=== PATIENT | female | born 2000 | race Caucasian/White ===

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

== ENCOUNTER 2019-03-28 11:21 | Emergency (ER) | payer MEDICAID, SELFPAY ==
[2019-03-28 11:22] VITALS: BP 129/74; PULSE 109; RESP 20; TEMP 37.2; BMI 29.9
[2019-03-28 11:41] VITALS: RESP 16
--- NOTE | 2019-03-28 11:56 | ED.DCSUM_ITS ---
- ER Visit Summary Date of Service: 03/28/19 Chief Complaint: Nausea, vomiting and diarrhea History of Present Illness: The patient is a 18 F no seen past medical history. Patient states yesterday started having nausea, vomiting diarrhea. Only mild abdominal cramping. No dysuria. No melena. No fever. Physical Examination: Young female no acute distress vital signs stable afebrile. She does not look septic or toxic. H EENT exam mildly dry mucous membranes. Neck nontender no lymphadenopathy. Lungs clear to auscultation bilaterally. Heart regular rhythm no murmur. Abdomen soft and nontender normal bowel sounds no peritoneal signs. No distention or signs of obstruction. Patient moving all 4 extremities. Skin unremarkable. No edema. Back nontender. Neurologically she is awake and alert with no focal motor deficits. Test Results: None Emergency Department Course and Treatment: History and exam are consistent with a viral gastroenteritis and mild dehydration. She will be treated with IV Zofran a liter normal saline p.o. fluid challenge. Repeat exam doing well at 1340 recovery room discharged home. Treatment Plan: Fluids and rest. Zofran for nausea. Return if worse. Follow- up with a primary care physician as needed. Disposition: Discharge Impression: Acute viral gastroenteritis Mild dehydration This note was generated with [employer] dictation software. It may contain incorrect words, spelling, and punctuation that were not noted in review of the chart prior to signing ED Disposition - Plan for ED Patient: Disposition: Home or Assisted Living Instructions: GASTROENTERITIS, Viral (5y-Adult) Prescriptions: Ondansetron [Zofran Odt] 4 mg PO Q8H PRN PRN #7 tab PRN Reason: Nausea Prescription Printed Referrals: Jose Carlos Browning MD [Primary Care Provider] - 3-5 Days if not improving Additional Instructions: Fluids and rest. Zofran as needed for nausea. Follow-up if not improving or return to ER feeling worse.
--- NOTE | 2019-03-28 11:58 | ED.DEP ---
ED Disposition - Plan for ED Patient: Disposition: Home or Assisted Living Instructions: GASTROENTERITIS, Viral (5y-Adult) Prescriptions: Ondansetron [Zofran Odt] 4 mg PO Q8H PRN PRN #7 tab PRN Reason: Nausea Prescription Printed Referrals: Jose Carlos Browning MD [Primary Care Provider] - 3-5 Days if not improving Additional Instructions: Fluids and rest. Zofran as needed for nausea. Follow-up if not improving or return to ER feeling worse.
[2019-03-28] MEDS: 0.9% Normal Saline 1,000 ML 1000 ML IV (12:56)
[2019-03-28] MEDS: Ondansetron 4 MG/2 ML Vial IV (12:56)
[2019-03-28 12:57] VITALS: BP 115/66; PULSE 70; RESP 15; O2SAT 100
[2019-03-28 13:55] VITALS: PULSE 89; RESP 15; O2SAT 99
== END 2019-03-28 13:55 | disposition home or self-care (01) ==
LOC: ED 12:12
PROVIDERS: Emergency Provider Emergency Medicine; Family Provider Family Medicine; PCP Family Medicine
DX: A08.4 Viral intestinal infection, unspecified (principal); E86.0 Dehydration; Z72.0 Tobacco use
CPT/HCPCS: 96361; 96374; 96375; 99285; J7030; A4216; J2405

== ENCOUNTER 2019-09-21 20:42 | Emergency (ER) | payer SELFPAY | END 2019-09-21 23:50 | disposition home or self-care (01) | LOC: ED 11-18 14:04 | PROVIDERS: PCP Family Medicine | DX: Z04.41 Encounter for examination and observation following alleged adult rape (principal) ==

== ENCOUNTER 2019-10-02 22:04 | Emergency (ER) | payer MEDICAID, SELFPAY ==
[2019-10-02 22:06] VITALS: BP 144/72; PULSE 105; RESP 18; TEMP 36.8; O2SAT 98; BMI 29.1
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
[2019-10-02 23:38] LABS: Absolute Lymphocyte Count 2.09 X10^3/uL (0.83-4.51); Absolute Neutrophil Count 7.2 X10^3/uL (2.0-7.7); Basophil# 0.03 X10^3/uL; Basophil% 0.3 % (0-1); Eosinophil# 0.14 X10^3/uL; Eosinophils% 1.3 % (0-5); Hematocrit 37.5 % (37-47); Hemoglobin 12.3 g/dL (12.0-15.0); Lymphocyte # 2.09 X10^3/ul (4.0); Lymphocyte % 19.9 % (19-41); Mean Corp Hgb Conc 32.8 g/dL (32-36); Mean Corpuscular Hgb 31.6 pg (27.0-32.0); Mean Corpuscular Volume 96.4 fL (81-99); Monocyte# 0.93 X10^3/uL; Monocyte% 8.9 % (0-10); NRBC Flagged by Analyzer 0 % (0-5); Neutrophil % 68.7 % (47-70); Platelet Count 297 K/mm3 (150-450); RBC Distribution Width CV 13.1 % (11.6-14.6); RBC Distribution Width SD 45.9 fl (35.1-43.9); Red Blood Count 3.89 M/mm3 (4.2-5.4); White Blood Count 10.5 K/mm3 (4.4-11.0)
[2019-10-02 23:46] VITALS: RESP 16
== END 2019-10-02 23:47 | disposition home or self-care (01) ==
PROVIDERS: Emergency Provider Emergency Medicine
DX: S30.0XXA Contusion of lower back and pelvis, initial encounter (principal); F17.200 Nicotine dependence, unspecified, uncomplicated; Y93.55 Activity, bike riding
CPT/HCPCS: 85025; 99283; A4216

== ENCOUNTER 2019-12-14 08:09 | Emergency (ER) | payer MEDICAID, SELFPAY ==
[2019-12-14 08:13] VITALS: PULSE 106; RESP 16; TEMP 36.9; O2SAT 98; BMI 24.3
--- NOTE | 2019-12-14 08:17 | ED.RN ---
patient is refusing for blood pressure to be taken and refuses to put id band on. patient states I do not want to be here.
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
--- NOTE | 2019-12-14 08:22 | ED.RN ---
PD AT BEDSIDE. DR. WAITE ATTEMPTED TO SEE PATIENT. PATIENT REFUSING TO BE SEEN. PATIENT STATES I JUST WANT TO GO TO [facility]. OFFICER LEFT WITH PATIENT.
== END 2019-12-14 08:25 ==
PROVIDERS: Emergency Provider Student in an Organized Health Care Education/Training Program
DX: R41.0 Disorientation, unspecified (principal); F17.200 Nicotine dependence, unspecified, uncomplicated
CPT/HCPCS: 99282

== ENCOUNTER 2022-08-20 14:48 | Emergency (ER) | payer MEDICAID, SELFPAY ==
[2022-08-20 14:49] VITALS: BP 127/75; PULSE 88; RESP 16; TEMP 36.6; O2SAT 97; BMI 33.5
--- NOTE | 2022-08-20 15:07 | EDS_ITS ---
HPI <CARLOS Salomon - Last Filed: 08/20/22 15:11> History of Present Illness Chief Complaint: Dental Narrative Narrative: Patient is a 21-year-old female with no significant medical history presents to the emergency department for 2 weeks of on and off right upper tooth pain. Patient states it is hurting her worse with sleep. It goes into her jaw and into her ear. She denies any drainage noted. She currently just got her care source back so she is looking for a dentist. PFSH <CARLOS Salomon - Last Filed: 08/20/22 15:11> PFSH Medical History no medical history Home Medications penicillin V potassium 500 mg tablet 500 mg PO 4X/DAY #40 tabs 08/20/22 [Rx Last Taken Unknown] Allergy/AdvReac Type Severity Reaction Status Date / Time No Known Allergies Allergy Verified 08/20/22 17:29 Family History no significant family his Surgical History no surgical history Social History Smoking Status: Current every day smoker tobacco type: cigarettes ROS <CARLOS Salomon - Last Filed: 08/20/22 15:11> ROS ED ROS Narrative Constitutional: Negative for fever, chills, weight loss, weakness Eyes: Negative for vision loss, vision change, double vision ENT: Negative for any sore throat, ear pain, congestion. Positive right upper jaw pain Cardiovascular: Negative for any chest pain, tightness, palpitations Respiratory: Negative for any cough, sputum production, hemoptysis, dyspnea, dyspnea on exertion, orthopnea Gastrointestinal: Negative for any abdominal pain, nausea, vomiting, diarrhea, constipation, blood in stool, blood in vomit : Negative for any urinary frequency, dysuria, retention, blood in urine Muscle skeletal: Negative for any muscle joint pain, stiffness, myalgias, arthralgias, neck pain, back pain Neurological: Negative for any headache, syncope, numbness or tingling, dizziness Skin: Negative for any rashes, lumps, itching, abrasions, lacerations Psychiatric: Negative for any depression, anxiety, stress, suicidal ideation, homicidal ideation Hematologic: Negative for any easy bruising, excessive bruising, easy bleeding Allergies: Negative for any eczema, hives, rash EXAM <CARLOS Salomon - Last Filed: 08/20/22 15:11> Physical Exam Narrative Exam Narrative: Vital signs reviewed. HEET: Head normocephalic atraumatic, TMs clear bilaterally. Posterior pharynx is clear, moist mucous membranes. Nares clear bilaterally. Patient tooth that is causing the problem is the right upper molar. There does appear to be a fracture to the lateral aspect however there is no root exposure. There is no fluctuation, evidence of deep tissue infection. Negative for any trismus. Neck: Supple with no lymphadenopathy or tenderness. No signs of meningismus, negative jolt sign. Cardiac: Regular rate and rhythm no murmurs gallops or rubs, equal peripheral pulses bilaterally. Respiratory: Lungs clear to auscultation bilaterally. No chest tenderness. Abdomen: Soft, nontender, nondistended. No abdominal bruit or pulsatile masses. No hepatosplenomegaly Extremities: No peripheral edema, no signs of gross trauma or deformity. Active full range of motion of all extremities. Neuro: Cranial nerves II through XII intact, no focal neurological deficits. Skin: Clean dry and intact with no rash, purpura, petechiae, vesicles or pustules. Backs/flank: No CVA tenderness, no midline spinal tenderness, no deformity. Psych: Normal mood and affect. No SI, HI or acute psychosis. Const Vital Signs: 08/20/22 14:49 Temperature 97.8 F Temperature Source Temporal Pulse Rate 88 Respiratory Rate 16 Blood Pressure 127/75 H Blood Pressure Mean 92 Pulse Ox 97 Oxygen Delivery Method Room Air <Dr. Tanner Us DO - Last Filed: 08/20/22 22:17> Physical Exam Const Vital Signs: 08/20/22 14:49 Temperature 97.8 F Temperature Source Temporal Pulse Rate 88 Respiratory Rate 16 Blood Pressure 127/75 H Blood Pressure Mean 92 Pulse Ox 97 Oxygen Delivery Method Room Air [facility] <CARLOS Salomon - Last Filed: 08/20/22 15:11> [facility] Treatment and Re-Evaluation Narrative: Patient appears well, patient appears nontoxic, vital signs are stable. Patient presents to the emergency department for right-sided upper molar tooth pain for 2 weeks. Physical examination is consistent with dental caries, patient placed on penicillin this is safe for as well as Tylenol. She will be given a dental referral list. There is no evidence of any red flag signs, patient has no deep tissue infection, no abscess formation. She will take antibiotics till completion will follow-up outpatient. <Dr. Tanner Us, DO - Last Filed: 08/20/22 22:17> [facility] MDM Narrative Medical decision making narrative: Attending note: Patient seen and evaluated with mash grinder. I perform my own [id number] evaluation. I agree with the plan of work-up. Increasing right upper dental pain. G1, P0 4-week gestation by dates. No fevers. Hot and cold sensitivities. No current dentist. Differential cavity versus abscess. Exam right upper molar fracture with DKA. No focal abscess. No sublingual edema. Patient started on penicillin and Tylenol. Dental list given for follow-up. Discharge Plan Triage Chief Complaint: Dental ED Midlevel Provider: Ananda Fleming ED Provider: Tanner Us Dx/Rx/DC Orders Clinical Impression: Dental abscess Prescriptions: New penicillin V potassium 500 mg tablet 500 mg PO 4X/DAY Qty: 40 0RF Primary Care Provider: Care Physician,No Primary Referrals: Care Physician,No Primary [Primary Care Provider] - Activity Restrictions/Additional Instructions: Please follow-up with a dentist. Ensure you follow-up with your [facility]. You are to take Tylenol for pain, penicillin is safe. Disposition Disposition: Home, Self Care Discharge Date/Time: 08/20/22 15:25
[2022-08-20] MEDS: Acetaminophen 500 MG Tablet 1000 MG PO (15:20)
== END 2022-08-20 15:25 | disposition home or self-care (01) ==
PROVIDERS: Emergency Provider Emergency Medicine; Visit Provider Emergency Medicine
DX: O99.611 Diseases of the digestive system complicating pregnancy, first trimester (principal); K04.7 Periapical abscess without sinus; Z3A.01 Less than 8 weeks gestation of pregnancy; O99.331 Smoking (tobacco) complicating pregnancy, first trimester; F17.210 Nicotine dependence, cigarettes, uncomplicated
CPT/HCPCS: 99283

== ENCOUNTER 2022-08-20 17:26 | Emergency (ER) | payer MEDICAID, SELFPAY ==
[2022-08-20 17:27] VITALS: BP 128/74; PULSE 81; RESP 16; TEMP 36.4; O2SAT 97; BMI 33.5
--- NOTE | 2022-08-20 17:38 | US_ITS ---
STUDY: FIRST TRIMESTER OBSTETRICAL ULTRASOUND REASON FOR EXAM: Female, 21 years old pelvic pain -- 4 weeks by dates LMP: 07/09/2022 TECHNIQUE: Transvaginal TECHNICAL QUALITY: Adequate. PRIOR ULTRASOUND: None. FINDINGS: There is visualization of a single gestational sac in a normal intrauterine position. The mean sac diameter (MSD) measures 1.28 cm, indicating an estimated gestational age (EGA) of 6 weeks, 1 days. The gestational sac shape is within normal limits. There is a visualized yolk sac. The yolk sac measures 2.4 mm. The placenta is non-visualized. There is visualization of a live embryo. The crown-rump length (CRL) measures 2.5 mm, indicating an estimated gestational age (EGA) of 6 weeks, 1 days. There is demonstrated cardiac activity with a heart rate of 102 bpm. The estimated gestation age (EGA) by LMP is 6 weeks, 0 days. The estimated date of delivery ([place]ARR[place]) by LMP is 04/15/2023. The estimated gestation age (EGA) by US is 6 weeks, 1 days. The estimated date of delivery (W[place]EN) by US is 04/14/2023. The uterus measures 9.7 x 6.0 x 5.1 cm. There is no demonstrated uterine fibroid. The cervix is closed. The right ovary measures 2.6 x 1.8 x 2.2 cm. There is no right ovarian cyst. There is no visualized right adnexal mass or complex lesion. The left ovary measures 2.8 x 2.1 x 2.2 cm. There is no left ovarian cyst. There is no visualized left adnexal mass or complex lesion. There is no fluid in the cul de sac. US/Transvaginal w/Preg US IMPRESSION: Single live intrauterine correlating to gestational age of 6 weeks and 1 day. Electronically Signed: Rohit Galicia (Bro[place]), at 19:01 EDT ,
--- NOTE | 2022-08-20 17:51 | EX.ED.DYSGE1 ---
HPI History of Present Illness Chief Complaint: Abd Pain Informant: patient Narrative Narrative: Patient presents reporting sudden right pelvic pain after leaving the ED today. She was seen for dental pain placed on penicillin given Tylenol. She is G1, P0 4-week gestation by dates had a positive test from [facility]. She does not have an OB appointment. She denies vaginal bleeding. She reports her sister had an ectopic and states is concerned of this. No urinary symptoms. No fevers. No nausea or vomiting. Prior similar symptoms: No PFSH PFSH Home Medications penicillin V potassium 500 mg tablet 500 mg PO 4X/DAY #40 tabs 08/20/22 [Rx Last Taken Unknown] Allergy/AdvReac Type Severity Reaction Status Date / Time No Known Allergies Allergy Verified 08/20/22 17:29 Social History Smoking Status: Current every day smoker tobacco type: cigarettes ROS ROS ED Constitutional Constitutional ED: Denies chills, fever(s) or sweats Eyes Eyes: Denies change in vision ENT ENT ED: Denies dysphagia or sore throat Cardiovascular Cardiovascular: Denies chest pain, leg edema, palpitations or racing heartbeat Respiratory/Chest Respiratory/Chest: Denies cough, dyspnea or dyspnea on exertion Gastrointestinal Gastrointestinal: Denies abdominal pain, diarrhea, nausea or vomiting Genitourinary Genitourinary ED: Reports other Details: Right pelvic pain ; Denies dysuria, hematuria or urinary frequency Musculoskeletal Musculoskeletal: Denies back pain, extremity pain or neck pain Integumentary Denies rash or wounds Neurologic Neurologic: Denies headache(s), paresthesias or weakness EXAM Physical Exam Const Vital Signs: 08/20/22 17:27 Temperature 97.5 F L Temperature Source Temporal Pulse Rate 81 Respiratory Rate 16 Blood Pressure 128/74 H Blood Pressure Mean 92 Pulse Ox 97 Oxygen Delivery Method Room Air Positive well nourished and well developed General Appearance ED: well developed and NAD HEENT Reports moist mucous membranes normocephalic and atraumatic Eyes PERRL, EOMs intact bilaterally and conjunctivae normal General Eye ED: Yes normal appearance of both eyes Neck no lymphadenopathy and supple General: Negative for tenderness Chest Wall Chest: Negative for tenderness Resp normal respiratory effort and normal air movement Effort and Inspection: symmetric chest movement; Negative for respiratory distress Cardio regular rate, regular rhythm and no murmurs Peripheral Pulses: pulses 2+ throughout GI normal to inspection, nondistended, normoactive bowel sounds and non-tender Palpation: Negative for guarding or rebound tenderness present Back/Spine no CVA tenderness and no thoracic nor lumbar tenderness Extremity normal to inspection General Extremety ED: Negative for edema or tenderness General Extremity: Negative for edema Neuro oriented x3 and no sensory deficits noted Sensorium / Orientation: awake and alert Skin no rashes or lesions noted and no wounds MDM MDM MDM Narrative Medical decision making narrative: Interventions / MDM: Differential diagnosis: First trimester , ectopic , ovarian cyst Diagnosis considered but do not suspect: N/A My EKG interpretation: N/A Imaging independently reviewed and interpreted by myself: Transvaginal pelvic ultrasound: External documents reviewed: N/A Test considered but not ordered:N/A ED course: Patient nontoxic. Reported with pelvic pain. Will obtain urine hCG, serum quant levels, will obtain a transvaginal ultrasound for evaluation. Re-evaluation: stable. Urine negative for infection. Her quant levels 11,669. Ultrasound 6 weeks 1 day intrauterine gestation heart tones 105. Patient reassured, she will continue prenatals at home. She is followed and managed by care center. She will follow-up with them. Disposition discussed with patient/family/significant other: Patient and significant other Case discussed with consulting clinician: N/A Lab Data Attestation: I reviewed the patient's lab results. Labs: Laboratory Results - last 24 hr 08/20/22 08/20/22 17:45 17:50 HCG, Quant [id number] H Urine Color Yellow Urine Clarity Clear Urine pH 6.5 Ur Specific [place] 1.020 Urine Protein 15 H Urine Glucose (UA) Normal Urine Ketones Negative Urine Occult Blood Negative Urine Nitrite Negative Urine Bilirubin Negative Urine Urobilinogen 1 H Ur Leukocyte Esterase Negative Urine RBC 0 SEEN Urine WBC 0 SEEN Ur Squamous Epith Cells 0 SEEN Urine Bacteria 0 SEEN Urine Mucus 0 SEEN Urine Test Positive H Radiography Diagnostic Testing: Clinical Impression(s) from Imaging Studies Obstetrics Ultrasound 08/20/22 17:38 IMPRESSION: Single live intrauterine correlating to gestational age of 6 weeks and 1 day. Electronically Signed: Rohit Galicia ([place]), at 19:01 EDT Reading Location ID and State: [facility] / [place] , Service support , Discharge Plan Triage Chief Complaint: Abd Pain ED Provider: Tanner Us Dx/Rx/DC Orders Clinical Impression: First trimester , Pelvic pain affecting Instructions: 1st Trimester Prescriptions: No Action penicillin V potassium 500 mg tablet 500 mg PO 4X/DAY Qty: 40 0RF Primary Care Provider: Care Physician,No Primary Referrals: Care Physician,No Primary [Primary Care Provider] - Activity Restrictions/Additional Instructions: 6 weeks 1 day in your uterus. No ectopic. No cyst. Urinating for infection. Continue vitamins. Follow-up with her care center as they are managing your OB needs. Disposition Disposition: Home, Self Care
[2022-08-20 17:56] LABS: Bacteria 0 SEEN /hpf (None Seen); Color, Urine Yellow (Yellow); Glucose, Dipstick Normal (Normal); Ketone-Dipstick Negative (Negative); Leukocyte Esterase-Dipstick Negative /ul (Negative); Mucous, Urine 0 SEEN /hpf (<or=2+); Nitrite-Dipstick Negative (Negative); Occult Blood-Urine Negative /ul (Negative); Protein-Dipstick 15 mg/dl (Negative); Red Blood Cells-Urine 0 SEEN /hpf (0-5); Squamous Epithelial Cells - UA 0 SEEN /hpf (5-10); Urine Bilirubin Dipstick Negative (Negative); Urine Clarity Clear (Clear); Urine Urobilinogen 1 mg/dl (Normal); Urine pH 6.5 (5.0 - 8.0); White Blood Cells 0 SEEN /hpf (0-5)
[2022-08-20 18:10] LABS: Internal QC Validated? YES +Cl - CLEAR BKGD
[2022-08-20 18:11] LABS: Pregnancy, Urine Positive Negative
[2022-08-20 18:45] LABS: hCG Titer Quant., Serum 11669 mIU/mL (1-3)
== END 2022-08-20 19:10 | disposition home or self-care (01) ==
PROVIDERS: Emergency Provider Emergency Medicine; Visit Provider Emergency Medicine
DX: O26.891 Other specified pregnancy related conditions, first trimester (principal); F17.210 Nicotine dependence, cigarettes, uncomplicated; O99.611 Diseases of the digestive system complicating pregnancy, first trimester; R10.2 Pelvic and perineal pain; O99.331 Smoking (tobacco) complicating pregnancy, first trimester; Z3A.01 Less than 8 weeks gestation of pregnancy; K04.7 Periapical abscess without sinus
CPT/HCPCS: 36415; 76817; 81001; 81025; 84702; 99282; 99283

== ENCOUNTER 2022-09-09 09:05 | Emergency (ER) | payer MEDICAID, SELFPAY ==
[2022-09-09 09:06] VITALS: BP 117/77; PULSE 103; RESP 14; TEMP 36.1; O2SAT 98; BMI 34.0
--- NOTE | 2022-09-09 09:57 | EX.ED.DYSGE1 ---
HPI History of Present Illness Chief Complaint: Rash Informant: patient Onset/Context/Timing Onset: Days (3-4) Context: Gradual Onset Timing: Continuous Quality: pruritic, burn Location: both inner thighs Current Severity: Moderate Maximum Severity: Moderate Narrative Narrative: Patient concerned that she caught her boyfriend's jock itch from having intercourse with him. She has 2 areas of red itchy rash on her proximal inner thighs. She has no other symptoms. PFSH PFSH Home Medications penicillin V potassium 500 mg tablet 500 mg PO 4X/DAY #40 tabs 08/20/22 [Rx Last Taken Unknown] clotrimazole 1 % topical cream (Athletic Foot Cream) 1 applic topical BID 2 weeks #15 grams 09/09/22 [Rx Last Taken Unknown] Allergy/AdvReac Type Severity Reaction Status Date / Time No Known Allergies Allergy Verified 09/09/22 09:06 Social History Smoking Status: Current every day smoker tobacco type: cigarettes ROS ROS ED Constitutional Constitutional ED: Denies chills or fever(s) Integumentary Reports as per HPI, pruritus and rash EXAM Physical Exam Const Vital Signs: 09/09/22 09:06 Temperature 97 F L Temperature Source Temporal Pulse Rate 103 H Respiratory Rate 14 Blood Pressure 117/77 Blood Pressure Mean 90 Pulse Ox 98 Oxygen Delivery Method Room Air Positive well nourished and well developed General Appearance ED: well developed and NAD Neuro oriented x3 and gait normal Psych mental status grossly normal Skin Skin Narrative: 2 nontender blanching patches of erythema about 5 or 6 cm in diameter, 1 on each inner thigh, proximally. Appears symmetric. No raised lesions, bullae, petechiae, purpura. MDM MDM MDM Narrative Medical decision making narrative: Patient has not tried anything for this. It does not look like ringworm or obvious tinea right now, however I think it is certainly reasonable to treat empirically for this simply with topical clotrimazole she does not need anything systemic, advised to add hydrocortisone topically as needed. Discharge Plan Triage Chief Complaint: Rash ED Provider: Paulo Carrion Dx/Rx/DC Orders Clinical Impression: Tinea Instructions: ED Ringworm, Skin Prescriptions: New clotrimazole [Athletic Foot Cream] 1 % cream 1 applic topical BID 14 Days Qty: 15 0RF No Action penicillin V potassium 500 mg tablet 500 mg PO 4X/DAY Qty: 40 0RF Primary Care Provider: Care Physician,No Primary Referrals: Doctor,Your [Non-Staff] - 1-2 Weeks Activity Restrictions/Additional Instructions: May also apply hydrocortisone 1% cream to affected areas 1-2 times daily as needed for itching along with the other cream if needed Disposition Disposition: Home, Self Care
[2022-09-09 10:03] VITALS: BP 108/77; PULSE 62; RESP 15; O2SAT 98
== END 2022-09-09 10:08 | disposition home or self-care (01) ==
LOC: ED 10:04
PROVIDERS: Emergency Provider Emergency Medicine; Visit Provider Emergency Medicine
DX: B35.8 Other dermatophytoses (principal); R21 Rash and other nonspecific skin eruption; F17.210 Nicotine dependence, cigarettes, uncomplicated
CPT/HCPCS: 99282

== ENCOUNTER → 2022-09-15 | Outpatient (CLI) | payer MEDICAID, SELFPAY ==
[2022-09-15 15:38] LABS: Absolute Neutrophil Count 8.6 X10^3/uL (2.0-7.7); Basophil# 0.04 X10^3/uL; Basophil% 0.3 % (0-1); Eosinophils% 0.9 % (0-5); Hematocrit 40.2 % (37-47); Hemoglobin 13.6 g/dL (12.0-15.0); Lymphocyte % 17.5 % (19-41); Mean Corp Hgb Conc 33.8 g/dL (32-36); Mean Corpuscular Hgb 31.4 pg (27.0-32.0); Mean Corpuscular Volume 92.8 fL (81-99); Monocyte# 0.68 X10^3/uL; Monocyte% 5.9 % (0-10); NRBC Flagged by Analyzer 0 % (0-5); Neutrophil # 8.55 X10^3/uL (2.7-7.7); Neutrophil % 74.9 % (47-70); Platelet Count 364 K/mm3 (150-450); RBC Distribution Width CV 11.9 % (11.6-14.6); RBC Distribution Width SD 40.8 fl (35.1-43.9); Red Blood Count 4.33 M/mm3 (4.2-5.4); White Blood Count 11.4 K/mm3 (4.4-11.0)
[2022-09-15 17:09] LABS: HIV - WCH Non-Reactive (Nonreactive); Hepatitis B Surface Antigen Non-Reactive (Nonreactive); Hepatitis C Antibody Non-Reactive (Nonreactive); Rubella IgG Reactive (Nonreactive); Syphilis Antibodies Non-reactive
[2022-09-17 05:07] LABS: V-Zoster IgG (Immunity) 1104 index (Immune >165)
[2022-09-20 17:56] LABS: HPV Reflexed? NOT INDICATED
== END | disposition home or self-care (01) ==
LOC: WOBLAB 14:48
PROVIDERS: Visit Provider Obstetrics & Gynecology
DX: N91.2 Amenorrhea, unspecified (principal)
CPT/HCPCS: 36415; 85025; 86703; 86762; 86780; 86787; 86803; 87086; 87340; 88175; G0145

== ENCOUNTER 2023-04-01 11:42 | Outpatient (CLI) | payer MEDICAID, SELFPAY ==
[2023-04-01] VITALS (9 sets, daily range): BP systolic 117–161; BP diastolic 75–87; PULSE 74–114; BMI 42.6
--- OUTSIDE RECORDS SUMMARY | 2023-04-01 11:51 | XMS RPT_ITS | CCD ---
Author Name Unknown Address [id number] [place] [address] Organization [facility] Care Team Providers Care Fha Underwriter Name Role Phone ALEXI LEARY Unavailable Unavailable LEANNE JOHNSON Unavailable Unavailable DAVID YUNG Unavailable Unavailable LEANNE JOHNSON Unavailable Unavailable SAM RAJAN Unavailable Unavailable LEANNE JOHNSON Unavailable Unavailable Unavailable Primary Care Provider UnavailJOY Pa Referring Unavailable JOY RODRIGUEZ Attending Unavailable JOY RODRIGUEZ Attending Unavailable TRIPP FLORES Attending Unavailable JOY RODRIGUEZ Referring Unavailable JOY RODRIGUEZ Attending Unavailable Medications Completed/Discontinued Medications Medication Drug Class(es) Dates Sig (Normalized) Sig (Original) 21 day ethinyl estradiol 0.828309 mg/hr / etonogestrel 0.005 mg/hr vaginal system (3 sources) Progestin, Estrogen Start: 08-23-2018 End: 01-17-2023 Etonogestrel-Ethinyl Estradiol (NUVARING) 0.12-0.015 mg/24 hr vaginal ring Indications: Encounter for initial prescription of vaginal ring hormonal contraceptive Use 1 Each vaginally as directed. INSERT ONE(1) RING VAGINALLY AND LEAVE IN PLACE FOR THREE WEEKS, THEN REMOVE FOR 1 WEEK. 3 Each 3 08/23/2018 01/17/2023 Discontinued Problems Problem Classification Problem Date Documented Date Episodic/Chronic Administrative/social admission (7 sources) Residence and accommodation circumstances - finding; Translations: [Housing instability, currently housed] Onset: 01-09-2023 01-09-2023 Episodic Blindness and vision defects (6 sources) Blind left eye; Translations: [Blindness, one eye, unspecified eye] Onset: 08-23-2018 08-23-2018 Chronic Diabetes or abnormal glucose tolerance complicating ; childbirth; or the puerperium (1 source) Abnormal glucose level; Translations: [Abnormal glucose complicating ] 03-14-2023 Episodic Disorders of teeth and jaw (7 sources) Dental abscess; Translations: [Periapical abscess without sinus] Onset: 01-09-2023 01-09-2023 Episodic Other complications of (1 source) Maternal obesity complicating , childbirth and the puerperium, antepartum; Translations: [Obesity complicating , third trimester] 02-17-2023 Chronic Other complications of (1 source) Pain in pelvis; Translations: [Other specified related conditions, unspecified trimester] 01-09-2023 Episodic Other complications of (6 sources) Pain in female pelvis; Translations: [Other specified related conditions, unspecified trimester] Onset: 01-09-2023 01-09-2023 Episodic Other complications of (3 sources) Excessive weight gain in , third trimester; Translations: [Edema or excessive weight gain in , without mention of hypertension, antepartum condition or complication] Onset: 01-17-2023 01-17-2023 Episodic Other and delivery including normal (12 sources) ; Translations: [Encounter for supervision of normal , unspecified, unspecified trimester] Onset: 01-09-2023 01-09-2023 Episodic Other screening for suspected conditions (not mental disorders or infectious disease) (1 source) Patient encounter status; Translations: [Encounter for other specified screening] 02-17-2023 Episodic Residual codes; unclassified (7 sources) FH: Congenital anomaly; Translations: [Family history of other congenital malformations, deformations and chromosomal abnormalities] Onset: 01-09-2023 01-09-2023 Episodic Residual codes; unclassified (7 sources) Nicotine-filled electronic cigarette user; Translations: [Tobacco use] Onset: 01-09-2023 01-09-2023 Episodic Residual codes; unclassified (1 source) Gestation period, 27 weeks; Translations: [27 weeks gestation of ] 01-17-2023 Episodic Residual codes; unclassified (1 source) Gestation period, 31 weeks; Translations: [31 weeks gestation of ] 02-17-2023 Episodic Residual codes; unclassified (1 source) Gestation period, 35 weeks; Translations: [35 weeks gestation of ] 03-14-2023 Episodic Residual codes; unclassified (1 source) 27 weeks gestation of ; Translations: [27 weeks gestation of ] Onset: 02-17-2023 Episodic Screening and history of mental health and substance abuse codes (7 sources) H/O: depression; Translations: [Personal history of other mental and behavioral disorders] Onset: 01-09-2023 01-09-2023 Episodic Substance-related disorders (7 sources) History of drug abuse; Translations: [History of drug use] Onset: 01-09-2023 01-09-2023 Chronic Results Test Name Value Interpretation Reference Range Facil ity Vital Signs Date Time Vital Sign Value Performing Clinician Faci lity 03-14-2023 13:06-0500 Body weight 116.76 kg Joy Rodriguez MD Work Phone: [facility] 03-14-2023 13:06-0500 Diastolic blood pressure 82 mm[Hg] Joy Rodriguez MD Work Phone: [facility] 03-14-2023 13:06-0500 Systolic blood pressure 134 mm[Hg] Joy Rodriguez MD Work Phone: [facility] 02-17-2023 14:02-0500 Body weight 112.04 kg Ob Ultrasound Work Phone: [facility] 01-17-2023 14:04-0400 Body height 167.6 cm Joy Rodriguez MD Work Phone: [facility] 01-17-2023 14:04-0400 Body weight 107.96 kg Joy Rodriguez MD Work Phone: [facility] 01-17-2023 14:04-0400 Diastolic blood pressure 70 mm[Hg] Joy Rodriguez MD Work Phone: [facility] 01-17-2023 14:04-0400 Systolic blood pressure 110 mm[Hg] Joy Rodriguez MD Work Phone: [facility] Encounters Encounter Date Encounter Type Care Provider Facility Start: 03-24-2023 End: 03-24-2023 ambulatory JOY RODRIGUEZ Facility:[facility] Start: 03-23-2023 End: 03-23-2023 ambulatory TRIPP FLORES Facility:[facility] Start: 03-14-2023 End: 03-15-2023 ambulatory JOY RODRIGUEZ Facility:[facility] Start: 03-14-2023 Telephone encounter Joy diehl MD Work Phone: OB/Gynecology Procedures Date Procedure Procedure Detail Performing Clinician Start: 03-14-2023 URINE OB DIP B/O Joy Rodriguez MD Work Phone: Start: 02-17-2023 Us preg uterus after 1st trimest 04/03 gestation Joy Rodriguez MD Work Phone: Start: 01-17-2023 URINE OB DIP B/O Joy Rodriguez MD Work Phone: Plan of Treatment Date Care Activity Detail Author Start: 09-15-2025 Pap Testing Pap Testing [facility] Start: 09-15-2025 Screening for malignant neoplasm of cervix Pap Testing [facility] Start: 09-16-2023 Chlamydia Screening (18-24) Chlamydia Screening (18-24) [facility] Start: 09-16-2023 GC (Gonorrhea) Screening (18-24) GC (Gonorrhea) Screening (18-24) [facility] Start: 09-16-2023 Screening for Chlamydia trachomatis Chlamydia Screening (18-24) [facility] Start: 03-14-2023 End: 06-13-2023 GEST GLUC TANO, 3-HR, 100 GM, FASTING GEST GLUC TANO, 3-HR, 100 GM, FASTING Lab Routine Abnormal glucose complicating Expected: 03/14/2023, Expires: 06/13/2023 [facility] Work Phone: Payers Date Payer Category Payer Medicaid [employer] [id number] 2022-Present [phone] [address] [place] [address] Medicaid [id number] 2016 Unknown [id number] Social History Date Type Detail Facility Start: 01-09-2023 Tobacco smoking stat us NHIS Ex-smoker [facility] Work Phone: History of tobacco use Current smoker [facility] Work Phone: History of tobacco use Cigarette Smoker C [facility] Work Phone: Start: 01-09-2023 End: 03-14-2023 Cigarettes smoked current (pack per day) - Reported 0.3 [facility] Start: 01-09-2023 Tobacco use and exposure Smoke less tobacco non-user [facility] Work Phone: Start: 01-09-2023 End: 03-14-2023 Alcohol intake Ex-drinker (finding) [facility] Start: 08-23-2018 End: 01-09-2023 Alcohol Use Disorder Identification Test - Consumption [AUDIT-C] [facility] How often to you hav e a drink containing alcohol? Never [facility] Average Number of Drinks Not on file [facility] Start: 01-09-2023 Education 10 [facility] Start: 07-23-2022 [facility] Start: 1999 Sex Assigned At Not on file C [facility] Goals Date Patient Goal Desired Activity /State Personal health goal Clinical Notes 10-11-2022 to 03-14-2023 Telephone Encounter - Aliza Means RN - 03/14/2023 4:26 PM ESTTelephone Encounter - Joy Rodriguez MD - 03/14/2023 4:22 PM ESTTelephone Encounter - Aliza Means RN - 03/14/2023 4:16 PM EST Note Date & Type Note Facility 03-14-2023 Miscellaneous Notes Formattin g of this note might be different from the original. Patient is doing 3 hour GTT this Saturday 03/17. Order linked to upcoming appointment. Aliza Means RN 3gr GTT filed. Does patient think she can do 3hr in the next week? If not I would recommend proceeding with diabetic education and checking her BS. Joy Rodriguez MD Patient had 1 hour glucose test today and saw her results on [employer]. Reviewed results and instructions for 3 hour GTT. Appointment scheduled. Please file pended order, will need to be attached to upcoming appointment. Aliza Means RN documented in this encounter [facility] 03-14-2023 Miscellaneous Notes Formattin g of this note might be different from the original. KJ - VB No. LOF No. CTXS No. Movement: present. Other c/o: No. Medication list reviewed. Physical Exam See Flow Sheet Gen: no accute distress, well appearing Abd: soft, nontender, gravid A/P 35w3d Estimated Date of Delivery: 04/15/23 Discussed importance of 28wk labs & patient will do them today Excessive weight gain in - growth US ordered PTL precautions reviewed, Kick counts reviewed. Joy Rodriguez MD documented in this encounter [facility] 03-14-2023 Instructions Elizabeth Aguilar Ma - 03/14/2023 1:01 PM EST SEQUENTIAL SCREENINGS The [facility] offers sequential screenings for women who are interested in screenings for chromosomal abnormalities and certain defects during a . The sequential screen combines ultrasound and blood tests to determine the risk of chromosomal abnormalities, including Down's Syndrome (Trisomy 21) and Trisomy 18, as well as open neural tube defects including spina bifida. Ultrasound examination is performed between 11 weeks and 13 weeks gestational age. Blood tests are drawn after the ultrasound and again later in the between 15 and 21 weeks gestational age. Please let your physician know if you are interested in this testing. It will require an appointment with our fibre composite technician. This is not an ultrasound performed by a physician in our office during a routine visit. SIGNS AND SYMPTOMS OF LABOR 1. Contractions every 10 minutes or more often 2. Clear, pink, or brownish fluid (water) leaking from vagina 3. Feeling that baby is pushing down, pressure 4. Low, dull backache 5. Cramps that feel like a period 6. Cramps with or without diarrhea If you notice any of the above symptoms, contact our office at [phone] and ask to speak with a nurse. After hours, you can call doctors registry at [phone] OR call [facility] at [phone] and ask to have the doctor cost controller paged. If you consider this an emergency, dial 6 or go to your nearest emergency department. NEED HELP? Are you dealing with a violent or abusive relationship? Are you a victim of rape or sexual assult? Call [facility] ([place]) 24 hour Crisis Hotline: 217.739.7956 or 565-818-5856. MANUAL Your Guide to a Healthy manual is now on-line. Visit [email or web address] to download your free copy documented in this encounter [facility] 01-17-2023 Note HNO ID: [id number] Author: Joy Rodriguez MD Service: ? Author Type: Physician Type: Progress Notes Filed: 01/17/2023 2:43 PM Note Text: INITIAL OB ASSESSMENT OB Provider: Joy Rodriguez MD HPI: Elli is a 22 year old White here to establish Obstetrical Care. Patient's last menstrual period was 07/09/2022. from OB Dating Form. Cycles regular was unplanned (but did nothing to prevent, but accepted Complaints: None OB History T0 L0 SAB0 IAB0 Ectopic0 Multiple0 Live Births0 Patient's Risk Screening for delivery: Have you had a prior faith between 20w and 36w6d?: No MEDICAL/PSYCHOSOCIAL HISTORY: History of hemorrhage or bleeding concerns: No Thyroid Disease: No History of chronic hypertension: No History of pre-existing diabetes: No No results found for: ABORHD No weight on file for this encounter. History of abnormal pap: No Prior treatment for cervical dysplasia: none. History of STDs: trichomonas Tobacco use: Yes vapes occasionally-nicotine Caffeine use: Yes drinks 1 cup of coffee 2-3 times a week Drug use: No Alcohol use: No Multivitamin with Folic acid: Yes Episcopal or heritage: No Would refuse blood transfusion if medically necessary: No Are you currently employed? No Do you have any history of depression, anxiety, PTSD, eating disorders or other mood problems: Yes Do you have any safety concerns or history of traumatic events that you would like to discuss with your provider: No SDOH Screening: How often does this describe you? I don't have enough money to pay my bills: Sometimes by situation has improved recently WIC appt this month Within the past 12 months, have you worried that your food would run out before you had money to buy more: Rarely In the past 12 months, has lack of reliable transportation kept you from going to medical appointments or work, or from keeping things needed for daily living: Sometimes but improving . no w getting transportation through medicaid for appts In the past 12 months, have you had any concerns about having a place to live, or about the condition or quality of your housing: Sometimes , when living elsewhere, Now in stable home situation Are there any cultural or spiritual needs we should be aware of: No Depression/Anxiety Screening: denies symptoms of depression. OB Depression and Anxiety Screening- This Encounter (since 01/08/2023) Over the past 2 weeks have you felt down, depressed, or hopeless? Negative Over the past two weeks, have you felt little interest or pleasure in doing things?? Negative Feeling nervous, anxious or on edge 1-Several days Not being able to stop or control worrying 0-Not al all Anxiety Pre-Screening Total (If >/= 3 additional questions will be reviewed) 1 Genetic Screening: Partner present: No Patient verbalized knowledge of partner family health history: Yes Do you or your partner have any personal or family history of defects not previously discussed: No Do you have history of a complicated by anomaly, genetic condition, or demise: No ACOG Recommended Screening Screening for early gestational diabetes testing: Criteria for early testing requires elevated BMI plus one other risk factor: No weight on file for this encounter. 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 Etonogestrel-Ethinyl Estradiol (NUVARING) 0.12-0.015 mg/24 hr vaginal ring Use 1 Each vaginally as directed. INSERT ONE(1) RING VAGINALLY AND LEAVE IN PLACE FOR THREE WEEKS, THEN REMOVE FOR 1 WEEK. (Patient not taking: Reported on 10/11/2022) 3 Each 3 No current facility-administered medications for this visit. Attending Note I have personally performed a face to face assessment of the patient and have reviewed the CHUCKIE note. I performed a substantive portion of the visit including all aspects of the following. Other additions or changes: None Signature: Jyo Rodriguez MD Date: 01/17/2023 Time: 2:36 PM [facility] 01-17-2023 Miscellaneous Notes Formattin g of this note might be different from the original. KJ - VB No. LOF No. CTXS No. Movement: present. Other c/o: Pelvic cramps Medication list reviewed. Physical Exam See Flow Sheet Gen: no accute distress, well appearing Abd: soft, nontender, gravid A/P 27w3d Estimated Date of Delivery: 04/15/23 Labs: 28 week labs ordered Vaping - patient is decreasing Excessive weight gain - growth US at 32 weeks. Discussed healthy weight gain in . Declines [facility] peds info today Declines Tdap & fluc vaccinee PTL precautions reviewed, Kick counts reviewed. Joy Rodriguez MD documented in this encounter [facility] 01-17-2023 History of Presen t illness Narrative INITIAL OB ASSESSMENT OB Provider: Joy Rodriguez MD HPI: Elli is a 22 year old White here to establish Obstetrical Care. Patient's last menstrual period was 07/09/2022. from OB Dating Form. Cycles regular was unplanned (but did nothing to prevent, but accepted Complaints: None OB History T0 L0 SAB0 IAB0 Ectopic0 Multiple0 Live Births0 Patient's Risk Screening for delivery: Have you had a prior faith between 20w and 36w6d?: No MEDICAL/PSYCHOSOCIAL HISTORY: History of hemorrhage or bleeding concerns: No Thyroid Disease: No History of chronic hypertension: No History of pre-existing diabetes: No No results found for: ABORHD No weight on file for this encounter. History of abnormal pap: No Prior treatment for cervical dysplasia: none. History of STDs: trichomonas Tobacco use: Yes vapes occasionally-nicotine Caffeine use: Yes drinks 1 cup of coffee 2-3 times a week Drug use: No Alcohol use: No Multivitamin with Folic acid: Yes Episcopal or heritage: No Would refuse blood transfusion if medically necessary: No Are you currently employed? No Do you have any history of depression, anxiety, PTSD, eating disorders or other mood problems: Yes Do you have any safety concerns or history of traumatic events that you would like to discuss with your provider: No SDOH Screening: How often does this describe you? I don't have enough money to pay my bills: Sometimes by situation has improved recently WIC appt this month Within the past 12 months, have you worried that your food would run out before you had money to buy more: Rarely In the past 12 months, has lack of reliable transportation kept you from going to medical appointments or work, or from keeping things needed for daily living: Sometimes but improving . no w getting transportation through medicaid for appts In the past 12 months, have you had any concerns about having a place to live, or about the condition or quality of your housing: Sometimes , when living elsewhere, Now in stable home situation Are there any cultural or spiritual needs we should be aware of: No Depression/Anxiety Screening: denies symptoms of depression. OB Depression and Anxiety Screening- This Encounter (since 01/08/2023) Over the past 2 weeks have you felt down, depressed, or hopeless? Negative Over the past two weeks, have you felt little interest or pleasure in doing things? Negative Feeling nervous, anxious or on edge 1-Several days Not being able to stop or control worrying 0-Not al all Anxiety Pre-Screening Total (If >/= 3 additional questions will be reviewed) 1 Genetic Screening: Partner present: No Patient verbalized knowledge of partner family health history: Yes Do you or your partner have any personal or family history of defects not previously discussed: No Do you have history of a complicated by anomaly, genetic condition, or demise: No ACOG Recommended Screening Screening for early gestational diabetes testing: Criteria for early testing requires elevated BMI plus one other risk factor: No weight on file for this encounter. 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 Etonogestrel-Ethinyl Estradiol (NUVARING) 0.12-0.015 mg/24 hr vaginal ring Use 1 Each vaginally as directed. INSERT ONE(1) RING VAGINALLY AND LEAVE IN PLACE FOR THREE WEEKS, THEN REMOVE FOR 1 WEEK. (Patient not taking: Reported on 10/11/2022) 3 Each 3 No current facility-administered medications for this visit. Attending Note I have personally performed a face to face assessment of the patient and have reviewed the CHUCKIE note. I performed a substantive portion of the visit including all aspects of the following. Other additions or changes: None Signature: Joy Rodriguez MD Date: 01/17/2023 Time: 2:36 PM documented in this encounter [facility] 01-17-2023 Instructions Sissy Moreira MA - 01/17/2023 1:58 PM EDT Please select the following link to access the [facility] Your Guide to a Healthy . [email or web address] documented in this encounter [facility] 01-16-2023 Miscellaneous Notes Formattin g of this note might be different from the original. Pt has appointment 01/17/23. Nathalia Tapia LPN Attempted to contact pt. Thais davidsonmail, does not appear to actively use her mychart. Will try again later. Nathalia Tapia LPN We will have to see her for a problem visit to establish her care and keep NOB as scheduled unless there is time for her to have NOB on that day. Thank you, Millie Woods APRN.CNM Patient is 26w2d. He had her prenew OB telephone visit today. She is transferring care from [place]. She has only had 2 office visits with them one in August and one in November. She did have an ultrasound at the [facility] in December. She states that she has noted pelvic cramping for the past 2 weeks. She states she notices this when she stands up for prolonged periods of time like when she is cooking. She states that the pain lasts about 10 minutes and happens about 2 times a day. She denies any dysuria, fever, loss of fluids, increased discharge. Baby is active. She states that 3 weeks ago she noticed colorful dots in my eyes that was almost psychedelic . This lasted for 15 to 20 minutes and occurred when she woke up. She states she has not had that happen again. Patient is advised to call/come in/seek immediate care if she develops any increase in pain or intensity of pain, the development of dysuria or fever, loss of fluids or irritating vaginal discharge or as needed problems. She is also advised to call if any further visual changes. Please advise if further advice. Patient has new OB with Dr. Rodriguez on January 17 documented in this encounter [facility] 01-09-2023 Note HNO ID: [id number] Author: Mali Green RN Service: ? Author Type: ? Type: Progress Notes Filed: 01/09/2023 5:02 PM Note Text: INITIAL OB ASSESSMENT OB Provider: Mali Green RN HPI: Elli is a 22 year old White here to establish Obstetrical Care. Patient's last menstrual period was 07/09/2022. from OB Dating Form. Cycles regular was unplanned (but did nothing to prevent, but accepted Complaints: None OB History T0 L0 SAB0 IAB0 Ectopic0 Multiple0 Live Births0 Patient's Risk Screening for delivery: Have you had a prior faith between 20w and 36w6d?: No MEDICAL/PSYCHOSOCIAL HISTORY: History of hemorrhage or bleeding concerns: No Thyroid Disease: No History of chronic hypertension: No History of pre-existing diabetes: No No results found for: ABORHD No weight on file for this encounter. History of abnormal pap: No Prior treatment for cervical dysplasia: none. History of STDs: trichomonas Tobacco use: Yes vapes occasionally-nicotine Caffeine use: Yes drinks 1 cup of coffee 2-3 times a week Drug use: No Alcohol use: No Multivitamin with Folic acid: Yes Episcopal or heritage: No Would refuse blood transfusion if medically necessary: No Are you currently employed? No Do you have any history of depression, anxiety, PTSD, eating disorders or other mood problems: Yes Do you have any safety concerns or history of traumatic events that you would like to discuss with your provider: No SDOH Screening: How often does this describe you? I don't have enough money to pay my bills: Sometimes by situation has improved recently [facility] appt this month Within the past 12 months, have you worried that your food would run out before you had money to buy more: Rarely In the past 12 months, has lack of reliable transportation kept you from going to medical appointments or work, or from keeping things needed for daily living: Sometimes but improving . no w getting transportation through medicaid for appts In the past 12 months, have you had any concerns about having a place to live, or about the condition or quality of your housing: Sometimes , when living elsewhere, Now in stable home situation Are there any cultural or spiritual needs we should be aware of: No Depression/Anxiety Screening: denies symptoms of depression. OB Depression and Anxiety Screening- This Encounter (since 01/08/2023) Over the past 2 weeks have you felt down, depressed, or hopeless? Negative Over the past two weeks, have you felt little interest or pleasure in doing things?? Negative Feeling nervous, anxious or on edge 1-Several days Not being able to stop or control worrying 0-Not al all Anxiety Pre-Screening Total (If >/= 3 additional questions will be reviewed) 1 Genetic Screening: Partner present: No Patient verbalized knowledge of partner family health history: Yes Do you or your partner have any personal or family history of defects not previously discussed: No Do you have history of a complicated by anomaly, genetic condition, or demise: No ACOG Recommended Screening Screening for early gestational diabetes testing: Criteria for early testing requires elevated BMI plus one other risk factor: No weight on file for this encounter. (risk factor if > than 25 or 23 in Americans) Additional risk factors: None She does not meet ACOG criteria for early gestational DM screening. Screening for low dose aspirin use for the prevention of pre-eclampsia: Low dose aspirin should be considered if the patient has one high or two moderate risk factors: High risk factors: None Moderate risk ractors: Nulliparity She is currently not low dose ASA Marital Status:Single Partner: Name: Edu Thompson Age: 21 Occupation: [employer] Gender: Male History of STDs: None PAST MEDICAL HISTORY Diagnosis Date Depression Suicidal behavior with attempted self-injury (HCC) 2016 PAST SURGICAL HISTORY Procedure Laterality Date NONE Current Outpatient Medications Medication Sig Dispense Refill PNV/ferrous sulfate/folic acid ( SLO-JETK-BAKTY ACID ORAL) Take by mouth. Etonogestrel-Ethinyl Estradiol (NUVARING) 0.12-0.015 mg/24 hr vaginal ring Use 1 Each vaginally as directed. INSERT ONE(1) RING VAGINALLY AND LEAVE IN PLACE FOR THREE WEEKS, THEN REMOVE FOR 1 WEEK. (Patient not taking: Reported on 10/11/2022) 3 Each 3 No current facility-administered medications for this visit. Allergies As of Date: 01/09/2023 (No Known Allergies) Fully Assessed 01/09/2023 Does patient have penicillin allergy: No [facility] 01-09-2023 Miscellaneous Notes Formattin g of this note might be different from the original. DISTANCE HEALTH VISIT This Team Access Model visit is a phone encounter. It required patient-provider interaction for the medical decision making as documented below. Elli Mujica is a 22 year old female seen for PNOB. Patient is transferring care from [place]. We have received the records from [place] and they are sent to Dr. Rodriguez nurse [facility] for upcoming appointment. Patient has had [address] Conklin. The last visit was on November 17 and she had an anatomy scan at that time. Patient states that this time she is limiting the amount of involvement from the father of the baby. He has had issues with disorderly conduct and gunnery/ordnance officer she is seeing his recommend that that he needs to improve himself before he can be involved with her and the baby. 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 She states she got out 8 months ago. She is currently in an IOP at [facility] per the conditions of her probation. Patient states she has another year of probation. Discussed the risks of using drugs in and patient states she understands. Patient has had housing instability this . She has earlier lived at the [facility] and then to [facility] and then most recently has got her own house. Patient states that she was treated for a wisdom tooth infection in August. Her symptoms have improved but she states that the dentist does want to pull her teeth. She will discuss this with Dr. Rodriguez at her new OB visit.TKRN documented in this encounter [facility] 01-09-2023 History of Presen t illness Narrative INITIAL OB ASSESSMENT OB Provider: Mali Green RN HPI: Elli is a 22 year old White here to establish Obstetrical Care. Patient's last menstrual period was 07/09/2022. from OB Dating Form. Cycles regular was unplanned (but did nothing to prevent, but accepted Complaints: None OB History T0 L0 SAB0 IAB0 Ectopic0 Multiple0 Live Births0 Patient's Risk Screening for delivery: Have you had a prior faith between 20w and 36w6d?: No MEDICAL/PSYCHOSOCIAL HISTORY: History of hemorrhage or bleeding concerns: No Thyroid Disease: No History of chronic hypertension: No History of pre-existing diabetes: No No results found for: ABORHD No weight on file for this encounter. History of abnormal pap: No Prior treatment for cervical dysplasia: none. History of STDs: trichomonas Tobacco use: Yes vapes occasionally-nicotine Caffeine use: Yes drinks 1 cup of coffee 2-3 times a week Drug use: No Alcohol use: No Multivitamin with Folic acid: Yes Episcopal or heritage: No Would refuse blood transfusion if medically necessary: No Are you currently employed? No Do you have any history of depression, anxiety, PTSD, eating disorders or other mood problems: Yes Do you have any safety concerns or history of traumatic events that you would like to discuss with your provider: No SDOH Screening: How often does this describe you? I don't have enough money to pay my bills: Sometimes by situation has improved recently [facility] appt this month Within the past 12 months, have you worried that your food would run out before you had money to buy more: Rarely In the past 12 months, has lack of reliable transportation kept you from going to medical appointments or work, or from keeping things needed for daily living: Sometimes but improving . no w getting transportation through medicaid for appts In the past 12 months, have you had any concerns about having a place to live, or about the condition or quality of your housing: Sometimes , when living elsewhere, Now in stable home situation Are there any cultural or spiritual needs we should be aware of: No Depression/Anxiety Screening: denies symptoms of depression. OB Depression and Anxiety Screening- This Encounter (since 01/08/2023) Over the past 2 weeks have you felt down, depressed, or hopeless? Negative Over the past two weeks, have you felt little interest or pleasure in doing things? Negative Feeling nervous, anxious or on edge 1-Several days Not being able to stop or control worrying 0-Not al all Anxiety Pre-Screening Total (If >/= 3 additional questions will be reviewed) 1 Genetic Screening: Partner present: No Patient verbalized knowledge of partner family health history: Yes Do you or your partner have any personal or family history of defects not previously discussed: No Do you have history of a complicated by anomaly, genetic condition, or demise: No ACOG Recommended Screening Screening for early gestational diabetes testing: Criteria for early testing requires elevated BMI plus one other risk factor: No weight on file for this encounter. (risk factor if > than 25 or 23 in Americans) Additional risk factors: None She does not meet ACOG criteria for early gestational DM screening. 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 Etonogestrel-Ethinyl Estradiol (NUVARING) 0.12-0.015 mg/24 hr vaginal ring Use 1 Each vaginally as directed. INSERT ONE(1) RING VAGINALLY AND LEAVE IN PLACE FOR THREE WEEKS, THEN REMOVE FOR 1 WEEK. (Patient not taking: Reported on 10/11/2022) 3 Each 3 No current facility-administered medications for this visit. Allergies As of Date: 01/09/2023 (No Known Allergies) Fully Assessed 01/09/2023 Does patient have penicillin allergy: No documented in this encounter [facility] 10-11-2022 Note HNO ID: [id number] Author: Jay Ashby APRN.THERAPEUTIC SPECIALIST Service: ? Author Type: Nurse Practitioner Type: Progress Notes Filed: 10/11/2022 10:16 AM Note Text: Subjective HPI Nontoxic-appearing 13-week female presents urgent care chief complaint sore throat. Duration of symptoms 2 days. Associated symptoms sore throat. Presents today concerned about possible strep throat. No known sick contacts. Has not used any OTC medications today. Denies any difficulty swallowing handling secretions decreased range of motion of neck. Denies any fever body aches chills productive cough chest pain shortness of breath pleuritic pain hemoptysis nausea vomiting abdominal pain change in bowel or bladder habits. Past medical history prescription medication use and allergies reviewed. .Patient presents with: Sore Throat: ST x 2 days History reviewed. No pertinent past medical history. PAST SURGICAL HISTORY Procedure Laterality Date NONE ALLERGIES Patient has no known allergies. MEDICATIONS Etonogestrel-Ethinyl Estradiol (NUVARING) 0.12-0.015 mg/24 hr vaginal ring Use 1 Each vaginally as directed. INSERT ONE(1) RING VAGINALLY AND LEAVE IN PLACE FOR THREE WEEKS, THEN REMOVE FOR 1 WEEK. (Patient not taking: Reported on 10/11/2022) FAMILY HISTORY Problem Relation Age of Onset Hypertension Mother other (polyp intestine) Mother Hypertension Father No Known Problems Sister No Known Problems Brother No Known Problems Maternal Grandmother No Known Problems Maternal Grandfather No Known Problems Paternal Grandmother Cancer Paternal Grandfather Heart Sister Social History Tobacco Use Smoking status: Every Day Packs/day: 0.25 Years: 1.00 Total pack years: 0.25 Types: Cigarettes Smokeless tobacco: Never Substance Use Topics Alcohol use: Never Drug use: Not Currently BP 110/78 Pulse 107 Temp 36.8 ?C (98.2 ?F) (Tympanic) Resp 18 Wt 97.3 kg (214 lb 6.4 oz) LMP 08/19/2018 SpO2 97% Review of Systems Constitutional: Negative for chills, fever and malaise/fatigue. HENT: Positive for sore throat. Negative for congestion, ear discharge, ear pain and sinus pain. Eyes: Negative for blurred vision, pain, discharge and redness. Respiratory: Negative for cough, hemoptysis, sputum production, shortness of breath, wheezing and stridor. Cardiovascular: Negative for chest pain. Gastrointestinal: Negative for abdominal pain, diarrhea, nausea and vomiting. Musculoskeletal: Negative for myalgias. Skin: Negative for itching and rash. Neurological: Negative for dizziness and headaches. Objective Physical Exam Constitutional: General: She is not in acute distress. Appearance: She is not diaphoretic. HENT: Head: Normocephalic. Jaw: No trismus, tenderness, swelling or pain on movement. Nose: Nose normal. Mouth/Throat: Mouth: Mucous membranes are moist. Dentition: Normal dentition. No dental tenderness, gingival swelling, dental caries or dental abscesses. Pharynx: Oropharynx is clear. Uvula midline. Posterior oropharyngeal erythema present. No pharyngeal swelling, oropharyngeal exudate or uvula swelling. Tonsils: Tonsillar exudate present. No tonsillar abscesses. Eyes: Conjunctiva/sclera: Conjunctivae normal. Pupils: Pupils are equal, round, and reactive to light. Cardiovascular: Rate and Rhythm: Normal rate and regular rhythm. Heart sounds: Normal heart sounds. Pulmonary: Effort: Pulmonary effort is normal. No tachypnea, accessory muscle usage or respiratory distress. Breath sounds: Normal breath sounds. No stridor. No wheezing, rhonchi or rales. Abdominal: General: There is no distension. Palpations: Abdomen is soft. Tenderness: There is no abdominal tenderness. There is no guarding or rebound. Musculoskeletal: Cervical back: Normal range of motion and neck supple. No edema, erythema, rigidity or tenderness. No pain with movement. Normal range of motion. Lymphadenopathy: Cervical: No cervical adenopathy. Skin: General: Skin is warm and dry. Neurological: Mental Status: She is alert and oriented to person, place, and time. ASSESSMENT/PLAN: 1. Sore throat - ICD9: 462, ICD10: J02.9 - STREP A MOLECULAR (POC) - MONOTEST, INFECTIOUS MONO Strep Test negative. Diagnosed with pharyngitis. Return in few days if symptoms are still present for monotest. Treat accordingly test results. Patient was educated on supportive therapies. Patient will follow up with primary care provider as needed. Patient was instructed to immediately proceed to emergency room for any new, worsening, or symptoms lasting longer than anticipated. The patient's clinical presentation is otherwise unremarkable at this time. Based on exam and clinical finding, the patient is stable for discharge. Plan of care was discussed with patient. Patient verbalizes understanding and agrees to plan of care. This note was generated using [employer] software. It (more content not included)... [facility] Diagnosis Encounter for care in second trimester of first - Primary 27 weeks gestation of state, incidental Excessive weight gain in , third trimester [facility] Diagnosis Encounter for anatomic survey- Primary Encounter for care in second trimester of first 31 weeks gestation of state, incidental with care elsewhere in third trimester Obesity affecting in third trimester, unspecified obesity type [facility] Diagnosis with care elsewhere, antepartum- Primary 35 weeks gestation of state, incidental Excessive weight gain in , third trimester documented in this encounter [facility] note* Diagnosis Abnormal glucose complicating - Primary Abnormal maternal glucose tolerance, complicating , childbirth, or the puerperium, unspecified as to episode of care documented in this encounter [facility] for referral (narrative)* Diagnostic Procedure Only (Routine) - Pending Review Specialty Diagnoses / Procedures Referred By Macario hassan Referred To Contact [facility] Diagnoses Encounter for care in second trimester of first 27 weeks gestation of Procedures OBSTETRIC ULTRASOUND WHI US PREG UTERUS AFTER 1ST TRIMEST 1 GESTATION Joy Rodriguez MD [address] [place] [address] [facility] [address] [place] [address] Referral ID Status Reason Start Date Expiration Date Visits Requested Visits Authorized [id number] Pending Review Auto-Generat ed Referral 3 01/17/2024 1 1 [facility] for referral (narrative)* Diagnostic Procedure Only (Routine) - Authorized Specialty Diagnoses / Procedures Referred By Macario hassan Referred To Contact [facility] Diagnoses Excessive weight gain in , third trimester Procedures OBSTETRIC ULTRASOUND WHI US PREG UTERUS AFTER 1ST TRIMEST 1 GESTATION Joy Rodriguez MD [address] [place] [address] [facility] [address] [place] [address] Referral ID Status Reason Start Date Expiration Date Visits Requested Visits Authorized [id number] Authorized Auto-Generat ed Referral 3 03/13/2024 1 1 [facility] Summary Purpose Family History No Family History Records FoundNo Family History Records Found Advance Directives No Advanced Directives Records FoundNo Advanced Directives Records Found Health Concerns Problem Noted Date Diagnosed Date [facility] CC Education - COMMON 01/09/2023 Problem Noted Date Diagnosed Date [facility] CC Education - COMMON 01/09/2023 Problem Noted Date Diagnosed Date [facility] CC Education - COMMON 01/09/2023 Problem Noted Date Diagnosed Date [facility] CC Education - COMMON 01/09/2023 Problem Noted Date Diagnosed Date [facility] CC Education - COMMON 01/09/2023 Additional Source Comments INFORMATION SOURCE (unrecogn ized section and content) DATE CREATED AUTHOR AUTHOR'S DONNA RENAE 03/25/2023 [facility] Source Comments (unrecognize d section and content) In the event this informatio n is protected by the Federal Confidentiality of Alcohol and Drug Abuse Patient Records regulations: The Federal rules restrict any use of the information to criminally investigate or prosecute any alcohol or drug abuse patient.[facility] the event this information is protected by the Federal Confidentiality of Alcohol and Drug Abuse Patient Records regulations: The Federal rules restrict any use of the information to criminally investigate or prosecute any alcohol or drug abuse patient.[facility] the event this information is protected by the Federal Confidentiality of Alcohol and Drug Abuse Patient Records regulations: The Federal rules restrict any use of the information to criminally investigate or prosecute any alcohol or drug abuse patient.[facility] the event this information is protected by the Federal Confidentiality of Alcohol and Drug Abuse Patient Records regulations: The Federal rules restrict any use of the information to criminally investigate or prosecute any alcohol or drug abuse patient.[facility] the event this information is protected by the Federal Confidentiality of Alcohol and Drug Abuse Patient Records regulations: The Federal rules restrict any use of the information to criminally investigate or prosecute any alcohol or drug abuse patient.[facility] the event this information is protected by the Federal Confidentiality of Alcohol and Drug Abuse Patient Records regulations: The Federal rules restrict any use of the information to criminally investigate or prosecute any alcohol or drug abuse patient.[facility] Reason for Visit (unrecogniz ed section and content) Reason Comments Initial OB Visit Transfer from [facility] Reason Comments US Specialty Diagnoses / Procedures Referred By Macario hassan Referred To Contact [facility] Diagnoses Encounter for care in second trimester of first 27 weeks gestation of Procedures OBSTETRIC ULTRASOUND WHI US PREG UTERUS AFTER 1ST TRIMEST GESTATION Joy Rodriguez MD [address] [place] [address] [facility] [address] [place] [address] Referral ID Status Reason Start Date Expiration Date V isits Requested Visits Authorized [id number] Closed Auto-Generate d Referral 01/17/2023 01/17/2024 1 1 Reason Onset Date Comments Care 03/14/2023 Reason Comments Results Orders FOR RECORDS PERTAINING TO PATIENTS WHO ARE OR HAVE BEEN ENROLLED IN A CHEMICAL DEPENDENCY/SUBSTANCEABUSE PROGRAM, SOME INFORMATION MAY BE OMITTED. This clinical summary was aggregated from multiple sources. Caution should be exercised in using it in the provision of clinical care. This summary normalizes information from multiple sources, and as a consequence, information in this document may materially change the coding, format and clinical context of patient data. In addition, data may be omitted in some cases. CLINICAL DECISIONS SHOULD BE BASED ON THE PRIMARY CLINICAL RECORDS. [facility] [employer], [facility]. provides no warranty or guarantee of the accuracy or completeness of information in this document.
[2023-04-01 12:35] LABS: Hematocrit 35.9 % (37-47); Hemoglobin 12.3 g/dL (12.0-15.0); Mean Corp Hgb Conc 34.3 g/dL (32-36); Mean Corpuscular Hgb 31.1 pg (27.0-32.0); Mean Corpuscular Volume 90.9 fL (81-99); Mean Platelet Vol. 9.8 fl (6.2-12.0); Platelet Count 335 K/mm3 (150-450); RBC Distribution Width CV 12.7 % (11.6-14.6); RBC Distribution Width SD 41.8 fl (35.1-43.9); Red Blood Count 3.95 M/mm3 (4.2-5.4); White Blood Count 11.4 K/mm3 (4.4-11.0)
[2023-04-01] MEDS: Lactated Ringers 1,000 ML 999 ML IV (12:49)
[2023-04-01 12:57] LABS: AST(SGOT) 15 U/L (15-37); Alanine Aminotransfer ALT/SGPT 22 U/L (13-56); Creatinine, Serum 0.68 mg/dL (0.55-1.02); EST Glomerular Filtration Rate 113 mL/min (>60); Est Glom Filt Rate - Afr Amer 137 mL/min (>60); Estimated Creatinine Clearance 120.45 ml/min
[2023-04-01 14:01] LABS: Protein, Urine (Random) 14.5 mg/dL (<11.9); Protein:Creat Ratio 127 mg/g CRE (0-200)
--- NOTE | 2023-04-06 16:12 | OB.TRI.NOTE ---
HPI - General General Date of Admission: 04/01/23 Date of Service: 04/01/23 Chief Complaint: abdominal pain HPI Narrative ELLI JOHNSTON, is a 22 F c/o abdominal pain w/ initially elevated BP upon arrival. PFSH PFSH Home Medications penicillin V potassium 500 mg tablet 500 mg PO 4X/DAY #40 tabs 08/20/22 [Rx Last Taken Unknown] clotrimazole 1 % topical cream (Athletic Foot Cream) 1 applic topical BID 2 weeks #15 grams 09/09/22 [Rx Last Taken Unknown] Allergy/AdvReac Type Severity Reaction Status Date / Time No Known Allergies Allergy Verified 04/01/23 11:54 Social History Smoking Status: Current every day smoker tobacco type: cigarettes NST FHR Rate Baby A Baseline: 125 Variability:: Moderate Accelerations:: 15 x 15 Decelerations:: Variable (possible early or late decels) NST Reactive:: Yes FHR Category:: Category II (at times) Uterine Activity:: no regular ctxs Assessment & Plan (1) 38 weeks gestation of : PLAN: 38-week primigravida complaining of abdominal pain with elevated blood pressure upon admission. Preeclampsia labs were normal. Upon review of NST, is difficult to interpret whether there were some decelerations or it was variability. Contractions were not obvious. Upon review of this chart, patient had already been seen in the office and had a category 1 reactive nonstress test this week. Will continue to follow closely and she can return if needed.
== END 2023-04-01 14:20 | disposition home or self-care (01) ==
LOC: WPOUT 11:49 → WP 11:49
PROVIDERS: Referring Provider Advanced Practice Midwife; Visit Provider Advanced Practice Midwife
DX: O99.891 Other specified diseases and conditions complicating pregnancy (principal); O99.333 Smoking (tobacco) complicating pregnancy, third trimester; R10.9 Unspecified abdominal pain; F17.210 Nicotine dependence, cigarettes, uncomplicated; Z3A.38 38 weeks gestation of pregnancy
CPT/HCPCS: 96365; 96366; 36415; 59025; 59050; 82565; 82570; 84156; 84450; 84460; 84550; 85027; 99221; J7120; G0378

== ENCOUNTER 2023-04-06 19:10 | Inpatient (IN) | payer MEDICAID, SELFPAY ==
[2023-04-06] VITALS (7 sets, daily range): BP systolic 126–134; BP diastolic 74–85; PULSE 66–99; TEMP 37.1–37.9; O2SAT 97–98; BMI 43.6
--- OUTSIDE RECORDS SUMMARY | 2023-04-06 19:25 | XMS RPT_ITS | CCD ---
Author Name Unknown Address [address] [place] [address] Organization [facility] Care Team Providers Care Sales And Service Officer Name Role Phone ALEXI LEARY Unavailable Unavailable LEANNE JOHNSON Unavailable Unavailable DAVID YUNG Unavailable Unavailable LEANNE JOHNSON Unavailable Unavailable SAM RAJAN Unavailable Unavailable LEANNE JOHNSON Unavailable Unavailable Unavailable Primary Care Provider UnavailRAMILA Keys Attending Unavailable JOY RODRIGUEZ Referring Unavailable JOY RODRIGUEZ Attending Unavailable TRIPP FLORES Attending Unavailable JOY RODRIGUEZ Referring Unavailable JOY RODRIGUEZ Attending Unavailable JOY RODRIGUEZ Referring Unavailable JOY RODRIGUEZ Attending Unavailable JOY RODRIGUEZ Attending Unavailable Medications Completed/Discontinued Medications Medication Drug Class(es) Dates Sig (Normalized) Sig (Original) 21 day ethinyl estradiol 0.465894 mg/hr / etonogestrel 0.005 mg/hr vaginal system [...] of hypertension, antepartum condition or complication] Onset: 03-30-2023 01-17-2023 Episodic Other and delivery including normal [...] Translations: [27 weeks gestation of ] Onset: 03-14-2023 Episodic Screening and history of mental health [...] 116.76 kg Joy Rodriguez MD Work Phone: [facility] 03-14-2023 13:06-0500 Diastolic blood pressure 82 mm[Hg] Joy Rodriguez MD Work Phone: [facility] 03-14-2023 13:06-0500 Systolic blood pressure 134 mm[Hg] Joy Rodriguez MD Work Phone: [facility] 02-17-2023 14:02-0500 Body weight 112.04 kg Ob Ultrasound Work Phone: [facility] 01-17-2023 14:04-0400 Body height 167.6 cm Joy Rodriguez MD Work Phone: [facility] 01-17-2023 14:04-0400 Body weight 107.96 kg Joy Rodriguez MD Work Phone: [facility] 01-17-2023 14:04-0400 Diastolic blood pressure 70 mm[Hg] Joy Rodriguez MD Work Phone: [facility] 01-17-2023 14:04-0400 Systolic blood pressure 110 mm[Hg] Joy Rodriguez MD Work Phone: [facility] Encounters Encounter Date Encounter Type Care Provider Facility Start: 04-04-2023 End: 04-04-2023 ambulatory JOY RODRIGUEZ Facility:[facility] Start: 03-30-2023 End: 03-30-2023 ambulatory RAMILA JOHNSON Facility:[facility] Start: 03-24-2023 End: 03-24-2023 ambulatory JOY RODRIGUEZ Facility:[facility] Start: 03-23-2023 End: 03-23-2023 ambulatory TRIPP FLORES Facility:[facility] Start: 03-14-2023 End: 03-15-2023 ambulatory GREGORYTOREY RODRIGUEZ Facility:[facility] Start: 03-14-2023 Telephone encounter Joy diehl MD [...] Author Start: 09-15-2025 Pap Testing Pap Testing [facility] Start: 09-15-2025 Screening for malignant neoplasm of cervix Pap Testing [facility] Start: 09-16-2023 Chlamydia Screening (18-24) Chlamydia Screening (18-24) [facility] Start: 09-16-2023 GC (Gonorrhea) Screening (18-24) GC (Gonorrhea) Screening (18-24) [facility] Start: 09-16-2023 Screening for Chlamydia trachomatis Chlamydia Screening (18-24) [facility] Start: 03-14-2023 End: 06-13-2023 GEST GLUC TANO, 3-HR, 100 GM, FASTING GEST GLUC TANO, 3-HR, 100 GM, FASTING Lab Routine Abnormal glucose complicating Expected: 03/14/2023, Expires: 06/13/2023 [facility] Work Phone: Payers Date Payer Category Payer Medicaid [employer] [id number] 2022-Present [phone] [address] [place] [address] Medicaid [id number] 2016 Unknown [id number] Social History Date Type Detail Facility Start: 01-09-2023 Tobacco smoking stat us NHIS Ex-smoker [facility] Work Phone: History of tobacco use Current smoker [facility] Work Phone: History of tobacco use Cigarette Smoker [facility] Work Phone: Start: 01-09-2023 End: 03-14-2023 Cigarettes smoked current (pack per day) - Reported 0.3 [facility] Start: 01-09-2023 Tobacco use and exposure Smoke less tobacco non-user [facility] Work Phone: Start: 01-09-2023 End: 03-14-2023 Alcohol intake Ex-drinker (finding) [facility] Start: 08-23-2018 End: 01-09-2023 Alcohol Use Disorder Identification Test - Consumption [AUDIT-C] [facility] How often to you hav e a drink containing alcohol? Never [facility] Average Number of Drinks Not on file [facility] Start: 01-09-2023 Education 10 [facility] Start: 07-23-2022 [facility] Start: 2000 Sex Assigned At Not on file [facility] Goals Date Patient Goal Desired Activity /State Personal health goal Clinical Notes 10-11-2022 to 04-05-2023 Telephone Encounter - Aliza Means RN - 03/14/2023 4:26 PM ESTTelephone Encounter - Joy Rodriguez MD - 03/14/2023 4:22 PM ESTTelephone Encounter - Aliza Means RN - 03/14/2023 4:16 PM EST Note Date & Type Note Facility 04-05-2023 Note HNO ID: [id number] Author: Matilda Blanco Service: ? Author Type: ? 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 N/A Reason for Outreach [place] Payer: [facility]or: [facility] / Plan: [employer] / Product Type: Medicaid / Navigation Signature: Matilda Blanco April 05, 2023 9:19 AM [facility] 04-05-2023 Note HNO ID: [id number] Author: Matilda Blanco Service: ? Author Type: ? Type: Progress Notes Filed: 04/05/2023 8:46 AM Note Text: POPULATION HEALTH NAVIGATION OUTREACH Action/I 3rd attempt left message to add pathology teacher to ob provider field Patient Identified by Name and : NO Outreach Outcome/Action Unable to reach patient: Left message Did you use a PCP flex slot to schedule this appointment? N/A Reason for Outreach [place] Payer: Payor: [facility] MEDICAID / Plan: [employer] / Product Type: Medicaid / Navigation Signature: Matilda Blanco April 05, 2023 8:45 AM [facility] 04-04-2023 Note HNO ID: [id number] Author: Joy Rodriguez MD Service: ? Author Type: Physician Type: Progress Notes Filed: 04/04/2023 4:47 PM Note Text: NST SUMMARY PROVIDER ASSESSMENT AND INTERPRETATION Elli Mujica is a 22 year old female, , who is at 38w3d with an WARREN of 04/15/2023, by Last Menstrual Period dating method. Indications for NST: Gestational Diabetes - Diet Controlled Baseline: 130 Variability: Moderate Accelerations: Present 15 X 15 Decelerations: Variable Contractions: TOCO: None Interpretation: Reactive SIGNATURE: Joy Rodriguez MD [facility] 04-04-2023 Note Patient Outreach (NE TNAV) ELLI MUJICA ([id number]) 89 F Date Time Provider Department 04/04/23 MATILDA BALNCO During your visit today, we recorded the following information about you: Matilda Blanco 04/04/2023 8:38 AM Signed POPULATION HEALTH NAVIGATION OUTREACH Action/FYI Left message to add pathology teacher to OB provider field My chart sent Patient Identified by Name and : NO Outreach Outcome/Action Unable to reach patient: Left message MyChart message sent Did you use a PCP flex slot to schedule this appointment? N/A Reason for Outreach [place] Payer: Payor: [facility] MEDICAID / Plan: [facility] / Product Type: Medicaid / Care Gap Reviewed:: N/A Reminder: Reminder note to check Health Maintenance for items below Health Maintenance items due: Covid-19 Vaccine(1) Never done Meningococcal B Vaccine: Consider Based On Risk(1 of 2 - Patient Seeks Protection) Never done DTaP,Tdap,Td Vaccine(6 - Td or Tdap) due on 09/13/2021 Influenza Vaccine(1) Never done Depression Assessment Never done Navigation Signature: Matilda Blanco April 04, 2023 8:36 AM Matilda Blanco 04/05/2023 8:46 AM Signed POPULATION HEALTH NAVIGATION OUTREACH Action/FYI 3rd attempt left message to add pathology teacher to ob provider field Patient Identified by Name and : NO Outreach Outcome/Action Unable to reach patient: Left message Did you use a PCP flex slot to schedule this appointment? 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 N/A Reason for Outreach [place] Payer: [facility] / Plan: [employer] / Product Type: Medicaid / Navigation Signature: Matilda Blanco April 05, 2023 9:19 AM Allergies As of Date: 04/04/2023 (No Known Allergies) Date Reviewed: 04/04/2023 Reviewed by: Joy Rodriguez MD - Fully Assessed Reason for Visit: Population Health Navigation Outreach [3910] Cmt: Ob/peds Prescriptions as of 04/05/2023 - alcohol swabs (ALCOHOL PADS) Apply 1 application to affected area four times daily. - lancet-gluc test strip-needles cmpk 1 Application four times daily. - Stnmqwhz-Tk-Prh-Fe-FA tab Take 1 tablet by mouth once daily. 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 Author Type: ? Type: Progress Notes Filed: 04/04/2023 8:38 AM Note Text: POPULATION HEALTH NAVIGATION OUTREACH Action/FYI Left message to add pathology teacher to OB provider field My chart sent Patient Identified by Name and : NO Outreach Outcome/Action Unable to reach patient: Left message MyChart message sent Did you use a PCP flex slot to schedule this appointment? N/A Reason for Outreach Payer: Payor: [employer] / [facility] / Product Type: Medicaid / Care Gap Reviewed:: N/A Reminder: Reminder note to check Health Maintenance for items below Health Maintenance items due: Covid-19 Vaccine(1) Never done Meningococcal B Vaccine: Consider Based On Risk(1 of 2 - Patient Seeks Protection) Never done DTaP,Tdap,Td Vaccine(6 - Td or Tdap) due on 09/13/2021 Influenza Vaccine(1) Never done Depression Assessment Never done Navigation Signature: Matilda Blanco April 04, 2023 8:36 AM [facility] 03-14-2023 Miscellaneous Notes Formattin g of this [...] test today and saw her results on [employer]. Reviewed results and instructions for 3 hour GTT. Appointment scheduled. Please file pended order, will need to be attached to upcoming appointment. Aliza Means RN documented in this encounter [facility] 03-14-2023 Miscellaneous Notes Formattin g of this [...] Joy Rodriguez MD documented in this encounter [facility] 03-14-2023 Instructions Elizabeth Aguilar Ma - 03/14/2023 1:01 PM EST SEQUENTIAL SCREENINGS The [facility] offers sequential screenings for women who are [...] It will require an appointment with our orthotic and prosthetic technician. This is not an ultrasound performed [...] the above symptoms, contact our office at [phone] and ask to speak with a nurse. After hours, you can call doctors registry at [phone] OR call [facility] at [phone] and ask to have the doctor hvac controls technician paged. If you consider this an emergency, dial 9-4- or go to your nearest emergency department. NEED HELP? Are you dealing with a violent or abusive relationship? Are you a victim of rape or sexual assult? Call [facility] 24 hour Crisis Hotline: 927.581.3565 or 738-425-5634. MANUAL Your Guide to a Healthy manual is now on-line. Visit [email or web address] to download your free copy documented in this encounter [facility] 01-17-2023 Note HNO ID: [id number] Author: Joy Rodriguez MD Service: ? Author [...] use: No Multivitamin with Folic acid: Yes Hinduism or heritage: No Would refuse blood transfusion [...] Sig Dispense Refill PNV/ferrous sulfate/folic acid ( [id number] ACID ORAL) Take by mouth. Etonogestrel-Ethinyl Estradiol [...] Rodriguez MD Date: 01/17/2023 Time: 2:36 PM [facility] 01-17-2023 Miscellaneous Notes Formattin g of this [...] Joy Rodriguez MD documented in this encounter [facility] 01-17-2023 History of Presen t illness Narrative [...] use: No Multivitamin with Folic acid: Yes Hinduism or heritage: No Would refuse blood transfusion [...] bills: Sometimes by situation has improved recently [place] appt this month Within the past 12 [...] Sig Dispense Refill PNV/ferrous sulfate/folic acid ( [id number]-[id number] ACID ORAL) Take by mouth. Etonogestrel-Ethinyl Estradiol [...] Time: 2:36 PM documented in this encounter [facility] 01-17-2023 Instructions Sissy Moreira MA - 01/17/2023 1:58 PM EDT Please select the following link to access the [facility] Your Guide to a Healthy . [email or web address] documented in this encounter [facility] 01-16-2023 Miscellaneous Notes Formattin g of this note might be different from the original. Pt has appointment 01/17/23. Nathalia Tapia LPN Attempted to contact pt. No voicemail, does not appear to actively use her mychart. Will try again later. Nathalia Tapia LPN We will have to see her for a problem visit to establish her care and keep NOB as scheduled unless there is time for her to have NOB on that day. Thank you, Millie Woods APRN.MARY Patient is 26w2d. He had her prenew OB telephone visit today. She is transferring care from [place]. She has only had 2 office visits with them one in August and one in November. She did have an ultrasound at the care center in December. She states that [...] on January 17 documented in this encounter [facility] 01-09-2023 Note HNO ID: [id number] Author: Mali Green RN Service: ? Author [...] use: No Multivitamin with Folic acid: Yes Hinduism or heritage: No Would refuse blood transfusion [...] Sig Dispense Refill PNV/ferrous sulfate/folic acid ( [id number] ACID ORAL) Take by mouth. Etonogestrel-Ethinyl Estradiol [...] 01/09/2023 Does patient have penicillin allergy: No [facility] 01-09-2023 Miscellaneous Notes Formattin g of this note might be different from the original. DISTANCE HEALTH VISIT This Team Access Model visit is a phone encounter. It required patient-provider interaction for the medical decision making as documented below. Elli Mujica is a 22 year old female seen for PNOB. Patient is transferring care from [place]. We have received the records from [place] and they are sent to Dr. Rodriguez [facility] for upcoming appointment. Patient has had [address] Coknlin. The last visit was on November 17 and she had an anatomy scan at that time. Patient states that this time she is limiting the amount of involvement from the father of the baby. He has had issues with disorderly conduct and youth liaison officer she is seeing his recommend that that he needs to improve himself before he can be involved with her and the baby. 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 She states she got out 8 months ago. She is currently in an IOP at [facility] per the conditions of her probation. Patient states she has another year of probation. Discussed the risks of using drugs in and patient states she understands. Patient has had housing instability this . She has earlier lived at the [facility] and then to [facility] and then most recently has got her own house. Patient states that she was treated for a wisdom tooth infection in August. Her symptoms have improved but she states that the dentist does want to pull her teeth. She will discuss this with Dr. Rodriguez at her new OB visit.TKRN documented in this encounter [facility] 01-09-2023 History of Presen t illness Narrative [...] use: No Multivitamin with Folic acid: Yes Hinduism or heritage: No Would refuse blood transfusion [...] bills: Sometimes by situation has improved recently [facility] appt this month Within the past 12 [...] Partner: Name: Edu Thompson Age: 21 Occupation: [employer] Gender: Male History of STDs: None PAST MEDICAL HISTORY Diagnosis Date Depression Suicidal behavior with attempted self-injury (HCC) 2016 PAST SURGICAL HISTORY Procedure Laterality Date NONE Current Outpatient Medications Medication Sig Dispense Refill PNV/ferrous sulfate/folic acid ( OCA-MXEY-MTJPE ACID ORAL) Take by mouth. Etonogestrel-Ethinyl Estradiol [...] penicillin allergy: No documented in this encounter [facility] 10-11-2022 Note HNO ID: [id number] Author: Jay Ashby APRN.EQUIPMENT ENGINEERING TECHNICIAN Service: ? Author Type: Nurse Practitioner Type: [...] of care. This note was generated using Vello App. It (more content not included)... [facility] Diagnosis Encounter for care in second trimester of first - Primary 27 weeks gestation of state, incidental Excessive weight gain in , third trimester [facility] Diagnosis Encounter for anatomic survey- Primary Encounter for care in second trimester of first 31 weeks gestation of state, incidental with care elsewhere in third trimester Obesity affecting in third trimester, unspecified obesity type documented in this encounter [facility] note* Diagnosis with care elsewhere, antepartum- Primary 35 weeks gestation of state, incidental Excessive weight gain in , third trimester documented in this encounter [facility] note* Diagnosis Abnormal glucose complicating - Primary Abnormal maternal glucose tolerance, complicating , childbirth, or the puerperium, unspecified as to episode of care documented in this encounter [facility] for referral (narrative)* Diagnostic Procedure Only (Routine) - Pending Review Specialty Diagnoses / Procedures Referred By Macario hassan Referred To Contact [facility] Diagnoses Encounter for care in second trimester of first 27 weeks gestation of Procedures OBSTETRIC ULTRASOUND WHI US PREG UTERUS AFTER 1ST TRIMEST GESTATION Joy Rodriguez MD [address] [place] [address] [facility] [address] [place] [address] Referral ID Status Reason Start Date Expiration Date Visits Requested Visits Authorized [id number] Pending Review Auto-Generat ed Referral 3 01/17/2024 1 1 [facility] for referral (narrative)* Diagnostic Procedure Only (Routine) - Authorized Specialty Diagnoses / Procedures Referred By Macario hassan Referred To Contact [facility] Diagnoses Excessive weight gain in , third trimester Procedures OBSTETRIC ULTRASOUND WHI US PREG UTERUS AFTER 1ST TRIMEST GESTATION Joy Rodriguez MD [address] [place] [address] [facility] [address] [address] Referral ID Status Reason Start Date Expiration Date Visits Requested Visits Authorized [id number] Authorized Auto-Generat ed Referral 3 03/13/2024 1 1 [facility] Summary Purpose Family History [...] section and content) DATE CREATED AUTHOR AUTHOR'S ORGANIZ ATION 04/05/2023 [facility] Source Comments (unrecognize d section and content) In the event this informatio n is protected by the Federal Confidentiality of Alcohol and Drug Abuse Patient Records regulations: The Federal rules restrict any use of the information to criminally investigate or prosecute any alcohol or drug abuse patient.[facility] the event this information is protected by the Federal Confidentiality of Alcohol and Drug Abuse Patient Records regulations: The Federal rules restrict any use of the information to criminally investigate or prosecute any alcohol or drug abuse patient.[facility] the event this information is protected by the Federal Confidentiality of Alcohol and Drug Abuse Patient Records regulations: The Federal rules restrict any use of the information to criminally investigate or prosecute any alcohol or drug abuse patient.[facility] the event this information is protected by the Federal Confidentiality of Alcohol and Drug Abuse Patient Records regulations: The Federal rules restrict any use of the information to criminally investigate or prosecute any alcohol or drug abuse patient.[facility] the event this information is protected by the Federal Confidentiality of Alcohol and Drug Abuse Patient Records regulations: The Federal rules restrict any use of the information to criminally investigate or prosecute any alcohol or drug abuse patient.[facility] the event this information is protected by the Federal Confidentiality of Alcohol and Drug Abuse Patient Records regulations: The Federal rules restrict any use of the information to criminally investigate or prosecute any alcohol or drug abuse patient.[facility] Reason for Visit (unrecogniz ed section and content) Reason Comments Initial OB Visit Transfer from [facility] Reason Comments [place] Specialty Diagnoses / Procedures Referred By Macario hassan Referred To Contact [facility] Diagnoses Encounter for care in second trimester of first 27 weeks gestation of Procedures OBSTETRIC ULTRASOUND WHI US PREG UTERUS AFTER 1ST TRIMEST GESTATION Joy Rodriguez MD [address] [place] [address] [facility] [address] [place] [address] Referral ID Status Reason Start Date Expiration Date V isits Requested Visits Authorized [id number] Closed Auto-Generate d Referral 01/17/2023 01/17/2024 1 [...] BE BASED ON THE PRIMARY CLINICAL RECORDS. [employer] [facility]. provides no warranty or guarantee of the accuracy or completeness of information in this document.
--- NOTE | 2023-04-06 19:26 | PCM.HP.OB ---
HPI - General General Date of Admission: 04/06/23 Date of Service: 04/06/23 HPI Narrative ELLI JOHNSTON, is a 22 F who presents for induction of labor. Maternal Data Information Final WARREN: 04/15/23 Gestational age: 38&5 PFSH [facility] Medical History (Updated 04/06/23 @ 19:50 by Negar Odell) Anxiety Depression Gestational diabetes Suicidal behavior with attempted self-injury Home Medications penicillin V potassium 500 mg tablet 500 mg PO 4X/DAY #40 tabs 08/20/22 [Rx Last Taken Unknown] clotrimazole 1 % topical cream (Athletic Foot Cream) 1 applic topical BID 2 weeks #15 grams 09/09/22 [Rx Last Taken Unknown] Allergy/AdvReac Type Severity Reaction Status Date / Time No Known Allergies Allergy Verified 04/06/23 19:22 Social History Smoking Status: Current every day smoker tobacco type: cigarettes NST FHR Rate Baby A Baseline: 140 Variability:: Moderate Accelerations:: 15 x 15 Decelerations:: Variable Uterine Activity:: quiet Physical Exam Const alert, oriented x3 and no apparent distress Chest inspection of chest normal GI soft to palpation, non-tender and non-distended Inspection: gravid external exam normal Narrative: cvx - 50/-3 Neuro moves all extremities Labs Labs Labs: Blood Type A POSITIVE Antibody Screen Pending Hct 34.4 % (37-47) L Hgb 11.8 g/dL (12.0-15.0) L Obstetrics Ultrasound Syphilis Total Ab Non-reactive VZV IgG Antibody 1104 index (Immune >165) Rubella IgG Antibody Reactive (Nonreactive) Hep Bs Antigen Non-Reactive (Nonreactive) Hepatitis C Antibody Non-Reactive (Nonreactive) HIV 1&2 Antibody Non-Reactive (Nonreactive) Assessment & Plan (1) Gestational diabetes: QUALIFIERS: Gestational diabetes mellitus control: unspecified Trimester: third trimester Qualified Code(s): O24.419 - Gestational diabetes mellitus in , unspecified control (2) macrosomia: (3) History of drug use: (4) 38 weeks gestation of : PLAN: Plan Admit to L&D Induction - for uncontrolled GDM and macrosomia. Intracervical blackwell placed. Plan for cytotec and then pitocin. EFW - less than 4500g (based on recent growth US) and patient with adequate pelvis GBS negative Pain - epidural as desired H/o drug use - needs PP social work consult Routine care
[2023-04-06] MEDS: Lactated Ringers 1,000 ML 50 ML IV (19:30)
[2023-04-06] MEDS: 0.9% Normal Saline Single 100 ML IV.SOLN. INTRA-UTER (19:40)
[2023-04-06 19:47] LABS: Absolute Lymphocyte Count 1.92 X10^3/uL (0.83-4.51); Absolute Neutrophil Count 10.1 X10^3/uL (2.0-7.7); Basophil# 0.05 X10^3/uL; Basophil% 0.4 % (0-1); Eosinophil# 0.04 X10^3/uL; Eosinophils% 0.3 % (0-5); Hematocrit 34.4 % (37-47); Hemoglobin 11.8 g/dL (12.0-15.0); Lymphocyte # 1.92 X10^3/ul (0.83-4.51); Lymphocyte % 14.7 % (19-41); Mean Corp Hgb Conc 34.3 g/dL (32-36); Mean Corpuscular Hgb 30.6 pg (27.0-32.0); Mean Corpuscular Volume 89.4 fL (81-99); Mean Platelet Vol. 10.2 fl (6.2-12.0); Monocyte# 0.74 X10^3/uL; Monocyte% 5.7 % (0-10); NRBC Flagged by Analyzer 0 % (0-5); Neutrophil # 10.14 X10^3/uL (2.7-7.7); Neutrophil % 77.7 % (47-70); Platelet Count 340 K/mm3 (150-450); RBC Distribution Width CV 12.8 % (11.6-14.6); RBC Distribution Width SD 41.3 fl (35.1-43.9); Red Blood Count 3.85 M/mm3 (4.2-5.4); White Blood Count 13.1 K/mm3 (4.4-11.0)
[2023-04-06 20:09] LABS: Bedside Glucose 109 mg/dL (74-106)
[2023-04-06] MEDS: Mag Hydrox/Al Hydrox/Simeth 30 ML UDC PO (20:12)
[2023-04-06 20:22] LABS: Syphilis Antibodies Non-reactive
[2023-04-06] MEDS: miSOPROStol 25 MCG TABLET PO (20:31)
[2023-04-06] MEDS: CHLORHEXIDINE GLUC 2% CLOTH 1 EACH TOWELETTE TOPICAL (22:06)
[2023-04-07] VITALS (53 sets, daily range): BP systolic 96–152; BP diastolic 60–110; PULSE 74–141; RESP 16–18; TEMP 36.2–37.4; O2SAT 95–100
[2023-04-07 00:28] LABS: Bedside Glucose 88 mg/dL (74-106)
[2023-04-07 01:29] LABS: Bedside Glucose 86 mg/dL (74-106)
[2023-04-07 01:45] LABS: Amphetamine Urine VISTA NEGATIVE (<1000 ng/mL); Barbiturate Urine VISTA NEGATIVE (< 200 ng/mL); Benzodiazepine Urine VISTA NEGATIVE (< 200 ng/mL); Cocaine Urine VISTA NEGATIVE (< 300 ng/mL); Ecstacy Urine VISTA NEGATIVE (< 500 ng/mL); Methadone Urine VISTA NEGATIVE (< 300 ng/mL); PCP Urine VISTA NEGATIVE (< 25 ng/mL); THC Urine VISTA NEGATIVE (< 50 ng/mL); Vista UDS pH Range 7
[2023-04-07] MEDS: LACTATED RINGERS 500 ML 999 ML IV ×3 (03:00→14:31)
[2023-04-07] MEDS: Oxytocin 15 Units/NS 250ml 15 UNITS/250 ML IV.SOLN 2 UNITS IV (04:04)
[2023-04-07 05:10] LABS: Bedside Glucose 91 mg/dL (74-106)
[2023-04-07] MEDS: fentaNYL-bupivacaine (epidural) 100 ML BAG EPIDURAL ×3 (07:56→16:42)
--- NOTE | 2023-04-07 08:34 | PCM.PN.CNM ---
Subjective Subjective Patient seen at bedside. Comfortable with epidural. Denies pain. Objective Data Objective Data Vital Signs: Vital Signs Temp Pulse BP Pulse Ox 97.8 F 87 132/77 H 98 04/07/23 07:30 04/07/23 08:26 04/07/23 08:26 04/07/23 08:24 Weight: 270 lb 2 oz Body Mass Index (BMI) 43.6 Intake & Output: Intake and Output for Last 24 Hours 04/05/23 04/06/23 04/07/23 23:59 23:59 23:59 Intake Total 1639.69 / 1639.69 Balance 1639.69 / 1639.69 Lab / Micro Data 04/06/23 19:30 Labs: Laboratory Results - last 24 hr 04/06/23 19:30: WBC 13.1 H, RBC 3.85 L, Hgb 11.8 L, Hct 34.4 L, MCV 89.4, MCH 30.6, MCHC 34.3, RDW Std Deviation 41.3, RDW Coeff of Deidre 12.8, Plt Count 340, MPV 10.2, Immature Gran % (Auto) 1.200 H, Neut % (Auto) 77.7 H, Lymph % (Auto) 14.7 L, [place] % (Auto) 5.7, Eos % (Auto) 0.3, Baso % (Auto) 0.4, Absolute Neuts (auto) 10.1 H, Absolute Lymphs (auto) 1.92, Nucleated RBC % 0, Syphilis Total Ab Non-reactive, Blood Type A POSITIVE, Antibody Screen NEGATIVE 04/06/23 19:49: POC Glucose 109 H 04/06/23 21:00: POC Glucose 88 04/07/23 00:10: Urine Opiates Screen NEGATIVE, Urine Methadone Screen NEGATIVE, Ur Barbiturates Screen NEGATIVE, Ur Phencyclidine Scrn NEGATIVE, Ur Amphetamines Screen NEGATIVE, MDMA (Ecstasy) Screen NEGATIVE, U Benzodiazepines Scrn NEGATIVE, Urine Cocaine Screen NEGATIVE, U Cannabinoids Screen NEGATIVE, Ur Drug Screen Comment 04/07/23 00:58: POC Glucose 86 04/07/23 04:45: POC Glucose 91 ROS Eyes Eyes: Denies blurry vision, change in vision or spots in vision ENT HEENT: Denies dizziness or headache(s) Cardiovascular Cardiovascular: Denies abdominal pain, chest pain or dyspnea Respiratory/Chest Respiratory/Chest: Denies cough, dyspnea, shortness of breath at rest or shortness of breath with exertion Gastrointestinal Gastrointestinal: Denies abdominal pain, diarrhea or vomiting Genitourinary Genitourinary: Denies change in urinary stream, difficulty urinating or dysuria Musculoskeletal Musculoskeletal: Reports none Integumentary Integumentary: Denies rash Neurologic Neurologic: Denies dizziness, headache(s), memory loss or weakness Physical Exam Const alert, oriented x3 and no apparent distress General Appearance: cooperative Orientation / Consciousness: awake Exam Limitations: no limitations HEENT normocephalic Head and Scalp: normal to inspection Eyes General Eye: normal appearance of both eyes Neck full ROM and no lymphadenopathy Lymph Lymphatic: no lymphadenopathy noted Chest inspection of chest normal Resp normal respiratory effort, normal air movement and clear to auscultation bilaterally Effort and Inspection: able to speak in complete sentences and symmetric chest movement Cardio regular rate and regular rhythm GI normal to inspection, nondistended, normoactive bowel sounds Manual OB Exam: presentation cephalic Amniotic Fluid: clear amniotic fluid Back/Spine normal ROM Extremity full ROM and no calf tenderness Skin no rashes or lesions noted General Skin Exam: no breakdown Neuro oriented x3 and CN's II-XII intact bilaterally Psych mental status grossly normal and thought process normal Assessment & Plan (1) Gestational diabetes: (2) macrosomia: (3) History of drug use: (4) 38 weeks gestation of : (5) Encounter for induction of labor: (6) Obesity affecting : PLAN: Plan NST reactive CE- 3/60/-3 AROM for moderate amount of clear fluid IUPC and FSE placed due to difficulty tracings Continue Pitocin IV and increase per orders Anticipate
[2023-04-07 09:17] LABS: Bedside Glucose 116 mg/dL (74-106)
[2023-04-07] MEDS: Lactated Ringers 1,000 ML 200 ML IV ×2 (09:48→14:46)
[2023-04-07 12:27] LABS: Bedside Glucose 73 mg/dL (74-106)
[2023-04-07] MEDS: Ondansetron 4 MG/2 ML Vial IV (12:59)
[2023-04-07 16:15] LABS: Bedside Glucose 80 mg/dL (74-106)
[2023-04-07] MEDS: CHLORHEXIDINE GLUC 2% CLOTH 1 EACH TOWELETTE TOPICAL (17:00)
--- NOTE | 2023-04-07 18:54 | PCM.PN.CNM ---
Subjective Subjective Patient seen at bedside. Comfortable with epidural. Sleeping on and off. Objective Data Objective Data Vital Signs: Vital Signs Temp Pulse BP Pulse Ox 99.4 F H 141 H 137/78 H 98 04/07/23 16:54 04/07/23 18:53 04/07/23 18:53 04/07/23 08:24 Weight: 270 lb 2 oz Body Mass Index (BMI) 43.6 Intake & Output: Intake and Output for Last 24 Hours 04/05/23 04/06/23 04/07/23 23:59 23:59 23:59 Intake Total 3542.96 / 3542.96 Output Total 1150 / 1150 Balance 2392.96 / 2392.96 Lab / Micro Data 04/06/23 19:30 Labs: Laboratory Results - last 24 hr 04/06/23 19:30: WBC 13.1 H, RBC 3.85 L, Hgb 11.8 L, Hct 34.4 L, MCV 89.4, MCH 30.6, MCHC 34.3, RDW Std Deviation 41.3, RDW Coeff of Deidre 12.8, Plt Count 340, MPV 10.2, Immature Gran % (Auto) 1.200 H, Neut % (Auto) 77.7 H, Lymph % (Auto) 14.7 L, [place] % (Auto) 5.7, Eos % (Auto) 0.3, Baso % (Auto) 0.4, Absolute Neuts (auto) 10.1 H, Absolute Lymphs (auto) 1.92, Nucleated RBC % 0, Syphilis Total Ab Non-reactive, Blood Type A POSITIVE, Antibody Screen NEGATIVE 04/06/23 19:49: POC Glucose 109 H 04/06/23 21:00: POC Glucose 88 04/07/23 00:10: Urine Opiates Screen NEGATIVE, Urine Methadone Screen NEGATIVE, Ur Barbiturates Screen NEGATIVE, Ur Phencyclidine Scrn NEGATIVE, Ur Amphetamines Screen NEGATIVE, MDMA (Ecstasy) Screen NEGATIVE, U Benzodiazepines Scrn NEGATIVE, Urine Cocaine Screen NEGATIVE, U Cannabinoids Screen NEGATIVE, Ur Drug Screen Comment 04/07/23 00:58: POC Glucose 86 04/07/23 04:45: POC Glucose 91 04/07/23 08:52: POC Glucose 116 H 04/07/23 11:59: POC Glucose 73 L 04/07/23 15:53: POC Glucose 80 Assessment & Plan (1) Obesity affecting : (2) Encounter for induction of labor: (3) Gestational diabetes: (4) macrosomia: (5) History of drug use: (6) 38 weeks gestation of : PLAN: Plan CE /-3 Unchanged from this morning's exam (over 12 hours) Pitocin unable to be increased at times due to tachysystole Patient voicing frustration with no cervical change Discussed above with Dr. Polanco on phone which will be in route to evaluate
[2023-04-07] MEDS: Sodium Citrate/Citric Acid 30 ML UDC PO (19:09)
[2023-04-07] MEDS: Cefazolin 3 GM in 0.9% Normal Saline (100mL Bag) 100 ML IV (19:38)
[2023-04-07 19:39] LABS: Bedside Glucose 69 mg/dL (74-106)
[2023-04-07] MEDS: Azithromycin 500 MG in Dextrose 5%-Water (250mL Bag) 250 ML 250 MG IV (19:57)
--- NOTE | 2023-04-07 20:15 | OP.PCM_ITS ---
Assessment & Plan (1) Obesity affecting : (2) Gestational diabetes: (3) 38 weeks gestation of : (4) Failed induction of labor: (5) Single live : Maternal Data Information Final WARREN: 04/15/23 Gestational age: 39 6/7 Details Operative Information Date of Procedure: 04/07/23 Pre-Operative Diagnosis: arrest of dilation, failed induction Post-Operative Diagnosis: same + OP position Classification: MONICA Procedure Type: low transverse manager of change #1: Elroy Gutierrez Type of Anesthesia: Epidural Anesthesiologist: doctor kerrie Special Medications: duramorph Antibiotic Given: Ancef 3 grams IV x1 and Zithromax 500 mg/5 mL X1 Drain: Brady to straight drain Estimated Blood Loss: 800 Fluids Replaced: 200 Procedure Start Time: 19:50 Procedure Stop Time: 20:21 Time of Delivery: 19:51 Findings Description of Procedure: The patient was taken to the operating room. She was prepped and draped in the dorsal supine position with a leftward tilt. A Pfannenstiel skin incision was made approximately 2 cm above the symphysis pubis and carried through to underlying layer fascia with the scalpel. The fascia was incised incised in the midline and extended laterally with the Buck scissors. The fascia was dissected off the rectus muscles with blunt and sharp dissection. The rectus muscles were in the midline and the peritoneum was entered bluntly. The peritoneal incision was stretched and the bladder blade was placed. The uterine incision was made in a low transverse fashion with the scalpel and extended superiorly and inferiorly with blunt dissection. The amniotic membranes were ruptured bluntly and clear amniotic fluid returned. The 's head was brought to the incision in the flexed position and delivered without difficulty. The position was OP and there was a significant amount of caput. The head was not really engaged in the pelvis. The remainder of the was delivered with gentle traction and fundal pressure in the standard fashion. The mouth and nares were bulb suctioned. The cord was clamped and cut as the infant was stimulated. Cord clamping was delayed. The infant was handed off to the waiting nursing staff. The placenta was delivered with fundal massage and gentle traction in the standard fashion. The uterus was exteriorized and cleared of all clots and debris. . The uterine incision was closed with #1 Vicryl in a running locked fashion. A second layer of the same suture was used in an imbricating fashion. The incision was examined and was found to be hemostatic. The uterus was placed back into the peritoneal cavity and hemostasis was again confirmed. The rectus muscles were examined and any bleeding was Bovie cauterized. The parietal peritoneum and rectus muscles were closed en bloc with an 0 Vicryl running suture. Some Greta was placed over the rectus muscles. The rectus fascia was examined and any bleeding was Bovie cauterized and the rectus fascia was closed with #1 PDS suture in a running standard fashion. The subcutaneous tissue was examining and any bleeding was Bovie cauterized. The remainder of the Greta was placed in the subcutaneous tissue. The subcutaneous tissue was reapproximated with 3-0 Vicryl suture. The skin was closed in a subcuticular fashion by the CHANNEL CEMENTER INSOLE MACHINE with me present in the labor and delivery suite. I performed the remainder of the procedure with assistance. All sponge, lap, and needle counts were correct. The patient was taken to her room for recovery in a stable condition. Presentation: Positive for ROP Amniotic Membrane Rupture Type: Artificial Amniotic Fluid Description: Clear Placental Delivery Description: Expressed Placenta Disposition: [facility] Cord Vessel Description: 3 Vessels Cord Entanglement: Around neck x 1, loose Nuchal Cord Compression: Without compression A Gender: Male (Connor 7lb 13 oz) (1 minute): 9 (5 minute): 9 Delayed Cord Clamping: Yes Complications Complications: none
[2023-04-07] MEDS: Oxytocin 15 Units/NS 250ml 15 UNITS/250 ML IV.SOLN 83 UNITS IV (20:35)
[2023-04-07] MEDS: Ketorolac 30 MG/ML Syringe IV (21:41)
[2023-04-07] MEDS: 0.9% Saline Lock 10 ML Syringe IV (21:42)
[2023-04-07 21:57] LABS: Bedside Glucose 101 mg/dL (74-106)
--- NOTE | 2023-04-07 22:43 | NURSING ---
epidural catheter removed while pt in recovery PP room. blue tip intact. pt tolerated well. gauze and bandaid provided.
[2023-04-07] MEDS: Lactated Ringers 1,000 ML 100 ML IV (23:41)
--- NOTE | 2023-04-07 23:43 | NURSING ---
incentive spirometer reviewed with pt. demo completed. pt able to perform 5 repititions up to 1750. pt tolerated well. education provided.
[2023-04-08] VITALS (14 sets, daily range): BP systolic 106–137; BP diastolic 60–77; PULSE 72–103; RESP 14–20; TEMP 36.1–36.7; O2SAT 97–100
[2023-04-08] MEDS: Acetaminophen 500 MG Tablet 1000 MG PO ×4 (00:46→19:18)
--- NOTE | 2023-04-08 01:24 | NURSING ---
report given to kiko HOWELL
[2023-04-08] MEDS: Ketorolac 30 MG/ML Syringe IV ×3 (02:50→15:46)
[2023-04-08 04:53] LABS: Hematocrit 28.8 % (37-47); Hemoglobin 9.5 g/dL (12.0-15.0); Mean Corpuscular Hgb 30.7 pg (27.0-32.0); Mean Corpuscular Volume 93.2 fL (81-99); Mean Platelet Vol. 10.1 fl (6.2-12.0); Platelet Count 273 K/mm3 (150-450); RBC Distribution Width CV 13.2 % (11.6-14.6); RBC Distribution Width SD 44.2 fl (35.1-43.9); Red Blood Count 3.09 M/mm3 (4.2-5.4); White Blood Count 16.1 K/mm3 (4.4-11.0)
[2023-04-08 05:38] LABS: Bedside Glucose 81 mg/dL (74-106)
[2023-04-08 07:25] LABS: Bedside Glucose 57 mg/dL (74-106)
[2023-04-08 07:26] LABS: Bedside Glucose 62 mg/dL (74-106)
--- NOTE | 2023-04-08 08:09 | PN.OBGYN_ITS ---
Subjective Subjective Patient seen at bedside. Up in bathroom for the first time. Pain controlled. Planning on showering. with support and may switch to bottle. Denies headache, vision changes, dizziness, SOB, or CP. Objective Data Objective Data Vital Signs: Vital Signs Temp Pulse Resp BP Pulse Ox O2 Del Method 97.1 F L 82 16 127/73 H 97 Room Air 04/08/23 06:56 04/08/23 06:56 04/08/23 06:56 04/08/23 06:56 04/08/23 06:56 04/08/23 06:56 Oxygen Delivery Method Room Air Weight: 270 lb 2 oz Body Mass Index (BMI) 43.6 Intake & Output: Intake and Output for Last 24 Hours 04/06/23 04/07/23 04/08/23 23:59 23:59 23:59 Intake Total 5366.29 / 5366.29 Output Total 2750 / 2750 Balance 2616.29 / 2616.29 Lab / Micro Data 04/08/23 04:46 Labs: Laboratory Results - last 24 hr 04/07/23 08:52: POC Glucose 116 H 04/07/23 11:59: POC Glucose 73 L 04/07/23 15:53: POC Glucose 80 04/07/23 18:54: POC Glucose 69 L 04/07/23 21:34: POC Glucose 101 04/08/23 04:38: POC Glucose 57 L 04/08/23 04:46: WBC 16.1 H, RBC 3.09 L, Hgb 9.5 L, Hct 28.8 L, MCV 93.2, MCH 30 .7, MCHC 33.0, RDW Std Deviation 44.2 H, RDW Coeff of Deidre 13.2, Plt Count 273, MPV 10.1 04/08/23 04:53: POC Glucose 62 L 04/08/23 05:18: POC Glucose 81 ROS Eyes Eyes: Denies blurry vision, change in vision or spots in vision ENT HEENT: Denies dizziness or headache(s) Cardiovascular Cardiovascular: Denies abdominal pain, chest pain or dyspnea Respiratory/Chest Respiratory/Chest: Denies cough, dyspnea, shortness of breath at rest or shortness of breath with exertion Gastrointestinal Gastrointestinal: Denies abdominal pain, diarrhea or vomiting Genitourinary Genitourinary: Denies change in urinary stream, difficulty urinating or dysuria Musculoskeletal Musculoskeletal: Reports none Integumentary Integumentary: Denies rash Neurologic Neurologic: Denies dizziness, headache(s), memory loss or weakness Physical Exam Narrative Dressing is dry and intact Const alert and no apparent distress General Appearance: cooperative and comfortable Exam Limitations: no limitations HEENT normocephalic Eyes General Eye: normal appearance of both eyes Neck full ROM General: normal visual inspection Chest Chest: symmetrical chest wall rise Resp normal respiratory effort and normal air movement Effort and Inspection: symmetric chest movement Auscultation: clear to auscultation bilaterally Cardio regular rate and regular rhythm GI normal to inspection, nondistended, normoactive bowel sounds Back/Spine normal ROM Extremity full ROM and no calf tenderness General Extremity: normal exam except as noted Skin no rashes or lesions noted Neuro CN's II-XII intact bilaterally Psych mental status grossly normal Assessment & Plan (1) Single live : (2) Failed induction of labor: (3) Obesity affecting : (4) Status post primary low transverse section: (5) Post-operative pain: (6) Care and examination of lactating mother: PLAN: Plan POD 1 Primary C/S Pain control support HGB 9.5 down from 11.8- start oral iron supplementation Ambulate today
[2023-04-08] MEDS: Enoxaparin 40 MG/0.4 ML Syringe SC ×2 (09:35→19:57)
[2023-04-08] MEDS: Senna/Docusate Sodium 1 Tablet PO (09:35)
[2023-04-08] MEDS: 0.9% Saline Lock 10 ML Syringe IV ×2 (09:35→15:46)
[2023-04-08] MEDS: Ferrous Sulfate 325 MG Tablet PO ×2 (13:28→19:18)
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
[2023-04-08] MEDS: Ibuprofen 600 MG Tablet PO (21:31)
--- NOTE | 2023-04-08 21:37 | NURSING ---
MOB called this RN and was very emotional. States she is upset because no one has offered her any stronger pain medicine . Stating she has no pain at rest but is 7/10 when ambulating and wants to feel better so she can help with the baby. Discussed ERAS orders for pain medication and educated on side effects of PO oxy. Pt wishes to take 5mg oxy at this time for pain control. FOB anxious in room attempting to feed infant. RN assisted with preparation of bottle and after feeding assisted with burping infant and swaddling into crib. FOB relaxed when RN left room and mother no longer tearful.
[2023-04-08] MEDS: oxyCODONE 5 MG Tablet PO (21:40)
[2023-04-09 01:40] VITALS: BP 147/79; PULSE 92; RESP 18; TEMP 36.3; O2SAT 97
[2023-04-09] MEDS: Acetaminophen 500 MG Tablet 1000 MG PO ×2 (01:42→07:40)
[2023-04-09 03:07] VITALS: BP 139/80
[2023-04-09] MEDS: Ibuprofen 600 MG Tablet PO ×2 (03:49→09:41)
--- NOTE | 2023-04-09 05:59 | NURSING ---
Report given to Stacie HOWELL, taking over pt and care at this time.
[2023-04-09] MEDS: oxyCODONE 5 MG Tablet PO (06:05)
[2023-04-09] MEDS: Enoxaparin 40 MG/0.4 ML Syringe SC (07:41)
[2023-04-09 07:45] VITALS: BP 117/65; PULSE 82; RESP 16; TEMP 36.1; O2SAT 98
[2023-04-09] MEDS: Senna/Docusate Sodium 1 Tablet PO (09:41)
--- NOTE | 2023-04-09 09:41 | PCM.DC.SUM ---
Providers Date of Admission: 04/06/23 Primary Care Physician: Thais Primary Care Phys Reason For Visit: Diagnosis Discharge Diagnosis (1) Single live : Status: Acute Code(s): Z37.0 - Single live (2) Status post primary low transverse section: Status: Acute Code(s): Z98.891 - History of uterine scar from previous surgery (3) Post-operative pain: Status: Acute Code(s): G89.18 - Other acute postprocedural pain Plan POD 1 Primary C/S Pain control support HGB 9.5 down from 11.8- start oral iron supplementation Ambulate today Medications at Discharge Home Medications acetaminophen 500 mg tablet 1,000 mg (2 x 500 mg) PO Q6H #60 tabs 04/09/23 ferrous sulfate 325 mg (65 mg iron) tablet (FeroSul) 325 mg PO 1200,1700 #60 tabs 04/09/23 ibuprofen 600 mg tablet 600 mg PO Q6H #60 tabs 04/09/23 oxycodone 5 mg tablet 5 - 10 mg (1 - 2 x 5 mg) PO Q4H PRN PRN Pain Score 4-10 5 days #14 tabs 04/09/23 sennosides 8.6 mg-docusate sodium 50 mg tablet (Stool Softener-Stimulant Laxative) 1 - 2 tab PO DAILY #60 tabs 04/09/23 Hospital Course Operations section Summary of Care Provided Minutes Spent on Discharge: 20 Hospital Course: Patient had primary section. Hospital course was uneventful. Physical Exam Narrative Patient seen at bedside. Resting comfortably. Ambulating and voiding without difficulty. Denies headache, vision changes, SOB, or CP. Lochia minimal. Passing flatus. Pain is controlled with PO medications. Formula feeding. Desires discharge home. Const alert and no apparent distress General Appearance: cooperative and comfortable Exam Limitations: no limitations HEENT normocephalic Eyes General Eye: normal appearance of both eyes Neck full ROM General: normal visual inspection Chest Chest: symmetrical chest wall rise Resp normal respiratory effort and normal air movement Effort and Inspection: symmetric chest movement Auscultation: clear to auscultation bilaterally Cardio regular rate and regular rhythm GI normal to inspection, nondistended, normoactive bowel sounds Back/Spine normal ROM Extremity full ROM and no calf tenderness General Extremity: normal exam except as noted Skin no rashes or lesions noted Neuro CN's II-XII intact bilaterally Psych mental status grossly normal Weight / BMI Weight Weight: 270 lb 2 oz Body Mass Index (BMI) 43.6 ABG / Lab / Microbiology Data 04/08/23 04:46 D/C Instructions Discharge Diet: No restrictions Discharge Activity: May Drive (2 weeks) and May Shower May resume sexual activity in: 6-8 weeks Weight Bearing Status: Weight bearing as tolerated Call your doctor if your incision/area has: Continuous Slow Oozing, Sudden Increased Bleeding, Increased Pain/ Swelling, Increased Redness, Foul Smelling Discharge and Swelling at the incision site Call your doctor if you observe: Fever of 101 or Higher, Numbness or Tingling, Using more than 1 pad per hour, Shortness of breath, Dizziness, Swelling in the ankles, Chest pain, Calf discomfort and Uncontrolled pain Suture Line Care: Avoid Pulling/Pushing Change Dressing in: 5 days Remove Dressing in: 5 days When: 1 week in office for incision check Meaningful Use Info Meaningful Use Diagnoses (Choose all that apply): None applicable Discharge Plan Admission Admit Date/Time: 04/06/23 19:10 Primary Reason for Your Visit: Labor and Delivery Attending Provider: Rose Polanco Primary Care Provider: Care Physician,Thais Primary Discharge Orders/Prescriptions Prescriptions: New sennosides-docusate sodium [Stool Softener-Stimulant Laxat] 8.6-50 mg Tablet 1 - 2 tab PO DAILY Qty: 60 0RF acetaminophen 500 mg Tablet 1,000 mg PO Q6H Qty: 60 0RF ferrous sulfate [FeroSul] 325 mg (65 mg iron) Tablet 325 mg PO 1200,1700 Qty: 60 0RF ibuprofen 600 mg Tablet 600 mg PO Q6H Qty: 60 0RF oxycodone 5 mg Tablet 5 - 10 mg PO Q4H PRN PRN (Reason: Pain Score 4-10) 5 Days Qty: 14 0RF Discontinued penicillin V potassium 500 mg tablet 500 mg PO 4X/DAY Qty: 40 0RF clotrimazole [Athletic Foot Cream] 1 % cream 1 applic topical BID 14 Days Qty: 15 0RF Referrals / Follow Up: Care Physician,No Primary [Primary Care Provider] - Disposition Disposition (needs filled in before D/C Order can be placed): Home, Self Care
[2023-04-09] MEDS: Ferrous Sulfate 325 MG Tablet PO (11:54)
[2023-04-09 12:00] VITALS: BP 141/80; PULSE 57; RESP 14; TEMP 36.5; O2SAT 100
[2023-04-09 12:20] VITALS: BP 134/76
--- NOTE | 2023-04-27 11:27 | CASEMGMT ---
Addendum entered by Mandi Lam 07/07/23 17:25: Social Work SW received a letter from [facility] date 06/08/23 stating that thereis not a need for ongoing protective services. GERMAINE Zaman Original Note: Social Work SW received a letter from [facility] dated 04/11/23 stating that the referral was accepted for assessment/investigation. GERMAINE Zaman
== END 2023-04-09 13:20 | disposition home or self-care (01) | DRG 540 ==
PROVIDERS: Admitting Provider Obstetrics & Gynecology; Visit Provider Obstetrics & Gynecology
DX: O76 Abnormality in fetal heart rate and rhythm complicating labor and delivery (principal); O24.420 Gestational diabetes mellitus in childbirth, diet controlled; F17.210 Nicotine dependence, cigarettes, uncomplicated; O99.214 Obesity complicating childbirth; O99.334 Smoking (tobacco) complicating childbirth; O36.63X0 Maternal care for excessive fetal growth, third trimester, not applicable or unspecified; O69.81X0 Labor and delivery complicated by cord around neck, without compression, not applicable or unspecified; O61.0 Failed medical induction of labor; O62.1 Secondary uterine inertia; Z37.0 Single live birth; Z63.79 Other stressful life events affecting family and household; Z65.3 Problems related to other legal circumstances; Z3A.38 38 weeks gestation of pregnancy; Z87.898 Personal history of other specified conditions
CPT/HCPCS: 59025; 59050; 80307; 82962; 85025; 85027; 86780; 86850; 86900; 86901; 99221; J7120; A4216; G0378; J2405

== ENCOUNTER 2023-06-18 23:59 | Emergency (ER) | payer MEDICAID, SELFPAY ==
[2023-06-19] VITALS: BP 134/70; PULSE 69; RESP 14; TEMP 36.7; O2SAT 98
[2023-06-19] MEDS: Mag Hydrox/Al Hydrox/Simeth 30 ML UDC PO (00:51)
[2023-06-19 00:57] VITALS: BMI 37.1
[2023-06-19 01:15] LABS: Absolute Lymphocyte Count 2.16 X10^3/uL (0.83-4.51); Absolute Neutrophil Count 4.5 X10^3/uL (2.0-7.7); Basophil# 0.02 X10^3/uL; Basophil% 0.3 % (0-1); Eosinophil# 0.08 X10^3/uL; Eosinophils% 1.1 % (0-5); Hematocrit 36.7 % (37-47); Hemoglobin 12.1 g/dL (12.0-15.0); Lymphocyte # 2.16 X10^3/ul (0.83-4.51); Lymphocyte % 29.3 % (19-41); Mean Corpuscular Hgb 28.9 pg (27.0-32.0); Mean Corpuscular Volume 87.6 fL (81-99); Mean Platelet Vol. 9.7 fl (6.2-12.0); Monocyte# 0.54 X10^3/uL; Monocyte% 7.3 % (0-10); NRBC Flagged by Analyzer 0 % (0-5); Neutrophil # 4.53 X10^3/uL (2.7-7.7); Neutrophil % 61.6 % (47-70); Platelet Count 432 K/mm3 (150-450); RBC Distribution Width CV 12.4 % (11.6-14.6); RBC Distribution Width SD 39.5 fl (35.1-43.9); Red Blood Count 4.19 M/mm3 (4.2-5.4); White Blood Count 7.4 K/mm3 (4.4-11.0)
[2023-06-19 01:37] VITALS: BP 120/76; PULSE 87; RESP 16; O2SAT 100
[2023-06-19 01:51] LABS: AST(SGOT) 16 U/L (15-37); Alanine Aminotransfer ALT/SGPT 23 U/L (13-56); Albumin, Serum 3.2 g/dL (3.2-5.0); Alkaline Phosphatase 107 U/L (45-117); Anion Gap 6 (5-15); BUN 11 mg/dL (7-18); Bilirubin, Direct 0.06 mg/dL (0.00-0.30); Calcium,Total 8.9 mg/dL (8.5-10.1); Chloride 108 mmol/L (98-107); Creatinine, Serum 0.85 mg/dL (0.55-1.02); EST Glomerular Filtration Rate 88 mL/min (>60); Est Glom Filt Rate - Afr Amer 106 mL/min (>60); Estimated Creatinine Clearance 125.63 ml/min; Globulin 4.1 g/dL (2.2-4.2); Glucose 93 mg/dL (74-106); Lipase 29 U/L (13-75); Potassium 4.2 mmol/L (3.5-5.1); Protein, Total 7.3 g/dL (6.4-8.2); Sodium Level 142 mmol/L (136-145)
--- NOTE | 2023-06-19 02:15 | EDS_ITS ---
HPI HPI - GI History of Present Illness Chief Complaint: Abd Pain Detail of Chief Complaint: Epigastric pain with nausea and vomiting per triage note also complained of Informant: patient Abdominal Pain/Flank Pain Onset: Today (Epigastric pain per my independent history with nausea) Context: Sudden Onset Timing: Continuous Quality: Aching and Burning Current Severity: Mild Maximum Severity: Severe Worsened by: Food Relieved by: Nothing Nausea/Vomiting/Emesis GI Symptom: Positive for Nausea; Negative for Vomiting Diarrhea/Melena/Hematochezia GI Symptom: Negative for Diarrhea, Melena or Hematochezia Associated Symptoms Associated Symptoms: Negative for Dysuria, Frequency, Hematuria or Urgency Narrative Narrative: Patient is a 22-year-old woman who delivered in February. She is present on no control pills. She denies symptoms of . She reports epigastric pain. She does report nausea. She had no vomiting. She denies black or maroon-colored stool. She denies bright red blood per rectum. She has history of reflux. She denies fever, chills night sweats. Denies headache, visual, ocular auditory symptoms. She denies cough, shortness of breath or difficulty breathing. She does report shortness of breath. This is there is no history of PE or DVT. She denies leg pain, swelling discoloration. Prior similar symptoms: No Recent Illness/Hospitalization: No PFSH PFSH Medical History Anxiety Depression Failed induction of labor Gestational diabetes Gestational diabetes History of drug use Obesity affecting Post-operative pain Single live Suicidal behavior with attempted self-injury Home Medications acetaminophen 500 mg tablet 1,000 mg (2 x 500 mg) PO Q6H #60 tabs 04/09/23 [Rx Last Taken Unknown] oxycodone 5 mg tablet 5 - 10 mg (1 - 2 x 5 mg) PO Q4H PRN PRN Pain Score 4-10 5 days #14 tabs 04/09/23 [Rx Last Taken Unknown] amoxicillin 875 mg tablet 875 mg PO BID 06/19/23 [History Last Taken Unknown] famotidine 40 mg tablet (Pepcid) 40 mg PO DAILY #30 tabs 06/19/23 [Rx Last Taken Unknown] Allergy/AdvReac Type Severity Reaction Status Date / Time No Known Allergies Allergy Verified 06/19/23 00:04 Surgical History Status post primary low transverse section Social History Smoking Status: Current some day smoker tobacco type: cigarettes ROS ROS ED Constitutional Constitutional ED: Denies chills, fever(s), subjective, sweats or weight loss ENT ENT ED: Denies ear pain, rhinorrhea or sore throat Cardiovascular Cardiovascular: Denies chest pain, palpitations or racing heartbeat Respiratory/Chest Respiratory/Chest: Denies cough, dyspnea or dyspnea on exertion Gastrointestinal Gastrointestinal: Reports abdominal pain and nausea; Denies constipation, diarrhea, melena or vomiting Musculoskeletal Musculoskeletal: Denies arthralgias, back pain, myalgias or neck pain Integumentary Denies rash Endocrine Endocrinology: Denies polydipsia, polyphagia or polyuria EXAM Physical Exam Const Vital Signs: 06/19/23 00:00 06/19/23 01:37 Temperature 98.1 F Temperature Source Oral Pulse Rate 69 87 Respiratory Rate 14 16 Blood Pressure 134/70 H 120/76 Blood Pressure Mean 91 90 Pulse Ox 98 100 Oxygen Delivery Method Room Air Room Air Positive well nourished, well developed and obese General Appearance ED: well developed and NAD; Negative for pallor Nutritional Appearance: obese HEENT Reports moist mucous membranes normocephalic and atraumatic Eyes PERRL and EOMs intact bilaterally Neck no lymphadenopathy, supple and no JVD Resp normal respiratory effort and clear to auscultation bilaterally Cardio regular rate, regular rhythm, S1 normal heart sound, S2 normal heart sound and no murmurs GI non-distended and no masses; Negative for non-tender Auscultation: normoactive bowel sounds Palpation: soft and tender epigastric Back/Spine no CVA tenderness Extremity full ROM General Extremety ED: Yes edema General Extremity: edema Neuro CN's II-XII intact bilaterally, moves all extremities and no sensory deficits noted Sensorium / Orientation: alert Psych mental status grossly normal and thought process normal Skin no wounds General Skin Exam: Negative for jaundice or pallor MDM MDM MDM Narrative Medical decision making narrative: With recent delivery epigastric upper abdominal pain need to consider cholelithiasis, acute cholecystitis, reflux, hiatal hernia, peptic ulcer disease doubt cardiac or pulmonary cause. Patient was treated with GI cocktail. Blood work was obtained to assess white count liver enzymes lipase. Lab Data Attestation: I reviewed the patient's lab results. Lab results narrative: CBC, basic metabolic panel, liver panel and lipase are all normal. Labs: Laboratory Results - last 24 hr 06/19/23 01:00 WBC 7.4 RBC 4.19 L Hgb 12.1 Hct 36.7 L MCV 87.6 MCH 28.9 MCHC 33.0 RDW Std Deviation 39.5 RDW Coeff of [place]idre 12.4 Plt Count 432 MPV 9.7 Immature Gran % (Auto) 0.400 Neut % (Auto) 61.6 Lymph % (Auto) 29.3 [place] % (Auto) 7.3 Eos % (Auto) 1.1 Baso % (Auto) 0.3 Absolute Neuts (auto) 4.5 Absolute Lymphs (auto) 2.16 Nucleated RBC % 0 Sodium 142 Potassium 4.2 Chloride 108 H Carbon Dioxide 28.0 Anion Gap 6 BUN 11 Creatinine 0.85 Estim Creat Clear Calc 125.63 Est GFR (MDRD) Af Amer 106 Est GFR (MDRD) Non-Af 88 BUN/Creatinine Ratio 13.0 Glucose 93 Calcium 8.9 Total Bilirubin 0.10 L Direct Bilirubin 0.06 AST 16 ALT 23 Alkaline Phosphatase 107 Total Protein 7.3 Albumin 3.2 Globulin 4.1 Lipase 29 Treatment and Re-Evaluation :: Patient's symptoms resolved with the GI cocktail. Will prescribe Pepcid. She is to follow-up with her doctor. She was instructed that her primary care provider name is listed on the insurance card she was issued by [facility]. Discharge Plan Triage Chief Complaint: Abd Pain Other Complaint: Nausea/Vomiting ED Provider: Jewel Bolivar Dx/Rx/DC Orders Clinical Impression: Acute epigastric pain Instructions: ED Epigastric Pain Uncertain Cause Prescriptions: New famotidine [Pepcid] 40 mg tablet 40 mg PO DAILY Qty: 30 0RF No Action acetaminophen 500 mg Tablet 1,000 mg PO Q6H Qty: 60 0RF oxycodone 5 mg Tablet 5 - 10 mg PO Q4H PRN PRN (Reason: Pain Score 4-10) 5 Days Qty: 14 0RF amoxicillin 875 mg tablet 875 mg PO BID Primary Care Provider: Care Physician,No Primary Referrals: Care Physician,No Primary [Primary Care Provider] - Doctor,Your [Non-Staff] - 1-2 Weeks Activity Restrictions/Additional Instructions: The name of your primary care provider is located on the insurance card issued to you by [facility]. If you develop black stool or maroon-colored stool return to the emergency department Disposition Disposition: Home, Self Care
[2023-06-19 02:44] VITALS: BP 130/77; PULSE 61; RESP 16; TEMP 36.6; O2SAT 99
== END 2023-06-19 02:47 | disposition home or self-care (01) ==
PROVIDERS: Emergency Provider Emergency Medicine; Visit Provider Emergency Medicine
DX: R10.13 Epigastric pain (principal); F17.210 Nicotine dependence, cigarettes, uncomplicated; E66.9 Obesity, unspecified
CPT/HCPCS: 80048; 80076; 83690; 85025; 99284

== ENCOUNTER 2024-01-27 09:42 | Emergency (ER) | payer MEDICAID, SELFPAY ==
[2024-01-27 09:42] VITALS: BP 141/104; PULSE 78; RESP 16; TEMP 36.9; O2SAT 98; BMI 38.7
--- NOTE | 2024-01-27 09:55 | EX.ED.UPPERE ---
HPI History of Present Illness HPI Narrative: 23-year-old female several day history of right forearm discomfort. No fall or trauma. No fever or redness. She is right-hand dominant. Chief Complaint: Upper Extremity Injury Informant: patient Onset/Context/Timing Onset: Days Context: Gradual Onset Timing: Continuous Current Severity: Mild Maximum Severity: Mild Associated Symptoms Associated Symptoms: Negative for Parasthesia, Weakness or Loss of Funtion Narrative Narrative: 23-year-old female no significant past medical history complaining of right forearm discomfort. Denies any falls or trauma. Prior similar symptoms: No Recent Illness/Hospitalization: No PFSH PFSH Medical History Post-operative pain Single live Failed induction of labor Obesity affecting Anxiety Gestational diabetes Suicidal behavior with attempted self-injury Depression Gestational diabetes History of drug use Home Medications ?Medication ?Instructions ?Recorded ?Last Taken ?Type acetaminophen 500 mg tablet 1,000 mg (2 x 500 mg) PO Q6H #60 04/09/23 Unknown Rx tabs oxycodone 5 mg tablet 5 - 10 mg (1 - 2 x 5 mg) PO Q4H 04/09/23 Unknown Rx PRN PRN Pain Score 4-10 5 days #14 tabs amoxicillin 875 mg tablet 875 mg PO BID 06/19/23 Unknown History famotidine 40 mg tablet (Pepcid) 40 mg PO DAILY #30 tabs 06/19/23 Unknown Rx Allergy/AdvReac Type Severity Reaction Status Date / Time No Known Allergies Allergy Verified 01/27/24 09:42 Surgical History Status post primary low transverse section Social History Smoking Status: Current some day smoker tobacco type: cigarettes ROS ROS ED ROS Narrative Denies recent illness. Constitutional Constitutional ED: Denies fever(s) Eyes Eyes: Denies blurry vision ENT ENT ED: Denies ear pain Cardiovascular Cardiovascular: Denies chest pain Respiratory/Chest Respiratory/Chest: Denies cough Gastrointestinal Gastrointestinal: Denies abdominal pain Genitourinary Genitourinary ED: Denies dysuria Musculoskeletal Musculoskeletal: Denies back pain Integumentary Denies abscess Neurologic Neurologic: Denies headache(s) Psychiatric Psychiatric: Denies anxiety or depression Endocrine Endocrinology: Denies cold intolerance Hematologic/Lymphatic Hematologic/Lymphatic: Denies easy bleeding or easy bruising Allergic/Immunologic Allergic/Immunologic ED: Denies mouth swelling EXAM Physical Exam Narrative Exam Narrative: 23-year-old female no acute distress vital signs stable afebrile. H EENT exam unremarkable. Neck nontender no lymphadenopathy. Lungs good auscultation bilaterally. Heart regular rate and rhythm rate about 75 no murmur. Chest wall ribs nontender. Abdomen soft nontender. Moving all 4 extremities. Neurovascularly intact. Normal strength and range of motion. Specifically the right arm she has no axillary lymphadenopathy. There is no discoloration or redness to the arm. She has full flexion extension of her right shoulder, right elbow and wrist. They are nontender nonswollen. Normal radial pulse 5 out of 5 manager port strength normal sensation. The forearm is not swollen. Minimal soft tissue tenderness. No edema. No redness. No abscesses or track smalls. Exam is consistent with a myofascial strain. Const Vital Signs: 01/27/24 09:42 Temperature 98.4 F Temperature Source Oral Pulse Rate 78 Respiratory Rate 16 Blood Pressure 141/104 H Blood Pressure Mean 116 Pulse Ox 98 Oxygen Delivery Method Room Air Positive well nourished and well developed; Negative for cachectic, contractures or unkempt General Appearance ED: well developed; Negative for unkempt, cachectic or contractures Nutritional Appearance: Negative for cachectic HEENT Reports moist mucous membranes normocephalic and atraumatic; Negative for trauma or tenderness Eyes PERRL and EOMs intact bilaterally General Eye ED: Negative for other Neck full ROM and supple General: Negative for tenderness Lymph Lymphatic: Negative for other Chest Wall inspection of chest normal and palpation of chest normal Resp normal respiratory effort and clear to auscultation bilaterally Effort and Inspection: Negative for pain with movement Auscultation: Negative for rales, rhonchi, wheezes or diminished lung sounds Cardio regular rate, regular rhythm, S1 normal heart sound, S2 normal heart sound and no murmurs Rate: Negative for bradycardia or tachycardic Rhythm: Negative for abnormal rhythm GI non-tender, non-distended and no masses Inspection: Negative for abdominal distention Auscultation: normoactive bowel sounds Palpation: soft; Negative for tender, guarding or rebound tenderness present Back/Spine no CVA tenderness General Back: Negative for CVA tenderness Cervical Spine: Negative for cervical spine tenderness Thoracic Spine / Upper Back: Negative for thoracic spinal tenderness Lumbar Spine / Lower Back: Negative for lumbar spinal tenderness Extremity normal to inspection and full ROM Extremity Narrative: Mild tenderness right forearm. Consistent with myofascial strain. No signs of infection. Neurovascular intact. Full range of motion. No edema or swelling. General Extremety ED: Negative for edema General Extremity: Negative for edema Neuro oriented x3, CN's II-XII intact bilaterally, moves all extremities, no focal motor deficits and no sensory deficits noted Sensorium / Orientation: alert, oriented to person, oriented to place and oriented to time; Negative for orientation impaired, lethargic, stuporous or other Motor Exam: strength 5/5 throughout Psych mental status grossly normal Appearance: Negative for unkempt Attitude: No agitated Mood & Affect: Negative for depressed, anxious or tearful Skin General Skin Exam: Negative for petechiae Lesions: no lesions Rashes: no rashes MDM MDM MDM Narrative Medical decision making narrative: 23-year-old female atraumatic right forearm discomfort. Exam consistent with a strain. Motrin for pain. Follow-up as needed. No need for labs or x-ray. Discharge Plan Triage Chief Complaint: Upper Extremity Injury ED Provider: Jefry Johnson Dx/Rx/DC Orders Clinical Impression: Muscle strain Instructions: ED Muscle Strain, Extremity Prescriptions: No Action acetaminophen 500 mg Tablet 1,000 mg PO Q6H Qty: 60 0RF oxycodone 5 mg Tablet 5 - 10 mg PO Q4H PRN PRN (Reason: Pain Score 4-10) 5 Days Qty: 14 0RF amoxicillin 875 mg tablet 875 mg PO BID famotidine [Pepcid] 40 mg tablet 40 mg PO DAILY Qty: 30 0RF Primary Care Provider: Care Physician,No Primary Referrals: Yadiel Neville MD [Med Staff - Surgical Garment Inspector] - As Needed Care Physician,No Primary [Primary Care Provider] - Activity Restrictions/Additional Instructions: This appears that you strained the muscle in your forearm. Ice. Decrease pain and swelling. Motrin for pain and inflammation. You may use Tylenol for pain but will not doing for the inflammation. This should progressively start getting better if not follow-up to have it reevaluated. Print Language: [place] Disposition Disposition: Home, Self Care
--- OUTSIDE RECORDS SUMMARY | 2024-01-27 10:02 | XMS RPT_ITS | CCD ---
Author Organization [facility] Care Team Providers Care Card Hanger Name Role Phone ALEXI LEARY Unavailable Unavailable LEANNE JOHNSON Unavailable Unavailable DAVID YUNG Unavailable Unavailable LEANNE JOHNSON Unavailable Unavailable SAM RAJAN Unavailable Unavailable LEANNE JOHNSON Unavailable Unavailable Unavailable Primary Care Provider Unavailariadne e Unavailable Primary Care Provider UnavailAZEB Huston Attending Unavailable JOY RODRIGUEZ Attending Unavailable JOY RODRIGUEZ Referring Unavailable JOY RODRIGUEZ Attending Unavailable RAMILA CONSTANTINO Attending Unavailable JOY RODRIGUEZ Attending Unavailable RAMILA CONSTANTINO Attending Unavailable AZEB FLORES Attending Unavailable AZEB FLORES Referring Unavailable JOY RODRIGUEZ Attending Unavailable JOY RODRIGUEZ Referring Unavailable JOY RODRIGUEZ Referring Unavailable Medications Current Medications Medication Drug Class(es) Dates Sig (Normalized) Sig (Original) doxycycline monohydrate 100 mg oral tablet (1 source) Tetracycline-cla ss Drug Start: 08-20-2023 End: 08-27-2023 take 1 tablet by mouth twice daily doxycycline monohydrate 100 mg tablet Take 1 tablet by mouth two times a day for 7 days. 14 tablet 0 08/20/2023 08/27/2023 Active 21 day ethinyl estradiol 0.241401 mg/hr / etonogestrel 0.005 mg/hr vaginal system (7 sources) Progestin, Estrogen Start: 12-11-2023 Etonogestrel-Ethin yl Estradiol (NUVARING) 0.12-0.015 mg/24 hr vaginal ring Use 1 Each vaginally as directed. 1 Each 4 12/11/2023 Active Start: 06-22-2023 End: 12-08-2023 Etonogestrel-Ethinyl Estradi ol (NUVARING) 0.12-0.015 mg/24 hr vaginal ring Use 1 Each vaginally as directed. 1 Each 4 06/22/2023 12/08/2023 Discontinued Start: 08-23-2018 End: 01-17-2023 Etonogestrel-Ethinyl Estradi ol (NUVARING) 0.12-0.015 mg/24 hr vaginal ring Indications: Encounter for initial prescription of vaginal ring hormonal contraceptive Use 1 Each vaginally as directed. INSERT ONE(1) RING VAGINALLY AND LEAVE IN PLACE FOR THREE WEEKS, THEN REMOVE FOR 1 WEEK. 3 Each 3 08/23/2018 01/17/2023 Discontinued Comment on above: Use 1 Each vaginally as directed. INSERT ONE(1) RING VAGINALLY AND LEAVE IN PLACE FOR THREE WEEKS, THEN REMOVE FOR 1 WEEK. Use 1 Each vaginally as directed. famotidine 40 mg oral tablet (3 sources) Histamine-2 Receptor Antagonist Start: 4 famotidine (PEPCID) 40 mg tablet 06/19/2023 Active isopropyl alcohol 0.7 ml/ml medicated pad (3 sources) Start: 3 alcohol swabs (ALCOHOL PADS) Indications: 37 weeks gestation of , Gestational diabetes mellitus, class A1 Apply 1 application to affected area four times daily. 40 Each 03/30/2023 Active Comment on above: Apply 1 application to affected area four times daily. Adjaococ-Gs-Sqz-Fe-F A tab (5 sources) Start: 3 take 1 tablet by mouth once daily Wjzlhupn-Pu-Wsy-Fe-F A tab Take 1 tablet by mouth once daily. 30 tablet 5 03/14/2023 Active Comment on above: Take 1 tablet by jose enrique th once daily. Completed/Discontinued Medications Medication Drug Class(es) Dates Sig (Normalized) Sig (Original) PNV/ferrous sulfate/folic acid ( VFK-GHUX-MLZVI ACID ORAL) (6 sources) PNV/ferrous sulfate/folic acid ( NWX-SCBB-NISQX ACID ORAL) Take by mouth. 0 Active Comment on above: Take by mouth. Problems Active Problems Problem Classification Problem Date Documented Da te Episodic/Chronic Blindness and vision defects (9 sources) Blind left eye; Translations: [Blindness, one eye, unspecified eye] Onset: 08-23-2018 08-23-2018 Chronic Diabetes or abnormal glucose tolerance complicating ; childbirth; or the puerperium (1 source) Abnormal glucose level; Translations: [Abnormal glucose complicating ] 03-14-2023 Episodic Other complications of ; puerperium affecting management of mother (1 source) Deliveries by ; Translations: [Encounter for delivery without indication] 06-22-2023 Episodic Other complications of ; puerperium affecting management of mother (1 source) Encounter for delivery without indication; Translations: [Delivery of by section] Onset: 06-22-2023 Episodic Other complications of (1 source) Maternal obesity complicating , childbirth and the puerperium, antepartum; Translations: [Obesity complicating , third trimester] 02-17-2023 Chronic Other complications of (1 source) Pain in pelvis; Translations: [Other specified related conditions, unspecified trimester] 01-09-2023 Episodic Other ear and sense organ disorders (1 source) Lesion of pinna; Translations: [Disorder of left external ear, unspecified] 08-20-2023 Episodic Other screening for suspected conditions (not mental disorders or infectious disease) (1 source) Patient encounter status; Translations: [Encounter for other specified screening] 02-17-2023 Episodic Other upper respiratory infections (1 source) Sore throat symptom; Translations: [Acute pharyngitis, unspecified] 08-20-2023 Episodic Residual codes; unclassified (1 source) Gestation period, 27 weeks; Translations: [27 weeks gestation of ] 01-17-2023 Episodic Residual codes; unclassified (1 source) Gestation period, 31 weeks; Translations: [31 weeks gestation of ] 02-17-2023 Episodic Residual codes; unclassified (1 source) Gestation period, 35 weeks; Translations: [35 weeks gestation of ] 03-14-2023 Episodic Skin and subcutaneous tissue infections (1 source) Infection of skin; Translations: [Local infection of the skin and subcutaneous tissue, unspecified] 08-20-2023 Episodic Substance-related disorders (10 sources) History of drug abuse; Translations: [History of drug use] Onset: 01-09-2023 01-09-2023 Chronic Unclassified (1 source) [facility] Education - COMMON Onset: 01-09-2023 01-09-2023 Past or Other Problems Problem Classification Problem Date Documented Date Episodic/Chronic Administrative/social admission (10 sources) Residence and accommodation circumstances - finding; Translations: [Housing instability, currently housed] Onset: 01-09-2023 01-09-2023 Episodic Disorders of teeth and jaw (10 sources) Dental abscess; Translations: [Periapical abscess without sinus] Onset: 01-09-2023 01-09-2023 Episodic Other complications of (9 sources) Pain in female pelvis; Translations: [Other specified related conditions, unspecified trimester] Onset: 01-09-2023 01-09-2023 Episodic Other complications of (3 sources) Excessive weight gain in , third trimester; Translations: [Edema or excessive weight gain in , without mention of hypertension, antepartum condition or complication] Onset: 01-17-2023 01-17-2023 Episodic Other complications of (3 sources) Suspected macroscopic fetus; Translations: [Maternal care for excessive growth, third trimester, not applicable or unspecified] Onset: 03-30-2023 03-30-2023 Episodic Other and delivery including normal (17 sources) ; Translations: [Encounter for supervision of normal , unspecified, unspecified trimester] Onset: 01-09-2023 01-09-2023 Episodic Residual codes; unclassified (10 sources) FH: Congenital anomaly; Translations: [Family history of other congenital malformations, deformations and chromosomal abnormalities] Onset: 01-09-2023 01-09-2023 Episodic Residual codes; unclassified (10 sources) Nicotine-filled electronic cigarette user; Translations: [Tobacco use] Onset: 01-09-2023 01-09-2023 Episodic Residual codes; unclassified (1 source) 27 weeks gestation of ; Translations: [27 weeks gestation of ] Onset: 01-17-2023 Episodic Screening and history of mental health and substance abuse codes (10 sources) H/O: depression; Translations: [Personal history of other mental and behavioral disorders] Onset: 01-09-2023 01-09-2023 Episodic Results Test Name Value Interpretation Reference Range Facil advincent Esteban 08-20-2023 CNOV Office Visit (UCWSTR ) ELLI MUJICA ([id number]) 89 F Date Time Provider Department 08/20/23 1:15 PM [facility] During your visit today, we recorded the following information about you: Temperature Pulse Respiration Blood pressure 99.4 degrees 110/minute 18/minute 118/74 Weight 115 kg Jorge Romo PA 08/20/2023 1:34 PM Signed This note was created using [employer]. Subjective Elli Mujica is a 22 year old female. HPI 22-year-old female presents for sore throat, swelling and pain behind the left ear. Patient states that she started getting a sore throat yesterday. She noticed that she had a bump behind her left ear several days ago. She states that she did put in earrings and she does not normally wear earrings. She states that the swelling started after this. No injury. She denies any fevers. No drainage from the area. No cough, congestion or other URI symptoms. Not or breast-feeding. PAST MEDICAL HISTORY Diagnosis Date Depression Suicidal behavior with attempted self-injury (HCC) 2015 PAST SURGICAL HISTORY Procedure Laterality Date NONE ALLERGIES Patient has no known allergies. MEDICATIONS famotidine (PEPCID) 40 mg tablet Etonogestrel-Ethinyl Estradiol (NUVARING) 0.12-0.015 mg/24 hr vaginal ring Use 1 Each vaginally as directed. doxycycline monohydrate 100 mg tablet Take 1 tablet by mouth two times a day for 7 days. alcohol swabs (ALCOHOL PADS) Apply 1 application to affected area four times daily. (Patient not taking: Reported on 06/22/2023) lancet-gluc test strip-needles cmpk 1 Application four times daily. (Patient not taking: Reported on 06/22/2023) Iarahdbd-Fx-Yli-Fe-FA tab Take 1 tablet by mouth once daily. (Patient not taking: Reported on 06/22/2023) FAMILY HISTORY Problem Relation Age of Onset Hypertension Mother other (polyp intestine) Mother other (overdose) Mother Hypertension Father No Known Problems Sister Heart Sister No Known Problems Brother No Known Problems Maternal Grandmother No Known Problems Maternal Grandfather No Known Problems Paternal Grandmother Cancer Paternal Grandfather Social History Tobacco Use Smoking status: Former Packs/day: 0.25 Years: 1.00 Additional pack years: 0.00 Total pack years: 0.25 Types: Cigarettes Smokeless tobacco: Never Vaping Use Vaping Use: Some days Substances: Nicotine Substance Use Topics Alcohol use: Not Currently Drug use: Not Currently Types: Marijuana, Cocaine, Amphetamines Review of Systems Constitutional: Negative for chills and fever. HENT: Positive for ear pain (skin lesion behind L ear tender) and sore throat. Negative for congestion. Respiratory: Negative for cough and shortness of breath. Cardiovascular: Negative for chest pain. Gastrointestinal: Negative for diarrhea and vomiting. Objective BP 118/74 Pulse 110 Temp 37.4 ?C (99.4 ?F) Resp 18 Wt 115 kg (253 lb 8.5 oz) LMP 07/09/2022 SpO2 98% BMI 40.92 kg/m? Physical Exam Vitals and nursing note reviewed. Constitutional: General: She is not in acute distress. Appearance: Normal appearance. She is not toxic-appearing. HENT: Right Ear: Tympanic membrane and ear canal normal. Left Ear: Tympanic membrane and ear canal normal. No mastoid tenderness. Ears: Comments: Patient has approximately 2 cm raised erythematous cystic like lesion on the back of her left earlobe. Tender to touch. No fluctuance or drainage. No mastoid tenderness. No drainage. TM normal bilaterally. No lymphadenopathy. No lymphatic streaking. Nose: Nose normal. Mouth/Throat: Mouth: Mucous membranes are moist. Eyes: Conjunctiva/sclera: Conjunctivae normal. Cardiovascular: Rate and Rhythm: Normal rate and regular rhythm. Pulmonary: Effort: Pulmonary effort is normal. Breath sounds: Normal breath sounds. Skin: General: Skin is warm and dry. Neurological: Mental Status: She is alert. Assessment and Plan ASSESSMENT/PLAN: 1. Skin infection - ICD9: 686.9, ICD10: L08.9 (primary diagnosis) - Begin treatment with doxycycline - No lymphangetic streaking, this was defined for patient to watch for and to seek medical care immediately if appears - Follow up for recheck in three days - CONSULT TO DERMATOLOGY 2. Sore throat - ICD9: 462, ICD10: J02.9 - suspect viral - Group A strep molecular testing negative - Discussed supportive care treatment with fluids, rest and analgesia. - The patient may also use warm salt water gargles, throat lozenges and/or OTC throat spray as needed. - STREP A MOLECULAR (POC) 3. Earlobe lesion, left - ICD9: 380.9, ICD10: H61.92 -Covering with antibiotic for possible skin infection. Patient did use earrings just prior to this starting and it is just below the earring hole. -No fluctuance amenable to IANDD at this time. It is more hard and cy (more content not included)... [facility] STREP A MOLECULAR (POC)on Procedural Control Valid [facility] Strep A (POCT) Negative Negative [facility] CNCOon 03-24-2023 CNCO Letter Text Normal [facility] ROUTINE, GROUP B ST REP PCRon 03-23-2023 ROUTINE, GROUP B STREP PCR GROUP B STREP PCR: Negative for Group B Streptococcus by PCR. Normal [facility] Comment on above: Performed By: #### G BPCR ####[facility] LABCLIA [id number] [place] [address] [place] CBC panel Auto (Bld)on 03-14 Erythrocyte distribution width (RBC) [Ratio] 12.6 % Normal 11.5-15.0 [facility] Comment on above: Order Comment: Speci men Type: BLOOD SPECIMENOrdering Facility: [facility] Address: [address] [place] [address] Performed By: #### 5 8410-2 ####[facility] [id number] [place] [address] [place] Hematocrit (Bld) [Volume fraction] 36.4 % Normal 36.0-46.0 [facility] Comment on above: Order Comment: Speci men Type: BLOOD SPECIMENOrdering Facility: [facility] Address: [address] [place] [address] Performed By: #### 5 8410-2 ####[facility] [id number] [place] [address] [place] Hemoglobin (Bld) [Mass/Vol] 12.5 g/dL Normal 11.5-15.5 [facility] Comment on above: Order Comment: Speci men Type: BLOOD SPECIMENOrdering Facility: [facility] Address: [address] [place] [address] Performed By: #### 5 8410-2 ####[facility] [id number] [place] [address] [place] MCH (RBC) [Entitic mass] 30.7 pg Normal 26.0-34.0 [facility] Comment on above: Order Comment: Speci men Type: BLOOD SPECIMENOrdering Facility: [facility] Address: [address] [place] [address] Performed By: #### 5 8410-2 ####[facility] [id number] [place] [address] [place] MCHC (RBC) [Mass/Vol] 34.3 g/dL Normal 30.5-36.0 [facility] Comment on above: Order Comment: Speci men Type: BLOOD SPECIMENOrdering Facility: [facility] Address: [address] [place] [address] Performed By: #### 5 8410-2 ####[facility] [id number] [place] [address] [place] MCV (RBC) [Entitic vol] 89.4 fL Normal 80.0-100.0 [facility] Comment on above: Order Comment: Speci men Type: BLOOD SPECIMENOrdering Facility: [facility] Address: [address] [place] [address] Performed By: #### 5 8410-2 ####[facility] [id number] [place] [address] [place] Nucleated RBC (Bld) [#/Vol] 10*3/uL Normal <0.01 [facility] Comment on above: Order Comment: Speci men Type: BLOOD SPECIMENOrdering Facility: [facility] Address: [address] [place] [address] Performed By: #### 5 8410-2 ####[facility] [id number] [place] [address] [place] Platelet mean volume (Bld) [Entitic vol] 10.3 fL Normal 9.0-12.7 [facility] Comment on above: Order Comment: Speci men Type: BLOOD SPECIMENOrdering Facility: [facility] Address: [address] [place] [address] Performed By: #### 5 8410-2 ####[facility] [id number] [place] [address] [place] Platelets (Bld) [#/Vol] 317 10*3/uL Normal 150-400 [facility] Comment on above: Order Comment: Speci men Type: BLOOD SPECIMENOrdering Facility: [facility] Address: [address] [place] [address] Performed By: #### 5 8410-2 ####[facility] [id number] [place] [address] [place] RBC (Bld) [#/Vol] 4.07 10*6/uL Normal 3.90-5.20 [facility] Comment on above: Order Comment: Speci men Type: BLOOD SPECIMENOrdering Facility: [facility] Address: [address] [place] [address] Performed By: #### 5 8410-2 ####[facility] [id number] [place] [address] [place] WBC (Bld) [#/Vol] 13.89 10*3/uL High 3.70-11.00 [facility] Comment on above: Order Comment: Speci men Type: BLOOD SPECIMENOrdering Facility: [facility] Address: [place] [address] Performed By: #### 5 8410-2 ####[facility] [id number] [place] [id number] [place] CNCOon 03-14-2023 CNCO Letter Text Normal [facility] CNPNon 03-14-2023 CNPN Telephone (OBGYWM) ELLI MUJICA ([id number]) 89 F Date Time Provider Department 03/14/23 JOY RODRIGUEZ OBGYWM During your visit today, we recorded the following information about you: Aliza Leon RN 03/14/2023 4:18 PM Signed Patient had 1 hour glucose test today and saw her results on Totangohart. Reviewed results and instructions for 3 hour GTT. Appointment scheduled. Please file pended order, will need to be attached to upcoming appointment. DANTE James Karmon, MD 03/14/2023 4:23 PM Signed 3gr GTT filed. Does patient think she can do 3hr in the next week? If not I would recommend proceeding with diabetic education and checking her BS. MD Clary Orozco Lindsey, RN 03/14/2023 4:27 PM Signed Patient is doing 3 hour GTT this Saturday 03/17. Order linked to upcoming appointment. Aliza Leon RN Allergies As of Date: 03/14/2023 (No Known Allergies) Date Reviewed: 03/14/2023 Reviewed by: Joy Rodriguez MD - Fully Assessed Reason for Visit: Results [95] Orders [681] Primary Visit Diagnosis:Abnormal glucose complicating [O99.810] Order(s):GEST GLUC TANO, 3-HR, 100 GM, FASTING [SQGTGST3] Order #: [id number] FUTURE Prescriptions as of 03/14/2023 - Picppghl-Kj-Txa-Fe-FA tab Take 1 tablet by mouth once daily. - PNV/ferrous sulfate/folic acid ( UQQ-MFWQ-VOKJZ ACID ORAL) Take by mouth. Problem List As Of Date 03/14/2023 Noted Resolved Blind left eye [H54.40] 08/23/2018 with care elsewhere, antepar*01/09/2023 History of drug use [F19.91] 01/09/2023 Housing instability, currently housed [Z59.819] 01/09/2023 Dental abscess [K04.7] 01/09/2023 Pelvic pain affecting [O26.899, R10.2]01/09/2023 History of depression [Z86.59] 01/09/2023 Family history of defect [Z82.79] 01/09/2023 Vapes nicotine containing substance [Z72.0] 01/09/2023 Encounter Status:Closed by ALIZA LEON on 03/14/23 [facility] GEST GLUC SCREEN, 1-HR, 50 G M, NON-FASTINGon 03-14-2023 Glucose [Mass/Vol] 150 mg/dL High 74-134 [facility] Comment on above: Order Comment: Speci men Type: BLOOD SPECIMENOrdering Facility: [facility] Address: [address] [place] [address] Result Comment: [employer] [employer] [place] [employer] of Obstetricians and Gynecologists (Abbasi/Mendoza) guidelines state a gestational diabetes mellitus positive screen is made, in women not previously diagnosed with overt diabetes, when the 1 hr plasma glucose level is equal to or above 140 mg/dL. The [facility] [employer] [facility] [place] recommends a 135 mg/dL cutoff. Performed By: #### G LTGST ####[facility] [id number] [place] [address] [place] Reagin and Treponema pallidu m IgG and IgM [Interp]on 03-14-2023 T. pallidum IgG+IgM IA Ql (S) Non-Reactive Normal Nonreactive [facility] Comment on above: Order Comment: Speci men Type: BLOOD SPECIMENOrdering Facility: [facility] Address: [address] [place] [address] Performed By: #### 7 3752-8 ####[facility] LABCLIA [id number] [place] [address] [place] Reagin+T pallidum IgG+IgM Se rPl-Impon 03-14-2023 Reagin and Treponema pallidum IgG and IgM [Interp] Cannot exclude recent Treponemal infection if specimen collected within 7-10 days after appearance of suspect lesions or 2-3 weeks after an exposure. Clinical correlation is required. Normal [facility] Comment on above: Order Comment: Speci men Type: BLOOD SPECIMENOrdering Facility: [facility] Address: [address] [place] [address] Performed By: #### 7 3752-8 ####[facility] LABCLIA [id number] [place] [address] [place] URINE OB DIP B/Oon 3 Glucose Ql (U) 100 mg/dL Neg mg/dL [facility] Protein.monoclonal (U) [Mass/Vol] trace Neg mg/dL [facility] OBSTETRIC ULTRASOUND WHIon 1 04-19-2022 [facility] Bacteria Ur Culton 3 Bacteria identified Cx Nom (U) ORGANISM ID: 1 50,000-<100,000 CFU/ml Mixed microbiota No further workup. Mixed microbiota can be due to???urine???contamin ation with skin bacteria at time of collection or presence of a long-term urinary catheter. If a new culture is needed, please consider re-education of the patient on proper midstream collection technique or straight catheterization for???urine???collect ion. Normal [facility] Comment on above: Performed By: #### 6 30-4 ####[facility] LABCLIA [id number] [place] [address] [place] URINE OB DIP B/Oon 3 Glucose Ql (U) Negative Neg mg/dL [facility] Protein.monoclonal (U) [Mass/Vol] nerg Neg mg/dL [facility] CNNURSEon 01-09-2023 CNNURSE Nurse Visit (OBGYWM) ELLI MUJICA ([id number]) 89 F Date Time Provider Department 01/09/23 3:00 PM NURSE PNOB [facility] W[facility] OBGYWM During your visit today, we recorded the following information about you: Mali Green RN 01/09/2023 5:02 PM Signed INITIAL OB ASSESSMENT OB Provider: Mali Green [...] use: No Multivitamin with Folic acid: Yes Religion or heritage: No Would refuse blood transfusion [...] Sig Dispense Refill PNV/ferrous sulfate/folic acid ( AUC-XODM-BRHYT ACID ORAL) Take by mouth. Etonogestrel-Ethinyl Estradiol [...] 01/09/2023 Does patient have penicillin allergy: No Mali Green RN 01/09/2023 5:02 PM Signed DIST[facility] VISIT This Team (more content not included)... [facility]N Telephone (OBGYWM) ELLI MUJICA ([id number]) 89 F Date Time Provider Department 01/09/23 RODDY WOODS During your visit today, we recorded the following information about you: Mali Green RN 01/09/2023 4:41 PM Signed Patient is 25w2d. He had her prenew OB telephone visit today. She is transferring care from [place]. She has only had 2 office visits [...] OB with Dr. Rodriguez on January 17 Roddy Woods APRN.MARY 01/09/2023 5:06 PM Signed We will have to see her for a problem visit to establish her care and keep NOB as scheduled unless there is time for her to have NOB on that day. Thank you, Roddy Woods APRN.Polo Bonilla LPN 01/10/2023 9:33 AM Signed Attempted to contact pt. No voicemail, does not appear to actively use her mychart. Will try again later. Polo Patterson LPN, LPN 01/16/2023 10:47 AM Signed Pt has appointment 01/17/23. Polo Burrell LPN Allergies As of Date: 01/09/2023 (No Known Allergies) Date Reviewed: 01/09/2023 Reviewed by: Mali Green RN - Fully Assessed Prescriptions as of 01/16/2023 - Etonogestrel-Ethinyl Estradiol (NUVARING) 0.12-0.015 mg/24 hr vaginal ring Use 1 Each vaginally as directed. INSERT ONE(1) RING VAGINALLY AND LEAVE IN PLACE FOR THREE WEEKS, THEN REMOVE FOR 1 WEEK. - PNV/ferrous sulfate/folic acid ( RVG-TVYH-FEKOC ACID ORAL) Take by mouth. 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 with care elsewhere, antepar*01/09/2023 History of drug use [F19.91] 01/09/2023 Housing instability, currently housed [Z59.819] 01/09/2023 Dental abscess [K04.7] 01/09/2023 Pelvic pain affecting [O26.899, R10.2]01/09/2023 History of depression [Z86.59] 01/09/2023 Family history of defect [Z82.79] 01/09/2023 Vapes nicotine containing substance [Z72.0] 01/09/2023 Encounter Status:Closed by POLO BURRELL LPN on 01/16/23 [facility] Sonja 12-19-2022 CNPN Telephone (OBGYWM) ELLI MUJICA ([id number]) 89 F Date Time Provider Department 12/19/22 JOY RODRIGUEZ OBGYWM During your visit today, we recorded the following information about you: Last Period 07/09/22 George Roblero RN 12/19/2022 11:05 AM Signed Patient is a [facility] transfer. States she is about 23 weeks along. Her u/s was canceled last week because [facility] no longer has an u/s tech. States it was for anatomy f/u she thinks. NOB was scheduled and will schedule PNOB after speaking with nurse. Advised patients we need records to review first to see if providers will for sure accept her care and if u/s needs scheduled before her visits. She will contact [facility] to try to get an OB visit with them this week and have records faxed here. George Melara RN, RN 12/19/2022 11:43 AM Addendum Attempted to call patient. Unable to leave message-voicemail not set up yet. Can schedule 60 minute PNOB at 7am slot 01/03 at 7am or 01/09 at 7:30 or 3pm if still available. Leave open then until records received. George Melara RN, RN 12/20/2022 3:29 PM Signed PNOB got scheduled by PSS for 01/09/23. Request faxed to [facility] for records. George Melara RN, RN 12/20/2022 4:54 PM Signed Received some records, but only pages 15-25. Faxed records back to [facility] again. George Melara RN, RN 12/21/2022 4:43 PM Signed Records received. Sent to medical records to scan into [employer] and copy to [facility] mailbox for 01/09/23 appointment. George Roblero RN Allergies As of Date: 12/19/2022 (No Known Allergies) Date Reviewed: 10/11/2022 Reviewed by: Lucy Ashby APRN.CHROME WORKER - Fully Assessed Reason for Visit: Transfer of Care [Other] Order(s):HEPATITIS C ANTIBODY IA WITH CONFIRMATION [[id number]] Order #: [id number] CBC [SQCBC] Order #: [id number] HEP B SURF AG SCRN [SQHBSAG] Order #: [id number] VARICELLA ZOSTER IGG [SQVZVG] Order #: [id number] GONORRHEA/CHLAMYDIA NAAT [SQGCCT] Order #: [id number] RUBELLA IGG AB [SQRUBQNT] Order #: [id number] RPR SCREEN [[id number]] Order #: [id number] HIV 1 2 COMBO(AG/AB),WITH REFLEX TO DIFFERENTIATION [SQHIV12] Order #: [id number] TYPE + SCREEN (EXTERNAL LAB) [[id number]] Order #: [id number] URINE CULTURE [SQURCUL] Order #: [id number] Prescriptions as of 12/21/2022 - Etonogestrel-Ethinyl Estradiol (NUVARING) 0.12-0.015 mg/24 hr vaginal ring Use 1 Each vaginally as directed. INSERT ONE(1) RING VAGINALLY AND LEAVE IN PLACE FOR THREE WEEKS, THEN REMOVE FOR 1 WEEK. 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 The patient's clinica (more content not included)... Normal [facility] Emergency Room Note on 12-07-2016 [facility] Note Normal [facility] [place] Patient Summary Documentson 12-07-2016 Patient Summary Documents Normal [facility] [place] [facility] Note on 12-01-2016 [facility] Note Normal [facility] [place] Patient Summary Documentson 12-01-2016 Patient Summary Documents Normal [facility] [place] XR CHEST 1 VIEWon 12-01-2016 XR CHEST 1 VIEW ORIGINALXR CHEST 1 VIEW Clinical Statement: SOB COMPARISON: None. FINDINGS: There is no focal consolidation. No pleural fluid or pneumothorax. The heart size is within normal limits. No visible rib fractures or aggressive osseous lesions. IMPRESSION: No acute cardiopulmonary abnormality. Interpreted By: Aldo Swainreliminary Report By: Aldo Swain MDElectronically Signed By: Aldo Swain MD Dictated Date: 12/01/2016 10:21:33 AM Prelim Date: 12/01/2016 10:21:33 AM Sign Date: 12/01/2016 10:22:03 AM Normal [facility] [place]) [facility] Note on 10-21-2016 [facility] Note Normal [facility] [place] Patient Summary Documentson 10-21-2016 Patient Summary Documents Normal [facility] [place] Vital Signs Date Time Vital Sign Value Performing Clinician Gerardi miguel angel 08-20-2023 13:20-0400 Body mass index (BMI) [Ratio] 40.92 kg/m2 Jorge GONZALEZ Work Phone: [facility] 08-20-2023 13:20-0400 Body temperature 99.39 [degF] Jorge GONZALEZ Work Phone: [facility] 08-20-2023 13:20-0400 Body weight 115 kg Jorge GONZALEZ Work Phone: [facility] 08-20-2023 13:20-0400 Diastolic blood pressure 74 mm[Hg] Krislyn Aberegg PA Work Phone: [facility] 08-20-2023 13:20-0400 Heart rate 110 /min Krislyn Aberegg PA Work Phone: [facility] 08-20-2023 13:20-0400 Respiratory rate 18 /min Krislyn Aberegg PA Work Phone: [facility] 08-20-2023 13:20-0400 SaO2% (BldA) [Mass fraction] 98 % Krislyn Aberegg PA Work Phone: [facility] 08-20-2023 13:20-0400 Systolic blood pressure 118 mm[Hg] Krislyn Aberegg PA Work Phone: [facility] 06-22-2023 09:39-0400 Body weight 113.4 kg Azeb Flores PREVENTIVE MEDICINE SPECIALIST.CNM Work Phone: [facility] 06-22-2023 09:39-0400 Diastolic blood pressure 68 mm[Hg] Azeb Plotts PREVENTIVE MEDICINE SPECIALIST.CNM Work Phone: [facility] 06-22-2023 09:39-0400 Systolic blood pressure 112 mm[Hg] Azeb Plotts PREVENTIVE MEDICINE SPECIALIST.CNM Work Phone: [facility] 03-14-2023 13:06-0500 Body weight 116.76 kg Joy Rodriguez MD Work Phone: [facility] 03-14-2023 13:06-0500 Diastolic blood pressure 82 mm[Hg] Joy Rodriguez MD Work Phone: [facility] 03-14-2023 13:06-0500 Systolic blood pressure 134 mm[Hg] Joy Rodriguez MD Work Phone: [facility] 02-17-2023 14:02-0500 Body weight 112.04 kg Ob Ultrasound Work Phone: [facility] 01-17-2023 14:04-0400 Body height 167.6 cm Joy Rodriguez MD Work Phone: [facility] 01-17-2023 14:04-0400 Body weight 107.96 kg Joy Rodriguez MD Work Phone: [facility] 01-17-2023 14:04-0400 Diastolic blood pressure 70 mm[Hg] Joy Rodriguez MD Work Phone: [facility] 01-17-2023 14:04-0400 Systolic blood pressure 110 mm[Hg] Joy Rodriguez MD Work Phone: [facility] Encounters Encounter Date Encounter Type Care Provider Facility Start: 12-08-2023 End: 12-11-2023 Refill Azeb Flores PREVENTIVE MEDICINE SPECIALIST.CNM Work Phone: [address] [place] [address] Comment on above: Refill Request Start: 08-20-2023 End: 08-20-2023 ambulatory [facility] Facility:[facility] Start: 08-20-2023 End: 08-20-2023 Patient encounter procedure Jorge GONZALEZ Work Phone: [facility] Comment on above: Skin infection (Prim jeremy Dx); Sore throat; Earlobe lesion, left Start: 06-22-2023 End: 06-23-2023 ambulatory [facility] Facility:[facility] Start: 06-22-2023 End: 06-22-2023 Patient encounter procedure Azeb Flores PREVENTIVE MEDICINE SPECIALIST.CNM Work Phone: OB/Gynecology Comment on above: care and examination (Primary Dx); Delivery of by section Start: 04-14-2023 End: 04-14-2023 ambulatory [facility] Facility:[facility] Start: 04-04-2023 End: 04-05-2023 ambulatory JOY RODRIGUEZ Facility:[facility] Start: 03-30-2023 End: 03-30-2023 ambulatory [facility] Facility:[facility] Start: 03-24-2023 End: 03-24-2023 ambulatory JOY RODRIGUEZ Facility:[facility] Start: 03-23-2023 End: 03-23-2023 ambulatory [facility] Facility:[facility] Start: 03-14-2023 End: 03-15-2023 ambulatory JOY RODRIGUEZ Facility:[facility] Start: 03-14-2023 Telephone encounter Joy diehl MD Work Phone: OB/Gynecology Comment on above: Results; Orders Start: 03-14-2023 End: 03-14-2023 Patient encounter procedure Joy Rodriguez MD Work Phone: OB/Gynecology Comment on above: with prena alexandrea care elsewhere, antepartum (Primary Dx); 35 weeks gestation of ; Excessive weight gain in , third trimester Start: 02-17-2023 End: 02-17-2023 [facility] Facility:[facility] Start: 02-17-2023 End: 02-17-2023 Patient encounter procedure Veneer Department Manager [facility] Work Phone: OB/Gynecology Comment on above: Encounter for anatomic survey (Primary Dx); Encounter for care in second trimester of first ; 31 weeks gestation of ; with care elsewhere in third trimester; Obesity affecting in third trimester, unspecified obesity type Start: 01-17-2023 End: 01-18-2023 [facility] GREGORYTOREY MICHAEL Facility:[facility] Start: 01-17-2023 End: 01-17-2023 Patient encounter procedure Joy Rodriguez MD Work Phone: OB/Gynecology Comment on above: Encounter for prenat al care in second trimester of first (Primary Dx); 27 weeks gestation of ; Excessive weight gain in , third trimester Start: 01-09-2023 End: 01-09-2023 ambulatory [facility] Facility:[facility] Start: 01-09-2023 End: 01-09-2023 Nursing evaluation of patient and report Nurse Pnob [facility] Work Phone: OB/Gynecology Comment on above: with prena alexandrea care elsewhere, antepartum (Primary Dx); History of drug use; Housing instability, currently housed; Dental abscess; History of depression; Pelvic pain affecting , antepartum; Family history of defect; Vapes nicotine containing substance Start: 01-09-2023 Telephone encounter Roddy menchaca APRN.CNM Work Phone: OB/Gynecology Start: 10-11-2022 End: 10-11-2022 ambulatory AZEB FLORES Facility:[facility] Start: 12-07-2016 End: 12-07-2016 Emergency department patient visit SAM RAJAN Facility:B Start: 12-01-2016 End: 12-01-2016 Emergency department patient visit DAVID YUNG Facility:[facility] Start: 10-21-2016 End: 10-21-2016 Emergency department patient visit ALEXI LEARY Facility:[facility] Procedures Date Procedure Procedure Detail Performing Clinician Start: 08-20-2023 STREP A MOLECULAR (POC) Roddy Mcmahan PREVENTIVE MEDICINE SPECIALIST.CHROME WORKER Work Phone: Start: 03-14-2023 URINE OB DIP B/O Joy Rodriguez MD Work Phone: Start: 02-17-2023 Us preg uterus after 1st trimest 04/03 gestation Joy Rodriguez MD Work Phone: Start: 01-17-2023 URINE OB DIP B/O Joy Rodriguez MD Work Phone: Plan of Treatment Date Care Activity Detail Author Start: 09-15-2025 Pap Testing Pap Testing [facility] Start: 09-15-2025 Screening for malign ant neoplasm of cervix [facility] Start: 12-03-2023 Covid-19 Vaccine ( season) Covid-19 Vaccine ( season) [facility] Start: 12-03-2023 Influenza vaccination [facility] Start: 09-16-2023 Chlamydia Screening () Chlamydia Screening () [facility] Start: 09-16-2023 GC (Gonorrhea) Scree ambar () GC (Gonorrhea) Screening (18) [facility] Start: 09-16-2023 Screening for Chlamy humberto trachomatis Chlamydia Screening () [facility] Start: 04-03-2023 Behavioral Health Screening Behavioral Health Screening [facility] Start: 04-03-2023 Depression Assessment Depression Ass essment [facility] Start: 03-14-2023 End: 06-13-2023 GEST GLUC TANO, 3-HR, 100 GM, FASTING GEST GLUC TANO, 3-HR, 100 GM, FASTING Lab Routine Abnormal glucose complicating Expected: 03/14/2023, Expires: 06/13/2023 [facility] Work Phone: Comment on above: Expected: 03/14/2023 , Expires: 06/13/2023 Start: 03-14-2023 End: 03-14-2024 OBSTETRIC ULTRASOUND WHI OBSTETRIC ULTRASOUND WHI Anc Imaging Routine Excessive weight gain in , third trimester Expected: 03/14/2023, Expires: 03/14/2024 [facility] Work Phone: Comment on above: Expected: 03/14/2023 , Expires: 03/14/2024 Start: 01-17-2023 End: 04-18-2023 CBC panel - Blood by Automated count CBC Lab Routine Encounter for care in second trimester of first 27 weeks gestation of Expected: 01/17/2023, Expires: 04/18/2023 [facility] Work Phone: Comment on above: Expected: 01/17/2023 , Expires: 04/18/2023 Start: 01-17-2023 End: 04-18-2023 GEST GLUC SCREEN, 1-HR, 50 GM, NON-FASTING GEST GLUC SCREEN, 1-HR, 50 GM, NON-FASTING Lab Routine Encounter for care in second trimester of first 27 weeks gestation of Expected: 01/17/2023, Expires: 04/18/2023 [facility] Work Phone: Comment on above: Expected: 01/17/2023 , Expires: 04/18/2023 Start: 01-17-2023 End: 01-18-2024 OBSTETRIC ULTRASOUND WHI OBSTETRIC ULTRASOUND WHI Anc Imaging Routine Encounter for care in second trimester of first 27 weeks gestation of Expected: 01/17/2023, Expires: 01/18/2024 [facility] Work Phone: Comment on above: Expected: 01/17/2023 , Expires: 01/18/2024 Start: 01-17-2023 End: 04-18-2023 SYPHILIS TOTAL W/REFLEX SYPHILIS TOTAL W/REFLEX Lab Routine Encounter for care in second trimester of first 27 weeks gestation of Expected: 01/17/2023, Expires: 04/18/2023 [facility] Work Phone: Comment on above: Expected: 01/17/2023 , Expires: 04/18/2023 Start: 12-02-2022 Covid-19 Vaccine ( season) Covid-19 Vaccine ( season) [facility] Start: 12-02-2022 Influenza vaccination Influenza Vacc ine (#1) [facility] Start: 04-03-2022 Depression Assessment Depression Ass essment [facility] Start: 09-13-2021 Urine microalbumin profile DTaP,Tdap,Td Vaccine (6 - Td or Tdap) [facility] Start: 08-31-2018 Urine microalbumin profile DTaP,Tdap,Td Vaccine (1 - Tdap) [facility] Start: 08-31-2017 Anxiety Screening Anxiety Screening [facility] Start: 08-31-2017 Depression Screening Depression Scre ening [facility] Start: 2015 Meningococcal B Vacc ine: Consider Based On Risk (1 of 2 - Patient Seeks Protection) Meningococcal B Vaccine: Consider Based On Risk (1 of 2 - Patient Seeks Protection) [facility] Start: 08-31-2013 Peds To Adult Transi tion Annual Assessment Peds To Adult Transition Annual Assessment [facility] Start: 2011 Peds To Adult Transi tion Initial Discussion Peds To Adult Transition Initial Discussion [facility] Start: 08-31-2008 HPV Vaccine (1 - 2-d ose series) HPV Vaccine (1 - 2-dose series) [facility] Start: 03-02-2000 Covid-19 Vaccine (#1) Covid-19 Vacci ne (#1) [facility] Start: 1999 Hepatitis B Vaccine (1 of 3 - 3-dose series) Hepatitis B Vaccine (1 of 3 - 3-dose series) [facility] Bacteria identified in Urine by Culture URINE CULTURE Microbiology Routine Encounter for care in second trimester of first 27 weeks gestation of 01/17/2023 2:50 PM EDT [facility] Work Phone: [facility] Payers Date Payer Category Payer Medicaid [employer] [id number] 2022-Present [phone] [address] [place] [address] Medicaid [id number] 2016 Unknown [id number] Social History Date Type Detail Facility Start: 01-09-2023 Tobacco smoking status NHIS Ex-smoker [facility] Work Phone: History of tobacco use Current smoker [facility] Work Phone: History of tobacco use Cigarette Smoker [facility] Work Phone: Start: 01-09-2023 End: 08-20-2023 Cigarettes smoked current (pack per day) - Reported 0.3 [facility] Start: 01-09-2023 Tobacco use and exposure Smokeless tobacco non-user [facility] Work Phone: Start: 01-09-2023 End: 08-20-2023 Alcohol intake Ex-drinker (finding) [facility] Start: 08-23-2018 End: 01-09-2023 Alcohol Use Disorder Identification Test - Consumption [AUDIT-C] [facility] How often to you hav e a drink containing alcohol? Never [facility] Average Number of Drinks Not on file [facility] Start: 01-09-2023 Education 10 [facility] Start: 07-23-2022 [facility] Start: 2000 Sex Assigned At Not on file [facility] Start: 2000 Sex Assigned At Female [facility] Start: 03-16-2023 Gender identity Identifies as female gender (finding) [facility] Medical Equipment Procedure Code Equipment Code Equipment Origin al Text Equipment Identifier Dates 1 Application fo ur times daily. [id number] Start: 03-30-2023 Comment on above: 1 Application four t imes daily. Goals Date Patient Goal Desired Activity /State Personal health goal Clinical Notes 10-11-2022 to 12-08-2023 Telephone Encounter - George Roblero RN - 12/08/2023 12:49 PM EDTTelephone Encounter - George Roblero RN - 12/08/2023 12:49 PM EDTTelephone Encounter - Elizabeth Doshi - 12/08/2023 11:15 AM EDT Note Date & Type Note Facility 12-08-2023 Telephone encount er Note Last visit was PP visit 06/22/23. Only 6 months rx was given at that time. Requested Prescriptions Pending Prescriptions Disp Refills Etonogestrel-Ethinyl Estradiol (NUVARING) 0.12-0.015 mg/24 hr vaginal ring 1 Each 4 Sig: Use 1 Each vaginally as directed. George Roblero RN [facility] 12-08-2023 Miscellaneous Notes Formattin g of this note is different from the original. Last visit was PP visit 06/22/23. Only 6 months rx was given at that time. Requested Prescriptions Pending Prescriptions Disp Refills Etonogestrel-Ethinyl Estradiol (NUVARING) 0.12-0.015 mg/24 hr vaginal ring 1 Each 4 Sig: Use 1 Each vaginally as directed. George Roblero RN Patient has been identified by name and date of : Yes Last office visit in this department: Visit date not found RX INSTRUCTIONS: Patient aware RX will be sent to pharmacy. No need to notify patient. Patient phones requesting refills as follows: Requested Prescriptions Pending Prescriptions Disp Refills Etonogestrel-Ethinyl Estradiol (NUVARING) 0.12-0.015 mg/24 hr vaginal ring 1 Each 4 Sig: Use 1 Each vaginally as directed. Please review and advise. Elizabeth Doshi documented in this encounter [facility] 12-08-2023 Telephone encount er Note Patient has been identified by name and date of : Yes Last office visit in this department: Visit date not found RX INSTRUCTIONS: Patient aware RX will be sent to pharmacy. No need to notify patient. Patient phones requesting refills as follows: Requested Prescriptions Pending Prescriptions Disp Refills Etonogestrel-Ethinyl Estradiol (NUVARING) 0.12-0.015 mg/24 hr vaginal ring 1 Each 4 Sig: Use 1 Each vaginally as directed. Please review and advise. Elizabeth Doshi [facility] 08-20-2023 Note HNO ID: [id number] Author: JORGE ROMO PA Service: ? Author Type: Physician Deep Fat Fry Cook Type: Progress Notes Filed: 08/20/2023 13:34 Note Text: This note was created using Snapch[employer]. Subjective Elli Mujica is a 22 year old female. HPI 22-year-old female presents for sore throat, swelling and pain behind the left ear. Patient states that she started getting a sore throat yesterday. She noticed that she had a bump behind her left ear several days ago. She states that she did put in earrings and she does not normally wear earrings. She states that the swelling started after this. No injury. She denies any fevers. No drainage from the area. No cough, congestion or other URI symptoms. Not or breast-feeding. PAST MEDICAL HISTORY Diagnosis Date Depression Suicidal behavior with attempted self-injury (HCC) 2015 PAST SURGICAL HISTORY Procedure Laterality Date NONE ALLERGIES Patient has no known allergies. MEDICATIONS famotidine (PEPCID) 40 mg tablet Etonogestrel-Ethinyl Estradiol (NUVARING) 0.12-0.015 mg/24 hr vaginal ring Use 1 Each vaginally as directed. doxycycline monohydrate 100 mg tablet Take 1 tablet by mouth two times a day for 7 days. alcohol swabs (ALCOHOL PADS) Apply 1 application to affected area four times daily. (Patient not taking: Reported on 06/22/2023) lancet-gluc test strip-needles cmpk 1 Application four times daily. (Patient not taking: Reported on 06/22/2023) Ldhmyrtf-Eq-Wkr-Fe-FA tab Take 1 tablet by mouth once daily. (Patient not taking: Reported on 06/22/2023) FAMILY HISTORY Problem Relation Age of Onset Hypertension Mother other (polyp intestine) Mother other (overdose) Mother Hypertension Father No Known Problems Sister Heart Sister No Known Problems Brother No Known Problems Maternal Grandmother No Known Problems Maternal Grandfather No Known Problems Paternal Grandmother Cancer Paternal Grandfather Social History Tobacco Use Smoking status: Former Packs/day: 0.25 Years: 1.00 Additional pack years: 0.00 Total pack years: 0.25 Types: Cigarettes Smokeless tobacco: Never Vaping Use Vaping Use: Some days Substances: Nicotine Substance Use Topics Alcohol use: Not Currently Drug use: Not Currently Types: Marijuana, Cocaine, Amphetamines Review of Systems Constitutional: Negative for chills and fever. HENT: Positive for ear pain (skin lesion behind L ear tender) and sore throat. Negative for congestion. Respiratory: Negative for cough and shortness of breath. Cardiovascular: Negative for chest pain. Gastrointestinal: Negative for diarrhea and vomiting. Objective BP 118/74 Pulse 110 Temp 37.4 ?C (99.4 ?F) Resp 18 Wt 115 kg (253 lb 8.5 oz) LMP 07/09/2022 SpO2 98% BMI 40.92 kg/m? Physical Exam Vitals and nursing note reviewed. Constitutional: General: She is not in acute distress. Appearance: Normal appearance. She is not toxic-appearing. HENT: Right Ear: Tympanic membrane and ear canal normal. Left Ear: Tympanic membrane and ear canal normal. No mastoid tenderness. Ears: Comments: Patient has approximately 2 cm raised erythematous cystic like lesion on the back of her left earlobe. Tender to touch. No fluctuance or drainage. No mastoid tenderness. No drainage. TM normal bilaterally. No lymphadenopathy. No lymphatic streaking. Nose: Nose normal. Mouth/Throat: Mouth: Mucous membranes are moist. Eyes: Conjunctiva/sclera: Conjunctivae normal. Cardiovascular: Rate and Rhythm: Normal rate and regular rhythm. Pulmonary: Effort: Pulmonary effort is normal. Breath sounds: Normal breath sounds. Skin: General: Skin is warm and dry. Neurological: Mental Status: She is alert. Assessment and Plan ASSESSMENT/PLAN: 1. Skin infection - ICD9: 686.9, ICD10: L08.9 (primary diagnosis) - Begin treatment with doxycycline - No lymphangetic streaking, this was defined for patient to watch for and to seek medical care immediately if appears - Follow up for recheck in three days - CONSULT TO DERMATOLOGY 2. Sore throat - ICD9: 462, ICD10: J02.9 - suspect viral - Group A strep molecular testing negative - Discussed supportive care treatment with fluids, rest and analgesia. - The patient may also use warm salt water gargles, throat lozenges and/or OTC throat spray as needed. - STREP A MOLECULAR (POC) 3. Earlobe lesion, left - ICD9: 380.9, ICD10: H61.92 -Covering with antibiotic for possible skin infection. Patient did use earrings just prior to this starting and it is just below the earring hole. -No fluctuance amenable to IANDD at this time. It is more hard and cystlike. -Recommend warm compresses. Advised if no improvement, follow-up with dermatology. - CONSULT TO DERMATOLOGY Diagnosis and treatment plan were discussed and questions were answered to the patient's satisfaction. Pt acknowledged understanding of concepts and follow up plan. (more content not included)... [facility] 08-20-2023 History of Presen t illness Narrative This note was created using Intellioneriter. Subjective Elli Mujica is a 22 year old female. HPI 22-year-old female presents for sore throat, swelling and pain behind the left ear. Patient states that she started getting a sore throat yesterday. She noticed that she had a bump behind her left ear several days ago. She states that she did put in earrings and she does not normally wear earrings. She states that the swelling started after this. No injury. She denies any fevers. No drainage from the area. No cough, congestion or other URI symptoms. Not or breast-feeding. PAST MEDICAL HISTORY Diagnosis Date Depression Suicidal behavior with attempted self-injury (HCC) 2015 PAST SURGICAL HISTORY Procedure Laterality Date NONE ALLERGIES Patient has no known allergies. MEDICATIONS famotidine (PEPCID) 40 mg tablet Etonogestrel-Ethinyl Estradiol (NUVARING) 0.12-0.015 mg/24 hr vaginal ring Use 1 Each vaginally as directed. doxycycline monohydrate 100 mg tablet Take 1 tablet by mouth two times a day for 7 days. alcohol swabs (ALCOHOL PADS) Apply 1 application to affected area four times daily. (Patient not taking: Reported on 06/22/2023) lancet-gluc test strip-needles cmpk 1 Application four times daily. (Patient not taking: Reported on 06/22/2023) Ytuxjqzh-Sg-Ojb-Fe-FA tab Take 1 tablet by mouth once daily. (Patient not taking: Reported on 06/22/2023) FAMILY HISTORY Problem Relation Age of Onset Hypertension Mother other (polyp intestine) Mother other (overdose) Mother Hypertension Father No Known Problems Sister Heart Sister No Known Problems Brother No Known Problems Maternal Grandmother No Known Problems Maternal Grandfather No Known Problems Paternal Grandmother Cancer Paternal Grandfather Social History Tobacco Use Smoking status: Former Packs/day: 0.25 Years: 1.00 Additional pack years: 0.00 Total pack years: 0.25 Types: Cigarettes Smokeless tobacco: Never Vaping Use Vaping Use: Some days Substances: Nicotine Substance Use Topics Alcohol use: Not Currently Drug use: Not Currently Types: Marijuana, Cocaine, Amphetamines Review of Systems Constitutional: Negative for chills and fever. HENT: Positive for ear pain (skin lesion behind L ear tender) and sore throat. Negative for congestion. Respiratory: Negative for cough and shortness of breath. Cardiovascular: Negative for chest pain. Gastrointestinal: Negative for diarrhea and vomiting. Objective BP 118/74 Pulse 110 Temp 37.4 C (99.4 F) Resp 18 Wt 115 kg (253 lb 8.5 oz) LMP 07/09/2022 SpO2 98% BMI 40.92 kg/m Physical Exam Vitals and nursing note reviewed. Constitutional: General: She is not in acute distress. Appearance: Normal appearance. She is not toxic-appearing. HENT: Right Ear: Tympanic membrane and ear canal normal. Left Ear: Tympanic membrane and ear canal normal. No mastoid tenderness. Ears: Comments: Patient has approximately 2 cm raised erythematous cystic like lesion on the back of her left earlobe. Tender to touch. No fluctuance or drainage. No mastoid tenderness. No drainage. TM normal bilaterally. No lymphadenopathy. No lymphatic streaking. Nose: Nose normal. Mouth/Throat: Mouth: Mucous membranes are moist. Eyes: Conjunctiva/sclera: Conjunctivae normal. Cardiovascular: Rate and Rhythm: Normal rate and regular rhythm. Pulmonary: Effort: Pulmonary effort is normal. Breath sounds: Normal breath sounds. Skin: General: Skin is warm and dry. Neurological: Mental Status: She is alert. Assessment and Plan ASSESSMENT/PLAN: 1. Skin infection - ICD9: 686.9, ICD10: L08.9 (primary diagnosis) - Begin treatment with doxycycline - No lymphangetic streaking, this was defined for patient to watch for and to seek medical care immediately if appears - Follow up for recheck in three days - CONSULT TO DERMATOLOGY 2. Sore throat - ICD9: 462, ICD10: J02.9 - suspect viral - Group A strep molecular testing negative - Discussed supportive care treatment with fluids, rest and analgesia. - The patient may also use warm salt water gargles, throat lozenges and/or OTC throat spray as needed. - STREP A MOLECULAR (POC) 3. Earlobe lesion, left - ICD9: 380.9, ICD10: H61.92 -Covering with antibiotic for possible skin infection. Patient did use earrings just prior to this starting and it is just below the earring hole. -No fluctuance amenable to I&D at this time. It is more hard and cystlike. -Recommend warm compresses. Advised if no improvement, follow-up with dermatology. - CONSULT TO DERMATOLOGY Diagnosis and treatment plan were discussed and questions were answered to the patient's satisfaction. Pt acknowledged understanding of concepts and follow up plan. Specific signs and symptoms that would indicate the need for higher level of care were discussed in detail warranting prompt ER evaluation. CARLOS Amador documented in this encounter [facility] 06-22-2023 Note HNO ID: [id number] Author: AZEB FLORES APRN.CNM Service: ? Author Type: Leave Coordinator Type: Progress Notes Filed: 06/22/2023 10:00 Note Text: VISIT Elli Mujica is a 22 year old year old here for visit. Delivery Summary: C/S by RR on 04/07/2023 ROS/ Recovery: Feeding: Bottle feeding problems: None Menses since delivery: None Menstrual pattern prior to : Regular periods [place] since delivery: Resumed Depression: denies symptoms of depression. OB Depression and Anxiety Screening- This Encounter (since 06/21/2023) Over the past 2 weeks have you felt down, depressed, or hopeless? Negative Over the past two weeks, have you felt little interest or pleasure in doing things?? Negative Feeling nervous, anxious or on edge 0-Not at all Not being able to stop or control worrying 0-Not al all Anxiety Pre-Screening Total (If >/= 3 additional questions will be reviewed) 0 Emotional support: Yes Bowel symptoms: Negative for abdominal discomfort, blood in stools or black stools Abdomen: She reports no incisional redness, tenderness, erythema Bladder symptoms: No dysuria, gross hematuria, urinary frequency, urinary urgency, or incontinence Other issues: None Last Pap: 2022 normal HPV: negative PAST MEDICAL HISTORY Diagnosis Date Depression Suicidal behavior with attempted self-injury (HCC) 2016 PAST SURGICAL HISTORY Procedure Laterality Date NONE FAMILY HISTORY Problem Relation Age of Onset Hypertension Mother other (polyp intestine) Mother other (overdose) Mother Hypertension Father No Known Problems Sister Heart Sister No Known Problems Brother No Known Problems Maternal Grandmother No Known Problems Maternal Grandfather No Known Problems Paternal Grandmother Cancer Paternal Grandfather Social History Tobacco Use Smoking status: Former Packs/day: 0.25 Years: 1.00 Additional pack years: 0.00 Total pack years: 0.25 Types: Cigarettes Smokeless tobacco: Never Vaping Use Vaping Use: Some days Substances: Nicotine Substance Use Topics Alcohol use: Not Currently Drug use: Not Currently Types: Marijuana, Cocaine, Amphetamines PHYSICAL EXAMINATION: BP 112/68 Wt 250 lb (113.4kg) LMP 07/09/2022 GENERAL: pleasant, female in no apparent distress HEENT: Normocephalic, atraumatic, mucus membranes moist, and no lesions NECK: Supple and full range of motion DERMATOLOGY: Normal and without lesions BREAST: soft, non-tender, symmetric, no dominant mass, normal nipple-areolar complex, no lymphadenopathy, and no nipple discharge CHEST: Normal inspiratory effort ABDOMEN: soft, non-tender, and no masses. INCISION: No incisional redness, swelling, or drainage PELVIC: external genitalia normal, normal Bartholin's glands, urethra, Percival's glands, no vulvar lesions, no cervical lesions, good vaginal support, physiologic discharge present, normal appearing perineal body and perianal region BIMANUAL: uterus normal size, shape and consistency, no adnexal masses, and non-tender NEURO: alert and oriented x3,exam grossly non-focal EXTREMITIES: normal ASSESSMENT AND PLAN: 22 year old status post CS with normal course. Contraception plan: Nuva ring - R/B/A reviewed. Rx sent. Follow up: RTC for annual exams and [facility] History of Presen t illness Narrative VISIT Elli Mujica is a 22 year old year old here for visit. Delivery Summary: C/S by RR on 04/07/2023 ROS/ Recovery: Feeding: Bottle feeding problems: None Menses since delivery: None Menstrual pattern prior to : Regular periods [place] since delivery: Resumed Depression: denies symptoms of depression. OB Depression and Anxiety Screening- This Encounter (since 06/21/2023) Over the past 2 weeks have you felt down, depressed, or hopeless? Negative Over the past two weeks, have you felt little interest or pleasure in doing things? Negative Feeling nervous, anxious or on edge 0-Not at all Not being able to stop or control worrying 0-Not al all Anxiety Pre-Screening Total (If >/= 3 additional questions will be reviewed) 0 Emotional support: Yes Bowel symptoms: Negative for abdominal discomfort, blood in stools or black stools Abdomen: She reports no incisional redness, tenderness, erythema Bladder symptoms: No dysuria, gross hematuria, urinary frequency, urinary urgency, or incontinence Other issues: None Last Pap: 2022 normal HPV: negative PAST MEDICAL HISTORY Diagnosis Date Depression Suicidal behavior with attempted self-injury (HCC) 2016 PAST SURGICAL HISTORY Procedure Laterality Date NONE FAMILY HISTORY Problem Relation Age of Onset Hypertension Mother other (polyp intestine) Mother other (overdose) Mother Hypertension Father No Known Problems Sister Heart Sister No Known Problems Brother No Known Problems Maternal Grandmother No Known Problems Maternal Grandfather No Known Problems Paternal Grandmother Cancer Paternal Grandfather Social History Tobacco Use Smoking status: Former Packs/day: 0.25 Years: 1.00 Additional pack years: 0.00 Total pack years: 0.25 Types: Cigarettes Smokeless tobacco: Never Vaping Use Vaping Use: Some days Substances: Nicotine Substance Use Topics Alcohol use: Not Currently Drug use: Not Currently Types: Marijuana, Cocaine, Amphetamines PHYSICAL EXAMINATION: BP 112/68 Wt 250 lb (113.4kg) LMP 07/09/2022 GENERAL: pleasant, female in no apparent distress HEENT: Normocephalic, atraumatic, mucus membranes moist, and no lesions NECK: Supple and full range of motion DERMATOLOGY: Normal and without lesions BREAST: soft, non-tender, symmetric, no dominant mass, normal nipple-areolar complex, no lymphadenopathy, and no nipple discharge CHEST: Normal inspiratory effort ABDOMEN: soft, non-tender, and no masses. INCISION: No incisional redness, swelling, or drainage PELVIC: external genitalia normal, normal Bartholin's glands, urethra, Percival's glands, no vulvar lesions, no cervical lesions, good vaginal support, physiologic discharge present, normal appearing perineal body and perianal region BIMANUAL: uterus normal size, shape and consistency, no adnexal masses, and non-tender NEURO: alert and oriented x3,exam grossly non-focal EXTREMITIES: normal ASSESSMENT AND PLAN: 22 year old status post CS with normal course. Contraception plan: Nuva ring - R/B/A reviewed. Rx sent. Follow up: RTC for annual exams and PRN Azeb Flores APRN.CNM documented in this encounter [facility] 04-14-2023 Note HNO ID: [id number] Author: RAMILA CONSTANTINO MD Service: ? Author Type: Physician Type: Progress Notes Filed: 04/14/2023 15:07 Note Text: EARLY VISIT Elli Mujica is a 22 year old here for 1 week visit. Delivery Summary: c/s 04/07/2023 ROS: General: Denies any fever or chills Hypertension Screening: Headache? Yes. Was it successfully treated with Tylenol? yes Visual Changes? No Epigastric Pain? No Increased Swelling? No Taking any BP medications at home? No If applicable, monitoring BP at home? (If Yes, include results) NA Mood: normal Depression: denies symptoms of depression. OB Depression and Anxiety Screening- This Encounter (since 04/13/2023) Over the past 2 weeks have you felt down, depressed, or hopeless? Negative Over the past two weeks, have you felt little interest or pleasure in doing things?? Negative Feeling nervous, anxious or on edge 0-Not at all Not being able to stop or control worrying 0-Not al all Anxiety Pre-Screening Total (If >/= 3 additional questions will be reviewed) 0 Feeding: Bottle feeding problems: waiting until she finishes her pain medication Bladder: No dysuria, gross hematuria, urinary frequency, urinary urgency, or incontinence Bowel symptoms: Negative for abdominal discomfort, blood in stools or black stools and change in bowel habits Abdomen: She reports no incisional redness, tenderness, erythema Bleeding: light flow Bottom and Perineum: No issues Sleep: no sleep concerns and sleeps in bassinet/crib in parent's room, feels rested [place] since delivery: Not resumed Emotional support: Yes Exercise: N/A Other issues: None, control PHYSICAL EXAMINATION: BP 120/80 Wt 257 lb 9.6 oz (116.8 kg) LMP 07/09/2022 No BMI 41.58 kg/m? General: pleasant,female in no apparent distress, AANDO x 3. Skin warm and intact. Breast: Deferred Abdomen: soft, non-tender, and no masses /Incision: No incisional redness, swelling, or drainage Pelvic: Deferred Bimanual: Deferred ASSESSMENT AND PLAN: 22 year old status post CS with normal course. Contraception plan: Plans on NuvaRing 6 weeks. Reinforced 6-week pelvic rest. Encouraged condom usage should patient deviate. Education: resources provided - see MA/RN note Cont counseling at [facility] Discussed increased risk for diabetes. 2 hr GTT ordered Follow up: Return to Clinic for 6 week visit and as needed Ramila Constantino DO [facility] 04-10-2023 Note HNO ID: [id number] Author: RENATA LEÓN RN Service: ? Author Type: Registered Nurse Type: Progress Notes Filed: 04/10/2023 08:56 Note Text: Patient delivered via C/S at [facility] on 04/07/23 per Rose Polanco MD. See OB Outcome note. Renata León RN [facility] 04-05-2023 Note HNO ID: [id number] Author: Matilda Blanco Service: ? Author Type: ? 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 N/A Reason for Outreach Payer: Payor: [employer] / Plan: [employer] / Product Type: Medicaid / Navigation Signature: Matilda Blanco April 05, 2023 9:19 AM [facility] 04-05-2023 Note HNO ID: [id number] Author: Matilda Blanco Service: ? Author Type: ? Type: Progress Notes Filed: 04/05/2023 8:46 AM Note Text: POPULATION HEALTH NAVIGATION OUTREACH Action/FYI 3rd attempt left message to add scrubbing machine operator to ob provider field Patient Identified by Name and : NO Outreach Outcome/Action Unable to reach patient: Left message Did you use a PCP flex slot to schedule this appointment? N/A Reason for Outreach Payer: [facility] / Plan: [employer] / Product Type: Medicaid / Navigation Signature: Matilda Blanco April 05, 2023 8:45 AM [facility] 04-04-2023 Note HNO ID: [id number] Author: Joy Rodriguez MD Service: ? Author [...] None Interpretation: Reactive SIGNATURE: Joy Rodriguez MD [facility] 04-04-2023 Note Patient Outreach (NE TNAV) ELLI MUJICA ([id number]) 89 F Date Time Provider Department 04/04/23 BELLAMATILDA MANUELV During your visit today, we recorded the following information about you: Bella Matilda 04/04/2023 8:38 AM Signed POPULATION HEALTH NAVIGATION OUTREACH Action/FYI Left message to add scrubbing machine operator to OB provider field My chart sent Patient Identified by Name and : NO Outreach Outcome/Action Unable to reach patient: Left message MyChart message sent Did you use a PCP flex slot to schedule this appointment? N/A Reason for Outreach Payer: Payor: [facility] MEDICAID / Plan: [facility] / Product Type: Medicaid / Care [...] Action/FYI 3rd attempt left message to add scrubbing machine operator to ob provider field Patient Identified by Name and : NO Outreach Outcome/Action Unable to reach patient: Left message Did you use a PCP flex slot to schedule this appointment? 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 N/A Reason for Outreach [place] Payer: Pay[facility]: [facility] / Plan: [employer] / [...] cmpk 1 Application four times daily. - Xqmmxrjr-Tj-Vei-Fe-FA tab Take 1 tablet by mouth once [...] Encounter Status:Closed by MATILDA BLANCO on 04/04/23 [facility] 04-04-2023 Note HNO ID: [id number] Author: Matilda Blanco Service: ? Author Type: ? Type: Progress Notes Filed: 04/04/2023 8:38 AM Note Text: POPULATION HEALTH NAVIGATION OUTREACH Action/FYI Left message to add scrubbing machine operator to OB provider field My chart sent Patient Identified by Name and : NO Outreach Outcome/Action Unable to reach patient: Left message MyChart message sent Did you use a PCP flex slot to schedule this appointment? N/A Reason for Outreach [place] Payer: Payor: [employer] / Plan: [employer] / Product Type: Medicaid / Care [...] Matilda Blanco April 04, 2023 8:36 AM [facility] 03-14-2023 Miscellaneous Notes Formattin g of this note might be different from the original. Patient is doing 3 hour GTT this Saturday 03/17. Order linked to upcoming appointment. Aliza Leon RN 3gr GTT filed. Does patient think she can do 3hr in the next week? If not I would recommend proceeding with diabetic education and checking her BS. Joy Rodriguez MD Patient had 1 hour glucose test today and saw her results on [facility]. Reviewed results and instructions for 3 hour GTT. Appointment scheduled. Please file pended order, will need to be attached to upcoming appointment. Aliza Leon RN documented in this encounter [facility] 03-14-2023 Miscellaneous Notes Formattin g of this [...] Joy Rodriguez MD documented in this encounter [facility] 03-14-2023 Instructions s Elizabeth Bone - 03/14/2023 1:01 PM EST SEQUENTIAL SCREENINGS The [facility] offers sequential screenings for women who are [...] It will require an appointment with our renal technician. This is not an ultrasound performed [...] the above symptoms, contact our office at [phone] and ask to speak with a nurse. After hours, you can call doctors registry at [phone] OR call [facility] at [phone] and ask to have the doctor operations intern paged. If you consider this an emergency, dial 3-2-2 or go to your nearest emergency department. NEED HELP? Are you dealing with a violent or abusive relationship? Are you a victim of rape or sexual assult? Call [facility] ([place]) 24 hour Crisis Hotline: 313.483.1121 or 855-435-8333. MANUAL Your Guide to a Healthy manual is now on-line. Visit [email or web address] to download your free copy documented in this encounter [facility] 01-17-2023 Note HNO ID: [id number] Author: Joy Rodriguez MD Service: ? Author [...] use: No Multivitamin with Folic acid: Yes Religion or heritage: No Would refuse blood transfusion [...] Sig Dispense Refill PNV/ferrous sulfate/folic acid ( [id number]-[id number] ACID ORAL) Take by mouth. Etonogestrel-Ethinyl Estradiol [...] Rodriguez MD Date: 01/17/2023 Time: 2:36 PM [facility] 01-17-2023 Miscellaneous Notes Formattin g of this [...] Joy Rodriguez MD documented in this encounter [facility] 01-17-2023 History of Presen t illness Narrative [...] use: No Multivitamin with Folic acid: Yes Religion or heritage: No Would refuse blood transfusion [...] Sig Dispense Refill PNV/ferrous sulfate/folic acid ( HOS-UIKR-VGUPS ACID ORAL) Take by mouth. Etonogestrel-Ethinyl Estradiol [...] Time: 2:36 PM documented in this encounter [facility] 01-17-2023 Instructions Sissy Moreira MA - 01/17/2023 1:58 PM EDT Please select the following link to access the [facility] Your Guide to a Healthy . [email or web address] documented in this encounter [facility] 01-16-2023 Miscellaneous Notes Formattin g of this note might be different from the original. Pt has appointment 01/17/23. Polo Burrell LPN Attempted to contact pt. No voicemail, does not appear to actively use her mychart. Will try again later. Polo Burrell LPN We will have to see her for a problem visit to establish her care and keep NOB as scheduled unless there is time for her to have NOB on that day. Thank you, Roddy Woods APRN.CNM Patient is 26w2d. He had her prenew OB telephone visit today. She is transferring care from [place]. She has only had 2 office visits [...] on January 17 documented in this encounter [facility] 01-09-2023 Note HNO ID: [id number] Author: Mali Green RN Service: ? Author [...] use: No Multivitamin with Folic acid: Yes Religion or heritage: No Would refuse blood transfusion [...] Sig Dispense Refill PNV/ferrous sulfate/folic acid ( PUO-EQAJ-RRMOR ACID ORAL) Take by mouth. Etonogestrel-Ethinyl Estradiol [...] 01/09/2023 Does patient have penicillin allergy: No [facility] 01-09-2023 Miscellaneous Notes Formattin g of this note might be different from the original. DISTANCE HEALTH VISIT This Team Access Model visit is a phone encounter. It required patient-provider interaction for the medical decision making as documented below. Elli Mujica is a 22 year old female seen for PNOB. Patient is transferring care from [place]. We have received the records from [place] and they are sent to Dr. Rodriguez nurse [facility] for upcoming appointment. Patient has had [address] Conklin. The last visit was on November 17 and she had an anatomy scan at that time. Patient states that this time she is limiting the amount of involvement from the father of the baby. He has had issues with disorderly conduct and collections officer she is seeing his recommend that that he needs to improve himself before he can be involved with her and the baby. 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 She states she got out 8 months ago. She is currently in an IOP at [facility] per the conditions of her probation. Patient states she has another year of probation. Discussed the risks of using drugs in and patient states she understands. Patient has had housing instability this . She has earlier lived at [facility] and then to [facility] and then most recently has got her own house. Patient states that she was treated for a wisdom tooth infection in August. Her symptoms have improved but she states that the dentist does want to pull her teeth. She will discuss this with Dr. Rodriguez at her new OB visit.TKRN documented in this encounter [facility] 01-09-2023 History of Presen t illness Narrative [...] use: No Multivitamin with Folic acid: Yes Religion or heritage: No Would refuse blood transfusion [...] bills: Sometimes by situation has improved recently [facility] appt this month Within the past 12 [...] Partner: Name: Edu Thompson Age: 21 Occupation: [employer] Gender: Male History of STDs: None PAST MEDICAL HISTORY Diagnosis Date Depression Suicidal behavior with attempted self-injury (HCC) 2016 PAST SURGICAL HISTORY Procedure Laterality Date NONE Current Outpatient Medications Medication Sig Dispense Refill PNV/ferrous sulfate/folic acid ( ATB-[id number] ACID ORAL) Take by mouth. Etonogestrel-Ethinyl Estradiol [...] penicillin allergy: No documented in this encounter [facility] 10-11-2022 Note HNO ID: [id number] Author: Lucy Ashby APRN.JOBY Service: ? Author Type: Nurse Practitioner Type: [...] of care. This note was generated using [employer] software. It (more content not included)... [facility] Evaluation note Diagnosis with care elsewhere, antepartum- Primary History of drug use Housing instability, currently housed Dental abscess Periapical abscess without sinus History of depression Personal history of other mental disorder Pelvic pain affecting , antepartum Family history of defect Family history of congenital anomalies Vapes nicotine containing substance [facility] Diagnosis Encounter for care in second trimester of first - Primary 27 weeks gestation of state, incidental Excessive weight gain in , third trimester [facility] Diagnosis Encounter for anatomic survey- Primary Encounter for care in second trimester of first 31 weeks gestation of state, incidental with care elsewhere in third trimester Obesity affecting in third trimester, unspecified obesity type [facility] Diagnosis with care elsewhere, antepartum- Primary 35 weeks gestation of state, incidental Excessive weight gain in , third trimester [facility] Diagnosis Abnormal glucose complicating - Primary Abnormal maternal glucose tolerance, complicating , childbirth, or the puerperium, unspecified as to episode of care [facility] Diagnosis care and examination- Primary Routine follow-up Delivery of by section [facility] Diagnosis Skin infection- Primary Unspecified local infection of skin and subcutaneous tissue Sore throat Acute pharyngitis Earlobe lesion, left documented in this encounter [facility] for referral (narrative)* Diagnostic Procedure Only (Routine) - Pending Review Specialty Diagnoses / Procedures Referred By Macario hassan Referred To Contact [facility] Diagnoses Encounter for care in second trimester of first 27 weeks gestation of Procedures OBSTETRIC ULTRASOUND WHI US PREG UTERUS AFTER 1ST TRIMEST GESTATION Joy Rodriguez MD [address] [place] [address] [facility] [address] [place] [address] Referral ID Status Reason Start Date Expiration Date Visits Requested Visits Authorized [id number] Pending Review Auto-Generat ed Referral 3 01/17/2024 1 1 [facility] Diagnostic Procedure Only (Routine) - Authorized Specialty Diagnoses / Procedures Referred By Contac t Referred To Contact [facility] Diagnoses Excessive weight gain in , third trimester Procedures OBSTETRIC ULTRASOUND WHI US PREG UTERUS AFTER 1ST TRIMEST GESTATION Joy Rodriguez MD [address] [place] [address] [facility] [address] [address] Referral ID Status Reason Start Date Expiration Date Visits Requested Visits Authorized [id number] Authorized Auto-Generat ed Referral 3 03/13/2024 1 1 [facility] Summary Purpose Family History No Family History [...] Date [facility] Education - COMMON 01/09/2023 Active Problems Noted Date Diagnosed Date [facility] Education - COMMON 01/09/2023 Reason for Referral Specialty Diagnoses / Procedures Referred By Contac t Referred To Contact Dermatology Diagnoses Skin infection Earlobe lesion, left Procedures CONSULT TO DERMATOLOGY [facility] [address] [place] [address] Referral ID Status Reason Start Date Expiration Date Visits Requested Visits Authorized [id number] Ref Not Required PCP Requested Referral 08/20/2023 08/19/2024 1 1 Additional Source Comments INFORMATION SOURCE (unrecogn ized section and content) DATE CREATED AUTHOR 09/27/2017 [facility] ([place]) DATE CREATED AUTHOR AUTHOR'S ORGANFRANSISCO ATION 08/22/2023 [facility] Source Comments (unrecognize d section and content) In the event this informatio n is protected by the Federal Confidentiality of Alcohol and Drug Abuse Patient Records regulations: The Federal rules restrict any use of the information to criminally investigate or prosecute any alcohol or drug abuse patient.[facility] the event this information is protected by the Federal Confidentiality of Alcohol and Drug Abuse Patient Records regulations: The Federal rules restrict any use of the information to criminally investigate or prosecute any alcohol or drug abuse patient.[facility] the event this information is protected by the Federal Confidentiality of Alcohol and Drug Abuse Patient Records regulations: The Federal rules restrict any use of the information to criminally investigate or prosecute any alcohol or drug abuse patient.[facility] the event this information is protected by the Federal Confidentiality of Alcohol and Drug Abuse Patient Records regulations: The Federal rules restrict any use of the information to criminally investigate or prosecute any alcohol or drug abuse patient.[facility] the event this information is protected by the Federal Confidentiality of Alcohol and Drug Abuse Patient Records regulations: The Federal rules restrict any use of the information to criminally investigate or prosecute any alcohol or drug abuse patient.[facility] the event this information is protected by the Federal Confidentiality of Alcohol and Drug Abuse Patient Records regulations: The Federal rules restrict any use of the information to criminally investigate or prosecute any alcohol or drug abuse patient.[facility] the event this information is protected by the Federal Confidentiality of Alcohol and Drug Abuse Patient Records regulations: The Federal rules restrict any use of the information to criminally investigate or prosecute any alcohol or drug abuse patient.[facility] the event this information is protected by the Federal Confidentiality of Alcohol and Drug Abuse Patient Records regulations: The Federal rules restrict any use of the information to criminally investigate or prosecute any alcohol or drug abuse patient.[facility] the event this information is protected by the Federal Confidentiality of Alcohol and Drug Abuse Patient Records regulations: The Federal rules restrict any use of the information to criminally investigate or prosecute any alcohol or drug abuse patient.[facility] Reason for Visit (unrecogniz ed section and content) Reason Comments Care Reason Comments Initial OB Visit Transfer from [facility] Reason Comments US Specialty Diagnoses / Procedures Referred By Macario hassan Referred To Contact [facility] Diagnoses Encounter for care in second trimester of first 27 weeks gestation of Procedures OBSTETRIC ULTRASOUND WHI US PREG UTERUS AFTER 1ST TRIMEST GESTATION Joy Rodriguez MD [address] [place] [address] [facility] [address] [place] [id number] Referral ID Status Reason Start Date Expiration Date V isits Requested Visits Authorized [id number] Closed Auto-Generate d Referral 01/17/2023 01/17/2024 1 1 Reason Onset Date Comments Care 03/14/2023 Reason Comments Results Orders Reason Comments Sore Throat x 1 day, lump by lef t ear x 1 week Reason Onset Date Comments Refill Request 12/08/2023 FOR RECORDS PERTAINING TO PATIENTS WHO ARE [...] BE BASED ON THE PRIMARY CLINICAL RECORDS. [facility]. provides no warranty or guarantee of the accuracy or completeness of information in this document.
== END 2024-01-27 10:06 | disposition home or self-care (01) ==
PROVIDERS: Emergency Provider Emergency Medicine; Visit Provider Emergency Medicine
DX: S56.911A Strain of unspecified muscles, fascia and tendons at forearm level, right arm, initial encounter (principal); F17.210 Nicotine dependence, cigarettes, uncomplicated; X58.XXXA Exposure to other specified factors, initial encounter
CPT/HCPCS: 99282

== ENCOUNTER 2024-02-17 07:45 | Emergency (ER) | payer MEDICAID, SELFPAY ==
[2024-02-17 07:46] VITALS: BP 135/104; PULSE 106; RESP 18; TEMP 36.2; O2SAT 96; BMI 39.6
[2024-02-17 07:58] VITALS: BP 135/104; PULSE 106; RESP 18; TEMP 36.2; O2SAT 96
--- NOTE | 2024-02-17 08:21 | ED.RN ---
patient LWBS. pt states her chest hurts and no one has been into see her. patient states I am just going to [place]. patient escorted to main entrance by CHACE Sheehan
--- NOTE | 2024-02-17 08:22 | ED.RN ---
Pt decided to leave, Its taking too long. Pt ambulated from ED without difficulty. Stroke alert in the department at the time.
== END 2024-02-17 08:20 | disposition left against medical advice (07) ==
LOC: ED 08:22
DX: Z53.21 Procedure and treatment not carried out due to patient leaving prior to being seen by health care provider (principal)

== ENCOUNTER 2025-01-27 03:08 | Emergency (ER) | payer MEDICAID, SELFPAY ==
[2025-01-27 03:10] VITALS: BP 146/83; PULSE 88; RESP 16; TEMP 36.6; O2SAT 98; BMI 41.9
--- NOTE | 2025-01-27 03:20 | ED.VIS.GI ---
HPI HPI - GI History of Present Illness Chief Complaint: Nausea/Vomiting/Diarrhea Informant: patient Narrative Narrative: Patient is a 24-year-old female with history of anxiety and depression presenting with sudden onset of cramping abdominal pain, nausea, vomiting and diarrhea. She has had 1 episode of vomiting and multiple episodes of diarrhea. Is not sure she has had any blood in her vomit or her stool as Electrolyte on in her camper. Denies any fever or chills. States she otherwise been in her normal state of health. Had a pork sandwich, pizza and soup but states other people ate those things and did not have any similar symptoms. No sick contacts reported. States she has had nasty burps. Nuys any fever or chills. Denies any recent antibiotics. Denies a history of inflammatory bowel disease or any bowel issues. No other complaints or concerns reported this time. Denies any history of any abdominal surgeries however chart review does show history of low transverse section. Received 4 mg ODT Zofran and route via EMS. PFSH PFSH Medical History Post-operative pain Single live Failed induction of labor Obesity affecting Anxiety Gestational diabetes Suicidal behavior with attempted self-injury Depression Gestational diabetes History of drug use Home Medications ?Medication ?Instructions ?Recorded ?Last Taken ?Type acetaminophen 500 mg tablet 1,000 mg (2 x 500 mg) PO Q6H #60 04/09/23 Unknown Rx tabs oxycodone 5 mg tablet 5 - 10 mg (1 - 2 x 5 mg) PO Q4H 04/09/23 Unknown Rx PRN PRN Pain Score 4-10 5 days #14 tabs amoxicillin 875 mg tablet 875 mg PO BID 06/19/23 Unknown History famotidine 40 mg tablet (Pepcid) 40 mg PO DAILY #30 tabs 06/19/23 Unknown Rx ibuprofen 200 mg tablet (Motrin IB) 600 mg (3 x 200 mg) PO Q6H PRN 01/27/24 Unknown Rx pain #40 tabs dicyclomine 20 mg tablet 20 mg PO TID PRN abdominal pain 01/27/25 Unknown Rx #14 tabs loperamide 2 mg capsule (Imodium 2 mg PO Q6H PRN loose stool #10 01/27/25 Unknown Rx A-D) caps ondansetron 4 mg disintegrating 4 mg PO Q8H PRN PRN Nausea #10 tabs 01/27/25 Unknown Rx tablet Allergy/AdvReac Type Severity Reaction Status Date / Time No Known Allergies Allergy Verified 01/27/25 03:19 Surgical History Status post primary low transverse section Social History Smoking Status: Current some day smoker tobacco type: e-cigarettes ROS ROS ED Constitutional Constitutional ED: Denies chills or fever(s) Cardiovascular Cardiovascular: Denies chest pain Respiratory/Chest Respiratory/Chest: Denies cough Gastrointestinal Gastrointestinal: Reports abdominal pain, diarrhea, nausea and vomiting Genitourinary Genitourinary ED: Denies dysuria Musculoskeletal Musculoskeletal: Denies arthralgias or myalgias Integumentary Denies rash Neurologic Neurologic: Denies weakness EXAM Physical Exam Const Vital Signs: 01/27/25 03:10 01/27/25 05:09 Temperature 98 F Temperature Source Oral Pulse Rate 88 68 Respiratory Rate 16 16 Blood Pressure 146/83 H Blood Pressure Mean 104 Pulse Ox 98 95 Oxygen Delivery Method Room Air Room Air Positive well nourished and well developed General Appearance ED: well developed and NAD; Negative for pallor HEENT Reports moist mucous membranes Neck supple Resp normal respiratory effort and clear to auscultation bilaterally Cardio regular rate and regular rhythm GI non-distended Auscultation: normoactive bowel sounds Palpation: soft and tender other (Mild, diffuse); Negative for guarding, rigid or rebound tenderness present Extremity full ROM General Extremety ED: Negative for edema General Extremity: Negative for edema Neuro moves all extremities Neuro Narrative: Ambulates with a steady gait Sensorium / Orientation: alert Motor Exam: Negative for general weakness Psych mental status grossly normal and thought process normal Skin no wounds General Skin Exam: Negative for jaundice or pallor MDM MDM MDM Narrative Medical decision making narrative: Patient valuation onset nausea, vomiting, diarrhea and crampy abdominal pain. Vital signs significant only for mildly elevated blood pressure upon arrival. Differential clues gastroenteritis, infectious diarrhea and colitis. Lower suspicion for bowel obstruction given that she is having diarrhea with this. Will be treated symptomatically with IV fluids, Bentyl and Toradol. Will check basic labs. If possible will obtain stool studies. Patient has a mild leukocytosis with no left shift. White count is normal. CMP unremarkable except for very minimally elevated alkaline phosphatase which is nonspecific. Normal liver enzymes otherwise. Urinalysis normal. Urine negative. Patient has negative C. difficile but positive stool lactoferrin. Suspect she has some type of viral/infectious diarrhea. Enteric stool panel pending. Patient has mild improvement of her symptoms but does require further nausea medication. Is given additional dose of Zofran and a dose of morphine. On repeat evaluation she is finally feeling improved. Abdomen is soft and I do not think she requires CT imaging at this time. Is able to tolerate p.o. challenge in the emergency room. Will be discharged home with a prescription for Bentyl, Imodium and Zofran. Will contact her if she requires antibiotics for infectious diarrhea however given she does not have any fever, blood in her stool or recent travel I do not think she requires prophylactic antibiotics at this time. Will be contacted if stool culture Disotate otherwise. Patient discharged home. Given return precautions. Lab Data Attestation: I reviewed the patient's lab results. Labs: Laboratory Results - last 24 hr 01/27/25 01/27/25 03:00 03:20 WBC 11.2 H RBC 4.79 Hgb 14.7 Hct 43.2 MCV 90.2 MCH 30.7 MCHC 34.0 RDW Std Deviation 41.1 RDW Coeff of [place]idre 12.4 Plt Count 437 MPV 9.7 Immature Gran % (Auto) 0.300 Neut % (Auto) 75.2 H Lymph % (Auto) 17.1 L [place] % (Auto) 6.0 Eos % (Auto) 1.3 Baso % (Auto) 0.1 Absolute Neuts (auto) 8.4 H Absolute Lymphs (auto) 1.91 Nucleated RBC % 0 Sodium 140 Potassium 4.3 Chloride 104 Carbon Dioxide 24.6 Anion Gap 11 BUN 16 Creatinine 0.94 Estim Creat Clear Calc 119.50 Est GFR (MDRD) Non-Af 86 BUN/Creatinine Ratio 16.4 Glucose 102 H Calcium 9.7 Total Bilirubin 0.17 AST 21 ALT 21 Alkaline Phosphatase 123 H Total Protein 7.8 Albumin 4.4 Globulin 3.4 Albumin/Globulin Ratio 1.3 Urine Color Straw Urine Clarity Clear Urine pH 6.0 Ur Specific [place] 1.015 Urine Protein Negative Urine Glucose (UA) Normal Urine Ketones Negative Urine Occult Blood Negative Urine Nitrite Negative Urine Bilirubin Negative Urine Urobilinogen Normal Ur Leukocyte Esterase Negative Urine RBC 0-5 SEEN Urine WBC 0-5 SEEN Ur Squamous Epith Cells 0-5 SEEN Urine Bacteria RARE Urine Mucus RARE Urine Test Negative Discharge Plan Triage Chief Complaint: Nausea/Vomiting/Diarrhea ED Provider: Latrice Rose Dx/Rx/DC Orders Clinical Impression: Gastroenteritis Instructions: ED Gastroenteritis, Viral (Adult) Prescriptions: New ondansetron 4 mg tablet,disintegrating 4 mg PO Q8H PRN PRN (Reason: Nausea) Qty: 10 0RF loperamide [Imodium A-D] 2 mg capsule 2 mg PO Q6H PRN (Reason: loose stool) Qty: 10 0RF dicyclomine 20 mg tablet 20 mg PO TID PRN (Reason: abdominal pain) Qty: 14 0RF No Action acetaminophen 500 mg Tablet 1,000 mg PO Q6H Qty: 60 0RF oxycodone 5 mg Tablet 5 - 10 mg PO Q4H PRN PRN (Reason: Pain Score 4-10) 5 Days Qty: 14 0RF amoxicillin 875 mg tablet 875 mg PO BID famotidine [Pepcid] 40 mg tablet 40 mg PO DAILY Qty: 30 0RF ibuprofen [Motrin IB] 200 mg tablet 600 mg PO Q6H PRN (Reason: pain) Qty: 40 0RF Primary Care Provider: Care Physician,No Primary Referrals: Winifred Valdes [Non-Staff, Medical] Care Physician,No Primary [Primary Care Provider, Medical] Activity Restrictions/Additional Instructions: Make sure you are drinking plenty of fluids. Your lab work today was largely normal. You do have a stool study that is pending. Will contact you if you need further medications based on these results. In the meantime we will be treated symptomatically with nausea medicine, medicine for diarrhea and medication to help with the cramping abdominal pain. These been sent to your pharmacy. Please return if you develop blood in your stool, high fever or worsening symptoms/further concerns Print Language: Polish Disposition Disposition: Home, Self Care
[2025-01-27 03:34] LABS: Color, Urine Straw (Yellow); Glucose, Dipstick Normal (Normal); Ketone-Dipstick Negative (Negative); Leukocyte Esterase-Dipstick Negative /ul (Negative); Nitrite-Dipstick Negative (Negative); Occult Blood-Urine Negative /ul (Negative); Protein-Dipstick Negative (Negative); Specific Gravity, Urine 1.015 (1.002-1.030); Urine Bilirubin Dipstick Negative (Negative)
[2025-01-27 03:34] LABS: Hematocrit 43.2 % (37-47); Hemoglobin 14.7 g/dL (12.0-15.0); Immature Granulocytes Count 0.030 X10^3/uL (0.0-0.0); Mean Corp Hgb Conc 34.0 g/dL (32-36); Mean Corpuscular Volume 90.2 fL (81-99); Mean Platelet Vol. 9.7 fl (6.2-12.0); NRBC Flagged by Analyzer 0 % (0-5); Platelet Count 437 K/mm3 (150-450); RBC Distribution Width CV 12.4 % (11.6-14.6); RBC Distribution Width SD 41.1 fl (35.1-43.9); Red Blood Count 4.79 M/mm3 (4.2-5.4); White Blood Count 11.2 K/mm3 (4.4-11.0)
[2025-01-27] MEDS: 0.9% Normal Saline (1000mL) 1,000 ML 999 ML IV (03:35)
[2025-01-27 03:40] LABS: Pregnancy, Urine Negative Negative; Record Kit Lot#,Urine Preg 0000980607
[2025-01-27 03:41] LABS: Internal QC Validated? YES +Cl - CLEAR BKGD
[2025-01-27 03:47] LABS: Mucous, Urine RARE /hpf (<or=2+); Red Blood Cells-Urine 0-5 SEEN /hpf (0-5); Squamous Epithelial Cells - UA 0-5 SEEN /hpf (5-10)
[2025-01-27 03:51] LABS: AST(SGOT) 21 U/L (<=31); Alanine Aminotransfer ALT/SGPT 21 U/L (<=34); Albumin, Serum 4.4 g/dL (3.5-5.0); Alkaline Phosphatase 123 U/L (35-104); Anion Gap 11 (5-15); BUN 16 mg/dL (4-19); BUN/Creat Ratio 16.4 RATIO (10-20); Calcium,Total 9.7 mg/dL (7.6-11.0); Carbon Dioxide 24.6 mmol/L (21.0-32.0); Chloride 104 mmol/L (98-108); Estimated Creatinine Clearance 119.50 ml/min (50-250); Globulin 3.4 g/dL (2.2-4.2); Glucose 102 mg/dL (70-99); Potassium 4.3 mmol/L (3.3-5.1)
[2025-01-27 05:09] VITALS: PULSE 68; RESP 16; O2SAT 95
[2025-01-27 07:00] VITALS: BP 113/45; PULSE 60; RESP 18; O2SAT 98
[2025-01-27 08:50] VITALS: BP 113/45; PULSE 60; RESP 18; TEMP 37.1; O2SAT 98
== END 2025-01-27 08:56 | disposition home or self-care (01) ==
PROVIDERS: Emergency Provider Emergency Medicine; Visit Provider Emergency Medicine
DX: K52.9 Noninfective gastroenteritis and colitis, unspecified (principal); F17.290 Nicotine dependence, other tobacco product, uncomplicated
CPT/HCPCS: 80053; 81001; 81025; 83630; 85025; 87493; 87506; 96361; 96374; 96375; 96376; 99283; A4216; J2405

== ENCOUNTER 2025-02-22 10:46 | Emergency (ER) | payer MEDICAID, SELFPAY ==
[2025-02-22 10:47] VITALS: BP 153/90; PULSE 88; RESP 14; TEMP 36.1; O2SAT 98; BMI 42.0
[2025-02-22 11:34] LABS: Mucous, Urine 0 SEEN /hpf (<or=2+); Red Blood Cells-Urine 0 SEEN /hpf (0-5)
[2025-02-22 11:36] LABS: Color, Urine Yellow (Yellow); Glucose, Dipstick Normal (Normal); Ketone-Dipstick Negative (Negative); Leukocyte Esterase-Dipstick Negative /ul (Negative); Nitrite-Dipstick Negative (Negative); Occult Blood-Urine Negative /ul (Negative); Protein-Dipstick 15 mg/dl (Negative); Specific Gravity, Urine 1.015 (1.002-1.030); Urine Bilirubin Dipstick Negative (Negative)
[2025-02-22 11:43] LABS: Squamous Epithelial Cells - UA 10-25 SEEN /hpf (5-10)
[2025-02-22 11:44] LABS: Internal QC Validated? YES +Cl - CLEAR BKGD; Record Kit Lot#,Urine Preg 0000980607
--- OUTSIDE RECORDS SUMMARY | 2025-02-22 11:44 | XMS RPT_ITS | CCD ---
Author Organization [facility] Care Team Providers Care Supervisor Laboratory Name Role Phone ALEXI LEARY Unavailable Unavailable LEANNE JOHNSON Unavailable Unavailable DAVID YUNG Unavailable Unavailable LEANNE JOHNSON Unavailable Unavailable SAM RAJAN Unavailable Unavailable LEANNE JOHNSON Unavailable Unavailable Unavailable Primary Care Provider Unavailariadne e Unavailable Primary Care Provider UnavailAZEB Huston Attending Unavailable JOY RODRIGUEZ Attending Unavailable JOY RODRIGUEZ Referring Unavailable JOY RODRIGUEZ Attending Unavailable RAMILA JOHNSON Attending Unavailable JOY RODRIGUEZ Attending Unavailable RAMILA JOHNSON Attending Unavailable AZEB MIN Attending Unavailable AZEB MIN Referring Unavailable JOY RODRIGUEZ Attending Unavailable JOY RODRIGUEZ Referring Unavailable JOY RODRIGUEZ Referring Unavailable PHYSICIAN, NONE Primary Care Physician Unavailab Hazel RUST, DR SAM Leyva Attending Unavailabl e PHYSICIAN, NONE Primary Care Unavailable PHYSICIAN, NONE Primary Care Unavailable TERA MCFARLANE MD Attending Unavail able Care Physician, No Primary Primary Care Unava ilable Latrice Rose Attending Unavailable Care Physician, No Primary Primary Care Unava ilable Provider, Ed Physician Attending Unavailab [place] Medications Current Medications Medication Drug Class(es) Dates Sig (Normalized) Sig (Original) 21 DAY ethinyl estradiol 0.872563 MG/HR / etonogestrel 0.005 MG/HR Vaginal System [Enilloring] (2 sources) Start: 07-30-2024 EnilloRing 0.12 mg-0.015 mg/24 hours vaginal ring Dose = 1 EA, Vaginal, q4wk, Insert a new ring on day 1 and use for 3 weeks, remove for 1 week, then repeat cycle, # 1 EA, 0 Refill(s) Start Date: 07/30/24 Status: Ordered Quantity: 1.0 Unit: EA Repeat number: 1 acetaminophen 500 mg oral tablet (2 sources) Start: 04-09-2023 take 1000 mg by mouth every six hours Acetaminophen Active 1000 MG PO EVERY 6 HOURS 60 April 09, 2023 1:00am acetaminophen 325 mg / HYDROcodone bitartrate 5 mg oral tablet (1 source) Opioid Agonist Start: 08-15-2024 End: 08-18-2024 take 1 tablet by mouth every six hours as needed for pain [place] 325- 5 mg oral tablet Dose = 1 tab(s), Oral, q6h, PRN for pain, X 3 day(s), # 10 tab(s), 0 Refill(s), Abdominal pain, 113.6 Start Date: 08/15/24 Stop Date: 08/18/24 Status: Ordered Quantity: 10.0 Unit: tab(s) Repeat number: 1 Indications: Unspecified abdominal pain; amoxicillin 875 mg oral tablet (1 source) Penicillin-class Antibacterial Start: 06-19-2023 take 875 mg by mouth twice daily Amoxicillin Active 875 MG PO TWICE A DAY June 19, 2023 12:00am doxycycline monohydrate 100 mg oral tablet (1 source) Tetracycline-class Drug Start: 08-20-2023 End: 08-27-2023 take 1 tablet by mouth twice daily doxycycline monohydrate 100 mg tablet Take 1 tablet by mouth two times a day for 7 days. 14 tablet 0 08/20/2023 08/27/2023 Active 21 day ethinyl estradiol 0.954955 mg/hr / etonogestrel 0.005 mg/hr vaginal system (9 sources) Progestin, Estrogen Start: 12-11-2023 End: 07-22-2024 Etonogestrel-Ethin yl Estradiol (NUVARING) 0.12-0.015 mg/24 hr vaginal ring Use 1 each vaginally as directed. 1 each 2 07/22/2024 Active Start: 06-22-2023 End: 12-08-2023 Etonogestrel-Ethinyl Estradi [...] as directed. famotidine 40 mg oral tablet (5 sources) Histamine-2 Receptor Antagonist Start: 06-19-2023 famotidine (PEPCID) 40 mg tablet 06/19/2023 Active ibuprofen 600 mg oral tablet (4 sources) Nonsteroidal Anti-inflammatory Drug Start: 08-15-2024 ibuprofen 600 mg oral tablet Dose : 600 mg = 1 tab(s), Oral, QID, PRN as needed for pain, # 40 tab(s), 0 Refill(s) Start Date: 08/15/24 Status: Ordered Quantity: 40.0 Unit: tab(s) Repeat number: 1 Start: 07-30-2024 End: 08-09-2024 ibuprofen 600 mg oral tablet Dose : 600 mg = 1 tab(s), Oral, q6h, PRN for pain, Take with food or milk., X 10 day(s), # 40 tab(s), 0 Refill(s), 08/09/24 9:53:00 AM EDT Start Date: 07/30/24 Stop Date: 08/09/24 Status: Ordered Quantity: 40.0 Unit: tab(s) Repeat number: 1 Start: 04-09-2023 End: 06-19-2023 take 600 mg by mouth every six hours Ibuprofen Discontinued 600 MG PO EVERY 6 HOURS 60 April 09, 2023 1:00am June 19, 2023 12:59am isopropyl alcohol 0.7 ml/ml medicated pad (4 sources) Start: 03-30-2023 alcohol swabs (ALCOHOL PADS) Indications: 37 weeks gestation of (HCC) , Gestational diabetes mellitus, class A1 ([facility]) Apply 1 application to affected area four times daily. 40 Each 03/30/2023 Active Comment on above: Apply 1 application to affected area four times daily. ondansetron 4 mg oral tablet (1 source) Serotonin-3 Receptor Antagonist Start: 08-15-2024 Zofran 4 mg oral tablet Dose : 4 mg = 1 tab(s), Oral, q6h, PRN Nausea/Vomiting, # 15 tab(s), 0 Refill(s) Start Date: 08/15/24 Status: Ordered Quantity: 15.0 Unit: tab(s) Repeat number: 1 oxyCODONE hydrochloride 5 mg oral tablet (2 sources) Opioid Agonist Start: 04-09-2023 take 5-10 mg by mouth every four hours as needed Oxycodone Active 5 - 10 MG PO EVERY 4 HOURS NEEDED 14 5 April 09, 2023 Hkuposig-Ft-Cst-Fe-F A tab (6 sources) Start: 03-14-2023 take 1 tablet by mouth once daily Ihqrquhc-Ej-Vis-Fe -FA tab Take 1 tablet by mouth once daily. 30 tablet 5 03/14/2023 Active Comment on above: Take 1 tablet by jose enrique once daily. Completed/Discontinued Medications Medication Drug Class(es) Dates Sig (Normalized) Sig (Original) clotrimazole 10 mg/ml topical cream (4 sources) Azole Antifungal Start: 09-09-2022 End: 04-09-2023 Clotrimazole (Athletic Foot Cream) 1 % cream Discontinued 1 APPLIC TOPICAL TWICE A DAY 15 September 09, 2022 12:00am April 09, 2023 10:44am docusate sodium 50 mg / sennosides, senior living 8.6 mg oral tablet (2 sources) Start: 04-09-2023 End: 06-19-2023 take 1 tablet by mouth once daily Sennosides-Docusat e Sodium (Stool Softener-Stimulant Laxat) 8.6-50 mg Tablet Discontinued 1 - 2 TABLET PO DAILY 60 April 09, 2023 1:00am June 19, 2023 12:59am ferrous sulfate 325 mg oral tablet (2 sources) Start: 04-09-2023 End: 06-19-2023 Ferrous Sulfate (Ferosul) 325 mg (65 mg iron) Tablet Discontinued 325 MG PO 1200,1700 60 April 09, 2023 1:00am June 19, 2023 12:59am penicillin v potassium 500 mg oral tablet (4 sources) Start: 08-20-2022 End: 04-09-2023 take 500 mg by mouth four times daily Penicillin V Potassium Discontinued 500 MG PO 4 TIMES DAILY 40 August 20, 2022 12:00am April 09, 2023 10:44am PNV/ferrous sulfate/folic acid ( GQA-WEQN-LLTRX ACID ORAL) (6 sources) PNV/ferrous sulfate/folic acid ( HLW-ZXQZ-PSWPC ACID ORAL) Take by mouth. 0 Active Comment on above: Take by mouth. Problems Active Problems Problem Classification Problem Date Documented Date Episodic/Chronic Abdominal pain (4 sources) Epigastric pain; Translations: [Epigastric pain] Onset: 08-15-2024 06-19-2023 Episodic Anxiety disorders (2 sources) Anxiety 10-21-2016 Chronic Blindness and vision defects (10 sources) Blind left eye; Translations: [Blindness, one eye, unspecified eye] Onset: 08-23-2018 08-23-2018 Chronic Diabetes or abnormal glucose tolerance complicating ; childbirth; or the puerperium (4 sources) Abnormal glucose level; Translations: [Abnormal glucose complicating ] 03-14-2023 Episodic Mycoses (4 sources) Dermatophytosis; Translations: [Dermatophytosis, unspecified] 09-17-2022 Episodic Noninfectious gastroenteritis (1 source) Noninfective gastroenteritis and colitis, unspecified; Translations: [Noninfective gastroenteritis and colitis, unspecified] Onset: 02-07-2025 Episodic Other complications of ; puerperium affecting management of mother (2 sources) Failed induction of labor; Translations: [Failed induction of labor, unspecified] 04-07-2023 Episodic Other complications of ; puerperium affecting management of mother (1 source) Failed induction of labor, unspecified; Translations: [Failed medical or unspecified induction of labor, unspecified as to episode of care or not applicable] 04-09-2023 Episodic Other complications of ; puerperium affecting management of mother (1 source) Deliveries by ; Translations: [Encounter for delivery without indication] 06-22-2023 Episodic Other complications of ; puerperium affecting management of mother (1 source) Encounter for delivery without indication; Translations: [Delivery of by section] Onset: 06-22-2023 Episodic Other complications of (3 sources) Maternal obesity complicating , childbirth and the puerperium, antepartum; Translations: [Obesity complicating , third trimester] 02-17-2023 Chronic Other complications of (1 source) Obesity complicating , unspecified trimester; Translations: [Obesity complicating , childbirth, or the puerperium, unspecified as to episode of care or not applicable] 04-09-2023 Chronic Other complications of (1 source) Pain in pelvis; Translations: [Other specified related conditions, unspecified trimester] 01-09-2023 Episodic Other ear and sense organ disorders (1 source) Lesion of pinna; Translations: [Disorder of left external ear, unspecified] 08-20-2023 Episodic Other injuries and conditions due to external causes (4 sources) Contusion; Translations: [Unspecified multiple injuries, initial encounter] 10-03-2019 Episodic Other nervous system disorders (2 sources) Postoperative pain ; Translations: [Other acute postprocedural pain] 04-08-2023 Episodic Other nervous system disorders (1 source) Other acute postprocedural pain; Translations: [Other acute postoperative pain] 04-09-2023 Episodic Other screening for suspected conditions (not [...] of ] 03-14-2023 Episodic Residual codes; unclassified (2 sources) Gestation period, 38 weeks; Translations: [38 weeks gestation of ] 04-06-2023 Episodic Residual codes; unclassified (4 sources) 38 weeks gestation of ; Translations: [ state, incidental] 04-01-2023 Episodic Residual codes; unclassified (1 source) History of uterine scar from previous surgery; Translations: [Other postprocedural status] 04-09-2023 Episodic Skin and subcutaneous tissue infections (1 source) Infection of skin; Translations: [Local infection of the skin and subcutaneous tissue, unspecified] 08-20-2023 Episodic Sprains and strains (2 sources) Sprain of ankle; Translations: [Sprain of unspecified ligament of unspecified ankle, initial encounter] Onset: 07-30-2024 Episodic Substance-related disorders (14 sources) History of drug abuse; Translations: [History of drug use] Onset: 01-09-2023 01-09-2023 Chronic Unclassified (1 source) [facility] Education - COMMON Onset: 01-09-2023 01-09-2023 Unclassified (2 sources) Structure of eye proper (body structure) 11-18-2013 Past or Other Problems Problem Classification Problem Date Documented Date Episodic/Chronic Administrative/social admission (11 sources) Residence and accommodation circumstances - finding; Translations: [Housing instability, currently housed] Onset: 01-09-2023 01-09-2023 Episodic Disorders of teeth and jaw (15 sources) Dental abscess; Translations: [Periapical abscess without sinus] Onset: 01-09-2023 08-28-2022 Episodic Other complications of (14 sources) Pain in female pelvis; Translations: [Other specified related conditions, unspecified trimester] Onset: 01-09-2023 08-28-2022 Episodic Other complications of (3 sources) Excessive weight gain in , third trimester; Translations: [Edema or excessive weight gain in , without mention of hypertension, antepartum condition or complication] Onset: 01-17-2023 01-17-2023 Episodic Other complications of (4 sources) Suspected macroscopic fetus; Translations: [Maternal care for excessive growth, third trimester, not applicable or unspecified] Onset: 03-30-2023 03-30-2023 Episodic Other and delivery including normal (20 sources) First trimester ; Translations: [Encounter for supervision of normal , unspecified, first trimester] Onset: 01-09-2023 08-28-2022 Episodic Residual codes; unclassified (11 sources) FH: Congenital anomaly; Translations: [Family history of other congenital malformations, deformations and chromosomal abnormalities] Onset: 01-09-2023 01-09-2023 Episodic Residual codes; unclassified (11 sources) Nicotine-filled electronic cigarette user; Translations: [Tobacco use] Onset: 01-09-2023 01-09-2023 Episodic Residual codes; unclassified (1 source) 27 weeks gestation of ; Translations: [27 weeks gestation of ] Onset: 01-17-2023 Episodic Residual codes; unclassified (1 source) Procedure and treatment not carried out due to patient leaving prior to being seen by health care provider; Translations: [Procedure and treatment not carried out due to patient leaving prior to being seen by health care provider] Onset: 03-18-2024 Episodic Screening and history of mental health and substance abuse codes (11 sources) H/O: depression; Translations: [Personal history of other mental and behavioral disorders] Onset: 01-09-2023 01-09-2023 Episodic Unclassified (4 sources) Exceptionally large at ; Translations: [ macrosomia] 04-06-2023 Results Test Name Value Interpretation Reference Range Facility CBC W/Diff, Automatedon 01-02 Absolute Lymph 1.91 X10 3/uL Normal 0.83-4.51 [facility] Comment on above: Performed By: #### L 500.4050, L100.0100 #### [facility] [address] [place], [address] Absolute Neut 8.4 X10 3/uL High 2.0-7.7 [facility] Comment on above: Performed By: #### L 500.4050, L100.0100 #### [facility] [address] [place], [address] Basophils/100 WBC (Bld) 0.1 % Normal 0-1 [facility] Comment on above: Performed By: #### L 500.4050, L100.0100 #### [facility] [address] [place], [address] Eosinophils/100 WBC (Bld) 1.3 % Normal 0-5 [facility] Comment on above: Performed By: #### L 500.4050, L100.0100 #### [facility] [address] [place], [address] Erythrocyte distribution width (RBC) [Ratio] 12.4 % Normal 11.6-14.6 [facility] Comment on above: Performed By: #### L 500.4050, L100.0100 #### [facility] [address] [place], [address] Hematocrit (Bld) [Volume fraction] 43.2 % Normal 37-47 [facility] Comment on above: Performed By: #### L 500.4050, L100.0100 #### [facility] [address] [place], [address] Hemoglobin (Bld) [Mass/Vol] 14.7 g/dL Normal 12.0-15.0 [facility] Comment on above: Performed By: #### L 500.4050, L100.0100 #### [facility] [address] [place], [address] IG% 0.300 Normal 0.0-0.9 [facility] Comment on above: Result Comment: IG% - Immature Granulocytes (promyelocytes, myelocytes and metamyelocytes) > 1% indicates that a LEFT SHIFT is Present. Performed By: #### L 500.4050, L100.0100 #### [facility] [address] [place], [address] Lymphocytes/100 WBC (Bld) 17.1 % Low 19-41 [facility] Comment on above: Performed By: #### L 500.4050, L100.0100 #### [facility] [address] [place], [address] MCH (RBC) [Entitic mass] 30.7 pg Normal 27.0-32.0 [facility] Comment on above: Performed By: #### L 500.4050, L100.0100 #### [facility] [address] [place], [address] MCHC (RBC) [Mass/Vol] 34.0 g/dL Normal 32-36 [facility] Comment on above: Performed By: #### L 500.4050, L100.0100 #### [facility] [address] [place], [address] MCV (RBC) [Entitic vol] 90.2 fL Normal 81-99 [facility] Comment on above: Performed By: #### L 500.4050, L100.0100 #### [facility] [address] [place], [address] Monocytes/100 WBC (Bld) 6.0 % Normal 0-10 [facility] Comment on above: Performed By: #### L 500.4050, L100.0100 #### [facility] [address] [place], [address] Neutrophils/100 WBC (Bld) 75.2 % High 47-70 [facility] Comment on above: Performed By: #### L 500.4050, L100.0100 #### [facility] [address] [place], [address] Nucleated RBC (Bld) [#/Vol] 0 10*3/uL Normal 0-5 [facility] Comment on above: Performed By: #### L 500.4050, L100.0100 #### [facility] [address] [place], [address] Platelet mean volume (Bld) [Entitic vol] 9.7 fL Normal 6.2-12.0 [facility] Comment on above: Performed By: #### L 500.4050, L100.0100 #### [facility] [address] [place], [address] Platelets (Bld) [#/Vol] 437 10*3/uL Normal 150-450 [facility] Comment on above: Performed By: #### L 500.4050, L100.0100 #### [facility] [address] [place], [address] RBC (Bld) [#/Vol] 4.79 10*6/uL Normal 4.2-5.4 [facility] Comment on above: Performed By: #### L 500.4050, L100.0100 #### [facility] [address] [place], [address] RDW SD 41.1 fl Normal 35.1-43.9 [facility] Comment on above: Performed By: #### L 500.4050, L100.0100 #### [facility] [address] [place], [address] WBC (Bld) [#/Vol] 11.2 10*3/uL High 4.4-11.0 [facility] Comment on above: Performed By: #### L 500.4050, L100.0100 #### [facility] [address] [place], [address] CDIFF (PCR)on 01-27-2025 CDIFF Is the patient receiving laxatives? N Above criteria not met but test indicated N New/unexplained onset of 3 or more stools in past 24 hrs? Y A positive C. difficile molecular test does not differentiate between an active C. difficile infection and C. difficile colonization. Use clinical judgement and paired toxin/antigen testing to identify true infection and need for treatment. C diff DNA Spec Ql GURPREET+probe Reference Range: Negative [employer] GeneXpert: polymerase chain reaction (PCR) 027 027 NAP1-B1 Presumptive Negative *for epidemiolologic???use C. Diff PCR Negative- No toxigenic C. Diff Detected Normal [facility] Comment on above: Performed By: #### M 100.0605, M100.637, M100.6796 #### [facility] [address] [place], [address] Comprehensive Metabolic Prof baron 01-27-2025 Albumin [Mass/Vol] 4.4 g/dL Normal 3.5-5.0 [facility] Comment on above: Performed By: #### L 500.4050, L100.0100 #### [facility] [address] [place], [address] Albumin/Globulin [Mass ratio] 1.3 {ratio} Normal 0.9-2.4 [facility] Comment on above: Performed By: #### L 500.4050, L100.0100 #### [facility] [address] [place], [address] ALK PHOS 123 U/L High 35-104 [facility] Comment on above: Performed By: #### L 500.4050, L100.0100 #### [facility] [address] [place], [address] ALT [Catalytic activity/Vol] 21 U/L Normal <=34 [facility] Comment on above: Performed By: #### L 500.4050, L100.0100 #### [facility] [address] [place], [address] AST [Catalytic activity/Vol] 21 U/L Normal <=31 [facility] Comment on above: Performed By: #### L 500.4050, L100.0100 #### [facility] [address] [place], [address] Bilirubin [Mass/Vol] 0.17 mg/dL Normal 0.00-1.30 [facility] Comment on above: Performed By: #### L 500.4050, L100.0100 #### [facility] [address] [place], [address] BUN/CRE 16.4 RATIO Normal 10-20 [facility] Comment on above: Performed By: #### L 500.4050, L100.0100 #### [facility] [address] [place], [address] Calcium [Mass/Vol] 9.7 mg/dL Normal 7.6-11.0 [facility] Comment on above: Performed By: #### L 500.4050, L100.0100 #### [facility] [address] [place], [address] Chloride [Moles/Vol] 104 mmol/L Normal 98-108 [facility] Comment on above: Performed By: #### L 500.4050, L100.0100 #### [facility] [address] [place], [address] CO2 [Moles/Vol] 24.6 mmol/L Normal 21.0-32.0 [facility] Comment on above: Performed By: #### L 500.4050, L100.0100 #### [facility] [address] [place], [address] Creatinine [Mass/Vol] 0.94 mg/dL Normal 0.70-1.20 [facility] Comment on above: Performed By: #### L 500.4050, L100.0100 #### [facility] [address] [place], [address] ECRCL 119.50 ml/min Normal 50-250 [facility] Comment on above: Performed By: #### L 500.4050, L100.0100 #### [facility] [address] [place], [address] GAP 11 Normal 5-15 [facility] Comment on above: Performed By: #### L 500.4050, L100.0100 #### [facility] [address] [place], [address] GFR/1.73 sq M.predicted among non-blacks MDRD (S/P/Bld) [Vol rate/Area] 86 mL/min/{1.73_m2} Normal >60 [facility] Comment on above: Result Comment: mL/m in/1.73m2 CKD-EPI Creatinine Equation (2020) Performed By: #### L 500.4050, L100.0100 #### [facility] [address] [place], [address] Globulin (S) [Mass/Vol] 3.4 g/dL Normal 2.2-4.2 [facility] Comment on above: Performed By: #### L 500.4050, L100.0100 #### [facility] [address] [place], [address] Glucose [Mass/Vol] 102 mg/dL High 70-99 [facility] Comment on above: Performed By: #### L 500.4050, L100.0100 #### [facility] [address] [place], [address] Potassium [Moles/Vol] 4.3 mmol/L Normal 3.3-5.1 [facility] Comment on above: Performed By: #### L 500.4050, L100.0100 #### [facility] [address] [place], [address] Sodium [Moles/Vol] 140 mmol/L Normal 133-145 [facility] Comment on above: Performed By: #### L 500.4050, L100.0100 #### [facility] [address] [place], [address] T PROT 7.8 g/dL Normal 5.9-8.4 [facility] Comment on above: Performed By: #### L 500.4050, L100.0100 #### [facility] [address] [place], [address] Urea nitrogen [Mass/Vol] 16 mg/dL Normal 4-19 [facility] Comment on above: Performed By: #### L 500.4050, L100.0100 #### [facility] [address] [place], [place], [id number] ENTERIC PATHOGEN PANEL STOOL on 01-27-2025 EP PANEL Is the patient receiving laxatives? N Above criteria not met but test indicated N New/unexplained onset of 3 or more stools in past 24 hrs? Y Normal Reference Range = Not Detected Not detected for Campylobacter group, Salmonella species, Shigella species, Vibrio Group, Yersinia enterocolitica, EHEC (Shiga Toxin 1, Shiga Toxin 2), Norovirus Gl/Gll, and Rotavirus A. Other common stool pathogens are not detected on this panel include: Aeromonas/Plesiomonas or parasites. Order testing for these organisms separately if suspected. This is an amplified DNA test which makes it both specific and sensitive. CAMPYLOBACTER Not Detected Norovirus Not Detected Rotavirus Not Detected Salmonella Not Detected Shiga Toxin Not Detected Shigella sp. Not Detected VIBRIO Not Detected Yersinia Not Detected Normal [facility] Comment on above: Performed By: #### M 100.0605, M100.637, M100.6774 #### [facility] [address] [place], [place], [address] Emergency Department Summary on 01-27-2025 Emergency Department Summary [facility] Medical Records Department [address] [place] [address] Emergency Department Summary 01/27/25 MR#: [id number] Acct: [id number] Name: ELLI [facility]ICA Rep #: [id number] : 2000 24 From: Latrice Rose DO PCP: Care Physician,No Primary Status:REG ER Location: ED HPI HPI - GI History of Present Illness Chief Complaint: Nausea/Vomiting/Diarrhe a Informant: patient Narrative Narrative: Patient is a 24-year-old female with history of anxiety and depression presenting with sudden onset of cramping abdominal pain, nausea, vomiting and diarrhea. She has had 1 episode of vomiting and multiple episodes of diarrhea. Is not sure she has had any blood in her vomit or her stool as Electrolyte on in her camper. Denies any fever or chills. States she otherwise been in her normal state of health. Had a pork sandwich, pizza and soup but states other people ate those things and did not have any similar symptoms. No sick contacts reported. States she has had nasty burps. Nuys any fever or chills. Denies any recent antibiotics. Denies a history of inflammatory bowel disease or any bowel issues. No other complaints or concerns reported this time. Denies any history of any abdominal surgeries however chart review does show history of low transverse section. Received 4 mg ODT Zofran and route via EMS. PFSH PFSH Medical History Post-operative pain Single live Failed induction of labor Obesity affecting Anxiety Gestational diabetes Suicidal behavior with attempted self-injury Depression Gestational diabetes History of drug use Home Medications ???Medication ???Instructions ???Recorded ???Last Taken ???Type acetaminophen 500 mg tablet 1,000 mg (2 x 500 mg) PO Q6H #60 0 04/09/23 Unknown Rx tabs oxycodone 5 mg tablet 5 - 10 mg (1 - 2 x 5 mg) PO Q4H Unknown Rx PRN PRN Pain Score 4-10 5 days #14 tabs amoxicillin 875 mg tablet 875 mg PO BID 06/19/23 Unknown His tory famotidine 40 mg tablet (Pepcid) 40 mg PO DAILY #30 tabs 06/19/23 U nknown Rx ibuprofen 200 mg tablet (Motrin IB) 600 mg (3 x 200 mg) PO Q6H PRN 01/27/24 Unknown Rx pain #40 tabs dicyclomine 20 mg tablet 20 mg PO TID PRN abdominal pain Unknown Rx #14 tabs loperamide 2 mg capsule (Imodium 2 mg PO Q6H PRN loose stool #10 Unknown Rx A-D) caps ondansetron 4 mg disintegrating 4 mg PO Q8H PRN PRN Nausea #10 tab s 01/27/25 Unknown Rx tablet Allergy/AdvReac Type Severity Reaction Status Date / Time No Known Allergies Allergy Verified 01/27/25 03:19 Surgical History Status post primary low transverse section Social History Smoking Status: Current some day smoker tobacco type: e-cigarettes ROS ROS ED Constitutional Constitutional ED: Denies chills or fever(s) Cardiovascular Cardiovascular: Denies chest pain Respiratory/Chest Respiratory/Chest: Denies cough Gastrointestinal Gastrointestinal: Reports abdominal pain, diarrhea, nausea and vomiting Genitourinary Genitourinary ED: Denies dysuria Musculoskeletal Musculoskeletal: Denies arthralgias or myalgias Integumentary Denies rash Neurologic Neurologic: Denies weakness EXAM Physical Exam Const Vital Signs: 01/27/25 03:10 01/27/25 05:09 Temperature 98 F Temperature Source Oral Pulse Rate 88 68 Respiratory Rate 16 16 Blood Pressure 146/83 H Blood Pressure Mean 104 Pulse Ox 98 95 Oxygen Delivery Method Room Air Room Air Positive well nourished and well developed General Appearance ED: well developed and NAD; Negative for pallor HEENT Reports moist mucous membranes Neck supple Resp normal respiratory effort and clear to auscultation bilaterally Cardio regular rate and regular rhythm GI non-distended Auscultation: normoactive bowel sounds Palpation: soft and tender other (Mild, diffuse); Negative for guarding, rigid or rebound tenderness present Extremity full ROM General Extremety ED: Negative for edema General Extremity: Negative for edema Neuro moves all extremities Neuro Narrative: Ambulates with a steady gait Sensorium / Orientation: alert Motor Exam: Negative for general weakness Psych mental status grossly normal and thought process normal Skin no wounds General Skin Exam: Negative for jaundice or pallor MDM MDM MDM Narrative Medical decision making narrative: Patient valuation onset nausea, vomiting, diarrhea and crampy abdominal pain. Vital signs significant only for mildly elevated blood pressure upon arrival. Differential clues gastroenteritis, infectious diarrhea and colitis. Lower suspicion for bowel ob (more content not included)... Normal [facility] ,Urineon 01-27-2025 Beta HCG ( test) Ql (U) Negative Normal [facility] Comment on above: Result Comment: Very dilute urine specimens, as indicated by a low specific gravity, may not contain automotive sales representative levels of hCG. If is still suspected, a first morning urine specimen should be collected 48 hours later and tested. Performed By: #### L 400.0001, L400.7600 #### [facility] [address] [place], [address] Stool Lactoferrin/WBCon 01-02 WBCST Is the patient receiving laxatives? N Above criteria not met but test indicated N New/unexplained onset of 3 or more stools in past 24 hrs? Y Normal Reference Range = Negative Fecal WBC Lactoferrin A Positive: Fecal WBC Lactoferrin present A Normal [facility] Comment on above: Performed By: #### M 100.0605, M100.637, M100.6796 #### [facility] [address] [place], [address] Urinalysis, Completeon 01-27 BACTERIA RARE Normal None Seen [facility] Comment on above: Order Comment: CLEAN CATCH Performed By: #### L 400.0001, L400.7600 #### [facility] [address] [place], [address] EPI,SQUAMOUS 0-5 SEEN Normal 5-10 [facility] Comment on above: Order Comment: CLEAN CATCH Performed By: #### L 400.0001, L400.7600 #### [facility] [address] [place], [address] Mucus Ql (Urine sed) RARE Normal [facility] Comment on above: Order Comment: CLEAN CATCH Performed By: #### L 400.0001, L400.7600 #### [facility] [address] [place], [address] RBC 0-5 SEEN Normal 0-5 [facility] Comment on above: Order Comment: CLEAN CATCH Performed By: #### L 400.0001, L400.7600 #### [facility] [address] [place], [address] WBC 0-5 SEEN Normal 0-5 [facility] Comment on above: Order Comment: CLEAN CATCH Performed By: #### L 400.0001, L400.7600 #### [facility] [place], [address] .Auto Diffon 08-15-2024 Basophil, Absolute 0.0 10 3/mcL Normal 0.0-0.3 [facility] Comment on above: Performed By: #### M DW, CMP, LIP, GFR, CBC, ADIFF, ANEU #### [address] [address] Basophils/100 WBC (Bld) 0.3 % Normal 0.0-2.5 [facility] Comment on above: Performed By: #### M DW, CMP, LIP, GFR, CBC, ADIFF, ANEU #### [address] [address] Eosinophil, Absolute 0.0 10 3/mcL Normal 0.0-0.7 [facility] Comment on above: Performed By: #### M DW, CMP, LIP, GFR, CBC, ADIFF, ANEU #### [address] [address] Eosinophils/100 WBC (Bld) 0.2 % Normal 0.0-6.0 [facility] Comment on above: Performed By: #### M DW, CMP, LIP, GFR, CBC, ADIFF, ANEU #### [address] [address] Lymphocyte, Absolute 0.7 10 3/mcL Low 0.9-4.3 [facility] Comment on above: Performed By: #### M DW, CMP, LIP, GFR, CBC, ADIFF, ANEU #### [address] [address] Lymphocytes/100 WBC (Bld) 6.3 % Low 20.0-40.0 [facility] Comment on above: Performed By: #### M DW, CMP, LIP, GFR, CBC, ADIFF, ANEU #### [address] [address] Monocyte, Absolute 0.5 10 3/mcL Normal 0.1-1.4 [facility] Comment on above: Performed By: #### M DW, CMP, LIP, GFR, CBC, ADIFF, ANEU #### [address] [address] Monocytes/100 WBC (Bld) 3.9 % Normal 2.0-13.0 [facility] Comment on above: Performed By: #### M DW, CMP, LIP, GFR, CBC, ADIFF, ANEU #### [address] [address] Neutrophils/100 WBC (Bld) 89.3 % High 50.0-75.0 [facility] Comment on above: Performed By: #### M DW, CMP, LIP, GFR, CBC, ADIFF, ANEU #### [address] [address] .GFRon 08-15-2024 Estimated Glomerular Filtration Rate 101 ml/min/1.73sqm Normal [facility] Comment on above: Result Comment: Stages of Chronic Kidney Disease (CKD) Stage Description eGFR(ml/min/1.73 sq.m.) CKD 1 Normal kidney function or >=90 normal kindney function with possible kidney damage (ex. Proteinuria) CKD 2 Kidney damage with mild loss 60-89 of kidney function CKD 3a Mild to moderate loss of kidney 45-59 function CKD 3b Moderate to severe loss of 30-44 of kindey function CKD 4 Severe loss of kidney function 15-29 CKD 5 Kidney failure <15 Note: (go live 2024) the eGFR calculation was updated to the 2020 CKD-EPI creatinine equation without a race factor to calculate the eGFR results. Performed By: #### M DW, CMP, LIP, GFR, CBC, ADIFF, ANEU ####[address] [address] .MDWon 08-15-2024 Monocyte Distribution Width 16.84 Normal 0.00-20.00 [facility] Comment on above: Result Comment: For ED adult patients suspected of sepsis, MDW<=20.0 does not rule out sepsis or risk of sepsis Performed By: #### M DW, CMP, LIP, GFR, CBC, ADIFF, ANEU #### [place] [address] .NEUABSon 08-15-2024 Neutrophil, Absolute 10.6 10 3/mcL High 2.3-8.1 [facility] Comment on above: Performed By: #### M DW, CMP, LIP, GFR, CBC, ADIFF, ANEU #### [place] [address] CBCon 08-15-2024 Erythrocyte distribution width (RBC) [Ratio] 13.2 % Normal 11.5-15.5 [facility] Comment on above: Performed By: #### M DW, CMP, LIP, GFR, CBC, ADIFF, ANEU #### [place] [address] Hematocrit (Bld) [Volume fraction] 44.9 % Normal 34.0-46.0 [facility] Comment on above: Performed By: #### M DW, CMP, LIP, GFR, CBC, ADIFF, ANEU #### [place] [address] Hgb 15.1 G/dL Normal 12.0-16.0 [facility] Comment on above: Performed By: #### M DW, CMP, LIP, GFR, CBC, ADIFF, ANEU #### [place] [address] MCH (RBC) [Entitic mass] 30.2 pg Normal 27.0-33.0 [facility] Comment on above: Performed By: #### M DW, CMP, LIP, GFR, CBC, ADIFF, ANEU #### [place] [address] MCHC 33.7 G/dL Normal 32.0-36.0 [facility] Comment on above: Performed By: #### M DW, CMP, LIP, GFR, CBC, ADIFF, ANEU #### [place] [address] MCV (RBC) [Entitic vol] 89.6 fL Normal 80.0-99.0 [facility] Comment on above: Performed By: #### M DW, CMP, LIP, GFR, CBC, ADIFF, ANEU #### [address] [address] Platelet 397 10 3/mcL Normal 150-450 [facility] Comment on above: Performed By: #### M DW, CMP, LIP, GFR, CBC, ADIFF, ANEU #### [address] [address] Platelet mean volume (Bld) [Entitic vol] 8.0 fL Normal 6.6-10.5 [facility] Comment on above: Performed By: #### M DW, CMP, LIP, GFR, CBC, ADIFF, ANEU #### [address] [address] RBC 5.01 10 6/mcL Normal 4.10-5.30 [facility] Comment on above: Performed By: #### M DW, CMP, LIP, GFR, CBC, ADIFF, ANEU #### [address] [address] WBC 11.9 10 3/mcL High 4.5-10.8 [facility] Comment on above: Performed By: #### M DW, CMP, LIP, GFR, CBC, ADIFF, ANEU #### [address] [address] CMPon 08-15-2024 Albumin Level 3.5 G/dL Normal 3.5-5.0 [facility] Comment on above: Performed By: #### M DW, CMP, LIP, GFR, CBC, ADIFF, ANEU #### [address] [address] Albumin/Globulin [Mass ratio] 0.8 {ratio} Low 1.1-2.5 [facility] Comment on above: Performed By: #### M DW, CMP, LIP, GFR, CBC, ADIFF, ANEU #### [address] [address] ALP [Catalytic activity/Vol] 146 U/L High 40-135 [facility] Comment on above: Performed By: #### M DW, CMP, LIP, GFR, CBC, ADIFF, ANEU #### [address] [address] ALT [Catalytic activity/Vol] 21 U/L Normal 14-59 [facility] Comment on above: Performed By: #### M DW, CMP, LIP, GFR, CBC, ADIFF, ANEU #### [address] [address] AST [Catalytic activity/Vol] 13 U/L Normal 10-40 [facility] Comment on above: Performed By: #### M DW, CMP, LIP, GFR, CBC, ADIFF, ANEU #### [address] [address] Bili Total 1.1 mg/dL High 0.2-1.0 [facility] Comment on above: Result Comment: Use of this assay is not recommended for patients undergoing treatment with eltrombopag due to the potential for falsely elevated results. Performed By: #### M DW, CMP, LIP, GFR, CBC, ADIFF, ANEU #### [address] [address] BUN/Creatinine Ratio 17 ratio Normal 7-27 [facility] Comment on above: Performed By: #### M DW, CMP, LIP, GFR, CBC, ADIFF, ANEU #### [address] [address] Calcium [Mass/Vol] 8.8 mg/dL Normal 8.4-10.2 [facility] Comment on above: Performed By: #### M DW, CMP, LIP, GFR, CBC, ADIFF, ANEU #### [address] [address] Chloride [Moles/Vol] 107 mmol/L Normal 98-107 [facility] Comment on above: Performed By: #### M DW, CMP, LIP, GFR, CBC, ADIFF, ANEU #### [address] [address] CO2 [Moles/Vol] 26 mmol/L Normal 22-29 [facility] Comment on above: Performed By: #### M DW, CMP, LIP, GFR, CBC, ADIFF, ANEU #### [address] [address] Creatinine [Mass/Vol] 0.83 mg/dL Normal 0.51-0.95 [facility] Comment on above: Performed By: #### M DW, CMP, LIP, GFR, CBC, ADIFF, ANEU #### [address] [address] Electrolyte Balance 7.0 mEq/L Normal 4.0-15.0 [facility] Comment on above: Performed By: #### M DW, CMP, LIP, GFR, CBC, ADIFF, ANEU #### [address] [address] Globulin 4.5 G/dL High 2.7-4.4 [facility] Comment on above: Performed By: #### M DW, CMP, LIP, GFR, CBC, ADIFF, ANEU #### [address] [address] Glucose [Mass/Vol] 105 mg/dL Normal 70-105 [facility] Comment on above: Performed By: #### M DW, CMP, LIP, GFR, CBC, ADIFF, ANEU #### [address] [address] Potassium [Moles/Vol] 3.9 mmol/L Normal 3.5-5.1 [facility] Comment on above: Performed By: #### M DW, CMP, LIP, GFR, CBC, ADIFF, ANEU #### [address] [address] Sodium [Moles/Vol] 140 mmol/L Normal 136-145 [facility] Comment on above: Performed By: #### M DW, CMP, LIP, GFR, CBC, ADIFF, ANEU #### [address] [address] Total Protein 8.0 G/dL Normal 6.4-8.2 [facility] Comment on above: Performed By: #### M DW, CMP, LIP, GFR, CBC, ADIFF, ANEU #### [facility] [address], [place] [address] Urea nitrogen [Mass/Vol] 14 mg/dL Normal 7-18 [facility] Comment on above: Performed By: #### M DW, CMP, LIP, GFR, CBC, ADIFF, ANEU #### [facility] [address], [place] [address] CT ABD/PELVIS W/ IV CONTRAST ONLYon 08-15-2024 CT ABD/PELVIS W/ IV CONTRAST ONLY ORIGINAL EXAMINATION: CT OF THE ABDOMEN AND PELVIS WITH CONTRAST 08/15/2024 1:21 pm TECHNIQUE: CT of the abdomen and pelvis was performed with the administration of intravenous contrast. Multiplanar reformatted images are provided for review. Automated exposure control, iterative reconstruction, and/or weight based adjustment of the mA/kV was utilized to reduce the radiation dose to as low as reasonably achievable. COMPARISON: None. HISTORY: ORDERING SYSTEM PROVIDED HISTORY: Reason for Exam: general abd pain, N+V x12 hours, neg preg test. CONTRAST INJECTION WAS DISRUPTED BY IV TUBING PULLING LOOSE. pain FINDINGS: No osseous abnormality identified. At the lung bases are unremarkable. Cholelithiasis is evident. No focal liver lesion seen. Spleen, adrenal glands and pancreas are unremarkable. No kidney abnormality is identified. Small hiatal hernia noted. No adenopathy, free air or free fluid is evident. A pessary is noted within the pelvis. Solid pelvic organs and urinary bladder are grossly normal. There is mild distal jejunal and proximal ileal dilatation, without wall thickening or mesenteric abnormality. No other GI tract abnormality seen. No additional contributory finding. IMPRESSION: 1. Cholelithiasis. 2. Mild small bowel dilatation as discussed above, which could indicate low-grade obstruction. 3. No other potential acute finding. Interpreted by: Andre Pelayo MD Preliminary Report By: Andre Pelayo MD Electronically signed By Andre Pelayo MD Dictated Date: 08/15/2024 1:26:18 PM Prelim Date: 08/15/2024 1:29:00 PM Sign Date: 08/15/2024 1:29:00 PM Ordering Provider: SAM RAJAN Normal [facility]ORYOrdered By: Arlin Mendes on 08-15-2024 Appearance (U) Clear (08/15/24 12:23 PM) Normal Clear AO Auto Urine SS Bilirubin Ql (U) Negative (08/15/24 12:23 PM) Normal Negative AO Auto Urine SS Color (U) Yellow (08/15/24 12:23 PM) Normal AO Auto Urine SS Glucose Test strip (U) [Mass/Vol] Negative Normal Negative AO Auto Urine SS Hemoglobin Auto test strip (U) [Mass/Vol] Negative (08/15/24 12:23 PM) Normal Negative AO Auto Urine SS Ketones Ql (U) Negative Normal Negative AO Auto Urine SS UA Leuk Est Negative (08/15/24 12:23 PM) Normal Negative AO Auto Urine SS UA Nitrite Negative (08/15/24 12:23 PM) Normal Negative AO Auto Urine SS UA pH 7.0 (08/15/24 12:23 PM) Normal 5.0 - 8.0 AO Auto Urine SS UA Protein Negative Normal Negative AO Auto Urine SS UA Spec Grav 1.015 (08/15/24 12:23 PM) Normal 1.015-1.025 AO Auto Urine SS UA Urobilinogen 0.2 E.U./dL Normal 0.2-1.0 AO Auto Urine SS LABORATORYOrdered By: Bradley Patel on 08-15-2024 UA Specimen Type Clean Catch (08/15/24 12:23 PM) Normal AO Auto Urine SS HCG ( test) Ql Negative (08/15/24 12:21 PM) Normal AO Manual Urine SS test (u) int Not detected Invalid Interpretation Code AO Manual Urine SS LABORATORYOrdered By: SYSTEM SYSTEM on 08-15-2024 Albumin BCP dye [Mass/Vol] 3.5 G/dL Normal 3.5 - 5.0 G/dL AO ADM SS Albumin/Globulin [Mass ratio] 0.8 {ratio} Low 1.1 - 2.5 ratio AO ADM SS ALP [Catalytic activity/Vol] 146 U/L High 40 - 135 U/L AO ADM SS ALT With P-5'-P [Catalytic activity/Vol] 21 U/L Normal 14 - 59 U/L AO ADM SS AST With P-5'-P [Catalytic activity/Vol] 13 U/L Normal 10 - 40 U/L AO ADM SS Basophils (Bld) [#/Vol] 0.0 103/mcL Normal 0.0 - 0.3 10^3/mcL AO Workflow SS Basophils/100 WBC (Bld) 0.3 % Normal 0.0 - 2.5 % AO Workflow SS Bilirubin [Mass/Vol] 1.1 mg/dL High 0.2 - 1 .0 mg/dL AO ADM SS Comment on above: Interpretive Data: U se of this assay is not recommended for patients undergoing treatment with eltrombopag due to the potential for falsely elevated results. Calcium [Mass/Vol] 8.8 mg/dL Normal 8.4 - 10. 2 mg/dL AO ADM SS Chloride [Moles/Vol] 107 mmol/L Normal 98 - 10 7 mmol/L AO ADM SS CO2 [Moles/Vol] 26 mmol/L Normal 22 - 29 mmol/L AO ADM SS Creatinine [Mass/Vol] 0.83 mg/dL Normal 0.51 - 0.95 mg/dL AO ADM SS Electrolyte Balance 7.0 mEq/L Normal 4.0 - 15 .0 mEq/L AO ADM SS Eosinophil, Absolute 0.0 103/mcL Normal 0.0 - 0 .7 10^3/mcL AO Workflow SS Eosinophils/100 WBC (Bld) 0.2 % Normal 0.0 - 6.0 % AO Workflow SS Erythrocyte distribution width (RBC) [Ratio] 13.2 % Normal 11.5 - 15.5 % AO Workflow SS Estimated Glomerular Filtration Rate 101 ml/min/1.73sqm Invalid Interpretation Code AO Chemistry S Comment on above: Interpretive Data: Stages of Chronic Kidney Disease (CKD) Stage Description eGFR(ml/min/1.73 sq.m.) CKD 1 Normal kidney function or >=90 normal kindney function with possible kidney damage (ex. Proteinuria) CKD 2 Kidney damage with mild loss 60-89 of kidney function CKD 3a Mild to moderate loss of kidney 45-59 function CKD 3b Moderate to severe loss of 30-44 of kindey function CKD 4 Severe loss of kidney function 15-29 CKD 5 Kidney failure <15 Note: (go live 2024) the eGFR calculation was updated to the 2020 CKD-EPI creatinine equation without a race factor to calculate the eGFR results. Globulin 4.5 G/dL High 2.7 - 4.4 G/dL AO ADM SS Glucose [Mass/Vol] 105 mg/dL Normal 70 - 105 mg/dL AO ADM SS Hematocrit (Bld) [Volume fraction] 44.9 % Normal 34.0 - 46.0 % AO Workflow SS Hemoglobin (Bld) [Mass/Vol] 15.1 G/dL Normal 12.0 - 16.0 G/dL AO Workflow SS Lipase [Catalytic activity/Vol] 19 U/L Normal 16 - 77 U/L AO ADM SS Lymphocytes (Bld) [#/Vol] 0.7 103/mcL Low 0.9 - 4.3 10^3/mcL AO Workflow SS Lymphocytes/100 WBC (Bld) 6.3 % Low 20.0 - 40.0 % AO Workflow SS MCH (RBC) [Entitic mass] 30.2 pg Normal 27.0 - 33.0 pg AO Workflow SS MCHC 33.7 G/dL Normal 32.0 - 36.0 G/dL AO Workflow SS MCV (RBC) [Entitic vol] 89.6 fL Normal 80.0 - 99.0 fL AO Workflow SS Monocyte distribution width Auto (Bld) [Entitic vol] 16.84 1 Normal 0.00 - 20.00 AO Workflow SS Comment on above: Result Comment: For ED adult patients suspected of sepsis, MDW<=20.0 does not rule out sepsis or risk of sepsis Monocytes (Bld) [#/Vol] 0.5 103/mcL Normal 0.1 - 1.4 10^3/mcL AO Workflow SS Monocytes/100 WBC (Bld) 3.9 % Normal 2.0 - 13.0 % AO Workflow SS Neutrophils (Bld) [#/Vol] 10.6 103/mcL High 2.3 - 8.1 10^3/mcL AO Workflow SS Neutrophils/100 WBC (Bld) 89.3 % High 50.0 - 75.0 % AO Workflow SS Platelet mean volume (Bld) [Entitic vol] 8.0 fL Normal 6.6 - 10.5 fL AO Workflow SS Platelets (Bld) [#/Vol] 397 103/mcL Normal 150 - 450 10^3/mcL AO Workflow SS Potassium [Moles/Vol] 3.9 mmol/L Normal 3.5 - 5.1 mmol/L AO ADM SS Protein [Mass/Vol] 8.0 G/dL Normal 6.4 - 8.2 G/dL AO ADM SS RBC (Bld) [#/Vol] 5.01 106/mcL Normal 4.10 - 5.3 0 10^6/mcL AO Workflow SS Sodium [Moles/Vol] 140 mmol/L Normal 136 - 145 mmol/L AO ADM SS Urea nitrogen [Mass/Vol] 14 mg/dL Normal 7 - 18 mg/dL AO ADM SS Urea nitrogen/Creatinine [Mass ratio] 17 ratio Normal 7 - 27 ratio AO ADM SS WBC (Bld) [#/Vol] 11.9 103/mcL High 4.5 - 10.8 10^3/mcL AO Workflow SS LIPon 08-15-2024 Lipase Level 19 U/L Normal 16-77 [facility] Comment on above: Performed By: #### M DW, CMP, LIP, GFR, CBC, ADIFF, ANEU #### [place] [id number] PREGUon 08-15-2024 HCG ( test) Ql (U) Negative Normal [facility] Comment on above: Performed By: #### U A, PREGU #### [place] [address] test (u) int Not detected Invalid Interpretation Code [facility] Comment on above: Performed By: #### U A, PREGU #### [address] [address] UAon 08-15-2024 Color (U) Yellow Normal [facility] Comment on above: Performed By: #### U A, PREGU #### [address] [address] Glucose (U) [Mass/Vol] Negative Normal Negative [facility] Comment on above: Performed By: #### U A, PREGU #### [address] [address] Ketones Ql (U) Negative Normal Negative [facility] Comment on above: Performed By: #### U A, PREGU #### [address] [address] UA Appear Clear Normal Clear [facility] Comment on above: Performed By: #### U A, PREGU #### [address] [address] UA Blood Negative Normal Negative [facility] Comment on above: Performed By: #### U A, PREGU #### [place] [address] UA Leuk Est Negative Normal Negative [facility] Comment on above: Performed By: #### U A, PREGU #### [place] [address] UA Nitrite Negative Normal Negative [facility] Comment on above: Performed By: #### U A, PREGU #### [place] [address] UA pH 7.0 Normal 5.0 - 8.0 [facility] Comment on above: Performed By: #### U A, PREGU #### [place] [address] UA Protein Negative Normal Negative [facility] Comment on above: Performed By: #### U A, PREGU #### [place] [address] UA Spec Grav 1.015 Normal 1.015-1.025 [facility] Comment on above: Performed By: #### U A, PREGU #### [place] [address] UA Urobilinogen 0.2 E.U./dL Normal 0.2-1.0 [facility] Comment on above: Performed By: #### U A, PREGU #### [place] [address] Urobilinogen (U) [Mass/Vol] Negative Normal Negative [facility] Comment on above: Performed By: #### U A, PREGU #### [place] [address] UA Specimen Type Clean Catch Normal [facility] Comment on above: Performed By: #### U A, PREGU #### [place] [address] XR ANKLE AND FOOT 6 VIEWS SUPRIYA Lowe 07-30-2024 XR ANKLE AND FOOT 6 VIEWS RIGHT ORIGINAL EXAMINATION: 3 XRAY VIEWS OF THE RIGHT FOOT and three views of the right ankle 07/30/2024 9:39 am COMPARISON: None. HISTORY: ORDERING SYSTEM PROVIDED HISTORY: Reason for Exam: fall FINDINGS: There is no acute fracture or dislocation. Alignment is anatomic. The ankle mortise is maintained and there is no osteochondral defect of the talar dome. Bones are well mineralized. No focal soft tissue abnormality. IMPRESSION: No acute fracture or dislocation. Interpreted by: Mónica Hendricks Preliminary Report By: Mónica Hendricks Electronically signed By Mónica Hendricks Dictated Date: 07/30/2024 9:44:29 AM Prelim Date: 07/30/2024 9:45:32 AM Sign Date: 07/30/2024 9:45:32 AM Ordering Provider: TERA Woods [facility] 08-20-2023 [facility] Office Visit (UCWSTR ) ELLI MUJICA ([id number]) 89 F Date Time Provider Department 08/20/23 1:15 PM WALLY JONES [facility] During your visit today, we recorded the following information about you: Temperature Pulse Respiration Blood pressure 99.4 degrees 110/minute 18/minute 118/74 Weight 115 kg Wally Jones PA 08/20/2023 1:34 PM Signed This note was created using [employer]. Subjective Elli Mujica is a 22 year [...] daily. (Patient not taking: Reported on 06/22/2023) Gsmjkqdp-Fw-Dvs-Fe-FA tab Take 1 tablet by mouth once [...] and cy (more content not included)... Normal [facility] STREP A MOLECULAR (POC)on Procedural Control Valid [facility] Strep A (POCT) Negative Negative [facility] Absolute lymphocyte countOrd ered By: Jewel Bolivar on 06-19-2023 Lymphocytes Auto (Unsp spec) [#/Vol] 2.16 10*3/uL 0.83-4.51 [facility] Automated lymphocyte count a s percentage of total leukocytesOrdered By: Jewel Bolivar on 06-19-2023 Lymphocytes/100 WBC Auto (Unsp spec) 29.3 % 19-41 [facility] Basophil percentageOrdered B y: Jewel Bolivar on 06-19-2023 Basophils/100 WBC (Bld) 0.3 % 0-1 [facility] Bilirubin [Mass/Vol] 0.10 mg/dL 0.20-1.00 [facility] Comment on above: For patients on eltr ombopag therapy, use of Dimension [place] TBIL is not recommended. Chloride [Moles/Vol] 108 mmol/L 98-107 [facility] Eosinophils/100 WBC (Bld) 1.1 % 0-5 [facility] Glucose [Mass/Vol] 93 mg/dL 74-106 [facility] Hemoglobin (Bld) [Mass/Vol] 12.1 g/dL 12.0-15.0 [facility] Monocytes/100 WBC (Bld) 7.3 % 0-10 [facility] Neutrophils (Bld) [#/Vol] 4.5 10*3/uL 2.0-7.7 [facility] Neutrophils/100 WBC (Bld) 61.6 % 47-70 [facility] Potassium [Moles/Vol] 4.2 mmol/L 3.5-5.1 [facility] Protein [Mass/Vol] 7.3 g/dL 6.4-8.2 [facility] Sodium [Moles/Vol] 142 mmol/L 136-145 [facility] WBC (Bld) [#/Vol] 7.4 10*3/uL 4.4-11.0 [facility] Determination of erythrocyte mean corpuscular volume (MCV)Ordered By: Jewel Bolivar on 06-19-2023 MCV (RBC) [Entitic vol] 87.6 fL 81-99 [facility] Direct bilirubinOrdered By: Jeweljhon Bolivar on 06-19-2023 Bilirubin.direct [Mass/Vol] 0.06 mg/dL 0.00-0.30 [facility] Erythrocyte distribution wid th ratioOrdered By: Jeweljhon Bolivar on 06-19-2023 Erythrocyte distribution width (RBC) [Ratio] 12.4 % 11.6-14.6 [facility] Erythrocyte distribution wid th standard deviationOrdered By: Jeweljhon Bolivar on 06-19-2023 Erythrocyte distribution width (RBC) [Entitic vol] 39.5 fL 35.1-43.9 [facility] Hematocrit Auto (Bld) [Volum e fraction]Ordered By: Jeweljhon Bolivar on 06-19-2023 Hematocrit (Bld) [Volume fraction] 36.7 % 37-47 [facility] Immature granulocytes/100 WB C Auto (Bld)Ordered By: Jewel Bolivar on 06-19-2023 Immature granulocytes/100 WBC (Bld) 0.400 % 0.0-0.9 [facility] Comment on above: IG% - Immature Granu locytes (promyelocytes, myelocytes and metamyelocytes) > 1% indicates that a LEFT SHIFT is Present. Laboratory - Chemistry and C hemistry - challengeOrdered By: Jeweljhon Bolivar on 06-19-2023 ALP [Catalytic activity/Vol] 107 U/L 45-117 [facility] ALT [Catalytic activity/Vol] 23 U/L 13-56 [facility] CO2 [Moles/Vol] 28.0 mmol/L 21.0-32.0 [facility] Globulin (S) [Mass/Vol] 4.1 g/dL 2.2-4.2 [facility] Lipase [Catalytic activity/Vol] 29 U/L 13-75 [facility] Comment on above: Please note:LIPASE r evised reference range effective 22. New Lipase methodology. Expected to produce lower values than the previous assay method. NEW Reference Range: 13 - 75 U/L Urea nitrogen/Creatinine [Mass ratio] 13.0 mg/mg 10-20 [facility] Laboratory - Hematology and Cell countsOrdered By: Jeweljhon Bolivar on 06-19-2023 MCH (RBC) [Entitic mass] 28.9 pg 27.0-32.0 [facility] MCHC (RBC) [Mass/Vol] 33.0 g/dL 32-36 [facility] Nucleated RBC/100 WBC (Bld) [Ratio] 0 % 0-5 [facility] Platelet mean volume (Bld) [Entitic vol] 9.7 fL 6.2-12.0 [facility] Platelets (Bld) [#/Vol] 432 10*3/uL 150-450 [facility] No Panel InformationOrdered By: Jewel Bolivar on 06-19-2023 Estimated Creatinine Clearance Calc 125.63 ml/min [facility] Estimated GFR (MDRD) Amer 106 mL/min >60 [facility] Comment on above: GFR Calc Estimated GFR (MDRD) Non-Af Amer 88 mL/min >60 [facility] Comment on above: Non- GFR Calc RBC Auto (Bld) [#/Vol]Ordere d By: Jewel Bolivar on 06-19-2023 RBC (Bld) [#/Vol] 4.19 10*6/uL 4.2-5.4 [facility] Serum or plasma calcium denise urement (mass/volume)Ordered By: Jewel Bolivar on 06-19-2023 Calcium [Mass/Vol] 8.9 mg/dL 8.5-10.1 [facility] Serum or plasma creatinine m easurement (mass/volume)Ordered By: Jewel Bolivar on 06-19-2023 Creatinine [Mass/Vol] 0.85 mg/dL 0.55-1.02 [facility] Comment on above: The validity of the calculated GFR & GFRAA in patients over 70 years has not been determined. Clinical correlation is essential. Serum or plasma urea nitroge n measurement (mass/volume)Ordered By: Jewel Bolivar on 06-19-2023 Urea nitrogen [Mass/Vol] 11 mg/dL 7-18 [facility] Thin prep Papanicolaou smear with manual screeningOrdered By: Jewel Bolivar on 06-19-2023 Thin prep Papanicolaou smear with manual screening 3.2 g/dL 3.2-5.0 [facility] Thin prep Papanicolaou smear with manual screening 16 U/L 15-37 [facility] Thin prep Papanicolaou smear with manual screening 6 5-15 [facility] Basophil percentageOrdered B y: Rose Polanco on 04-08-2023 WBC (Bld) [#/Vol] 16.1 10*3/uL 4.4-11.0 [facility] Blood erythrocytes count (nu mber/volume)Ordered By: Rose Polanco on 04-08-2023 RBC (Bld) [#/Vol] 3.09 10*6/uL 4.2-5.4 [facility] Blood hemoglobin measurement (mass/volume)Ordered By: Rose Polanco on 04-08-2023 Hemoglobin (Bld) [Mass/Vol] 9.5 g/dL 12.0-15.0 [facility] Blood platelet mean volumeOr dered By: Rose Polanco on 04-08-2023 Platelet mean volume (Bld) [Entitic vol] 10.1 fL 6.2-12.0 [facility] Determination of erythrocyte mean corpuscular volume (MCV)Ordered By: Rose Polanco on 04-08-2023 MCV (RBC) [Entitic vol] 93.2 fL 81-99 [facility] Glucose Glucometer (dC) [M ass/Vol]Ordered By: Rose Polanco on 04-08-2023 Glucose [Mass/Vol] 81 mg/dL 74-106 [facility] Comment on above: MANAGEMENT OF PATIEN T CARE PER NURSING PROTOCOL Hematocrit Auto (Bld) [Volum e fraction]Ordered By: Rose Polanco on 04-08-2023 Hematocrit (Bld) [Volume fraction] 28.8 % 37-47 [facility] Laboratory - Hematology and Cell countsOrdered By: Rose Polanco on 04-08-2023 Erythrocyte distribution width (RBC) [Entitic vol] 44.2 fL 35.1-43.9 [facility] Erythrocyte distribution width (RBC) [Ratio] 13.2 % 11.6-14.6 [facility] MCH (RBC) [Entitic mass] 30.7 pg 27.0-32.0 [facility] MCHC Auto (RBC) [Mass/Vol]Or dered By: Rose Polanco on 04-08-2023 MCHC (RBC) [Mass/Vol] 33.0 g/dL 32-36 [facility] Platelets bldOrdered By: Ilana Polanco on 04-08-2023 Platelets (Bld) [#/Vol] 273 10*3/uL 150-450 [facility] Laboratory - Drug toxicology Ordered By: Joy Rodriguez on 04-07-2023 Benzodiazepines Ql (U) Negative < 200 ng/mL [facility] Cannabinoids Screen Ql (U) Negative < 50 ng/mL [facility] Cocaine Ql (U) Negative < 300 ng/mL [facility] Opiates Ql (U) Negative < 300 ng/mL [facility] No Panel InformationOrdered By: Joy Rodirguez on 04-07-2023 MDMA (Ecstasy) Screen Negative < 500 ng/mL [facility] Urine Barbiturates Screen Negative < 200 ng/mL [facility] Urine Drug Screen Comment [facility] Comment on above: CONFIRMATORY TESTING FOR ALL POSITIVE URINE DRUG SCREENRESULTS WILL ONLY BE SENT OUT UPON PHYSICIAN ORDER. VISTA Urine Drug Screen methods provide only preliminaryanalytical test results. A more specific alternate chemicalmethod must be used in order to obtain a confirmedanalytical result. Gas chromatography/mass spectrometery(GC/MS) is the preferred confirmatory method. Clinicalconsideration and professional judgement should be appliedto any drug of abuse test result, particularly whenpreliminary positive results are used. URINE TCA TESTING MUST BE ORDERED SEPARATELY. USE TESTMNEMONIC: [facility] Urine Methadone Screen Negative < 300 ng/mL [facility] Urine amphetamine measuremen t (moles/volume)Ordered By: Joy Rodriguez on 04-07-2023 Amphetamine (U) [Moles/Vol] Negative <1000 ng/mL [facility] Urine phencyclidine (PCP) de tectionOrdered By: Joy Rodriguez on 04-07-2023 Phencyclidine Ql (U) Negative < 25 ng/mL [facility] Absolute lymphocyte countOrd ered By: Joy Rodriguez on 04-06-2023 Lymphocytes Auto (Unsp spec) [#/Vol] 1.92 10*3/uL 0.83-4.51 [facility] Basophil percentageOrdered B y: Joy Rodriguez on 04-06-2023 Basophils/100 WBC (Bld) 0.4 % 0-1 [facility] Eosinophils/100 WBC (Bld) 0.3 % 0-5 [facility] Neutrophils (Bld) [#/Vol] 10.1 10*3/uL 2.0-7.7 [facility] Neutrophils/100 WBC (Bld) 77.7 % 47-70 [facility] Blood lymphocytes/100 leukoc ytesOrdered By: Joy Rodriguez on 04-06-2023 Lymphocytes/100 WBC (Bld) 14.7 % 19-41 [facility] Blood monocytes/100 leukocyt esOrdered By: Joy Rodriguez on 04-06-2023 Monocytes/100 WBC (Bld) 5.7 % 0-10 [facility] Laboratory - Hematology and Cell countsOrdered By: Joy Rodriguez on 04-06-2023 Immature granulocytes/100 WBC (Bld) 1.200 % 0.0-0.9 [facility] Comment on above: IG% - Immature Granu locytes (promyelocytes, myelocytes and metamyelocytes) > 1% indicates that a LEFT SHIFT is Present. Nucleated RBC/100 WBC (Bld) [Ratio] 0 % 0-5 [facility] Serum Treponema species anti body detectionOrdered By: Joy Rodriguez on 04-06-2023 Treponema sp Ab Ql (S) Non-Reactive [facility] Basophil percentageOrdered B y: Millie Woods on 04-01-2023 WBC (Bld) [#/Vol] 11.4 10*3/uL 4.4-11.0 [facility] Blood erythrocytes count (nu mber/volume)Ordered By: Millie Woods on 04-01-2023 RBC (Bld) [#/Vol] 3.95 10*6/uL 4.2-5.4 [facility] Blood hemoglobin measurement (mass/volume)Ordered By: Millie Woods on 04-01-2023 Hemoglobin (Bld) [Mass/Vol] 12.3 g/dL 12.0-15.0 [facility] Blood platelet mean volumeOr dered By: Millie Woods on 04-01-2023 Platelet mean volume (Bld) [Entitic vol] 9.8 fL 6.2-12.0 [facility] Determination of erythrocyte mean corpuscular volume (MCV)Ordered By: Millie Woods on 04-01-2023 MCV (RBC) [Entitic vol] 90.9 fL 81-99 [facility] Hematocrit Auto (Bld) [Volum e fraction]Ordered By: Millie Woods on 04-01-2023 Hematocrit (Bld) [Volume fraction] 35.9 % 37-47 [facility] Laboratory - Chemistry and C hemistry - challengeOrdered By: Millie Woods on 04-01-2023 ALT [Catalytic activity/Vol] 22 U/L 13-56 [facility] Laboratory - Hematology and Cell countsOrdered By: Millie Woods on 04-01-2023 Erythrocyte distribution width (RBC) [Entitic vol] 41.8 fL 35.1-43.9 [facility] Erythrocyte distribution width (RBC) [Ratio] 12.7 % 11.6-14.6 [facility] MCH (RBC) [Entitic mass] 31.1 pg 27.0-32.0 [facility] MCHC Auto (RBC) [Mass/Vol]Or dered By: Millie Woods on 04-01-2023 MCHC (RBC) [Mass/Vol] 34.3 g/dL 32-36 [facility] No Panel InformationOrdered By: Millie Woods on 04-01-2023 Estimated Creatinine Clearance Calc 120.45 ml/min [facility] Estimated GFR (MDRD) Amer 137 mL/min >60 [facility] Comment on above: GFR Calc Estimated GFR (MDRD) Non-Af Amer 113 mL/min >60 [facility] Comment on above: Non- GFR Calc Platelets bldOrdered By: Mony Woods on 04-01-2023 Platelets (Bld) [#/Vol] 335 10*3/uL 150-450 [facility] Serum or plasma creatinine m easurement (mass/volume)Ordered By: Millie Woods on 04-01-2023 Creatinine [Mass/Vol] 0.68 mg/dL 0.55-1.02 [facility] Comment on above: The validity of the calculated GFR & GFRAA in patients over 70 years has not been determined. Clinical correlation is essential. Serum or plasma uric acid me asurement (mass/volume)Ordered By: Millie Woods on 04-01-2023 Urate [Mass/Vol] 4.0 mg/dL 2.6-6.0 [facility] Comment on above: The drugs N-Acetylcy steine and Metamizole may falsely depress this assay. Thin prep Papanicolaou smear with manual screeningOrdered By: Millie Woods on 04-01-2023 Thin prep Papanicolaou smear with manual screening 15 U/L 1537 [facility] Urine creatinine measurement (mass/volume)Ordered By: Millie Woods on 04-01-2023 Creatinine (U) [Mass/Vol] 114.00 mg/dL NO RANGE EST. [facility] Urine protein measurement (m ass/volume)Ordered By: Millie Woods on 04-01-2023 Protein (U) [Mass/Vol] 14.5 mg/dL 0.0-11.8 [facility] Urine protein/creatinine mas s ratioOrdered By: Millie Woods on 04-01-2023 Protein/Creatinine (U) [Mass ratio] 127 mg/g CRE 0-200 [facility] CNCOon 03-24-20[address] CNCO [address] [facility] ROUTINE, GROUP B ST REP PCRon 03-23-2023 ROUTINE, GROUP B STREP PCR GROUP B STREP PCR: Negative for Group B Streptococcus by PCR. Normal [facility] Comment on above: Performed By: #### G BPCR ####[facility] LABCLIA [id number] [place] [address] [place] CBC panel Auto (Bld)on 03-14 Erythrocyte distribution width (RBC) [Ratio] 12.6 % Normal 11.5-15.0 [facility] Comment on above: Order Comment: Speci men Type: BLOOD SPECIMENOrdering Facility: [facility] Address: [address] [place] [address] Performed By: #### 5 8410-2 ####[facility] [id number] [place] [address] [place] Hematocrit (Bld) [Volume fraction] 36.4 % Normal 36.0-46.0 [facility] Comment on above: Order Comment: Speci men Type: BLOOD SPECIMENOrdering Facility: [facility] Address: [address] [place] [address] Performed By: #### 5 8410-2 ####[facility] [id number] [place] [address] [place] Hemoglobin (Bld) [Mass/Vol] 12.5 g/dL Normal 11.5-15.5 [facility] Comment on above: Order Comment: Speci men Type: BLOOD SPECIMENOrdering Facility: [facility] Address: [address] [place] [address] Performed By: #### 5 8410-2 ####[facility] JIDarleneNCHERNAN [id number] [address] STATES [facility] MCH (RBC) [Entitic mass] 30.7 pg Normal 26.0-34.0 [facility] Comment on above: Order Comment: Speci men Type: BLOOD SPECIMENOrdering Facility: [facility] Address: [address] [place] [address] Performed By: #### 5 8410-2 ####[facility] [id number] [address] [place] MCHC (RBC) [Mass/Vol] 34.3 g/dL Normal 30.5-36.0 [facility] Comment on above: Order Comment: Speci men Type: BLOOD SPECIMENOrdering Facility: [facility] Address: [address] [place] [address] Performed By: #### 5 8410-2 ####[facility] [id number] [address] [place] MCV (RBC) [Entitic vol] 89.4 fL Normal 80.0-100.0 [facility] Comment on above: Order Comment: Speci men Type: BLOOD SPECIMENOrdering Facility: [facility] Address: [address] [place] [address] Performed By: #### 5 8410-2 ####[facility] [id number] [place] [address] [place] Nucleated RBC (Bld) [#/Vol] 10*3/uL Normal <0.01 [facility] Comment on above: Order Comment: Speci men Type: BLOOD SPECIMENOrdering Facility: [facility] Address: [address] [place] [address] Performed By: #### 5 8410-2 ####[facility] LILIBETHWNCLIA [id number] [place] [address] [place] Platelet mean volume (Bld) [Entitic vol] 10.3 fL Normal 9.0-12.7 [facility] Comment on above: Order Comment: Speci men Type: BLOOD SPECIMENOrdering Facility: [facility] Address: [address] [place] [address] Performed By: #### 5 8410-2 ####[facility] [id number] [place] [address] [place] Platelets (Bld) [#/Vol] 317 10*3/uL Normal 150-400 [facility] Comment on above: Order Comment: Speci men Type: BLOOD SPECIMENOrdering Facility: [facility] Address: [address] [place] [address] Performed By: #### 5 8410-2 ####[facility] [id number] [place] [address] [place] RBC (Bld) [#/Vol] 4.07 10*6/uL Normal 3.90-5.20 [facility] Comment on above: Order Comment: Speci men Type: BLOOD SPECIMENOrdering Facility: [facility] Address: [address] [place] [id number] Performed By: #### 5 8410-2 ####[facility] [id number] [place] [address] [place] WBC (Bld) [#/Vol] 13.89 10*3/uL High 3.70-11.00 [facility] Comment on above: Order Comment: Speci men Type: BLOOD SPECIMENOrdering Facility: [facility] Address: [address] [place] [address] Performed By: #### 5 8410-2 ####[facility] [id number] [place] [address] [place] CNCOon 03-14-[address] [facility] CNPNon 03-14-2023 CNPN Telephone (OBGYWM) VICKIEELLI FUNES ([id number]) 89 F Date Time Provider Department 03/14/23 JOY RODRIGUEZ OBGYWM During your visit today, we recorded the following information about you: Aliza Leon RN 03/14/2023 4:18 PM Signed Patient had 1 hour glucose test today and saw her results on [employer] System[employer]. Reviewed results and instructions for 3 hour [...] 3-HR, 100 GM, FASTING [[id number]] Order #: [id number] FUTURE Prescriptions as of 03/14/2023 - Sjkqtbhp-Dv-Kwk-Fe-FA tab Take 1 tablet by mouth once daily. - PNV/ferrous sulfate/folic acid ( ALY-OXXK-SETKN ACID ORAL) Take by mouth. Problem List [...] Status:Closed by ALIZA LEON on 03/14/[address] [facility] GEST GLUC SCREEN, 1-HR, 50 G M, NON-FASTINGon 03-14-2023 Glucose [Mass/Vol] 150 mg/dL High 74-134 [facility] Comment on above: Order Comment: Speci men Type: BLOOD SPECIMENOrdering Facility: [facility] Address: [address] [place] [address] Result Comment: [facility] Congress of Obstetricians and Gynecologists (Ayleen/Mendoza) guidelines state a gestational diabetes mellitus positive screen is made, in women not previously diagnosed with overt diabetes, when the 1 hr plasma glucose level is equal to or above 140 mg/dL. [facility] [employer] and [facility] recommends a 135 mg/dL cutoff. Performed By: #### G LTGST ####[facility] [id number] [place] [address] [place] Reagin and Treponema pallidu m IgG and IgM [Interp]on 03-14-2023 T. pallidum IgG+IgM IA Ql (S) Non-Reactive Normal Nonreactive [facility] Comment on above: Order Comment: Speci men Type: BLOOD SPECIMENOrdering Facility: [facility] Address: [address] [place] [id number] Performed By: #### 7 3752-8 ####[facility] LABIA [id number] [place] [address] [place] Reagin+T pallidum IgG+IgM Se rPl-Impon 03-14-2023 Reagin and Treponema pallidum IgG and IgM [Interp] Cannot exclude recent Treponemal infection if specimen collected within 7-10 days after appearance of suspect lesions or 2-3 weeks after an exposure. Clinical correlation is required. Normal [facility] Comment on above: Order Comment: Speci men Type: BLOOD SPECIMENOrdering Facility: [facility] Address: [address] [place] [address] Performed By: #### 7 3752-8 ####[facility]ENTER[facility] [id number] [place] [address] [place] URINE OB DIP B/Oon 3 Glucose Ql (U) 100 mg/dL Neg mg/dL [facility] Protein.monoclonal (U) [Mass/Vol] trace Neg mg/dL [facility] OBSTETRIC ULTRASOUND WHIon 1 04-19-2022 [facility] Bacteria Ur Culton 3 Bacteria identified Cx Nom (U) ORGANISM ID: 1 50,000-<100,000 CFU/ml Mixed microbiota No further workup. Mixed microbiota can be due to???urine???contaminat ion with skin bacteria at time of collection or presence of a long-term urinary catheter. If a new culture is needed, please consider re-education of the patient on proper midstream collection technique or straight catheterization for???urine???collectio n. Normal [facility] Comment on above: Performed By: #### 6 30-4 ####[facility] LABIA [id number] [place] [address] [place] URINE OB DIP B/Oon 3 Glucose Ql (U) Negative Neg mg/dL [facility] Protein.monoclonal (U) [Mass/Vol] nerg Neg mg/dL [facility] CNNURSEon 01-09-2023 CNNURSE Nurse Visit (OBGYWM) ELLI MUJICA ([id number]) 89 F Date Time Provider Department 01/09/23 3:00 PM NURSE PNOB [facility] WSTR OBGYWM During your visit today, we [...] use: No Multivitamin with Folic acid: Yes Nondenominational or heritage: No Would refuse blood transfusion [...] bills: Sometimes by situation has improved recently [facility] appt this month Within the past 12 [...] Sig Dispense Refill PNV/ferrous sulfate/folic acid ( CPA-VFGW-NPEKE ACID ORAL) Take by mouth. Etonogestrel-Ethinyl Estradiol [...] This Team (more content not included)... Normal [facility] CNPNon 01-09-2023 CNPN Telephone (OBGYWM) ELLI MUJICA ([id number]) 89 F Date Time Provider Department 01/09/23 MILLIE WOODS OBGYWGalo During your visit today, we recorded the following information about you: Mali Green RN 01/09/2023 4:41 PM Signed Patient is 25w2d. He had her prenew OB telephone visit today. She is transferring care from [place]. She has only had 2 office visits [...] dots in my eyes that was almost psychedelic. This lasted for 15 to 20 minutes [...] OB with Dr. Rodriguez on January 17 Millie Woods APRN.MARY 01/09/2023 5:06 PM Signed We will have to see her for a problem visit to establish her care and keep NOB as scheduled unless there is time for her to have NOB on that day. Thank you, Millie Woods APRN.Nathalia Bonilla LPN 01/10/2023 9:33 AM Signed Attempted to contact pt. No voicemail, does not appear to actively use her mychart. Will try again later. Nathalia Patterson LPN, LPN 01/16/2023 10:47 AM Signed Pt has appointment 01/17/23. Nathalia Tapia LPN Allergies As of Date: 01/09/2023 (No Known Allergies) Date Reviewed: 01/09/2023 Reviewed by: Mali Green RN - Fully Assessed Prescriptions as of 01/16/2023 - Etonogestrel-Ethinyl Estradiol (NUVARING) 0.12-0.015 mg/24 hr vaginal ring Use 1 Each vaginally as directed. INSERT ONE(1) RING VAGINALLY AND LEAVE IN PLACE FOR THREE WEEKS, THEN REMOVE FOR 1 WEEK. - PNV/ferrous sulfate/folic acid ( FRZ-NLKZ-EJOFE ACID ORAL) Take by mouth. 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 with care elsewhere, antepar*01/09/2023 History of drug use [F19.91] 01/09/2023 Housing instability, currently housed [Z59.819] 01/09/2023 Dental abscess [K04.7] 01/09/2023 Pelvic pain affecting [O26.899, R10.2]01/09/2023 History of depression [Z86.59] 01/09/2023 Family history of defect [Z82.79] 01/09/2023 Vapes nicotine containing substance [Z72.0] 01/09/2023 Encounter Status:Closed by NATHALIA TAPIA LPN on 01/16/23 [facility] 12-19-2022 CNPN Telephone (OBGYWM) ELLI MUJICA ([id number]) 89 F Date Time Provider Department 12/19/22 JOY RODRIGUEZ OBGYWM During your visit today, we recorded the following information about you: Last Period 07/09/22 Kimberley Marcelino RN 12/19/2022 11:05 AM Signed Patient is a [place] transfer. States she is about 23 weeks along. Her u/s was canceled last week because [place] no longer has an u/s tech. States it was for anatomy f/u she thinks. NOB was scheduled and will schedule PNOB after speaking with nurse. Advised patients we need records to review first to see if providers will for sure accept her care and if u/s needs scheduled before her visits. She will contact [facility] to try to get an OB visit with them this week and have records faxed here. Kimberley Melara RN, RN 12/19/2022 11:43 AM Addendum Attempted to call patient. Unable to leave message-voicemail not set up yet. Can schedule 60 minute PNOB at 7am slot 01/03 at 7am or 01/09 at 7:30 or 3pm if still available. Leave open then until records received. Kimberley Melara RN, RN 12/20/2022 3:29 PM Signed PNOB got scheduled by PSS for 01/09/23. Request faxed to [facility] for records. Kimberley Melara RN, RN 12/20/2022 4:54 PM Signed Received some records, but only pages 15-25. Faxed records back to [place] again. Kimberley Melara RN, RN 12/21/2022 4:43 PM Signed Records received. Sent to medical records to scan into [facility] and copy to PNOB mailbox for 01/09/23 appointment. Kimberley Marcelino RN Allergies As of Date: 12/19/2022 (No Known Allergies) Date Reviewed: 10/11/2022 Reviewed by: Jay Ashby APRN.TOOL FILER HAND - Fully Assessed Reason for Visit: Transfer of Care [Other] Order(s):HEPATITIS C ANTIBODY IA WITH CONFIRMATION [[id number]] Order #: [id number] CBC [SQCBC] Order #: [id number] HEP B SURF AG SCRN [SQHBSAG] Order #: [id number] VARICELLA ZOSTER IGG [SQVZVG] Order #: [id number] GONORRHEA/CHLAMYDIA NAAT [SQGCCT] Order #: [id number] RUBELLA IGG AB [SQRUBQNT] Order #: [id number] RPR SCREEN [1396239] Order #: [id number] HIV 1 2 COMBO(AG/AB),WITH REFLEX TO DIFFERENTIATION [SQHIV12] Order #: [id number] TYPE + SCREEN (EXTERNAL LAB) [2115442] Order #: [id number] URINE CULTURE [SQURCUL] Order #: [id number] Prescriptions as of 12/21/2022 - Etonogestrel-Ethinyl Estradiol (NUVARING) 0.12-0.015 mg/24 hr vaginal ring Use 1 Each vaginally as directed. INSERT ONE(1) RING VAGINALLY AND LEAVE IN PLACE FOR THREE WEEKS, THEN REMOVE FOR 1 WEEK. 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 Normal [facility] Culture, urineOrdered By: Dr Precious Conklin on 09-17-2022 Bacteria identified Cx Nom (U) Culture exhibits no growth. [facility] Absolute lymphocyte countOrd ered By: Dr. Conklin on 09-15-2022 Lymphocytes Auto (Unsp spec) [#/Vol] 2.00 10*3/uL 0.83-4.51 [facility] Basophil percentageOrdered B y: Dr. Conklin on 09-15-2022 Basophils/100 WBC (Bld) 0.3 % 0-1 [facility] Eosinophils/100 WBC (Bld) 0.9 % 0-5 [facility] Neutrophils (Bld) [#/Vol] 8.6 10*3/uL 2.0-7.7 [facility] Neutrophils/100 WBC (Bld) 74.9 % 47-70 [facility] WBC (Bld) [#/Vol] 11.4 10*3/uL 4.4-11.0 [facility] Blood erythrocytes count (nu mber/volume)Ordered By: Dr. Conklin on 09-15-2022 RBC (Bld) [#/Vol] 4.33 10*6/uL 4.2-5.4 [facility] Blood hemoglobin measurement (mass/volume)Ordered By: Dr. Conklin on 09-15-2022 Hemoglobin (Bld) [Mass/Vol] 13.6 g/dL 12.0-15.0 [facility] Blood lymphocytes/100 leukoc ytesOrdered By: Dr. Conklin on 09-15-2022 Lymphocytes/100 WBC (Bld) 17.5 % 19-41 [facility] Blood monocytes/100 leukocyt esOrdered By: Dr. Conklin on 09-15-2022 Monocytes/100 WBC (Bld) 5.9 % 0-10 [facility] Blood platelet mean volumeOr dered By: Dr. Conklin on 09-15-2022 Platelet mean volume (Bld) [Entitic vol] 10.0 fL 6.2-12.0 [facility] Determination of erythrocyte mean corpuscular volume (MCV)Ordered By: Dr. Conklin on 09-15-2022 MCV (RBC) [Entitic vol] 92.8 fL 81-99 [facility] HIV 1 and HIV-2 antibody ass ay with HIV-1 p24 antigen detectionOrdered By: Dr. Conklin on 09-15-2022 HIV 1+2 Ab+HIV1 p24 Ag IA Ql Non-Reactive Nonreactive [facility] Hematocrit Auto (Bld) [Volum e fraction]Ordered By: Dr. Conklin on 09-15-2022 Hematocrit (Bld) [Volume fraction] 40.2 % 37-47 [facility] Laboratory - Hematology and Cell countsOrdered By: Dr. Conklin on 09-15-2022 Erythrocyte distribution width (RBC) [Entitic vol] 40.8 fL 35.1-43.9 [facility] Erythrocyte distribution width (RBC) [Ratio] 11.9 % 11.6-14.6 [facility] Immature granulocytes/100 WBC (Bld) 0.500 % 0.0-0.9 [facility] Comment on above: IG% - Immature Granu locytes (promyelocytes, myelocytes and metamyelocytes) > 1% indicates that a LEFT SHIFT is Present. MCH (RBC) [Entitic mass] 31.4 pg 27.0-32.0 [facility] Nucleated RBC/100 WBC (Bld) [Ratio] 0 % 0-5 [facility] MCHC Auto (RBC) [Mass/Vol]Or dered By: Dr. Conklin on 09-15-2022 MCHC (RBC) [Mass/Vol] 33.8 g/dL 32-36 [facility] No Panel InformationOrdered By: Dr. Conklin on 09-15-2022 Hepatitis B Surface Antigen Non-Reactive Nonreactive [facility] Hepatitis C Antibody Non-Reactive Nonreactive [facility] Comment on above: Non Reactive: < 0.8 Equivocal: >/= 0.8 to < 1.0 Reactive: >/= 1.0The CDC recommends that a reactive/equivocal HCV antibody result be followed up by the HCV Nucleic Acid Amplificationtest (161820) Rubella IgG Antibody Reactive Nonreactive [facility] Comment on above: Antibody Results Int erpretation of Immune Status Non Reactive Presumed Non-Immune Equivocal Equivocal Reactive Presumed Immune Platelets bldOrdered By: Dr. Conklin on 09-15-2022 Platelets (Bld) [#/Vol] 364 10*3/uL 150-450 [facility] Serum Treponema species anti body detectionOrdered By: Dr. Conklin on 09-15-2022 Treponema sp Ab Ql (S) Non-Reactive [facility] Serum Varicella zoster virus IgG antibody assay by immunoassay (units/volume)Ordered By: Dr. Conklin on 09-15-2022 VZV IgG IA Qn (S) 1104 index Immune >165 [facility] Comment on above: Negative <135 Equivo delphine 135 - 165 Positive >165A positive result generally indicates exposure to thepathogen or administration of specific immunoglobulins,but it is not indication of active infection or stageof disease.Performed at: [facility] [id number] Director: James Dash PhD, Phone: [phone] Basophil percentageOrdered B y: Dr. Obregon on 08-20-2022 Basophil percentage 0 SEEN /hpf 0-5 [facility] Bilirubin Test strip Ql (U)O rdered By: Dr. Obregon on 08-20-2022 Bilirubin Ql (U) Negative Negative [facility] Ketones Test strip Ql (U)Ord ered By: Dr. Obregon on 08-20-2022 Ketones Ql (U) Negative Negative [facility] Laboratory - Chemistry and C hemistry - challengeOrdered By: Dr. Obregon on 08-20-2022 HCG ( test) Ql (U) Negative [facility] Comment on above: TEST is *P OSITIVE*CRITICAL VALUE VERIFIED. CALLED TO DASHAWN CALDWELL08/20/221810 Michael Paz.RESULTS READ BACK BY SAME . Mucus LM Ql (Urine sed)Order ed By: Dr. Obregon on 08-20-2022 Mucus Ql (Urine sed) 0 SEEN /hpf [facility] Nitrite Test strip Ql (U)Ord ered By: Dr. Obregon on 08-20-2022 Nitrite Ql (U) Negative Negative [facility] Protein Test strip Ql (U)Ord ered By: Dr. Obregon on 08-20-2022 Protein Ql (U) 15 mg/dl Negative [facility] Serum or plasma choriogonado tropin detectionOrdered By: Dr. Obregon on 08-20-2022 HCG ( test) [place]l [address] mIU/mL <4 [facility] Comment on above: hCG levels with Gest ational AgeGestational Age hCG mIU/mL (IU/L)0.2 - 1 week 5 - 501-2 weeks 50 - 5002-3 weeks 100 - 97889-4 weeks 500 - 315317-7 weeks 1000 - 418996-9 weeks 74117 - 100,0006-8 weeks 85930 - 200,0002-3 months 55933 - 100,000 Squamous epithelial cells de tection in urine sediment by light microscopyOrdered By: Dr. Obregon on 08-20-2022 Epithelial cells.squamous LM Ql (Urine sed) 0 SEEN /hpf 5-10 [facility] Urine blood detectionOrdered By: Dr. Obregon on 08-20-2022 RBC Ql (U) Negative Negative [facility] RBC Ql (U) 0 SEEN /hpf 0-5 [facility] Urine clarityOrdered By: Dr. Obregon on 08-20-2022 Clarity (U) Clear Clear [facility] Urine color determinationOrd ered By: Dr. Obregon on 08-20-2022 Color (U) Yellow Yellow [facility] Urine glucose detectionOrder ed By: Dr. Obregon on 08-20-2022 Glucose Ql (U) Normal mg/dl Normal [facility] Urine leukocyte esterase det ection by dipstickOrdered By: Dr. Obregon on 08-20-2022 Leukocyte esterase Test strip Ql (U) Negative Negative [facility] Urine pHOrdered By: Dr. Obregon o n 08-20-2022 pH (U) 6.5 [pH] 5.0 - 8.0 [facility] Urine sediment bacteria coun t by microscopy (number/high power field)Ordered By: Dr. Obregon on 08-20-2022 Bacteria LM.HPF (Urine sed) [#/Area] 0 /[HPF] None Seen [facility] Urine specific gravity measu rementOrdered By: Dr. Obregon on 08-20-2022 Specific gravity (U) [Rel density] 1.020 1.002-1.030 [facility] Urobilinogen Auto test strip Ql (U)Ordered By: Dr. Obregon on 08-20-2022 Urobilinogen Ql (U) 1 mg/dl Normal [facility] Emergency Room Note on 12-07-2016 [place] [facility] Note Normal [facility] [place] Patient Summary Documentson 12-07-2016 Patient Summary Documents Normal [facility] [place] [facility] Note on 12-01-2016 [place] [facility] Note Normal [facility] [place] Patient Summary Documentson 12-01-2016 Patient Summary Documents Normal [facility] [place] XR CHEST 1 VIEWon 12-01-2016 XR CHEST 1 VIEW ORIGINALXR CHEST 1 V IEW Clinical Statement: SOB COMPARISON: None. FINDINGS: There is no focal consolidation. No pleural fluid or pneumothorax. The heart size is within normal limits. No visible rib fractures or aggressive osseous lesions. IMPRESSION: No acute cardiopulmonary abnormality. Interpreted By: Andre Swainreliminary Report By: Andre Swain MDElectronically Signed By: Andre Swain MD Dictated Date: 12/01/2016 10:21:33 AM Prelim Date: 12/01/2016 10:21:33 AM Sign Date: 12/01/2016 10:22:03 AM Normal [facility]) [place] [facility] Note on 10-21-2016 [place] [facility] Note Normal [facility] [place] Patient Summary Documentson 10-21-2016 Patient Summary Documents Normal [facility] [place] Vital Signs Date Time Vital Sign Value Performing Clinician Facility 08-15-2024 14:24-0400 Diastolic Blood Pressure Non-Invasive 64 mm[Hg] DR SAM RAJAN MD [facility] 08-15-2024 14:24-0400 Heart rate 88 /min DR SAM RAJAN MD [facility] 08-15-2024 14:24-0400 Respiratory rate 16 /min DR SAM RAJAN MD [facility] 08-15-2024 14:24-0400 Systolic Blood Pressure Non-Invasive 120 mm[Hg] DR SAM RAJAN MD [facility] 08-15-2024 13:06-0400 Diastolic Blood Pressure Non-Invasive 73 mm[Hg] DR SAM RAJAN MD [facility] 08-15-2024 13:06-0400 Heart rate 92 /min DR SAM RAJAN MD [facility] 08-15-2024 13:06-0400 Respiratory rate 16 /min DR SAM RAJAN MD [facility] 08-15-2024 13:06-0400 Systolic Blood Pressure Non-Invasive 126 mm[Hg] DR SAM RAJAN MD [facility] 08-15-2024 12:01-0400 Body height 165.[address] SAM RAJAN MD [facility] 08-15-2024 12:01-0400 Body temperature 98.42 [degF] DR SAM RAJAN MD [facility] 08-15-2024 12:01-0400 Body weight 113.[address] SAM RAJAN MD [facility] 08-15-2024 12:01-0400 Diastolic Blood Pressure Non-Invasive 90 mm[Hg] DR SAM RAJAN MD [facility] 08-15-2024 12:01-0400 Heart rate 96 /min DR SAM RAJAN MD [facility] 08-15-2024 12:01-0400 Respiratory rate 16 /min DR SAM RAJAN MD [facility] 08-15-2024 12:01-0400 Systolic Blood Pressure Non-Invasive 133 mm[Hg] DR SAM RAJAN MD [facility] 07-30-2024 10:22-0400 Diastolic Blood Pressure Non-Invasive 49 mm[Hg] TERA MCFARLANE MD [facility] 07-30-2024 10:22-0400 Heart rate 74 /min TERA MCFARLANE MD [facility] 07-30-2024 10:22-0400 Respiratory rate 16 /min TERA MCFARLANE MD [facility] 07-30-2024 10:22-0400 Systolic Blood Pressure Non-Invasive 117 mm[Hg] TERA MCFARLANE MD [facility] 07-30-2024 09:08-0400 Body height 165.1 cm TERA MCFARLANE MD [facility] 07-30-2024 09:08-0400 Body temperature 98.42 [degF] TERA MCFARLANE MD [facility] 07-30-2024 09:08-0400 Body weight 113.6 kg TERA MCFARLANE MD [facility] 07-30-2024 09:08-0400 Diastolic Blood Pressure Non-Invasive 76 mm[Hg] TERA MCFARLANE MD [facility] 07-30-2024 09:08-0400 Heart rate 100 /min TERA MCFARLANE MD [facility] 07-30-2024 09:08-0400 Respiratory rate 16 /min TERA MCFARLANE MD [facility] 07-30-2024 09:08-0400 Systolic Blood Pressure Non-Invasive 114 mm[Hg] TERA MCFARLANE MD [facility] 08-20-2023 13:20-0400 Body mass index (BMI) [Ratio] 40.92 kg/m2 Krislyn Aberegg PA Work Phone: [facility] 08-20-2023 13:20-0400 Body temperature 99.39 [degF] Krislyn Aberegg PA Work Phone: [facility] 08-20-2023 13:20-0400 Body weight 115 kg Krislyn Aberegg PA Work Phone: [facility] 08-20-2023 13:20-0400 Diastolic blood pressure 74 mm[Hg] Krislyn Aberegg PA Work Phone: [facility] 08-20-2023 13:20-0400 Heart rate 110 /min Krislyn Aberegg PA Work Phone: [facility] 08-20-2023 13:20-0400 Respiratory rate 18 /min Krislyn Aberegg PA Work Phone: [facility] 08-20-2023 13:20-0400 SaO2% (BldA) [Mass fraction] 98 % Krislyn Aberegg PA Work Phone: [facility] 08-20-2023 13:20-0400 Systolic blood pressure 118 mm[Hg] Krislyn Aberegg PA Work Phone: [facility] 06-22-2023 09:39-0400 Body weight 113.4 kg Azeb Min BUNGHOLE [employer]ORER.CNM Work Phone: [facility] 06-22-2023 09:39-0400 Diastolic blood pressure 68 mm[Hg] Azeb Knowlests [employer]CNM Work Phone: [facility] 06-22-2023 09:39-0400 Systolic blood pressure 112 mm[Hg] Azeb Plotts [employer]CNM Work Phone: [facility] 06-19-2023 02:44-0400 Body temperature 98 [degF] [facility] 06-19-2023 02:44-0400 Diastolic blood pressure 77 mm[Hg] [facility] 06-19-2023 02:44-0400 Heart rate 61 /min [facility] 06-19-2023 02:44-0400 Respiratory rate 16 /min [facility] 06-19-2023 02:44-0400 SaO2% (BldA) [Mass fraction] 99 % [facility] 06-19-2023 02:44-0400 Systolic blood pressure 130 mm[Hg] [facility] 06-19-2023 00:57-0400 Body mass index (BMI) [Ratio] 37.1 kg/m2 [facility] 06-19-2023 00:57-0400 Body weight 104.32 kg [facility] 06-19-2023 00:00-0400 Body height 167.64 cm [facility] 04-09-2023 12:20-0500 Diastolic blood pressure 76 mm[Hg] [facility] 04-09-2023 12:20-0500 Systolic blood pressure 134 mm[Hg] [facility] 04-09-2023 12:00-0500 Body temperature 97.7 [degF] [facility] 04-09-2023 12:00-0500 Heart rate 57 /min [facility] 04-09-2023 12:00-0500 Respiratory rate 14 /min [facility] 04-09-2023 12:00-0500 SaO2% (BldA) [Mass fraction] 100 % [facility] 04-06-2023 20:26-0500 Body height 167.64 cm [facility] 04-06-2023 20:26-0500 Body mass index (BMI) [Ratio] 43.6 kg/m2 [facility] 04-06-2023 20:26-0500 Body weight 122.52 kg [facility] 04-01-2023 14:05-0500 Diastolic blood pressure 79 mm[Hg] [facility] 04-01-2023 14:05-0500 Heart rate 85 /min [facility] 04-01-2023 14:05-0500 Systolic blood pressure 126 mm[Hg] [facility] 04-01-2023 11:54-0500 Body height 167.64 cm [facility] 04-01-2023 11:54-0500 Body mass index (BMI) [Ratio] 42.6 kg/m2 [facility] 04-01-2023 11:54-0500 Body weight 119.83 kg [facility] 03-14-2023 13:06-0500 Body weight 116.76 kg Joy Rodriguez MD Work Phone: [facility] 03-14-2023 13:06-0500 Diastolic blood pressure 82 mm[Hg] Joy Rodriguez MD Work Phone: [facility] 03-14-2023 13:06-0500 Systolic blood pressure 134 mm[Hg] Joy Rodriguez MD Work Phone: [facility] 02-17-2023 14:02-0500 Body weight 112.04 kg Ob Ultrasound Work Phone: [facility] 01-17-2023 14:04-0400 Body height 167.6 cm Joy Rodriguez MD Work Phone: [facility] 01-17-2023 14:04-0400 Body weight 107.96 kg Joy Rodriguez MD Work Phone: [facility] 01-17-2023 14:04-0400 Diastolic blood pressure 70 mm[Hg] Joy Rodriguez MD Work Phone: [facility] 01-17-2023 14:04-0400 Systolic blood pressure 110 mm[Hg] Joy Rodriguez MD Work Phone: [facility] 09-09-2022 10:03-0400 Diastolic blood pressure 77 mm[Hg] [facility] 09-09-2022 10:03-0400 Heart rate 62 /min [facility] 09-09-2022 10:03-0400 Respiratory rate 15 /min [facility] 09-09-2022 10:03-0400 SaO2% (BldA) [Mass fraction] 98 % [facility] 09-09-2022 10:03-0400 Systolic blood pressure 108 mm[Hg] [facility] 09-09-2022 09:06-0400 Body height 167.64 cm [facility] 09-09-2022 09:06-0400 Body mass index (BMI) [Ratio] 34 kg/m2 [facility] 09-09-2022 09:06-0400 Body temperature 97 [degF] [facility] 09-09-2022 09:06-0400 Body weight 95.8 kg [facility] 08-20-2022 17:27-0400 Body mass index (BMI) [Ratio] 33.5 kg/m2 [facility] 08-20-2022 17:27-0400 Body temperature 97.5 [degF] [facility] 08-20-2022 17:27-0400 Body weight 94.34 kg [facility] 08-20-2022 17:27-0400 Diastolic blood pressure 74 mm[Hg] [facility] 08-20-2022 17:27-0400 Heart rate 81 /min [facility] 08-20-2022 17:27-0400 Respiratory rate 16 /min [facility] 08-20-2022 17:27-0400 SaO2% (BldA) [Mass fraction] 97 % [facility] 08-20-2022 17:27-0400 Systolic blood pressure 128 mm[Hg] [facility] 08-20-2022 14:49-0400 Body mass index (BMI) [Ratio] 33.5 kg/m2 [facility] 08-20-2022 14:49-0400 Body temperature 97.8 [degF] [facility] 08-20-2022 14:49-0400 Body weight 94.39 kg [facility] 08-20-2022 14:49-0400 Diastolic blood pressure 75 mm[Hg] [facility] 08-20-2022 14:49-0400 Heart rate 88 /min [facility] 08-20-2022 14:49-0400 Respiratory rate 16 /min [facility] 08-20-2022 14:49-0400 SaO2% (BldA) [Mass fraction] 97 % [facility] 08-20-2022 14:49-0400 Systolic blood pressure 127 mm[Hg] [facility] Encounters Encounter Date Encounter Type Care Provider Facility Start: 01-27-2025 End: 01-27-2025 Emergency department patient visit No Primary Care Physician Facility:[facility] Start: 08-15-2024 End: 08-15-2024 Emergency department patient visit DR SAM RAJAN MD [facility] Start: 07-30-2024 End: 07-30-2024 Emergency department patient visit TERA MCFARLANE MD [facility] Start: 07-22-2024 End: 07-22-2024 Refill Azeb Plotts [employer]CNM Work Phone: OB/Gynecology Comment on above: Refill Request Start: 02-17-2024 End: 02-17-2024 Emergency department patient visit No Primary Care Physician Facility:[facility] Start: 12-08-2023 End: 12-11-2023 Refill Azbe Plotts [employer]CNM Work Phone: [address] [place] [address] Comment on above: Refill Request Start: 08-20-2023 End: 08-20-2023 ambulatory [facility] Facility:[facility] Start: 08-20-2023 End: 08-20-2023 Patient encounter procedure Wally GONZALEZ Work Phone: [facility] Comment on above: Skin infection (Prim jeremy Dx); Sore throat; Earlobe lesion, left Start: 06-22-2023 End: 06-23-2023 ambulatory [facility] Facility:[facility] Start: 06-22-2023 End: 06-22-2023 Patient encounter procedure Azeb Plotts [employer]CNM Work Phone: OB/Gynecology Comment on above: care and examination (Primary Dx); Delivery of by section Start: 06-18-2023 End: 06-19-2023 Emergency department patient visit [facility] Work Phone: Start: 04-14-2023 End: 04-14-2023 [facility] Start: 04-06-2023 End: 04-09-2023 Evaluation and management of inpatient [facility] Work Phone: Start: 04-04-2023 End: 04-05-2023 ambulatory JOY RODRIGUEZ Facility:[facility] Start: 04-01-2023 End: 04-01-2023 ambulatory [facility] Work Phone: Start: 04-01-2023 End: 04-01-2023 Patient encounter procedure [facility] Out[facility] Work Phone: Start: 03-30-2023 End: 03-30-2023 ambulatory RAMILA JOHNSON Facility:[facility] Start: 03-24-2023 End: 03-24-2023 [facility] Start: 03-23-2023 End: 03-23-2023 ambulatory AZEB MIN Facility:[facility] Start: 03-14-2023 End: 03-15-2023 ambulatory JOY RODRIGUEZ Facility:[facility] Start: 03-14-2023 Telephone encounter Joy diehl MD Work Phone: OB/Gynecology Comment on above: Results; Orders Start: 03-14-2023 End: 03-14-2023 Patient encounter procedure Joy Rodriguez MD Work Phone: OB/Gynecology Comment on above: with prena alexandrea care elsewhere, antepartum (Primary Dx); 35 weeks gestation of ; Excessive weight gain in , third trimester Start: 02-17-2023 End: 02-17-2023 ambulatory JOY RODRIGUEZ Facility:[facility] Start: 02-17-2023 End: 02-17-2023 Patient encounter procedure Grazing Aide [facility] Work Phone: OB/Gynecology Comment on above: Encounter for anatomic survey (Primary Dx); Encounter for care in second trimester of first ; 31 weeks gestation of ; with care elsewhere in third trimester; Obesity affecting in third trimester, unspecified obesity type Start: 01-17-2023 End: 01-18-2023 ambulatory JOY RODRIGUEZ Facility:[facility] Start: 01-17-2023 End: 01-17-2023 Patient encounter procedure Joy Rodriguez MD Work Phone: OB/Gynecology Comment on above: Encounter for prenat al care in second trimester of first (Primary Dx); 27 weeks gestation of ; Excessive weight gain in , third trimester Start: 01-09-2023 End: 01-09-2023 [facility] Facility:[facility] Start: 01-09-2023 End: 01-09-2023 Nursing evaluation of patient and report Nurse Pnob [facility] Work Phone: OB/Gynecology Comment on above: with prena alexandrea care elsewhere, antepartum (Primary Dx); History of drug use; Housing instability, currently housed; Dental abscess; History of depression; Pelvic pain affecting , antepartum; Family history of defect; Vapes nicotine containing substance Start: 01-09-2023 Telephone encounter Millie menchaca APRN.CNGalo Work Phone: OB/Gynecology Start: 10-11-2022 End: 10-11-2022 [facility] Facility:[facility] Start: 09-15-2022 End: 09-15-2022 ambulatory [facility] Work Phone: Start: 09-15-2022 End: 09-15-2022 Patient encounter procedure [facility], Henriette bus info consultant Off Start: 09-09-2022 End: 09-09-2022 Emergency department patient visit [facility] Start: 08-20-2022 End: 08-20-2022 Emergency department patient visit [facility] Start: 08-20-2022 End: 08-20-2022 Emergency department patient visit [facility] Start: 12-07-2016 End: 12-07-2016 Emergency department patient visit SAM RAJAN Facility:[facility] Start: 12-01-2016 End: 12-01-2016 Emergency department patient visit DAVID YUNG Facility:[facility] Start: 10-21-2016 End: 10-21-2016 Emergency department patient visit ALEXI LEARY Facility:[facility] Procedures Date Procedure Procedure Detail Performing Clinician Start: 08-20-2023 STREP A MOLECULAR (POC) Millie Mcmahan APRN.TOOL [employer]ER HAND Work Phone: Start: 03-14-2023 URINE OB DIP B/O Joy Rodriguez MD Work Phone: Start: 02-17-2023 Us preg uterus after 1st trimest 04/03 gestation Joy Rodriguez MD Work Phone: Start: 01-17-2023 URINE OB DIP B/O Joy Rodriguez MD Work Phone: Start: 08-20-2022 Transvaginal [address] section DR SAM PLUMMER MD H/O: section Status pos t primary low transverse section None (qualifier value) TERA MCFARLANE MD Urine culture Plan of Treatment Date Care Activity Detail Author Start: 09-15-2025 Pap Testing Pap Testing [facility] Start: 09-15-2025 Screening for malign ant neoplasm of cervix [facility] Start: 08-12-2024 End: 08-12-2024 Patient encounter procedure 08/12/2024 3:30 PM EDT Office Visit OB/Gynecology [address] [place] [address] Azeb Min APRN.CN [address] [place] [address] Annual OB/Gynecology Comment on above: Annual Start: 12-03-2023 Covid-19 Vaccine ( season) Covid-19 Vaccine ( season) [facility] Start: 12-03-2023 Covid-19 Vaccine ( season) Covid-19 Vaccine ( season) [facility] Start: 12-03-2023 Influenza vaccination C [facility] Start: 09-16-2023 Chlamydia Screening (18-) Chlamydia Screening (18-24) [facility] Start: 09-16-2023 GC (Gonorrhea) Scree ambar (18-24) GC (Gonorrhea) Screening (18-24) [facility] Start: 09-16-2023 Screening for Chlamy humberto trachomatis Chlamydia Screening (18) [facility] Start: 06-19-2023 [facility] Start: 06-19-2023 [facility] Start: 04-09-2023 Patient discharge [facility] Start: 04-08-2023 Application of abdom inal corset [facility] Start: 04-07-2023 Administration of medication [facility] Start: 04-07-2023 Ambulation therapy management [facility] Start: 04-07-2023 Application of device [facility] Start: 04-07-2023 End: 04-07-2023 Application of intermittent pneumatic compression device [facility] Start: 04-07-2023 Assessment of risk o f venous thromboembolism [facility] Start: 04-07-2023 Catheterization of vein [facility] Start: 04-07-2023 Deep breathing and coughing exercises [facility] Start: 04-07-2023 Exercises [facility] Start: 04-07-2023 Introduction of urin jeremy catheter [facility] Start: 04-07-2023 Measuring intake and output [facility] Start: 04-07-2023 Notification of physician [facility] Start: 04-07-2023 Procedure discontinued [facility] Start: 04-07-2023 Provision of activit y privileges [facility] Start: 04-07-2023 Skin care [facility] Start: 04-07-2023 Vital signs measurements [facility] Start: 04-07-2023 Wound care [facility] Start: 04-07-2023 [facility] Start: 04-07-2023 [facility] Start: 04-07-2023 [facility] Start: 04-06-2023 Admission procedure [facility] Start: 04-06-2023 Verification routine [facility] Start: 04-06-2023 Consultation [facility] Start: 04-03-2023 Behavioral Health Screening Behavioral Health Screening [facility] Start: 04-03-2023 Depression Assessment Depression Ass essment [facility] Start: 04-01-2023 Iv infusion therapy prophylaxis/dx ea hour THER/PROPH/DIAG IV INF ADDON [facility] Start: 04-01-2023 Iv infusion therapy/prophylaxis /dx 1st to 1 hr THER/PROPH/DIAG IV INF INIT [facility] Start: 04-01-2023 Nonstress test [facility] Start: 04-01-2023 Obstetric monitoring [facility] Start: 04-01-2023 Vital signs measurements [facility] Start: 04-01-2023 [facility] Start: 03-14-2023 End: 06-13-2023 GEST GLUC TANO, 3-HR, 100 GM, FASTING GEST GLUC TANO, 3-HR, 100 GM, FASTING Lab Routine Abnormal glucose complicating Expected: 03/14/2023, Expires: 06/13/2023 [facility] Work Phone: Comment on above: Expected: 03/14/2023 , Expires: 06/13/2023 Start: 03-14-2023 End: 03-14-2024 OBSTETRIC ULTRASOUND [facility] OBSTETRIC ULTRASOUND [facility] Anc Imaging Routine Excessive weight gain in , third trimester Expected: 03/14/2023, Expires: 03/14/2024 [facility] Work Phone: Comment on above: Expected: 03/14/2023 , Expires: 03/14/2024 Start: 01-17-2023 End: 04-18-2023 CBC panel - Blood by Automated count CBC Lab Routine Encounter for care in second trimester of first 27 weeks gestation of Expected: 01/17/2023, Expires: 04/18/2023 [facility] Work Phone: Comment on above: Expected: 01/17/2023 , Expires: 04/18/2023 Start: 01-17-2023 End: 04-18-2023 GEST GLUC SCREEN, 1-HR, 50 GM, NON-FASTING GEST GLUC SCREEN, 1-HR, 50 GM, NON-FASTING Lab Routine Encounter for care in second trimester of first 27 weeks gestation of Expected: 01/17/2023, Expires: 04/18/2023 [facility] Work Phone: Comment on above: Expected: 01/17/2023 , Expires: 04/18/2023 Start: 01-17-2023 End: 01-18-2024 OBSTETRIC ULTRASOUND [facility] OBSTETRIC ULTRASOUND [facility] Anc Imaging Routine Encounter for care in second trimester of first 27 weeks gestation of Expected: 01/17/2023, Expires: 01/18/2024 [facility] Work Phone: Comment on above: Expected: 01/17/2023 , Expires: 01/18/2024 Start: 01-17-2023 End: 04-18-2023 SYPHILIS TOTAL W/REFLEX SYPHILIS TOTAL W/REFLEX Lab Routine Encounter for care in second trimester of first 27 weeks gestation of Expected: 01/17/2023, Expires: 04/18/2023 [facility] Work Phone: Comment on above: Expected: 01/17/2023 , Expires: 04/18/2023 Start: 12-02-2022 Covid-19 Vaccine () Covid-19 Vaccine () [facility] Start: 12-02-2022 Influenza vaccination Influenza Vacc ine (#1) [facility] Start: 08-20-2022 Emergency department visit moderate severity EMERGENCY DEPT VISIT LOW MDM [facility] Start: 04-03-2022 Depression Assessment Depression Ass essment [facility] Start: 09-13-2021 Urine microalbumin profile [facility] Start: 08-31-2018 Urine microalbumin profile DTaP,Tdap,Td Vaccine (1 - Tdap) [facility] Start: 08-31-2017 Anxiety Screening Anxiety Screening [facility] Start: 08-31-2017 Depression Screening Depression Scre ening [facility] Start: 2015 Meningococcal B Vacc ine: Consider Based On Risk (1 of 2 - Patient Seeks Protection) Meningococcal B Vaccine: Consider Based On Risk (1 of 2 - Patient Seeks Protection) [facility] Start: 08-31-2013 Peds To Adult Transi tion Annual Assessment Peds To Adult Transition Annual Assessment [facility] Start: 2011 Peds To Adult Transi tion Initial Discussion Peds To Adult Transition Initial Discussion [facility] Start: 08-31-2008 HPV Vaccine (1 - 2-d ose series) HPV Vaccine (1 - 2-dose series) [facility] Start: 03-02-2000 Covid-19 Vaccine (#1) Covid-19 Vacci ne (#1) [facility] Start: 1999 Hepatitis B Vaccine (1 of 3 - 3-dose series) Hepatitis B Vaccine (1 of 3 - 3-dose series) [facility] Bacteria identified in Urine by Culture URINE CULTURE Microbiology Routine Encounter for care in second trimester of first 27 weeks gestation of 01/17/2023 2:50 PM EDT [facility] Work Phone: Path report.final Dx Spec [facility] Patient Education [facility] Work Phone: Patient referral [facility] Work Phone: [facility] Payers Date Payer Category Payer Unknown [id number] 2024 Self-pay [id number] 2022 Medicaid [id number] 2013 Unknown [id number] 1976 Unknown [id number] 1976 Unknown [id number] Unknown [id number] Unknown [id number] Social History Date Type Detail Facility Start: 07-23-2022 [facility] Start: 09-09-2022 End: 06-19-2023 Tobacco smoking status NHIS Unknown if ever smoked [facility] Start: 10-02-2019 None [facility] Start: 2000 Sex Assigned At Female [facility] Start: 01-09-2023 Tobacco smoking status NHIS Ex-smoker [facility] Work Phone: History of tobacco use Current smoker [facility] Work Phone: History of tobacco use Cigarette Smoker [facility] Work Phone: Start: 01-09-2023 End: 08-20-2023 Cigarettes smoked current (pack per day) - Reported 0.3 [facility] Start: 01-09-2023 Tobacco use and exposure Smokeless tobacco non-user [facility] Work Phone: Start: 01-09-2023 End: 08-20-2023 Alcohol intake Ex-drinker (finding) [facility] Start: 08-23-2018 End: 01-09-2023 Alcohol Use Disorder Identification Test - Consumption [AUDIT-C] [facility] How often to you hav e a drink containing alcohol? Never [facility] Average Number of Drinks Not on file [facility] Start: 01-09-2023 Education 10 [facility] Start: 1999 Sex Assigned At Not on file [facility] Start: 03-16-2023 Gender identity Identifies as female gender (finding) [facility] Tobacco smoking status Never smo ked tobacco (finding) [facility] Sexual O[facility] Start: 09-26-2018 Sex Female (finding) [facility] Tobacco Nicotine Use: Va ping Product in Last 90 Days. Type: Electronic Cigarettes (Vaping). [facility] Medical Equipment Procedure Code Equipment Code Equipment Origin al Text Equipment Identifier Dates 1 Application fo ur times daily. [id number] Start: 03-30-2023 Comment on above: 1 Application four t imes daily. Goals Date Patient Goal Desired Activity /State Personal health goal Functional Status Date Assessment Result Facility 08-15-2024 Functional Status Up ad alyx [facility] 08-15-2024 Functional Status Standard Safet y ID band on, Call device within reach, Bed in low position, Wheels locked [facility] 07-30-2024 Functional Status Independent [facility] 07-30-2024 Functional Status Standard Safet y ID band on, Call device within reach, Bed in low position, Wheels locked, Visitor at bedside [facility] 04-07-2023 Functional status Activity Ability Post O p [facility] Work Phone: Mental Status Date Assessment Result Facility 08-15-2024 Mental Status Orientation Oriented x 4 [facility] 08-15-2024 Mental Status [facility] 07-30-2024 Mental Status Orientation Oriented x 4 [facility] 07-30-2024 Mental Status [facility] 04-08-2023 Cognitive function Level Of Cons ciousness Awake;Alert;Appropriate [facility] Work Phone: Clinical Notes 10-11-2022 to 08-15-2024 Note Date & Type Note Facility 08-15-2024 Hospital Discharg e instructions Patient Education 08/15/2024 14:22:20 Abdominal Pain Abdominal Pain Abdominal pain is pain in the stomach or belly area. Everyone has this pain from time to time. In many cases it goes away on its own. But abdominal pain can sometimes be due to a serious problem, such as appendicitis. So it s important to know when to get help. Causes of abdominal pain There are many possible causes of abdominal pain. Common causes in adults include: Constipation, diarrhea, or gas Stomach acid flowing back up into the esophagus (acid reflux or heartburn) Severe acid reflux, called GERD (gastroesophageal reflux disease) A sore in the lining of the stomach or small intestine (peptic ulcer) Inflammation of the gallbladder, liver, or pancreas Gallstones or kidney stones Appendicitis Intestinal blockage An internal organ pushing through a muscle or other tissue (hernia) Urinary tract infections In women, menstrual cramps, fibroids, ovarian cysts, pelvic inflammatory disease, or endometriosis Inflammation or infection of the intestines, including Crohn's disease and ulcerative colitis Irritable bowel syndrome Diagnosing the cause of abdominal pain Your healthcare provider will give you a physical exam help find the cause of your pain. If needed, you will have tests. Belly pain has many possible causes. So it can be hard to find the reason for your pain. Giving details about your pain can help. Tell your provider where and when you feel the pain, and what makes it better or worse. Also let your provider know if you have other symptoms such as: Fever Tiredness Upset stomach (nausea) Vomiting Changes in bathroom habits Blood in the stool or black, tarry stool Weight loss that you can't explain (involuntary weight loss?) Also report any family history of stomach or intestinal problems, or cancers. Tell your provider about all your alcohol use and drug use. Tell your provider about all medicines you use, including herbs, vitamins, and supplements. Treating abdominal pain Some causes of pain need emergency medical treatment right away. These include appendicitis or a bowel blockage. Other problems can be treated with rest, fluids, or medicines. Your healthcare provider can give you specific instructions for treatment or self-care based on what is causing your pain. If you have vomiting or diarrhea, sip water or other clear fluids. When you are ready to eat solid foods again, start with small amounts of cxnc-ce-fqqiub, low-fat foods. These include apple sauce, toast, or crackers. When to get medical care Call 911 or go to the hospital right away if you: Can t pass stool and are vomiting Are vomiting blood or have bloody diarrhea or black, tarry diarrhea Have chest, neck, or shoulder pain Feel like you might pass out Have pain in your shoulder blades with nausea Have sudden, severe belly pain Have new, severe pain unlike any you have felt before Have a belly that is rigid, hard, and hurts to touch Call your healthcare provider if you have: Pain for more than 5 days Bloating for more than 2 days Diarrhea for more than 5 days A fever of 100.4 F (38 C) or higher, or as directed by your healthcare provider Pain that gets worse Weight loss for no reason Continued lack of appetite Blood in your stool How to prevent abdominal pain Here are some tips to help prevent abdominal pain: Eat smaller amounts of food at each meal. Don't eat greasy, fried, or other high-fat foods. Don't eat foods that give you gas. Exercise regularly. Drink plenty of fluids. To help prevent GERD symptoms: Quit smoking. Reduce alcohol and foods that increase stomach acid. Don't use aspirin or qjnm-bjr-ogbrzkk pain and fever medicines, if possible. This includes nonsteroidal anti-inflammatory drugs (NSAIDs). Lose excess weight. Finish eating at least 2 hours before you go to bed or lie down. Raise the head of your bed. [id number] [employer]. [address] [place] [address]. All rights reserved. This information is not intended as a substitute for professional medical care. Always follow your healthcare professional's instructions. Follow Up Care 08/15/2024 11:51:23 With:Follow up with primary care provider Address: When:1-2 days With:PHYSICIAN, NONE Address:Unknown When:2-4 days [facility] 08-15-2024 Note Discharge Instructions Thank you for allowing [facility] to assist you with your healthcare needs. The following is important discharge information regarding your hospital visit. Diagnosis from Today's Visit Abdominal pain What to Do Next Instructions from Your Care Team No qualifying data available. Post Acute Orders No qualifying data available. You Need to Schedule the Following Appointments Follow Up with Follow up with primary care provider When:Within 1-2 days Follow Up with PHYSICIAN, NONE When:Within 2-4 days Allergies NKA Medications Please ask your primary doctor or pharmacist before taking any other medication not listed, including over the counter drugs, herbal medications, vitamins and or supplements as they may interact with your home medications. What How Much When Why Instructions Last Dose New acetaminophen-hydrocodone ([place] 325- 5 mg oral tablet) 1 tab(s) by mouth Every 6 hours as needed for for pain Abdominal pain Duration: 3 Days Printed Prescription New ondansetron (Zofran 4 mg oral tablet) 1 tab(s) by mouth Every 6 hours as needed for Nausea/Vomiting Printed Prescription Unchanged ethinyl estradiol-etonogestrel (EnilloRing 0.12 mg-0.015 mg/ 24 hours vaginal ring) 1 Each Vaginal Every 4 weeks Insert a new ring on day 1 and use for 3 weeks, remove for 1 week, then repeat cycle Unchanged ibuprofen (ibuprofen 600 mg oral tablet) 1 tab(s) by mouth Four (4) times a day as needed for as needed for pain Please take this list to your next doctor s visit. Bring all medications you take, including over the counter medications, herbals and other supplements with you to your doctor s visit. Patients and families are reminded to discard old lists and to update any records with all medication providers or retail pharmacies. Medication Leaflets ondansetron (oral) (on ODETTE beck) What is the most important information I should know about ondansetron? Tell your doctor about all your other medicines. Some drugs should not be used with ondansetron. What is ondansetron? Ondansetron is used to prevent nausea and vomiting that may happen with certain cancer medicines (chemotherapy), or after surgery, or radiation treatment . Ondansetron may be used for purposes not listed in this medication guide. What should I discuss with my health care provider before taking ondansetron? You should not use ondansetron if you are allergic to it or similar medicines (dolasetron, granisetron, palonosetron). Some drugs should not be used with ondansetron. Your treatment plan may change if you also use apomorphine. Tell your doctor if you have or have ever had: an electrolyte imbalance (such as low blood levels of potassium or magnesium); congestive heart failure, slow heartbeats; heart rhythm disorder such as long QT syndrome (in you or a family member); an obstruction in the stomach or intestines, a change in bowel habits; a surgery on your stomach or intestines; or severe liver disease. The orally disintegrating tablet may contain phenylalanine and could be harmful if you have phenylketonuria (PKU). Tell your doctor if you also use stimulant medicine, opioid medicine, herbal products, or medicine for depression, mental illness, Parkinson's disease, migraine headaches, serious infections, or prevention of nausea and vomiting. An interaction with ondansetron could cause a serious condition called serotonin syndrome. Tell your doctor if you are or . Ondansetron is not approved for use by anyone younger than 4 years old. How should I take ondansetron? Follow all directions on your prescription label and read all medication guides or instruction sheets. Use the medicine exactly as directed. Ondansetron is usually taken just before surgery, chemotherapy, or radiation treatment. Follow your doctor's dosing instructions very carefully. Measure liquid medicine with the supplied measuring device (not a kitchen spoon). To take the orally disintegrating tablet: Keep the tablet in its blister pack until you are ready to take it. Open the package and peel back the foil. Use dry hands to remove the orally disintegrating tablet and place it in your mouth. Do not push a tablet through the foil or you may damage the tablet. Allow the orally disintegrating tablet to dissolve in your mouth without chewing. Do not swallow whole. Store in the original container at room temperature away from moisture, heat, and light. Store liquid medicine in an upright position. What happens if I miss a dose? Ondansetron is used when needed. If you are on a dosing schedule, skip any missed dose. Do not use two doses at one time. What happens if I overdose? Seek emergency medical attention or call the Poison Help line at . What should I avoid while taking ondansetron? Follow your doctor's instructions about any restrictions on food, beverages, or activity. What are the possible side effects of ondansetron? Get emergency medical help if you have signs of an allergic reaction: hives, difficult breathing, swelling of your face, lips, tongue, or throat. Seek medical attention right away if you have symptoms of serotonin syndrome such as: agitation, hallucinations, fever, sweating, shivering, fast heart rate, muscle stiffness, twitching, loss of coordination, nausea, vomiting, or diarrhea. Seek emergency medical help if you have signs of a heart attack: chest pain that spreads to your jaw or shoulder, nausea, and sweating. Call your doctor at once if you have: severe stomach pain, bloating, constipation, or any change in bowel habits; or dizziness, feeling lightheaded, fainting, slow, fast, or uneven heartbeats. Common side effects may include: diarrhea or constipation; headache; shortness of breath, rapid breathing, fast heartbeats; or feeling unwell, tiredness. This is not a complete list of side effects and others may occur. Call your doctor for medical advice about side effects. You may report side effects to FDA at 7-632-OLB-5825. What other drugs will affect ondansetron? Ondansetron can cause a serious heart problem. Your risk may be higher if you also use certain other medicines for infections, asthma, heart problems, high blood pressure, depression, mental illness, cancer, malaria, or HIV. Many drugs can affect ondansetron. This includes prescription and pznb-tfz-wxsbwmy medicines, vitamins, and herbal products. Not all possible interactions are listed here. Tell your doctor about all other medicines you use. Where can I get more information? Your doctor or pharmacist can provide more information about ondansetron. Remember, keep this and all other medicines out of the reach of children, never share your medicines with others, and use this medication only for the indication prescribed. Every effort has been made to ensure that the information provided by [employer]. [employer] is accurate, up-to-date, and complete, but no guarantee is made to that effect. Drug information contained herein may be time sensitive. [employer] information has been compiled for use by healthcare practitioners and consumers in the [place] and therefore [employer] does not warrant that uses outside of the [place] are appropriate, unless specifically indicated otherwise. [employer] drug information does not endorse drugs, diagnose patients or recommend therapy. [employer] drug information is an informational resource designed to assist licensed healthcare practitioners in caring for their patients and/or to serve consumers viewing this service as a supplement to, and not a substitute for, the expertise, skill, knowledge and judgment of healthcare practitioners. The absence of a warning for a given drug or drug combination in no way should be construed to indicate that the drug or drug combination is safe, effective or appropriate for any given patient. [employer] does not assume any responsibility for any aspect of healthcare administered with the aid of information [employer] provides. The information contained herein is not intended to cover all possible uses, directions, precautions, warnings, drug interactions, allergic reactions, or adverse effects. If you have questions about the drugs you are taking, check with your doctor, nurse or pharmacist. Copyright 0204-1155 [employer]. Version: 17.. Revision Date: 12/26/2023. acetaminophen and hydrocodone (a SEET a MIN oh fen and jeny droe KOE done) Verdrocet What is the most important information I should know about acetaminophen and hydrocodone? MISUSE OF OPIOID MEDICINE CAN CAUSE ADDICTION, OVERDOSE, OR . Keep the medication in a place where others cannot get to it. Taking opioid medicine during may cause life-threatening withdrawal symptoms in the . Fatal side effects can occur if you use opioid medicine with alcohol, or with other drugs that cause drowsiness or slow your breathing. Stop taking this medicine and call your doctor right away if you have skin redness or a rash that spreads and causes blistering and peeling. What is acetaminophen and hydrocodone? Acetaminophen and hydrocodone is a combination medicine used to relieve moderate to severe pain. Acetaminophen and hydrocodone contains an opioid medicine, and may be habit-forming. Acetaminophen and hydrocodone may also be used for purposes not listed in this medication guide. What should I discuss with my healthcare provider before taking acetaminophen and hydrocodone? You should not use this medicine if you are allergic to acetaminophen or hydrocodone, or if you have: severe asthma or breathing problems; or a blockage in your stomach or intestines. Tell your doctor if you have ever had: breathing problems, sleep apnea (breathing stops during sleep); liver disease; a drug or alcohol addiction; kidney disease; a head injury or seizures; urination problems; or problems with your thyroid, pancreas, or gallbladder. If you use opioid medicine while you are , your baby could become dependent on the drug. This can cause life-threatening withdrawal symptoms in the baby after it is born. Babies born dependent on opioids may need medical treatment for several weeks. Ask a doctor before using opioid medicine if you are . Tell your doctor if you notice severe drowsiness or slow breathing in the nursing baby. How should I take acetaminophen and hydrocodone? Follow all directions on your prescription label. Never take this medicine in larger amounts, or for longer than prescribed. An overdose can damage your liver or cause . Tell your doctor if you feel an increased urge to use more of this medicine. Never share this medicine with another person, especially someone with a history of drug abuse or addiction. MISUSE CAN CAUSE ADDICTION, OVERDOSE, OR . Keep the medicine in a place where others cannot get to it. Selling or giving away this medicine is against the law. Measure liquid medicine carefully. Use the dosing syringe provided, or use a medicine dose-measuring device (not a kitchen spoon). If you need surgery or medical tests, tell the doctor ahead of time that you are using this medicine. You should not stop using this medicine suddenly. Follow your doctor's instructions about tapering your dose. Store at room temperature away from moisture and heat. Keep track of your medicine. You should be aware if anyone is using it improperly or without a prescription. Do not keep leftover opioid medication. Just one dose can cause in someone using this medicine accidentally or improperly. Ask your pharmacist where to locate a drug take-back disposal program. If there is no take-back program, flush the unused medicine down the toilet. What happens if I miss a dose? Since this medicine is used for pain, you are not likely to miss a dose. Skip any missed dose if it is almost time for your next dose. Do not use two doses at one time. What happens if I overdose? Seek emergency medical attention or call the Poison Help line at . An overdose of this medicine can be fatal, especially in a child or other person using the medicine without a prescription. Overdose symptoms may include nausea, vomiting, sweating, severe drowsiness, pinpoint pupils, slow breathing, or no breathing. Your doctor may recommend you get naloxone (a medicine to reverse an opioid overdose) and keep it with you at all times. A person caring for you can give the naloxone if you stop breathing or don't wake up. Your caregiver must still get emergency medical help and may need to perform CPR (cardiopulmonary resuscitation) on you while waiting for help to arrive. Anyone can buy naloxone from a pharmacy or local health department. Make sure any person caring for you knows where you keep naloxone and how to use it. What should I avoid while taking acetaminophen and hydrocodone? Avoid driving or operating machinery until you know how this medicine will affect you. Dizziness or drowsiness can cause falls, accidents, or severe injuries. Do not drink alcohol. Dangerous side effects or could occur. Ask a doctor or pharmacist before using any other medicine that may contain acetaminophen (sometimes abbreviated as APAP). Taking certain medications together can lead to a fatal overdose. What are the possible side effects of acetaminophen and hydrocodone? Get emergency medical help if you have signs of an allergic reaction: hives; difficulty breathing; swelling of your face, lips, tongue, or throat. Opioid medicine can slow or stop your breathing, and may occur. A person caring for you should give naloxone and/or seek emergency medical attention if you have slow breathing with long pauses, blue colored lips, or if you are hard to wake up. In rare cases, acetaminophen may cause a severe skin reaction that can be fatal. This could occur even if you have taken acetaminophen in the past and had no reaction. Stop taking this medicine and call your doctor right away if you have skin redness or a rash that spreads and causes blistering and peeling. Call your doctor at once if you have: noisy breathing, sighing, shallow breathing, breathing that stops; a light-headed feeling, like you might pass out; liver problems--nausea, upper stomach pain, tiredness, loss of appetite, dark urine, sree-colored stools, jaundice (yellowing of the skin or eyes); low cortisol levels-- nausea, vomiting, loss of appetite, dizziness, worsening tiredness or weakness; o high levels of serotonin in the body--agitation, hallucinations, fever, sweating, shivering, fast heart rate, muscle stiffness, twitching, loss of coordination, nausea, vomiting, diarrhea. Serious breathing problems may be more likely in older adults and in those who are debilitated or have wasting syndrome or chronic breathing disorders. Common side effects include: dizziness, drowsiness, feeling tired; nausea, vomiting, stomach pain; constipation; or headache. This is not a complete list of side effects and others may occur. Call your doctor for medical advice about side effects. You may report side effects to FDA at 7-720-PHB-0261. What other drugs will affect acetaminophen and hydrocodone? You may have breathing problems or withdrawal symptoms if you start or stop taking certain other medicines. Tell your doctor if you also use an antibiotic, antifungal medication, heart or blood pressure medication, seizure medication, or medicine to treat HIV or hepatitis C. Opioid medication can interact with many other drugs and cause dangerous side effects or . Be sure your doctor knows if you also use: cold or allergy medicines, bronchodilator asthma/COPD medication, or a diuretic ('water pill'); medicines for motion sickness, irritable bowel syndrome, or overactive bladder; other opioids--opioid pain medicine or prescription cough medicine; a sedative like Valium--diazepam, alprazolam, lorazepam, Xanax, Klonopin, Versed, and others; drugs that make you sleepy or slow your breathing--a sleeping pill, muscle relaxer, medicine to treat mood disorders or mental illness; drugs that affect serotonin levels in your body--a stimulant, or medicine for depression, Parkinson's disease, migraine headaches, serious infections, or nausea and vomiting. This list is not complete. Other drugs may affect acetaminophen and hydrocodone, including prescription and kcgd-vfb-pikbomp medicines, vitamins, and herbal products. Not all possible interactions are listed here. Where can I get more information? Your doctor or pharmacist can provide more information about acetaminophen and hydrocodone. Remember, keep this and all other medicines out of the reach of children, never share your medicines with others, and use this medication only for the indication prescribed. Every effort has been made to ensure that the information provided by [employer]. [employer]') is accurate, up-to-date, and complete, but no guarantee is made to that effect. Drug information contained herein may be time sensitive. [employer] information has been compiled for use by healthcare practitioners and consumers in the [place] and therefore [employer] does not warrant that uses outside of the [place] are appropriate, unless specifically indicated otherwise. [employer] drug information does not endorse drugs, diagnose patients or recommend therapy. [employer] drug information is an informational resource designed to assist licensed healthcare practitioners in caring for their patients and/or to serve consumers viewing this service as a supplement to, and not a substitute for, the expertise, skill, knowledge and judgment of healthcare practitioners. The absence of a warning for a given drug or drug combination in no way should be construed to indicate that the drug or drug combination is safe, effective or appropriate for any given patient. [employer] does not assume any responsibility for any aspect of healthcare administered with the aid of information [employer] provides. The information contained herein is not intended to cover all possible uses, directions, precautions, warnings, drug interactions, allergic reactions, or adverse effects. If you have questions about the drugs you are taking, check with your doctor, nurse or pharmacist. Copyright 8801-0893 [employer]. Version: 19.02. Revision Date: 07/11/2023. Education Materials Abdominal Pain Abdominal pain is pain in the stomach or belly area. Everyone has this pain from time to time. In many cases it goes away on its own. But abdominal pain can sometimes be due to a serious problem, such as appendicitis. So it s important to know when to get help. Causes of abdominal pain There are many possible causes of abdominal pain. Common causes in adults include: Constipation, diarrhea, or gas Stomach acid flowing back up into the esophagus (acid reflux or heartburn) Severe acid reflux, called GERD (gastroesophageal reflux disease) A sore in the lining of the stomach or small intestine (peptic ulcer) Inflammation of the gallbladder, liver, or pancreas Gallstones or kidney stones Appendicitis Intestinal blockage An internal organ pushing through a muscle or other tissue (hernia) Urinary tract infections In women, menstrual cramps, fibroids, ovarian cysts, pelvic inflammatory disease, or endometriosis Inflammation or infection of the intestines, including Crohn's disease and ulcerative colitis Irritable bowel syndrome Diagnosing the cause of abdominal pain Your healthcare provider will give you a physical exam help find the cause of your pain. If needed, you will have tests. Belly pain has many possible causes. So it can be hard to find the reason for your pain. Giving details about your pain can help. Tell your provider where and when you feel the pain, and what makes it better or worse. Also let your provider know if you have other symptoms such as: Fever Tiredness Upset stomach (nausea) Vomiting Changes in bathroom habits Blood in the stool or black, tarry stool Weight loss that you can't explain (involuntary weight loss?) Also report any family history of stomach or intestinal problems, or cancers. Tell your provider about all your alcohol use and drug use. Tell your provider about all medicines you use, including herbs, vitamins, and supplements. Treating abdominal pain Some causes of pain need emergency medical treatment right away. These include appendicitis or a bowel blockage. Other problems can be treated with rest, fluids, or medicines. Your healthcare provider can give you specific instructions for treatment or self-care based on what is causing your pain. If you have vomiting or diarrhea, sip water or other clear fluids. When you are ready to eat solid foods again, start with small amounts of chxq-hw-djlyjv, low-fat foods. These include apple sauce, toast, or crackers. When to get medical care Call 911 or go to the hospital right away if you: Can t pass stool and are vomiting Are vomiting blood or have bloody diarrhea or black, tarry diarrhea Have chest, neck, or shoulder pain Feel like you might pass out Have pain in your shoulder blades with nausea Have sudden, severe belly pain Have new, severe pain unlike any you have felt before Have a belly that is rigid, hard, and hurts to touch Call your healthcare provider if you have: Pain for more than 5 days Bloating for more than 2 days Diarrhea for more than 5 days A fever of 100.4 F (38 C) or higher, or as directed by your healthcare provider Pain that gets worse Weight loss for no reason Continued lack of appetite Blood in your stool How to prevent abdominal pain Here are some tips to help prevent abdominal pain: Eat smaller amounts of food at each meal. Don't eat greasy, fried, or other high-fat foods. Don't eat foods that give you gas. Exercise regularly. Drink plenty of fluids. To help prevent GERD symptoms: Quit smoking. Reduce alcohol and foods that increase stomach acid. Don't use aspirin or wsuv-jje-typbbkt pain and fever medicines, if possible. This includes nonsteroidal anti-inflammatory drugs (NSAIDs). Lose excess weight. Finish eating at least 2 hours before you go to bed or lie down. Raise the head of your bed. 3950-0318 [employer]. [address] [place] [address], [place] [address]. All rights reserved. This information is not intended as a substitute for professional medical care. Always follow your healthcare professional's instructions. Additional Information VACCINATE! IT SAVES LIVES! Members of the community who have not yet received the COVID-19 vaccine and would like to receive it can visit one of [facility] vaccine clinics. There are many vaccine clinic locations within the [facility]. For locations and available times, please visit [email or web address] It is important to note that some COVID mobile vaccine clinics are held outdoors and may be canceled in rainy or stormy conditions. To learn more about pediatric vaccinations (ages 5-11), we invite you to visit the [facility] webpage. [email or web address] [email or web address]-Fepnzcckkhk-Freq [email or web address]-Lvuyq-[email or web address] To learn more about the COVID-19 vaccine, we invite you to visit the CDC website for a list of frequently asked questions. https://www.cdc.gov/coronavirus/ 2019-ncov/vaccines/faq.html [facility] Patient Portal Access Instructions: Stay connected with your healthcare team and access your personal medical information anytime with the [facility] Patient Portal. If you would like a full copy of your medical records please contact the [facility] Medical Records Department Monday through Monday between 8a.m. and 4:30p.m. Please follow the directions below to access the portal: 1.Access the email account you provided upon registration to the hospital.2.Look for an invitation email from [facility].3.Open the email and access the invitation link: Accept Invitation to [facility].Fill in the required king to create your account. Sign into [email or web address] with your username and password that you created in the above steps to stay up to date. You can then view a summary of results, a summary of your visits, and the ability to download your summaries to your computer or send the information securely to a physician. Remember that your healthcare information is confidential, so carefully consider who you will allow to register on the [facility] Patient Portal for access to your information. You can also access the [facility] Patient Portal on the [employer]. Simply click on Health Records under Health Data and then click on the [employer] logo. HOW TO SAFELY DISPOSE OF PRESCRIPTION MEDICATIONS Please use one of the following methods to safely dispose of your unused medications. 1.Use a drug disposal kit: the drug disposal pouch allows you to safely discard your old and unused drugs. Ask your nurse to give you one when you are discharged.2.Visit a local take-back location: Many local pharmacies and police departments have programs that collect old and unwanted prescription drugs. Call your local pharmacy or go to http://Free-lance.ru.[employer]/3F3Hg2k to find one close to you.3.Make use of household items: Use cat litter or old coffee grounds to dispose medications if other options are not available. Mix your drugs with these household products, seal them in an airtight container and throw it into the garbage. Call [facility]: [phone] to be sure your drugs can be disposed of in this way. Some medicines may require a different approach.4.Never flush your medications down the toilet. IF YOU HAVE BEEN PRESCRIBED AN OPIOIDS FOR PAIN If you have been prescribed an opioid (such as hydrocodone, oxycodone or morphine), it is critical to understand the possible side effects and risks of opioid pain medications. Even when taken as directed, opioids can have several side effects including: Tolerance, meaning you might need to take more of a medication for the same pain relief. Nausea, vomiting and/or constipation. Sleepiness, dizziness, dry mouth, confusion, depression or itching. Physical dependence, meaning you have withdrawal symptoms when a medication is stopped ? this can develop within a few days. KNOW YOUR RESPONSIBILITIES It is important to know exactly how much and how often to take the opioid pain medications you are prescribed. Never take opioids in higher amounts or more often than prescribed. Do not combine opioids with alcohol or other drugs that cause drowsiness, such as benzodiazepines, also known as benzos, including diazepam and alprazolam, muscle relaxants or sleep aids. Never sell or share prescription opioids. This is illegal. Store opioids in a secure place and out of reach of others (including children, family, friends and visitors). The last page(s) of this document has been signed and retained as a CHART COPY Signatures Patient Education Materials Abdominal Pain Medication Leaflets ondansetron (oral), acetaminophen and hydrocodone My discharge plan and instructions have been reviewed and explained to me and I,ELLI MUJICA understand my current condition and have read and understand these discharge instructions. I have received a written copy of the plan/instructions. If I have questions, I am aware that I should contact my doctor. 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 Multiplanar reformatted images are provided for review. Automated exposure control, iterative reconstruction, and/or weight based adjustment of the mA/kV was utilized to reduce the radiation dose to as low as reasonably achievable. COMPARISON: None. HISTORY: ORDERING SYSTEM PROVIDED HISTORY: Reason for Exam: general abd pain, N+V x12 hours, neg preg test. CONTRAST INJECTION WAS DISRUPTED BY IV TUBING PULLING LOOSE. pain FINDINGS: No osseous abnormality identified. At the lung bases are unremarkable. Cholelithiasis is evident. No focal liver lesion seen. Spleen, adrenal glands and pancreas are unremarkable. No kidney abnormality is identified. Small hiatal hernia noted. No adenopathy, free air or free fluid is evident. A pessary is noted within the pelvis. Solid pelvic organs and urinary bladder are grossly normal. There is mild distal jejunal and proximal ileal dilatation, without wall thickening or mesenteric abnormality. No other GI tract abnormality seen. No additional contributory finding. IMPRESSION: 1. Cholelithiasis. 2. Mild small bowel dilatation as discussed above, which could indicate low-grade obstruction. 3. No other potential acute finding. Interpreted by: Andre Pelayo MD Preliminary Report By: Andre Pelayo MD Electronically signed By Andre Pelayo MD Dictated Date: 08/15/2024 1:26:18 PM Prelim Date: 08/15/2024 1:29:00 PM Sign Date: 08/15/2024 1:29:00 PM Ordering Provider: [facility]04-29-2025 Hospital Discharge instructions Patient Education 07/30/2024 09:54:01 Treating Ankle Sprains Treating Ankle Sprains Treatment will depend on how bad your sprain is. For a severe sprain, healing may take 3 months or more. Right after your injury: Use R.I.C.E. BIG: Rest: At first, keep weight off the ankle as much as you can. You may be given crutches to help you walk without putting weight on the ankle. BIG: Ice: Put an ice pack on the ankle for 20 minutes. Remove the pack and wait at least 30 minutes. Repeat for up to 3 days. This helps reduce swelling. BIG: Compression: To reduce swelling and keep the joint stable, you may need to wrap the ankle withan elastic bandage. For more severe sprains, you may need an ankle brace, a boot, or a cast. BIG: Elevation: To reduce swelling, keep your ankle raised above your heart when you sit or lie down. Medicine Your healthcare provider may suggest oral nonsteroidal anti-inflammatory medicine (NSAIDs), such asibuprofen. This relieves the pain and helps reduce swelling. Be sure to take your medicine as directed. Exercises After about 2 to 3 weeks, you may be given exercises to strengthen the ligaments and muscles in theankle. Doing these exercises will help prevent another ankle sprain. Exercises may include standingon your toes and then on your heels and doing ankle curls. Sit on the edge of a sturdy table or lie on your back. Pull your toes toward you. Then point them away from you. Repeat for 2 to 3 minutes. 1834-0834 [employer]. [address] [place] [address], [place] [address]. All rights reserved. This information is not intended as a substitute for professional medical care. Always follow yourhealthcare professional's instructions. Follow Up Care 07/30/2024 09:10:39 With:Follow up with primary care provider Address:Unknown When:2-4 days [facility] 04-29-2025 Note Discharge Instructions Thank you for allowing [facility] to assist you with your healthcare needs. The following is importantdischarge information regarding your hospital visit. Diagnosis from Today's Visit Ankle sprain What to Do Next Instructions from Your Care Team Discharge Home Equipment - Ordered -- Crutches, 99 month(s), 07/30/24 9:54:00 EDT Post Acute Orders No qualifying data available. You Need to Schedule the Following Appointments Follow Up with Follow up with primary care provider When:Within 2-4 days Allergies NKA Medications Please ask your primary doctor or pharmacist before taking any other medication not listed, including over the counter drugs, herbal medications, vitamins and or supplements as they may interact withyour home medications. What How Much When Instructions Last Dose New ibuprofen (ibuprofen 600 mg oral tablet) 1 tab(s) by mouth Every 6 hours as needed for for pain Duration: 10 Days Take with food or milk. Printed Prescription 07/30 @ 9:40a Unchanged ethinyl estradiol-etonogestrel (EnilloRing 0.12 mg-0.015 mg/ 24 hours vaginal ring) 1 Each Vaginal Every 4 weeks Insert a new ring on day 1 and use for 3 weeks, remove for 1 week, then repeat cycle Please take this list to your next doctor s visit. Bring all medications you take, including over the counter medications, herbals and other supplements with you to your doctor s visit. Patients and families are reminded to discard old lists and to update any records with all medication providers or retail pharmacies. Medication Leaflets ibuprofen (EYE bue PROE fen) Advil, Advil Migraine, Children's Advil, Children's Ibuprofen De Oliveira, Children's Motrin, Genpril, IBU, Ibuprohm, Motrin Childrens, Motrin IB, Motrin IB Migraine, Motrin Drops, Motrin Migraine Pain, Proprinal, Wal-Profen What is the most important information I should know about ibuprofen? Ibuprofen can increase your risk of fatal heart attack or stroke. Do not use this medicine just before or after heart bypass surgery (coronary artery bypass graft, or CABG). Ibuprofen may also cause stomach or intestinal bleeding, which can be fatal. What is ibuprofen? Ibuprofen is a nonsteroidal anti-inflammatory drug (NSAID). Ibuprofen is used to reduce fever and treat pain or inflammation caused by many conditions such as headache, toothache, back pain, arthritis, menstrual cramps, or minor injury. This medicine is used in adults and children who are at least 6 months old. Ibuprofen may also be used for purposes not listed in this medication guide. What should I discuss with my healthcare provider before taking ibuprofen? Ibuprofen can increase your risk of fatal heart attack or stroke, even if you don't have any risk factors. Do not use this medicine just before or after heart bypass surgery (coronary artery bypass graft, or CABG). Ibuprofen may also cause stomach or intestinal bleeding, which can be fatal. These conditions can occur without warning while you are using ibuprofen, especially in older adults. You should not use ibuprofen if you are allergic to it, or if you have ever had an asthma attack orsevere allergic reaction after taking aspirin or an NSAID. Ask a doctor or pharmacist if this medicine is safe to use if you have ever had: heart disease, high blood pressure, high cholesterol, diabetes, or if you smoke; a heart attack, stroke, or blood clot; stomach ulcers or bleeding; liver or kidney disease; asthma; or if you take aspirin to prevent heart attack or stroke. Ask a doctor before using this medicine if you are or . If you are , you should not take ibuprofen unless your doctor tells you to. Taking an NSAIDduring the last 20 weeks of can cause serious heart or kidney problems in the unborn babyand possible complications with your . Do not give ibuprofen to a child younger than 6 months old without the advice of a doctor. How should I take ibuprofen? Use exactly as directed on the label, or as prescribed by your doctor. Use the lowest dose that is effective in treating your condition. An ibuprofen overdose can damage your stomach or intestines. The maximum amount of ibuprofen for adults is 800 milligrams per dose or 3200 mg per day (4 maximum doses). A child's dose of ibuprofen is based on the age and weight of the child. Carefully follow the dosing instructions provided with children's ibuprofen for the age and weight of your child. Ask a doctoror pharmacist if you have questions. Take ibuprofen with food or milk to lessen stomach upset. Shake the oral suspension (liquid) before you measure a dose. Use the dosing syringe provided, or use a medicine dose-measuring device (not a kitchen spoon). You must chew the chewable tablet before you swallow it. Store at room temperature away from moisture and heat. Do not allow the liquid medicine to freeze. What happens if I miss a dose? Since ibuprofen is used when needed, you may not be on a dosing schedule. Skip any missed dose if it's almost time for your next dose. Do not use two doses at one time. What happens if I overdose? Seek emergency medical attention or call the Poison Help line at . Overdose symptoms may include nausea, vomiting, stomach pain, drowsiness, black or bloody stools, coughing up blood, shallow breathing, fainting, or coma. What should I avoid while taking ibuprofen? Ask a doctor or pharmacist before using other medicines for pain, fever, swelling, or cold/flu symptoms. They may contain ingredients similar to ibuprofen (such as aspirin, ibuprofen, ketoprofen, or naproxen). Avoid taking aspirin unless your doctor tells you to. If you also take aspirin to prevent stroke or heart attack, taking ibuprofen can make aspirin less effective in protecting your heart and blood vessels. If you take both medicines, take ibuprofen at least 8 hours before or 30 minutes after you take aspirin (non-enteric coated form). Avoid drinking alcohol. It may increase your risk of stomach bleeding. What are the possible side effects of ibuprofen? Get emergency medical help if you have signs of an allergic reaction (hives, difficult breathing, swelling in your face or throat) or a severe skin reaction (fever, sore throat, burning eyes, skin pain, red or purple skin rash with blistering and peeling). Get emergency medical help if you have signs of a heart attack or stroke: chest pain spreading to your jaw or shoulder, sudden numbness or weakness on one side of the body, slurred speech, leg swelling, feeling short of breath. Stop using ibuprofen and call your doctor at once if you have: changes in your vision; shortness of breath (even with mild exertion); swelling or rapid weight gain; a skin rash, no matter how mild; signs of stomach bleeding--bloody or tarry stools, coughing up blood or vomit that looks like coffee grounds; liver problems--nausea, upper stomach pain, itching, tired feeling, flu-like symptoms, loss of appetite, dark urine, sree-colored stools, jaundice (yellowing of the skin or eyes); low red blood cells (anemia)--pale skin, feeling light-headed or short of breath, rapid heart rate,trouble concentrating; or kidney problems--little or no urinating, painful or difficult urination, swelling in your feet or ankles, feeling tired or short of breath. Common side effects may include: nausea, vomiting, gas; bleeding; or dizziness, headache. This is not a complete list of side effects and others may occur. Call your doctor for medical advice about side effects. You may report side effects to FDA at 4-929-GEG-9230. What other drugs will affect ibuprofen? Ask your doctor before using ibuprofen if you take an antidepressant. Taking certain antidepressants with an NSAID may cause you to bruise or bleed easily. Ask a doctor or pharmacist before using ibuprofen with any other medications, especially: cyclosporine; lithium; methotrexate; a blood thinner (warfarin, Coumadin, Jantoven); heart or blood pressure medication, including a diuretic or 'water pill'; or steroid medicine (such as prednisone). This list is not complete. Other drugs may affect ibuprofen, including prescription and uxvh-plk-lsbikzc medicines, vitamins, and herbal products. Not all possible drug interactions are listed here. Where can I get more information? Your pharmacist can provide more information about ibuprofen. Remember, keep this and all other medicines out of the reach of children, never share your medicines with others, and use this medication only for the indication prescribed. Every effort has been made to ensure that the information provided by [employer]') is accurate, up-to-date, and complete, but no guarantee is made to that effect. Drug information contained herein may be time sensitive. [employer] information has been compiled for use by healthcare practitioners and consumers in the [place] and therefore [employer] does not warrant that uses outside of the [place] are appropriate, unless specifically indicated otherwise. [employer] drug information does not endorse drugs, diagnose patients or recommend therapy. [employer] drug information isan informational resource designed to assist licensed healthcare practitioners in caring for their p atients and/or to serve consumers viewing this service as a supplement to, and not a substitute for, the expertise, skill, knowledge and judgment of healthcare practitioners. The absence of a warningfor a given drug or drug combination in no way should be construed to indicate that the drug or drug combination is safe, effective or appropriate for any given patient. [employer] does not assume any responsibility for any aspect of healthcare administered with the aid of information [employer] provides. The information contained herein is not intended to cover all possible uses, directions, precautions, warnings, drug interactions, allergic reactions, or adverse effects. If you have questions about the drugs you are taking, check with your doctor, nurse or pharmacist. Copyright 4181-0523 [employer]. Version: 24.02. Revision Date: 12/21/2022. Education Materials Treating Ankle Sprains Treatment will depend on how bad your sprain is. For a severe sprain, healing may take 3 months or more. Right after your injury: Use R.I.C.E. BIG: Rest: At first, keep weight off the ankle as much as you can. You may be given crutches to help you walk without putting weight on the ankle. BIG: Ice: Put an ice pack on the ankle for 20 minutes. Remove the pack and wait at least 30 minutes. Repeat for up to 3 days. This helps reduce swelling. BIG: Compression: To reduce swelling and keep the joint stable, you may need to wrap the ankle withan elastic bandage. For more severe sprains, you may need an ankle brace, a boot, or a cast. BIG: Elevation: To reduce swelling, keep your ankle raised above your heart when you sit or lie down. Medicine Your healthcare provider may suggest oral nonsteroidal anti-inflammatory medicine (NSAIDs), such asibuprofen. This relieves the pain and helps reduce swelling. Be sure to take your medicine as directed. Exercises After about 2 to 3 weeks, you may be given exercises to strengthen the ligaments and muscles in theankle. Doing these exercises will help prevent another ankle sprain. Exercises may include standingon your toes and then on your heels and doing ankle curls. Sit on the edge of a sturdy table or lie on your back. Pull your toes toward you. Then point them away from you. Repeat for 2 to 3 minutes. 7128-4242 [employer]. [address] [place] [address]. All rights reserved. This information is not intended as a substitute for professional medical care. Always follow yourhealthcare professional's instructions. Additional Information VACCINATE! IT SAVES LIVES! Members of the community who have not yet received the COVID-19 vaccine and would like to receive it can visit one of [facility] vaccine clinics. There are many vaccine clinic locations within the [facility]. For locations and available times, please visit www.[email or web address].[place].gov/. It is important to note that some COVID mobile vaccine clinics are held outdoors and may be canceled in rainy or stormy conditions. To learn more about pediatric vaccinations (ages 5-11), we invite you to visit the [facility] webpage. https://[email or web address].[email or web address]/pages/[email or web address]-Nfrau-Bgzgzyocolo-Pecnjapuko-Ojdip-Wro stions.htmlTo learn more about the COVID-19 vaccine, we invite you to visit the CDC website for a list of frequently asked questions. https://www.cdc.gov/coronavirus/2019-ncov/vaccines/faq.html [facility] Patient Portal Access Instructions: Stay connected with your healthcare team and access your personal medical information anytime with the [facility] Patient Portal. If you would like a full copy of your medical records please contact the [facility] Medical Records Department Monday through Monday between 8a.m. and 4:30p.m. Please follow the directions below to access the portal: 1.Access the email account you provided upon registration to the [facility].2.Look for an invitation email from [facility].3.Open the email and access the invitation link: Accept Invitation to [facility].Fill in the required king to create your account. Sign into [email or web address] with your username and password that you created in the above steps to stay up to date. You can then view a summary of results, a summary of your visits, and the ability to download your summaries to your computer or send the information securely to a physician. Remember that your healthcare information is confidential, so carefully consider who you will allow to register on the [facility] Patient Portal for access to your information. You can also access the [facility] Patient Portal on the [employer]. Simply click on Health Records under [employer] and then click on the [employer] logo. HOW TO SAFELY DISPOSE OF PRESCRIPTION MEDICATIONS Please use one of the following methods to safely dispose of your unused medications. 1.Use a drug disposal kit: the drug disposal pouch allows you to safely discard your old and unuseddrugs. Ask your nurse to give you one when you are discharged.2.Visit a local take-back location: Many local pharmacies and police departments have programs that collect old and unwanted prescriptiondrugs. Call your local pharmacy or go to http://bit.ly/0B2Ow1u to find one close to you.3.Make use of household items: Use cat litter or old coffee grounds to dispose medications if other options arenot available. Mix your drugs with these household products, seal them in an airtight container andthrow it into the garbage. Call [facility]: [phone] to be sure your drugs can be disposed of in this way. Some medicines may require a different approach.4.Never flush your medications down the toilet. IF YOU HAVE BEEN PRESCRIBED AN OPIOIDS FOR PAIN If you have been prescribed an opioid (such as hydrocodone, oxycodone or morphine), it is critical to understand the possible side effects and risks of opioid pain medications. Even when taken as directed, opioids can have several side effects including: Tolerance, meaning you might need to take more of a medication for the same pain relief. Nausea, vomiting and/or constipation. Sleepiness, dizziness, dry mouth, confusion, depression or itching. Physical dependence, meaning you have withdrawal symptoms when a medication is stopped ? this can develop within a few days. KNOW YOUR RESPONSIBILITIES It is important to know exactly how much and how often to take the opioid pain medications you are prescribed. Never take opioids in higher amounts or more often than prescribed. Do not combine opioids with alcohol or other drugs that cause drowsiness, such as benzodiazepines, also known as benzos,including diazepam and alprazolam, muscle relaxants or sleep aids. Never sell or share prescriptionopioids. This is illegal. Store opioids in a secure place and out of reach of others (including children, family, friends and visitors). The last page(s) of this document has been signed and retained as a CHART COPY Signatures Patient Education Materials Treating Ankle Sprains Medication Leaflets ibuprofen My discharge plan and instructions have been reviewed and explained to me and I,ELLI MUJICA understand my current condition and have read and understand these discharge instructions. I have received a written copy of the plan/instructions. If I have questions, I am aware that I should contact my doctor. 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 HISTORY: ORDERING SYSTEM PROVIDED HISTORY: Reason for Exam: fall FINDINGS: There is no acute fracture or dislocation. Alignment is anatomic. The ankle mortise is maintained and there is no osteochondral defect of the talar dome. Bones are well mineralized. No focal soft tissue abnormality. IMPRESSION: No acute fracture or dislocation. Interpreted by: Mónica Hendricks Preliminary Report By: Mónica Hendricks Electronically signed By Mónica Hendricks Dictated Date: 07/30/2024 9:44:29 AM Prelim Date: 07/30/2024 9:45:32 AM Sign Date: 07/30/2024 9:45:32 AM [facility]ing [facility] Telephone encounter Note* Telephone Encounter - Antonella Phillips RN - 07/22/2024 10:27 AM EDT Last OV 06/22/2023. Annual scheduled for 08/12/24. Requested Prescriptions Pending Prescriptions Disp Refills Etonogestrel-Ethinyl Estradiol (NUVARING) 0.12-0.015 mg/24 hr vaginal ring 1 each 4 Sig: Use 1 each vaginally as directed. Antonella Phillips RN [facility]04-21-2025 Miscellaneous Notes* Telephone Encounter - Antonella Phillips RN - 07/22/2024 10:27 AM EDT Last OV 06/22/2023. Annual scheduled for 08/12/24. Requested Prescriptions Pending Prescriptions Disp Refills Etonogestrel-Ethinyl Estradiol (NUVARING) 0.12-0.015 mg/24 hr vaginal ring 1 each 4 Sig: Use 1 each vaginally as directed. Antonella Phillips RN [facility] Telephone encounter Note * Telephone Encounter - Kimberley Marcelino RN - 12/08/2023 12:49 PM EDT Last visit was PP visit 06/22/23. Only 6 months rx was given at that time. Requested Prescriptions Pending Prescriptions Disp Refills Etonogestrel-Ethinyl Estradiol (NUVARING) 0.12-0.015 mg/24 hr vaginal ring 1 Each 4 Sig: Use 1 Each vaginally as directed. Kimberley Marcelino RN [facility]09-06-2024 Miscellaneous Notes* Telephone Encounter - Kimberley Marcelino RN - 12/08/2023 12:49 PM EDT Last visit was PP visit 06/22/23. Only 6 months rx was given at that time. Requested Prescriptions Pending Prescriptions Disp Refills Etonogestrel-Ethinyl Estradiol (NUVARING) 0.12-0.015 mg/24 hr vaginal ring 1 Each 4 Sig: Use 1 Each vaginally as directed. Kimberley Marcelino RN * Telephone Encounter - Elizabeth Doshi - 12/08/2023 11:15 AM EDT Patient has been identified by name and [...] and advise. Elizabeth Doshi [facility] Telephone encounter Note * Telephone Encounter - Elizabeth Doshi - 12/08/2023 11:15 AM EDT Patient has been identified by name and [...] directed. Please review and advise. Elizabeth Doshi [facility]05-19-2024 NoteHNO ID: [id number] Author: WALLY JONES PA Service: ? Author Type: Physician Horse Trainer Type: Progress Notes Filed: 08/20/2023 13:34 Note Text: This note was created using [employer] Systems[employer]. Subjective Elli Mujica is a 22 year [...] daily. (Patient not taking: Reported on 06/22/2023) Eahshlcq-Bo-Zwk-Fe-FA tab Take 1 tablet by mouth once [...] and follow up plan. (more content not included)...[facility]05-19-2024 History of Present illness Narrative* Wally Jones PA - 08/20/2023 1:26 PM EDT This note was created using [employer] Subjective Elli Mujica is a 22 year [...] daily. (Patient not taking: Reported on 06/22/2023) Mhxhabdn-Ry-Hmz-Fe-FA tab Take 1 tablet by mouth once daily. (Patient not taking: Reportedon 06/22/2023) FAMILY HISTORY Problem Relation Age of [...] ER evaluation. CARLOS Amador documented in this [facility]03-[facility]-2024 NoteHNO ID: [id number] Author: AZEB MIN APRN.CNM Service: ? Author Type: Strategic Buyer Type: Progress Notes Filed: 06/22/2023 10:00 Note Text: VISIT Elli Mujica is a 22 year old year old here for visit. Delivery Summary: C/S by RR on 04/07/2023 ROS/ Recovery: Feeding: Bottle feeding problems: None Menses since delivery: None Menstrual pattern prior to : Regular periods [place] since delivery: Resumed Depression: denies symptoms of [...] external genitalia normal, normal Bartholin's glands, urethra, Girdletree's glands, no vulvar lesions, no cervical lesions, [...] RTC for annual exams and PRN Azeb Min APRN.[facility]03-21-2024 History of Present illness Narrative* Azeb Min APRN.CNM - 06/22/2023 9:26 AM EDT VISIT Elli Mujica is a 22 year old year old here for visit. Delivery Summary: C/S by RR on 04/07/2023 ROS/ Recovery: Feeding: Bottle feeding problems: None Menses since delivery: None Menstrual pattern prior to : Regular periods [place] since delivery: Resumed Depression: denies symptoms of [...] external genitalia normal, normal Bartholin's glands, urethra, Girdletree's glands, no vulvar lesions, no cervical lesions, [...] RTC for annual exams and PRN Azeb Min APRN.CNM documented in this [facility]01-[facility]-2024 NoteHNO ID: [id number] Author: RAMILA JOHNSON MD Service: ? Author Type: Physician Type: [...] in bassinet/crib in parent's room, feels rested [place] since delivery: Not resumed Emotional support: Yes [...] for 6 week visit and as needed [facility] NoteHNO ID: [id number] Author: RENATA LEÓN RN Service: ? Author Type: Registered Nurse Type: Progress Notes Filed: 04/10/2023 08:56 Note Text: Patient delivered via C/S at [facility] on 04/07/23 per Rose Polanco MD. See OB Outcome note. Renata León RNSt. Elizabeth [facility] Discharge summary Author Azeb Min [facility] April 09, 2023 9:50am Note Date/Time April 09, 2023 9: 44am [facility] Medical Records Department [address] [place] [address] Discharge Summary 04/09/23 0941 MR#: [id number] Acct: [id number] Name: ELLI MUJICA Rep #:[id number] : 2000 22 From: Azeb Min CNM PCP: Care Physician,No Primary Status :ADM IN Location: [address] Providers Date of Admission: 04/06/23 Primary Care Physician: No Primary Care Phys Reason For Visit: Diagnosis Discharge Diagnosis (1) Single live : Status: Acute Code(s): Z37.0 - Single live (2) Status post primary low transverse section: Status: Acute Code(s): Z98.891 - History of uterine scar from previous surgery (3) Post-operative pain: Status: Acute Code(s): G89.18 - Other acute postprocedural pain Plan POD 1 Primary C/S Pain control support HGB 9.5 down from 11.8- start oral iron supplementation Ambulate today Medications at Discharge Home Medications acetaminophen 500 mg tablet 1,000 mg (2 x 500 mg) PO Q6H #60 tabs 04/09/23 ferrous sulfate 325 mg (65 mg iron) tablet (FeroSul) 325 mg PO 1200,1700 #60 tabs 04/09/23 ibuprofen 600 mg tablet 600 mg PO Q6H #60 tabs 04/09/23 oxycodone 5 mg tablet 5 - 10 mg (1 - 2 x 5 mg) PO Q4H PRN PRN Pain Score 4-10 5 days #14 tabs 04/09/23 sennosides 8.6 mg-docusate sodium 50 mg tablet (Stool Softener-Stimulant Laxative) 1 - 2 tab PO DAILY #60 tabs 04/09/23 Hospital Course Operations section Summary of Care Provided Minutes Spent on Discharge: 20 Hospital Course: Patient had primary section. Hospital course was uneventful. Physical Exam Narrative Patient seen at bedside. Resting comfortably. Ambulating and voiding without difficulty. Denies headache, vision changes, SOB, or CP. Lochia minimal. Passingflatus. Pain is controlled with PO medications. Formula feeding. Desires discharge home. Const alert and no apparent distress General Appearance: cooperative and comfortable Exam Limitations: no limitations HEENT normocephalic Eyes General Eye: normal appearance of both eyes Neck full ROM General: normal visual inspection Chest Chest: symmetrical chest wall rise Resp normal respiratory effort and normal air movement Effort and Inspection: symmetric chest movement Auscultation: clear to auscultation bilaterally Cardio regular rate and regular rhythm GI normal to inspection, nondistended, normoactive bowel sounds Back/Spine normal ROM Extremity full ROM and no calf tenderness General Extremity: normal exam except as noted Skin no rashes or lesions noted Neuro CN's II-XII intact bilaterally Psych mental status grossly normal Weight / BMI Weight Weight: 270 lb 2 oz Body Mass Index (BMI) 43.6 ABG / Lab / Microbiology Data 04/08/23 04:46 D/C Instructions Discharge Diet: No restrictions Discharge Activity: May Drive (2 weeks) and May Shower May resume sexual activity in: 6-8 weeks Weight Bearing Status: Weight bearing as tolerated Call your doctor if your incision/area has: Continuous Slow Oozing, Sudden Increased Bleeding, Increased Pain/ Swelling, Increased Redness, Foul Smelling Discharge and Swelling at the incision site Call your doctor if you observe: Fever of 101 or Higher, Numbness or Tingling, Using more than 1 pad per hour, Shortness of breath, Dizziness, Swelling in the ankles, Chest pain, Calf discomfort and Uncontrolled pain Suture Line Care: Avoid Pulling/Pushing Change Dressing in: 5 days Remove Dressing in: 5 days When: 1 week in office for incision check Meaningful Use Info Meaningful Use Diagnoses (Choose all that apply): None applicable Discharge Plan Admission Admit Date/Time: 04/06/23 19:10 Primary Reason for Your Visit: Labor and Delivery Attending Provider: Rose Polanco Primary Care Provider: Care Physician,No Primary Discharge Orders/Prescriptions Prescriptions: New sennosides-docusate sodium [Stool Softener-Stimulant Laxat] 8.6-50 mg Tablet 1 - 2 tab PO DAILY Qty: 60 0RF acetaminophen 500 mg Tablet 1,000 mg PO Q6H Qty: 60 0RF ferrous sulfate [FeroSul] 325 mg (65 mg iron) Tablet 325 mg PO 1200,1700 Qty: 60 0RF ibuprofen 600 mg Tablet 600 mg PO Q6H Qty: 60 0RF oxycodone 5 mg Tablet 5 - 10 mg PO Q4H PRN PRN (Reason: Pain Score 4-10) 5 Days Qty: 14 0RF Discontinued penicillin V potassium 500 mg tablet 500 mg PO 4X/DAY Qty: 40 0RF clotrimazole [Athletic Foot Cream] 1 % cream 1 applic topical BID 14 Days Qty: 15 0RF Referrals / Follow Up: Care Physician,No Primary [Primary Care Provider] - Disposition Disposition (needs filled in before D/C Order can be placed): Home, Self Care 04/09/23 0950 <Electronically signed by Azeb Min CNM> Cosigner Signature (if applicable): CC: MARY Min; No Primary Care Physician~ Signed [facility] Work Phone: 1(518) 354-666901-06-2024 Progress note Author Azeb Min [facility] April 08, 2023 8:15am Note Date/Time April 08, 2023 8: 15am [facility] Medical Records Department [address] [place] [address] Progress Note - OBGYN 04/08/23 0809 MR#: [id number] Acct: [id number] Name: ELLI MUJICA Rep #:[id number] : 2000 22 From: Azeb Min CNM PCP: Care Physician,No Primary Status :ADM IN Location: [id number] Subjective Subjective Patient seen at bedside. Up in bathroom for the first time. Pain controlled. Planning on showering. with support and may switch to bottle. Denies headache, vision changes, dizziness, SOB, or CP. Objective Data Objective Data Vital Signs: Vital Signs Temp Pulse Resp BP Pulse Ox O2 Del Method 97.1 F L 82 16 127/73 H 97 Room Air 04/08/23 06:56 04/08/23 06:56 04/08/23 06:56 04/08/23 06:56 04/08/23 06:56 04/08/23 06:56 Oxygen Delivery Method Room Air Weight: 270 lb 2 oz Body Mass Index (BMI) 43.6 Intake & Output: Intake and Output for Last 24 Hours 04/06/23 04/07/23 04/08/23 23:59 23:59 23:59 Intake Total 5366.29 / 5366.29 Output Total 2750 / 2750 Balance 2616.29 / 2616.29 Lab / Micro Data 04/08/23 04:46 Labs: Laboratory Results - last 24 hr 04/07/23 08:52: POC Glucose 116 H 04/07/23 11:59: POC Glucose 73 L 04/07/23 15:53: POC Glucose 80 04/07/23 18:54: POC Glucose 69 L 04/07/23 21:34: POC Glucose 101 04/08/23 04:38: POC Glucose 57 L 04/08/23 04:46: WBC 16.1 H, RBC 3.09 L, Hgb 9.5 L, Hct 28.8 L, MCV 93.2, MCH 30.7, MCHC 33.0, RDW Std Deviation 44.2 H, RDW Coeff of Deidre 13.2, Plt Count 273,MPV 10.1 04/08/23 04:53: POC Glucose 62 L 04/08/23 05:18: POC Glucose 81 ROS Eyes Eyes: Denies blurry vision, change in vision or spots in vision ENT HEENT: Denies dizziness or headache(s) Cardiovascular Cardiovascular: Denies abdominal pain, chest pain or dyspnea Respiratory/Chest Respiratory/Chest: Denies cough, dyspnea, shortness of breath at rest or shortness of breath with exertion Gastrointestinal Gastrointestinal: Denies abdominal pain, diarrhea or vomiting Genitourinary Genitourinary: Denies change in urinary stream, difficulty urinating or dysuria Musculoskeletal Musculoskeletal: Reports none Integumentary Integumentary: Denies rash Neurologic Neurologic: Denies dizziness, headache(s), memory loss or weakness Physical Exam Narrative Dressing is dry and intact Const alert and no apparent distress General Appearance: cooperative and comfortable Exam Limitations: no limitations HEENT normocephalic Eyes General Eye: normal appearance of both eyes Neck full ROM General: normal visual inspection Chest Chest: symmetrical chest wall rise Resp normal respiratory effort and normal air movement Effort and Inspection: symmetric chest movement Auscultation: clear to auscultation bilaterally Cardio regular rate and regular rhythm GI normal to inspection, nondistended, normoactive bowel sounds Back/Spine normal ROM Extremity full ROM and no calf tenderness General Extremity: normal exam except as noted Skin no rashes or lesions noted Neuro CN's II-XII intact bilaterally Psych mental status grossly normal Assessment & Plan (1) Single live : (2) Failed induction of labor: (3) Obesity affecting : (4) Status post primary low transverse section: (5) Post-operative pain: (6) Care and examination of lactating mother: PLAN: Plan POD 1 Primary C/S Pain control support HGB 9.5 down from 11.8- start oral iron supplementation Ambulate today 04/08/23 0815 <Electronically signed by Azeb Min CNM> Cosigner Signature (if applicable): CC: ~ Signed [facility] Work Phone: 1(574) 985-350301-05-2024 Progress note Author Azeb Min [facility] April 07, 2023 7:08pm Note Date/Time April 07, 2023 7: 03pm [facility] Medical Records Department [address] [place] [address] [place] [address] Progress Note - OBGYN 04/07/23 1854 MR#: [id number] Acct: [id number] Name: ELLI MUJICA Rep #:[id number] : 2000 22 From: Azeb Min CNM PCP: Care Physician,No Primary Status :ADM IN Location: [id number] Subjective Subjective Patient seen at bedside. Comfortable with epidural. Sleeping on and off. Objective Data Objective Data Vital Signs: Vital Signs Temp Pulse BP Pulse Ox 99.4 F H 141 H 137/78 H 98 04/07/23 16:54 04/07/23 18:53 04/07/23 18:53 04/07/23 08:24 Weight: 270 lb 2 oz Body Mass Index (BMI) 43.6 Intake & Output: Intake and Output for Last 24 Hours 04/05/23 04/06/23 04/07/23 23:59 23:59 23:59 Intake Total 3542.96 / 3542.96 Output Total 1150 / 1150 Balance 2392.96 / 2392.96 Lab / Micro Data 04/06/23 19:30 Labs: Laboratory Results - last 24 hr 04/06/23 19:30: WBC 13.1 H, RBC 3.85 L, Hgb 11.8 L, Hct 34.4 L, MCV 89.4, MCH 30.6, MCHC 34.3, RDW Std Deviation 41.3, RDW Coeff of Deidre 12.8, Plt Count 340, MPV 10.2, Immature Gran % (Auto) 1.200 H, Neut % (Auto) 77.7 H, Lymph % (Auto) 14.7 L, [place] % (Auto) 5.7, Eos % (Auto) 0.3, Baso % (Auto) 0.4, Absolute Neuts (auto) 10.1 H, Absolute Lymphs (auto) 1.92, Nucleated RBC % 0, Syphilis Total AbNon-reactive, Blood Type A POSITIVE, Antibody Screen NEGATIVE 04/06/23 19:49: POC Glucose 109 H 04/06/23 21:00: POC Glucose 88 04/07/23 00:10: Urine Opiates Screen NEGATIVE, Urine Methadone Screen NEGATIVE, Ur Barbiturates Screen NEGATIVE, Ur Phencyclidine Scrn NEGATIVE, Ur AmphetaminesScreen NEGATIVE, MDMA (Ecstasy) Screen NEGATIVE, U Benzodiazepines Scrn NEGATIVE, Urine Cocaine Screen NEGATIVE, U Cannabinoids Screen NEGATIVE, Ur DrugScreen Comment 04/07/23 00:58: POC Glucose 86 04/07/23 04:45: POC Glucose 91 04/07/23 08:52: POC Glucose 116 H 04/07/23 11:59: POC Glucose 73 L 04/07/23 15:53: POC Glucose 80 Assessment & Plan (1) Obesity affecting : (2) Encounter for induction of labor: (3) Gestational diabetes: (4) macrosomia: (5) History of drug use: (6) 38 weeks gestation of : PLAN: Plan CE 3/60/-3 Unchanged from this morning's exam (over 12 hours) Pitocin unable to be increased at times due to tachysystole Patient voicing frustration with no cervical change Discussed above with Dr. Polanco on phone which will be in route to evaluate 04/07/231907 <Electronically signed by Azeb Min CNM> Cosigner Signature (if applicable): CC: ~ Signed [facility] Work Phone: 1(377) 221-362301-05-2024 [facility] Progress note Author Azeb Min [facility] April 07, 2023 8:50am Note Date/Time April 07, 2023 8: 36am [facility] Medical Records Department [address] [place] [address] Progress Note - OBGYN 04/07/23 0834 MR#: [id number] Acct: [id number] Name: ELLI MUJICA Rep #:[id number] : 2000 22 From: Azeb Min CNM PCP: Care Physician,No Primary Status :ADM IN Location: [place] [address] Subjective Subjective Patient seen at bedside. Comfortable with epidural. Denies pain. Objective Data Objective Data Vital Signs: Vital Signs Temp Pulse BP Pulse Ox 97.8 F 87 132/77 H 98 04/07/23 07:30 04/07/23 08:26 04/07/23 08:26 04/07/23 08:24 Weight: 270 lb 2 oz Body Mass Index (BMI) 43.6 Intake & Output: Intake and Output for Last 24 Hours 04/05/23 04/06/23 04/07/23 23:59 23:59 23:59 Intake Total 1639.69 / 1639.69 Balance 1639.69 / 1639.69 Lab / Micro Data 04/06/23 19:30 Labs: Laboratory Results - last 24 hr 04/06/23 19:30: WBC 13.1 H, RBC 3.85 L, Hgb 11.8 L, Hct 34.4 L, MCV 89.4, MCH 30.6, MCHC 34.3, RDW Std Deviation 41.3, RDW Coeff of Deidre 12.8, Plt Count 340, MPV 10.2, Immature Gran % (Auto) 1.200 H, Neut % (Auto) 77.7 H, Lymph % (Auto) 14.7 L, [place] % (Auto) 5.7, Eos % (Auto) 0.3, Baso % (Auto) 0.4, Absolute Neuts (auto) 10.1 H, Absolute Lymphs (auto) 1.92, Nucleated RBC % 0, Syphilis Total AbNon-reactive, Blood Type A POSITIVE, Antibody Screen NEGATIVE 04/06/23 19:49: POC Glucose 109 H 04/06/23 21:00: POC Glucose 88 04/07/23 00:10: Urine Opiates Screen NEGATIVE, Urine Methadone Screen NEGATIVE, Ur Barbiturates Screen NEGATIVE, Ur Phencyclidine Scrn NEGATIVE, Ur AmphetaminesScreen NEGATIVE, MDMA (Ecstasy) Screen NEGATIVE, U Benzodiazepines Scrn NEGATIVE, Urine Cocaine Screen NEGATIVE, U Cannabinoids Screen NEGATIVE, Ur DrugScreen Comment 04/07/23 00:58: POC Glucose 86 04/07/23 04:45: POC Glucose 91 ROS Eyes Eyes: Denies blurry vision, change in vision or spots in vision ENT HEENT: Denies dizziness or headache(s) Cardiovascular Cardiovascular: Denies abdominal pain, chest pain or dyspnea Respiratory/Chest Respiratory/Chest: Denies cough, dyspnea, shortness of breath at rest or shortness of breath with exertion Gastrointestinal Gastrointestinal: Denies abdominal pain, diarrhea or vomiting Genitourinary Genitourinary: Denies change in urinary stream, difficulty urinating or dysuria Musculoskeletal Musculoskeletal: Reports none Integumentary Integumentary: Denies rash Neurologic Neurologic: Denies dizziness, headache(s), memory loss or weakness Physical Exam Const alert, oriented x3 and no apparent distress General Appearance: cooperative Orientation / Consciousness: awake Exam Limitations: no limitations HEENT normocephalic Head and Scalp: normal to inspection Eyes General Eye: normal appearance of both eyes Neck full ROM and no lymphadenopathy Lymph Lymphatic: no lymphadenopathy noted Chest inspection of chest normal Resp normal respiratory effort, normal air movement and clear to auscultation bilaterally Effort and Inspection: able to speak in complete sentences and symmetric chest movement Cardio regular rate and regular rhythm GI normal to inspection, nondistended, normoactive bowel sounds Manual OB Exam: presentation cephalic Amniotic Fluid: clear amniotic fluid Back/Spine normal ROM Extremity full ROM and no calf tenderness Skin no rashes or lesions noted General Skin Exam: no breakdown Neuro oriented x3 and CN's II-XII intact bilaterally Psych mental status grossly normal and thought process normal Assessment & Plan (1) Gestational diabetes: (2) macrosomia: (3) History of drug use: (4) 38 weeks gestation of : (5) Encounter for induction of labor: (6) Obesity affecting : PLAN: Plan NST reactive CE- 3/60/-3 AROM for moderate amount of clear fluid IUPC and FSE placed due to difficulty tracings Continue Pitocin IV and increase per orders Anticipate 04/07/23 0850 <Electronically signed by Azeb Min CNM> Cosigner Signature (if applicable): CC: ~ Signed [facility] Work Phone: 1(221) 236-625501-04-2024 History and physical note Author Joy Rodriguez [facility] April 06, 2023 7:51pm Note Date/Time April 06, 2023 7: 31pm [facility] Medical Records Department [address] [place] [address] H&P 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 Maternal Data Information Final WARREN: 04/15/23 Gestational age: 38&5 PFSH PFSH Medical History (Updated 04/06/23 @ 19:50 by Negar Odell) Anxiety Depression Gestational diabetes Suicidal behavior with attempted self-injury Home Medications penicillin V potassium 500 mg tablet 500 mg PO 4X/DAY #40 tabs 08/20/22 [Rx Last Taken Unknown] clotrimazole 1 % topical cream (Athletic Foot Cream) 1 applic topical BID 2 weeks #15 grams 09/09/22 [Rx Last Taken Unknown] Allergy/AdvReac Type Severity Reaction Status Date / Time No Known Allergies Allergy Verified 04/06/23 19:22 Social History Smoking Status: Current every day smoker tobacco type: cigarettes NST FHR Rate Baby A Baseline: 140 Variability:: Moderate Accelerations:: 15 x 15 Decelerations:: Variable Uterine Activity:: quiet Physical Exam Const alert, oriented x3 and no apparent distress Chest inspection of chest normal GI soft to palpation, non-tender and non-distended Inspection: gravid external exam normal Narrative: cvx - 1/50/-3 Neuro moves all extremities Labs Labs Labs: Blood Type A POSITIVE Antibody Screen Pending Hct 34.4 % (37-47) L Hgb 11.8 g/dL (12.0-15.0) L Obstetrics Ultrasound Syphilis Total Ab Non-reactive VZV IgG Antibody 1104 index (Immune >165) Rubella IgG Antibody Reactive (Nonreactive) Hep Bs Antigen Non-Reactive (Nonreactive) Hepatitis C Antibody Non-Reactive (Nonreactive) HIV 1&2 Antibody Non-Reactive (Nonreactive) Assessment & Plan (1) Gestational diabetes: QUALIFIERS: Gestational diabetes mellitus control: unspecified Trimester: third trimester Qualified Code(s): O24.419 - Gestational diabetes mellitus in , unspecified control (2) macrosomia: (3) History of drug use: (4) 38 weeks gestation of : PLAN: Plan Admit to L&D Induction - for uncontrolled GDM and macrosomia. Intracervical blackwell placed. Plan for cytotec and then pitocin. EFW - less than 4500g (based on recent growth US) and patient with adequate pelvis GBS negative Pain - epidural as desired H/o drug use - needs PP social work consult Routine care 04/06/231950 <Electronically signed by Joy Rodriguez MD> Cosigner Signature (if applicable): CC: Dr. Joy Rodriguez MD; No Primary Care Physician~ Signed [facility] Work Phone: 1(522) 242-602501-03-2024 NoteHNO ID: [id number] Author: Sara Blanco Service: ? Author Type: ? 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 N/A Reason for Outreach [place] Payer: Payor: [employer] / Plan: [employer] / Product Type: Medicaid / Navigation Signature: Sara Blanco April 05, 2023 9:19 [facility]01-03-2024 NoteHNO ID: [id number] Author: Sara Blanco Service: ? Author Type: ? Type: Progress Notes Filed: 04/05/2023 8:46 AM Note Text: POPULATION HEALTH NAVIGATION OUTREACH Action/FYI 3rd attempt left message to add retail business manager to ob provider field Patient Identified by Name and : NO Outreach Outcome/Action Unable to reach patient: Left message Did you use a PCP flex slot to schedule this appointment? N/A Reason for Outreach Payer: Payor: [employer] / Plan: [employer] / Product Type: Medicaid / Navigation Signature: Sara Blanco April 05, 2023 8:45 [facility]01-02-2024 NoteHNO ID: [id number] Author: Joy Rodriguez MD Service: ? Author [...] Contractions: TOCO: None Interpretation: Reactive SIGNATURE: Joy Rodriguez, [facility]01-02-2024 NotePatient Outreach (NETNAV) ELLI MUJICA ([id number]) 89 F Date Time Provider Department 04/04/23 SARA BLANCO During your visit today, we recorded the following information about you: Sara Blanco 04/04/2023 8:38 AM Signed POPULATION HEALTH NAVIGATION OUTREACH Action/ Left message to add retail business manager to OB provider field My chart sent Patient Identified by Name and : NO Outreach Outcome/Action Unable to reach patient: Left message MyChart message sent Did you use a PCP flex slot to schedule this appointment? N/A Reason for Outreach [place] [facility]: [facility] / Plan: [employer] [...] done Depression Assessment Never done Navigation Signature: Sara Blanco April 04, 2023 8:36 AM Sara Blanco 04/05/2023 8:46 AM Signed POPULATION HEALTH NAVIGATION OUTREACH Action/FYI 3rd attempt left message to add retail business manager to ob provider field Patient Identified by Name and : NO Outreach Outcome/Action Unable to reach patient: Left message Did you use a PCP flex slot to schedule this appointment? 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 N/A Reason for Outreach Payer: Payor: [facility] MEDICAID / Plan: [employer] / Product Type: Medicaid / Navigation Signature: Sara Blanco April 05, 2023 9:19 AM Allergies [...] cmpk 1 Application four times daily. - Ayqsrmxz-Ny-Fum-Fe-FA tab Take 1 tablet by mouth once [...] during in third trim*03/30/2023 Encounter Status:Closed by SARA BLANCO on 04/04/23[facility] 04-04-2023 NoteHNO ID: [id number] Author: Sara Blanco Service: ? Author Type: ? Type: Progress Notes Filed: 04/04/2023 8:38 AM Note Text: POPULATION HEALTH NAVIGATION OUTREACH Action/FYI Left message to add retail business manager to OB provider field My chart sent [...] done Depression Assessment Never done Navigation Signature: Sara Blanco April 04, 2023 8:36 [facility]12-12-2023 Miscellaneous Notes * Telephone Encounter - Aliza Leon RN - 03/14/2023 4:26 PM EST Patient is doing 3 hour GTT this Saturday 03/17. Order linked to upcoming appointment. Aliza Leon RN * Telephone Encounter - Joy Rodriguez MD - 03/14/2023 4:22 PM EST 3gr GTT filed. Does patient think she can do 3hr in the next week? If not I would recommend proceeding with diabetic education and checking her BS. Joy Rodriguez MD * Telephone Encounter - Aliza Leon RN - 03/14/2023 4:16 PM EST Patient had 1 hour glucose test today and saw her results on [employer]. Reviewed results and instructions for 3 hour GTT. Appointment scheduled. Please file pended order, will need to be attached to upcoming appointment. Aliza Leon RN [facility] Miscellaneous Notes* Quick Notes - Joy Rodriguez MD - 03/14/2023 2:14 PM EST KJ - VB No. LOF No. CTXS [...] reviewed. Joy Rodriguez MD documented [facility]12-[facility]-2023 Instructions* Patient Instructions* Elizabeth Aguilar Ma - 03/14/2023 1:01 PM EST SEQUENTIAL SCREENINGS [facility] offers sequential screenings for women who are interested in screenings for chromosomal abnormalities and certain defects during a . The sequential screen combinesultrasound and blood tests to determine the risk [...] this testing. It will require an appointment withour metrology technician. This is not an ultrasound performed [...] the above symptoms, contact our office at [phone] and ask to speak with anurse. After hours, you can call doctors registry at [phone] OR call [facility] at [phone] ask to have the doctor adapted physical education aide paged. If you consider this an emergency, dial 91-7 or go to your nearest emergency department. NEED HELP? Are you dealing with a violent or abusive relationship? Are you a victim of rape or sexual assult? Call [facility] ([place]) 24 hour Crisis Hotline: 803.989.5638 or 282-672-4969. MANUAL Your Guide to a Healthy manual is now on-line. Visit [email or web address] to download your free copy documented in this encounterWooster [facility]10-17-2023 NoteHNO ID: [id number] Author: Joy Rodriguez MD Service: ? Author [...] use: No Multivitamin with Folic acid: Yes Nondenominational or heritage: No Would refuse blood transfusion [...] Sig Dispense Refill PNV/ferrous sulfate/folic acid ( [id number]-CXXB-[id number] ACID ORAL) Take by mouth. Etonogestrel-Ethinyl Estradiol [...] Joy Rodriguez MD Date: 01/17/2023 Time: 2:36 [facility]10-17-2023 Miscellaneous Notes* Quick Notes - Joy Rodriguez MD - 01/17/2023 2:37 PM EDT KJ - VB No. LOF No. CTXS [...] reviewed. Joy Rodriguez MD [facility] History of Present illness Narrative* Joy Rodriguez MD - 01/17/2023 1:58 PM EDT INITIAL OB ASSESSMENT OB Provider: Joy Rodriguez [...] use: No Multivitamin with Folic acid: Yes Nondenominational or heritage: No Would refuse blood transfusion [...] Sig Dispense Refill PNV/ferrous sulfate/folic acid ( ELG-ACAH-UXLBT ACID ORAL) Take by mouth. Etonogestrel-Ethinyl Estradiol [...] 01/17/2023 Time: 2:36 PM documented in this [facility]10-[facility]-2023 Instructions* Patient Instructions* Sissy Moerira MA - 01/17/2023 1:58 PM EDT Please select the following link to access the [facility] Your Guide to a Healthy . [email or web address] documented in this encounter[facility]10-16-2023 Miscellaneous Notes* Telephone Encounter - Nathalia Tapia LPN - 01/16/2023 10:47 AM EDT Pt has appointment 01/17/23. Nathalia Tapia LPN * Telephone Encounter - Nathalia Tapia LPN - 01/10/2023 9:32 AM EDT Attempted to contact pt. No voicemail, does not appear to actively use her mychart. Will try again later. Nathalia Tapia LPN * Telephone Encounter - Millie Woods APRN.CNM - 01/09/2023 5:05 PM EDT We will have to see her for a problem visit to establish her care and keep NOB as scheduled unless there is time for her to have NOB on that day. Thank you, Millie Woods APRN.CNM * Telephone Encounter - Mali Green RN - 01/09/2023 4:36 PM EDT Patient is 26w2d. He had her prenew OB telephone visit today. She is transferring care from [place]. She has only had 2 office visits [...] and happens about 2 times a day. Shedenies any dysuria, fever, loss of fluids, increased discharge. Baby is active. She states that 3 weeks ago she noticed colorful dots in my eyes that was almost psychedelic. This lasted for 15 to 20 minutes and occurred when she woke up. She states she has not had that happen again. Patient is advised to call/come in/seek immediate care if she develops any increase in pain or intensity of pain,the development of dysuria or fever, loss of fluids or irritating vaginal discharge or as needed problems. She is also advised to call if any further visual changes. Please advise if further advice. Patient has new OB with Dr. Rodriguez on January 17 documented in this encounterW[facility]10-09-2023 NoteHNO ID: [id number] Author: Mali Green RN Service: ? Author [...] use: No Multivitamin with Folic acid: Yes Nondenominational or heritage: No Would refuse blood transfusion [...] Sig Dispense Refill PNV/ferrous sulfate/folic acid ( IKH-RQXU-XXPOR ACID ORAL) Take by mouth. Etonogestrel-Ethinyl Estradiol [...] Assessed 01/09/2023 Does patient have penicillin allergy: [facility]10-09-2023 Miscellaneous Notes* Quick Notes - Mali Green RN - 01/09/2023 4:25 PM EDT DISTANCE HEALTH VISIT This Team Access Model visit is a phone encounter. It required patient-provider interaction for themedical decision making as documented below. Elli Mujica is a 22 year old female seen for PNOB. Patient is transferring care from [place]. Ruma received the records from [place] and they are sent to Dr. Rodriguez nurse [facility] for upcoming appointment. Patient has had [address] Conklin. The last visit was on November 17 and she had an anatomy scan at that time. Patient states that this time she is limiting the amount of involvement fromthe father of the baby. He has had issues with disorderly conduct and parole or probation officer she is seeing his recommend that that he needs to improve himself before he can be involved with her and the baby. 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 She states she got out 8 months ago. She is currently in an IOP at [facility] per the conditions of her probation. Patient states she has another year of probation. Discussed the risks of using drugs in and patient states she understands. Patient has had housing instability this . She has earlier [facility] and [facility]. Patient states that she was treated for a wisdom tooth infection in August.Her symptoms have improved but she states that the dentist does want to pull her teeth. She will discuss this with Dr. Rodriguez at her new OB visit.TKRN documented in this encounterW[facility]10-09-2023 History of Present illness Narrative* Mali Green RN - 01/09/2023 4:09 PM EDT INITIAL OB ASSESSMENT OB Provider: Mali Green [...] use: No Multivitamin with Folic acid: Yes Nondenominational or heritage: No Would refuse blood transfusion [...] bills: Sometimes by situation has improved recently [facility] appt this month Within the past 12 [...] Sig Dispense Refill PNV/ferrous sulfate/folic acid ( ZCA-YHSX-HOXCT ACID ORAL) Take by mouth. Etonogestrel-Ethinyl Estradiol [...] have penicillin allergy: No documented in this encounterW[facility]07-11-2023 NoteHNO ID: [id number] Author: Jay Ashby APRN.TOOL FILER HAND Service: ? Author Type: Nurse Practitioner Type: [...] of care. This note was generated using ZoomTilt software. It (more content not included)...[facility] summary Author Jewel Bolivar [facility] June 19, 2023 2:32am Note Date/Time June 19, 2023 2:1 5am [facility] Medical Records Department [address] [place] [id number] Emergency Department Summary 06/19/23 MR#: [id number] Acct: [id number] Name: ELLI MUJICA Rep #:[id number] : 2000 22 From: Jewel Bolivar MD PCP: Care Physician,No Primary Status :REG ER Location: ED HPI HPI - GI History of Present Illness Chief Complaint: Abd Pain Detail of Chief Complaint: Epigastric pain with nausea and vomiting per triage note also complained of Informant: patient Abdominal Pain/Flank Pain Onset: Today (Epigastric pain per my independent history with nausea) Context: Sudden Onset Timing: Continuous Quality: Aching and Burning Current Severity: Mild Maximum Severity: Severe Worsened by: Food Relieved by: Nothing Nausea/Vomiting/Emesis GI Symptom: Positive for Nausea; Negative for Vomiting Diarrhea/Melena/Hematochezia GI Symptom: Negative for Diarrhea, Melena or Hematochezia Associated Symptoms Associated Symptoms: Negative for Dysuria, Frequency, Hematuria or Urgency Narrative Narrative: Patient is a 22-year-old woman who delivered in February. She is present on no control pills. She denies symptoms of . She reports epigastric pain. She does report nausea. She had no vomiting. She denies black or maroon-colored stool. She denies bright red blood per rectum. She has history of reflux. She denies fever, chills night sweats. Denies headache, visual, ocular auditorysymptoms. She denies cough, shortness of breath or difficulty breathing. She does report shortness of breath. This is there is no history of PE or DVT. She denies leg pain, swelling discoloration. Prior similar symptoms: No Recent Illness/Hospitalization: No PFSH PFSH Medical History Anxiety Depression Failed induction of labor Gestational diabetes Gestational diabetes History of drug use Obesity affecting Post-operative pain Single live Suicidal behavior with attempted self-injury Home Medications acetaminophen 500 mg tablet 1,000 mg (2 x 500 mg) PO Q6H #60 tabs 04/09/23 [Rx Last Taken Unknown] oxycodone 5 mg tablet 5 - 10 mg (1 - 2 x 5 mg) PO Q4H PRN PRN Pain Score 4-10 5 days #14 tabs 04/09/23 [Rx Last Taken Unknown] amoxicillin 875 mg tablet 875 mg PO BID 06/19/23 [History Last Taken Unknown] famotidine 40 mg tablet (Pepcid) 40 mg PO DAILY #30 tabs 06/19/23 [Rx Last Taken Unknown] Allergy/AdvReac Type Severity Reaction Status Date / Time No Known Allergies Allergy Verified 06/19/23 00:04 Surgical History Status post primary low transverse section Social History Smoking Status: Current some day smoker tobacco type: cigarettes ROS ROS ED Constitutional Constitutional ED: Denies chills, fever(s), subjective, sweats or weight loss ENT ENT ED: Denies ear pain, rhinorrhea or sore throat Cardiovascular Cardiovascular: Denies chest pain, palpitations or racing heartbeat Respiratory/Chest Respiratory/Chest: Denies cough, dyspnea or dyspnea on exertion Gastrointestinal Gastrointestinal: Reports abdominal pain and nausea; Denies constipation, diarrhea, melena or vomiting Musculoskeletal Musculoskeletal: Denies arthralgias, back pain, myalgias or neck pain Integumentary Denies rash Endocrine Endocrinology: Denies polydipsia, polyphagia or polyuria EXAM Physical Exam Const Vital Signs: 06/19/23 00:00 06/19/23 01:37 Temperature 98.1 F Temperature Source Oral Pulse Rate 69 87 Respiratory Rate 14 16 Blood Pressure 134/70 H 120/76 Blood Pressure Mean 91 90 Pulse Ox 98 100 Oxygen Delivery Method Room Air Room Air Positive well nourished, well developed and obese General Appearance ED: well developed and NAD; Negative for pallor Nutritional Appearance: obese HEENT Reports moist mucous membranes normocephalic and atraumatic Eyes PERRL and EOMs intact bilaterally Neck no lymphadenopathy, supple and no JVD Resp normal respiratory effort and clear to auscultation bilaterally Cardio regular rate, regular rhythm, S1 normal heart sound, S2 normal heart sound and no murmurs GI non-distended and no masses; Negative for non-tender Auscultation: normoactive bowel sounds Palpation: soft and tender epigastric Back/Spine no CVA tenderness Extremity full ROM General Extremety ED: Yes edema General Extremity: edema Neuro CN's II-XII intact bilaterally, moves all extremities and no sensory deficits noted Sensorium / Orientation: alert Psych mental status grossly normal and thought process normal Skin no wounds General Skin Exam: Negative for jaundice or pallor MDM MDM MDM Narrative Medical decision making narrative: With recent delivery epigastric upper abdominal pain need to consider cholelithiasis, acute cholecystitis, reflux, hiatal hernia, peptic ulcer diseasedoubt cardiac or pulmonary cause. Patient was treated with GI cocktail. Blood work was obtained to assess white count liver enzymes lipase. Lab Data Attestation: I reviewed the patient's lab results. Lab results narrative: CBC, basic metabolic panel, liver panel and lipase are all normal. Labs: Laboratory Results - last 24 hr 06/19/23 01:00 WBC 7.4 RBC 4.19 L Hgb 12.1 Hct 36.7 L MCV 87.6 MCH 28.9 MCHC 33.0 RDW Std Deviation 39.5 RDW Coeff of Deidre 12.4 Plt Count 432 MPV 9.7 Immature Gran % (Auto) 0.400 Neut % (Auto) 61.6 Lymph % (Auto) 29.3 [place] % (Auto) 7.3 Eos % (Auto) 1.1 Baso % (Auto) 0.3 Absolute Neuts (auto) 4.5 Absolute Lymphs (auto) 2.16 Nucleated RBC % 0 Sodium 142 Potassium 4.2 Chloride 108 H Carbon Dioxide 28.0 Anion Gap 6 BUN 11 Creatinine 0.85 Estim Creat Clear Calc 125.63 Est GFR (MDRD) Af Amer 106 Est GFR (MDRD) Non-Af 88 BUN/Creatinine Ratio 13.0 Glucose 93 Calcium 8.9 Total Bilirubin 0.10 L Direct Bilirubin 0.06 AST 16 ALT 23 Alkaline Phosphatase 107 Total Protein 7.3 Albumin 3.2 Globulin 4.1 Lipase 29 Treatment and Re-Evaluation :: Patient's symptoms resolved with the GI cocktail. Will prescribe Pepcid. She is to follow-up with her doctor. She was instructed that her primary care provider name is listed on the insurance card she was issued by care source. Discharge Plan Triage Chief Complaint: Abd Pain Other Complaint: Nausea/Vomiting ED Provider: Jewel Bolivar Dx/Rx/DC Orders Clinical Impression: Acute epigastric pain Instructions: ED Epigastric Pain Uncertain Cause Prescriptions: New famotidine [Pepcid] 40 mg tablet 40 mg PO DAILY Qty: 30 0RF No Action acetaminophen 500 mg Tablet 1,000 mg PO Q6H Qty: 60 0RF oxycodone 5 mg Tablet 5 - 10 mg PO Q4H PRN PRN (Reason: Pain Score 4-10) 5 Days Qty: 14 0RF amoxicillin 875 mg tablet 875 mg PO BID Primary Care Provider: Care Physician,No Primary Referrals: Care Physician,No Primary [Primary Care Provider] - Doctor,Your [Non-Staff] - 1-2 Weeks Activity Restrictions/Additional Instructions: The name of your primary care provider is located on the insurance card issued to you by care source. If you develop black stool or maroon-colored stool return to the emergency department Disposition Disposition: Home, Self Care What to do if you have Problems For any increased pain, shortness of breath, bleeding, nausea or vomiting, chestpain, or any unexpected problems, contact your Primary Care Provider. Call [facility] ([phone]) or report to the closest Emergency Room. Call 911 if necessary. 06/19/23 0232 <Electronically signed by Jewel Bolivar MD> Cosigner Signature (if applicable): CC: No Primary Care Physician ~ Signed [facility] Work Phone: Evaluation + Plan note No data available for this section [facility] Evaluation noteNo assessment information available [facility] Work Phone: Evaluation note* Diagnosis with care elsewhere, antepartum- Primary History of drug use Housing instability, currently housed Dental abscess Periapical abscess without sinus History of depression Personal history of other mental disorder Pelvic pain affecting , antepartum Family history of defect Family history of congenital anomalies Vapes nicotine containing substance [facility] Diagnosis Encounter for care in second trimester of first - Primary 27 weeks gestation of state, incidental Excessive weight gain in , third trimester [facility]* Diagnosis Encounter for anatomic survey- Primary Encounter for care in second trimester of first 31 weeks gestation of state, incidental with care elsewhere in third trimester Obesity affecting in third trimester, unspecified obesity type [facility]* Diagnosis with care elsewhere, antepartum- Primary 35 weeks gestation of state, incidental Excessive weight gain in , third trimester [facility]* Diagnosis Abnormal glucose complicating - Primary Abnormal maternal glucose tolerance, complicating , childbirth, or the puerperium, unspecified as to episode of care [facility]* Diagnosis Onset Date Resolution Status 38 weeks gestation of acute 38 weeks gestation of acute Care and examination of lactating mother acute Encounter for induction of labor acute Failed induction of labor ac te-[place] macrosomia acute Gestational diabetes acute History of drug use acute Obesity affecting acute Post-operative pain acute Single live acute Status post primary low transverse section acute [facility] Work Phone: Evaluation note* Diagnosis Onset Date Resolution Status 38 weeks gestation of resolved 38 weeks gestation of resolved Care and examination of lactating mother resolved Encounter for induction of labor resolved macrosomia resolved [facility] Work Phone: Evaluation note* Diagnosis care and examination- Primary Routine follow-up Delivery of by section [facility] Diagnosis Skin infection- Primary Unspecified local infection of skin and subcutaneous tissue Sore throat Acute pharyngitis Earlobe lesion, left [facility]charge instructions Additional Instructions Pre Eclampsia info sheet [facility]WP[facility] Work Phone: Hospital Discharge instructions Additional Instructions The name of your primary care provider is located on the insurance card issued to you by care source. If you develop black stool or maroon-colored stool return to the [facility] Work Phone: Reason for referral (narrative)* Diagnostic Procedure Only (Routine) - Pending Review Specialty Diagnoses / Procedures Referred By Contac t Referred To Contact [facility] Diagnoses Encounter for care in second trimester of first 27 weeks gestation of Procedures OBSTETRIC ULTRASOUND WHI US PREG UTERUS AFTER 1ST TRIMEST GESTATION Joy Rodriguez MD [address] [place] [address] [facility] [place] [address] Referral ID Status Reason Start Date Expiration Date Visits Requested Visits Authorized [id number] Pending Review Auto-Generat ed Referral 3 01/17/2024 1 1 T [facility] for referral (narrative)* Diagnostic Procedure Only (Routine) - Authorized Specialty Diagnoses / Procedures Referred By Contac t Referred To Contact [facility] Diagnoses Excessive weight gain in , third trimester Procedures OBSTETRIC ULTRASOUND WHI US PREG UTERUS AFTER 1ST TRIMEST GESTATION Joy Rodriguez MD [address] [place] [address] [facility] [place] [address] Referral ID Status Reason Start Date Expiration Date Visits Requested Visits Authorized [id number] Authorized Auto-Generat ed Referral 3 03/13/2024 1 1 [facility] Summary Purpose Family History No Family History Records FoundNo Family History Records Found No data available for this section No data available for this section No Family History Records FoundNo Family History Records Found Advance Directives No Advanced Directives Records Found Advance Directive Response Recorded Date/ Time Living Will No September 09, 2022 9 :50am Power of Floor Refinisher No September 09, 2022 9:50am Advance Directive Response Recorded Date/ Time Living Will No September 09, 2022 8 :50am Power of Floor Refinisher No September 09, 2022 8:50am Advance Directive Response Recorded Date/ Time Living Will No April 06 7:45pm Power of Floor Refinisher No April 06 7:45pm Advance Directive Response Recorded Date/ Time Living Will No June 19, 2023 2:44am Power of Floor Refinisher No June 18 2:44am Chief Complaint and Reason for Visit Chief Complaint DENTAL PAIN PELVIC PAIN RASH Chief Complaint R/O LABOR Chief Complaint R/O LABOR Reason for Visit 38 weeks gestation o f 38 weeks gestation of Care and examination of lactating mother Encounter for induction of labor Failed induction of labor macrosomia Gestational diabetes History of drug use Obesity affecting Post-operative pain Single live 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 Complaint R/O LABOR ABDOMINAL PAIN Reason for Visit 38 weeks gestation o f 38 weeks gestation of Care and examination of lactating mother Encounter for induction of labor macrosomia Health Concerns Problem Noted Date Diagnosed Date [...] Referral Specialty Diagnoses / Procedures Referred By Macario hassan Referred To Contact Dermatology Diagnoses Skin infection Earlobe lesion, left Procedures CONSULT TO DERMATOLOGY [facility] [address] [place] [address] Referral ID Status Reason Start Date Expiration Date Visits Requested Visits Authorized [id number] Ref Not Required PCP Requested Referral 08/20/2023 08/19/2024 1 1 Additional Source Comments INFORMATION SOURCE (unrecogn ized section and content) DATE CREATED AUTHOR 09/27/2017 [facility] ([place]) DATE CREATED AUTHOR AUTHOR'S ORGANIZ ATION 08/22/2023 [facility] DATE CREATED AUTHOR AUTHOR'S ORGANIZ ATION 08/18/2024 [facility] DATE CREATED AUTHOR AUTHOR'S ORGANIZ ATION 02/09/[address] [facility] Care Teams (unrecognized sec tion and content) Team Status: Active Member Role Status Dates Dr. Leanne Johnson MD Family Provider Active No Primary Care Physician Primary Care Provider Active Team Status: Inactive Member Role Status Dates No Primary Care Physician Primary Care Provider Active Dr. Tanner Obregon DO Attending Provider, Emergency Provide r Active Team Status: Inactive Member Role Status Dates No Primary Care Physician Primary Care Provider Active Dr. Paulo Carrion MD Attending Provider, Emergency Provider Active Team Status: Inactive Member Role Status Dates No Primary Care Physician Primary Care Provider Active Dr. Michael Conklin MD Attending Provider Active Team Status: Inactive Member Role Status Dates No Primary Care Physician Primary Care Provider Active Millie Woods CNM Attending Provider, Referring Prov ider Active Team Status: Inactive Member Role Status Dates No Primary Care Physician Primary Care Provider Active Dr. Joy Rodriguez MD Admit Provider Active Dr. Rose Polanco MD Attending Provider Active Team Status: Inactive Member Role Status Dates No Primary Care Physician Primary Care Provider Active Dr. Jewel Bolivar MD Emergency Provider Active Goals (unrecognized section and content) Goals may be documented in a n alternate sectionGoals may be documented in an alternate section No data available for this section No data available for this section Source Comments (unrecognize d section and content) In the event this informatio n is protected by the Federal Confidentiality of Alcohol and Drug Abuse Patient Records regulations: The Federal rules restrict any use of the information to criminally investigate or prosecute any alcohol or drug abuse patient.[facility] the event this information is protected by the Federal Confidentiality of Alcohol and Drug Abuse Patient Records regulations: The Federal rules restrict any use of the information to criminally investigate or prosecute any alcohol or drug abuse patient.[facility] HospitalIn the event this information is protected by the Federal Confidentiality of Alcohol and Drug Abuse Patient Records regulations: The Federal rules restrict any use of the information to criminally investigate or prosecute any alcohol or drug abuse patient.[facility] Hospital[facility] the event this information is protected by the Federal Confidentiality of Alcohol and Drug Abuse Patient Records regulations: The Federal rules restrict any use of the information to criminally investigate or prosecute any alcohol or drug abuse patient.[facility] Hospital[facility] the event this information is protected by the Federal Confidentiality of Alcohol and Drug Abuse Patient Records regulations: The Federal rules restrict any use of the information to criminally investigate or prosecute any alcohol or drug abuse patient.[facility] HospitalIn the event this information is protected by the Federal Confidentiality of Alcohol and Drug Abuse Patient Records regulations: The Federal rules restrict any use of the information to criminally investigate or prosecute any alcohol or drug abuse patient.[facility] Hospital[facility] the event this information is protected by the Federal Confidentiality of Alcohol and Drug Abuse Patient Records regulations: The Federal rules restrict any use of the information to criminally investigate or prosecute any alcohol or drug abuse patient.[facility] Hospital[facility] the event this information is protected by the Federal Confidentiality of Alcohol and Drug Abuse Patient Records regulations: The Federal rules restrict any use of the information to criminally investigate or prosecute any alcohol or drug abuse patient.[facility] Hospital[facility] the event this information is protected by the Federal Confidentiality of Alcohol and Drug Abuse Patient Records regulations: The Federal rules restrict any use of the information to criminally investigate or prosecute any alcohol or drug abuse patient.[facility] HospitalIn the event this information is protected by the Federal Confidentiality of Alcohol and Drug Abuse Patient Records regulations: The Federal rules restrict any use of the information to criminally investigate or prosecute any alcohol or drug abuse patient.[facility] Reason for Visit (unrecogniz ed section and content) Reason Comments Care Reason Comments Initial OB Visit Transfer from [facility] Reason Comments US Specialty Diagnoses / Procedures Referred By Macario hassan Referred To Contact [facility] Diagnoses Encounter for care in second trimester of first 27 weeks gestation of Procedures OBSTETRIC ULTRASOUND WHI US PREG UTERUS AFTER 1ST TRIMEST GESTATION Joy Rodriguez MD [address] [place] [address] [facility] [address] [place] [id number] Referral ID Status Reason Start Date Expiration Date V isits Requested Visits Authorized [id number] Closed Auto-Generate d Referral 01/17/2023 01/17/2024 1 1 Reason Onset Date Comments Care 03/14/2023 Reason Comments Results Orders Reason Comments Sore Throat x 1 day, lump by lef t ear x 1 week Reason Onset Date Comments Refill Request 12/08/2023 Reason Onset Date Comments Refill Request 07/22/2024 FOR RECORDS PERTAINING TO PATIENTS WHO ARE [...] BE BASED ON THE PRIMARY CLINICAL RECORDS. [facility], [facility]. provides no warranty or guarantee of the accuracy or completeness of information in this document.
[2025-02-22 11:45] LABS: Pregnancy, Urine Positive Negative
--- NOTE | 2025-02-22 11:46 | ED.RN ---
lab called positive preg
--- NOTE | 2025-02-22 11:47 | EDS_ITS ---
HPI History of Present Illness Chief Complaint: Fatigue Narrative Narrative: Chief complaint and HPI: 24-year-old female who is suspected G2, P1 presents for confirmation. Patient states her last menstrual cycle was in January. States for the past several days she has been feeling fatigued. She is 7 days late for her menstrual cycle. She took 2 home urine test that were minimally positive and presents for urine test. She has yet to take prenatals. She denies any abdominal pain, nausea, vomiting, vaginal bleeding. Review of systems: See HPI Medications: As listed on the chart Allergies: As listed on the chart PFSH: Per chart Vital signs: As listed on the chart. Reviewed. Physical exam: Gen: NAD Eyes: No sclera icterus, conjunctiva clear ENT: Moist mucous membranes CV: Regular rate Resp: Nonlabored respiration Psych: Cooperative, appropriate mood and affect PFSH PFSH Medical History Post-operative pain Single live Failed induction of labor Obesity affecting Anxiety Gestational diabetes Suicidal behavior with attempted self-injury Depression Gestational diabetes History of drug use Home Medications ?Medication ?Instructions ?Recorded ?Last Taken ?Type acetaminophen 500 mg tablet 1,000 mg (2 x 500 mg) PO Q 6H #60 04/09/23 Unknown Rx tabs oxycodone 5 mg tablet 5 - 10 mg (1 - 2 x 5 mg) PO Q4H 04/09/23 Unknown Rx PRN PRN Pain Score 4-10 5 days #14 tabs amoxicillin 875 mg tablet 875 mg PO BID 06/19/23 Unkno wn History famotidine 40 mg tablet (Pepcid) 40 mg PO DAILY #30 ta bs 06/19/23 Unknown Rx ibuprofen 200 mg tablet (Motrin IB) 600 mg (3 x 200 mg ) PO Q6H PRN 01/27/24 Unknown Rx pain #40 tabs dicyclomine 20 mg tablet 20 mg PO TID PRN abdominal p ain 01/27/25 Unknown Rx #14 tabs loperamide 2 mg capsule (Imodium 2 mg PO Q6H PRN loose stool #10 01/27/25 Unknown Rx A-D) caps ondansetron 4 mg disintegrating 4 mg PO Q8H PRN PRN Na usea #10 tabs 01/27/25 Unknown Rx tablet Allergy/AdvReac Type Severity Reaction Status Date / Time No Known Allergies Allergy Verified 02/22/25 10:48 Surgical History Status post primary low transverse section Social History (Updated 02/22/25 @ 11:08 by Fina Sifuentes) housing: house Smoking Status: Current some day smoker tobacco type: e-cigarettes EXAM Physical Exam Const Vital Signs: 02/22/25 10:47 02/22/25 11:04 Temperature 97 F L Temperature Source Temporal Pulse Rate 88 Respiratory Rate 14 Respiratory Effort Normal Non-Labored Blood Pressure 153/90 H Blood Pressure Mean 111 Pulse Ox 98 Oxygen Delivery Method Room Air MDM MDM MDM Narrative Medical decision making narrative: 24-year-old female who is suspected G2, P1 presents for confirmation. Patient states her last menstrual cycle was in January. States for the past sev eral days she has been feeling fatigued. She is 7 days late for her menstrual cycle. She took 2 home urine test that were minimally positive and presents for urine test. She has yet to take prenatals. She denies any abdominal pain, nausea, vomiting, vaginal bleeding. Differential diagnosis includes but is not limited to versus irregular menstrual cycle. Suspect given the positive test at home. Will obtain UA to make sure that she does not have an associated UTI that would require antibiotics. She is not endorsing any UTI symptoms. Urine is positive. UA is negative for UTI. Patient is . Recommended starting prenatals. Follow-up with [facility]. She confirmed understand the plan. Patient able to discharge home. Impression: 1. First trimester Lab Data Labs: Laboratory Results - last 24 hr 02/22/25 11:12 Urine Color Yellow Urine Clarity Clear Urine pH 6.0 Ur Specific [place] 1.015 Urine Protein 15 H Urine Glucose (UA) Normal Urine Ketones Negative Urine Occult Blood Negative Urine Nitrite Negative Urine Bilirubin Negative Urine Urobilinogen Normal Ur Leukocyte Esterase Negative Urine RBC 0 SEEN Urine WBC 0 SEEN Ur Squamous Epith Cells 10-25 SEEN Urine Bacteria 0 SEEN Urine Mucus 0 SEEN Urine Test Positive H Discharge Plan Triage Chief Complaint: Fatigue ED Provider: Wilver Jaramillo Dx/Rx/DC Orders Prescriptions: No Action acetaminophen 500 mg Tablet 1,000 mg PO Q6H Qty: 60 0RF oxycodone 5 mg Tablet 5 - 10 mg PO Q4H PRN PRN (Reason: Pain Score 4-10) 5 Days Qty: 14 0RF amoxicillin 875 mg tablet 875 mg PO BID famotidine [Pepcid] 40 mg tablet 40 mg PO DAILY Qty: 30 0RF ibuprofen [Motrin IB] 200 mg tablet 600 mg PO Q6H PRN (Reason: pain) Qty: 40 0RF ondansetron 4 mg tablet,disintegrating 4 mg PO Q8H PRN PRN (Reason: Nausea) Qty: 10 0RF loperamide [Imodium A-D] 2 mg capsule 2 mg PO Q6H PRN (Reason: loose stool) Qty: 10 0RF dicyclomine 20 mg tablet 20 mg PO TID PRN (Reason: abdominal pain) Qty: 14 0RF Primary Care Provider: Care Physician,No Primary Referrals: Care Physician,No Primary [Primary Care Provider, Medical] Print Language: Citizen [place]
[2025-02-22 11:53] VITALS: BP 130/80; PULSE 88; RESP 14; TEMP 36.1; O2SAT 98
== END 2025-02-22 12:12 | disposition home or self-care (01) ==
PROVIDERS: Emergency Provider Surgery; Visit Provider Surgery
DX: O26.811 Pregnancy related exhaustion and fatigue, first trimester (principal); O34.211 Maternal care for low transverse scar from previous cesarean delivery; O99.331 Smoking (tobacco) complicating pregnancy, first trimester; F17.290 Nicotine dependence, other tobacco product, uncomplicated; Z3A.00 Weeks of gestation of pregnancy not specified
CPT/HCPCS: 81001; 81025; 99282